=== PATIENT | male | born 1935 | race Caucasian/White ===

== ENCOUNTER 2016-11-16 09:59 | Emergency (ER) | payer MEDICARE, BC ==
[~2016-11-16] VITALS: Ht 182.9 cm; Wt 95.0 kg
[~2016-11-16 09:59] MED LIST: AMIO200T PO; APIX5TAB PO; COMMODE 3-IN-11 MIS; DIGO0.127 PO; FAMO20TA2 NG; FURO1TAB60 PO; GETGO ROLLING W1 MI1; HOSP BED1; LORA-361 PO; TAMS5CAP PO; ULTR50TA5 PO; WHEEMIS3; ZOLO100T PO
[2016-11-16 10:02] VITALS: TEMP 98.5
[2016-11-16] MEDS ORDERED: SODIUM CHLOR 0.9% 1000 ML INJ 1,000 ML IV ONE (10:15)
[2016-11-16] MEDS ORDERED: SODIUM CHLORIDE 0.9% FLUSH 5 ML FLUSH IVF PRN (10:15)
[2016-11-16 10:25] VITALS: BP 147/83; PULSE 90; RESP 18; O2SAT 94
--- NOTE | 2016-11-16 10:25 | PD ---
HPI Chief Complaint: Altered Mental Status Time Seen by Provider: 10:06 Travel History International Travel<30 days: No Contact w/Intl Traveler<30days: No Traveled to known affect area: No History of Present Illness HPI This patient is brought in by his . She says that he's been and had altered mental status for 2 days. He came home from rehabilitation 4 days ago. He received a prescription for tramadol is a new medication and she thinks that may be the cause but is not sure. He is on no other sedating her mind altering medication. He denies headache or head injury. No fevers. reports that he is had visual hallucinations. She wondered if he is going through narcotic withdrawal since he had received a lot of narcotics in his hospital stay. Symptoms severity is moderate. No alleviating factors. PFSH Past Medical History Hx Anticoagulant Therapy: Yes Blood Disorders: No Cancer: Yes (PAROTID) Cardiovascular Problems: Yes High Cholesterol: Yes Coronary Artery Disease: Yes Diabetes: Yes Patient Takes Glucophage: No Diminished Hearing: No Endocrine: No Gastrointestinal Disorders: Yes ( CROHNS DISEASE) GERD: Yes Glaucoma: No Genitourinary: No Hepatitis: No Hiatal Hernia: No Hypertension: Yes Immune Disorder: No Implanted Vascular Access Dvce: No Kidney Stones: Yes Medical other: No Musculoskeletal: No Neurologic: No Psychiatric: No Reproductive: No Respiratory: Yes Migraines: Yes Radiation Therapy: Yes (LAST IN 12/2009) Sleep Apnea: Yes (CPAP) Thyroid Disease: No Tetanus Vaccination: Unknown Past Surgical History Abdominal Surgery: Yes (BILATERAL INGUINAL HERNIA REPAIR) Cardiac Surgery: Yes (RIGHT CEA 2009) Ear Surgery: No Endocrine Surgery: No Eye Surgery: Yes (CATARACT TO LEFT EYE ) Genitourinary Surgery: No Gynecologic Surgery: No Neurologic Surgery: No Oral Surgery: Yes (NASAL SX) Pacemaker: No Thoracic Surgery: No Other Surgery: Yes (LAPAROSCOPIC APPENDECTOMY,PAROTID SURGURY) Social History Alcohol Use: Yes (DAILY 1-2 DRINKS) Tobacco Use: No Substance Use: No Allergies-Medications (Allergen,Severity, Reaction): Coded Allergies: Aspirin (Verified Allergy, Unknown, ABD CRAMPS, 11/16/16) Reported Meds & Prescriptions Reported Meds & Active Scripts Active Ultram (Tramadol HCl) 50 Mg Tab 50 Mg PO Q4H PRN Claritin (Loratadine) 10 Mg Tab 10 Mg PO DAILY Eliquis (Apixaban) 5 Mg Tab 5 Mg PO BID Digox (Digoxin) 0.125 Mg Tab 0.125 Mg PO DAILY Lasix (Furosemide) 40 Mg Tab 40 Mg PO DAILY Famotidine 20 Mg Tab 20 Mg NG DAILY Amiodarone (Amiodarone HCl) 200 Mg Tab 200 Mg PO Q12HR Flomax (Tamsulosin HCl) 0.4 Mg Cap 0.4 Mg PO DAILY Zoloft (Sertraline HCl) 100 Mg Tab 100 Mg PO DAILY Hospital Bed - Electric 1 Ea Ea 1 Ea .ROUTE DIRECTED Commode 3-in-1 (Device) 1 Mis Mis 1 Ea .ROUTE DIRECTED Walker Rolling/GetGo (Device) 1 Mis Mis 1 Ea .ROUTE DIRECTED Wheelchair (Device) 1 Mis Mis 1 Ea .ROUTE DIRECTED Review of Systems General / Constitutional: No: Fever Eyes: No: Visual changes HENT: No: Headaches Cardiovascular: No: Chest Pain or Discomfort Respiratory: No: Shortness of Breath Gastrointestinal: No: Abdominal Pain Genitourinary: No: Dysuria Musculoskeletal: Positive: Weakness, No: Pain Skin: No Rash Neurologic: Positive: Weakness, Change in Mentation Psychiatric: No: Depression Endocrine: No: Polydipsia Hematologic/Lymphatic: No: Easy Bruising Physical Exam Narrative GENERAL: Well-nourished, well-developed patient in no apparent distress. SKIN: Warm and dry. HEAD: Atraumatic. Normocephalic. EYES: Pupils equal and round. No scleral icterus. No injection or drainage. ENT: No nasal bleeding or discharge. Mucous membranes pink and dry. NECK: Trachea midline. No JVD. No meningeal signs CARDIOVASCULAR: Regular rate and rhythm. No murmur appreciated. RESPIRATORY: No accessory muscle use. Clear to auscultation. Breath sounds equal bilaterally. GASTROINTESTINAL: Abdomen soft, non-tender, nondistended. Hepatic and splenic margins not palpable. MUSCULOSKELETAL: No obvious deformities. No clubbing. No cyanosis. No edema. NEUROLOGICAL: Awake and alert. No obvious cranial nerve deficits. Motor grossly within normal limits. Normal speech. PSYCHIATRIC: Appropriate mood and affect; insight and judgment seems normal. Data Data Last Documented VS Vital Signs Date Time Temp Pulse Resp B/P Pulse Ox O2 Delivery O2 Flow Rate FiO2 11/16/16 10:46 74 18 155/64 94 Nasal Cannula 3 11/16/16 10:02 98.5 Orders Electrocardiogram (11/16/16 ) Basic Metabolic Panel (Bmp) (11/16/16 10:15) Complete Blood Count With Diff (11/16/16 10:15) Urinalysis - C+S If Indicated (11/16/16 10:15) Ct Brain W/O Iv Contrast(Rout) (11/16/16 10:15) Ecg Monitoring (11/16/16 10:15) Iv Access Insert/Monitor (11/16/16 10:15) Cath For Specimen (11/16/16 10:15) Oximetry (11/16/16 10:15) Sodium Chloride 0.9% Flush (Ns Flush) (11/16/16 10:15) Sodium Chlor 0.9% 1000 Ml Inj (Ns 1000 M (11/16/16 10:15) Digoxin (11/16/16 10:15) Urine Culture (11/16/16 10:25) Labs Laboratory Tests Test 11/16/16 10:25 White Blood Count 9.0 TH/MM3 Red Blood Count 3.87 MIL/MM3 Hemoglobin 10.7 GM/DL Hematocrit 32.7 % Mean Corpuscular Volume 84.6 FL Mean Corpuscular Hemoglobin 27.7 PG Mean Corpuscular Hemoglobin 32.8 % Concent Red Cell Distribution Width 13.9 % Platelet Count 232 TH/MM3 Mean Platelet Volume 7.8 FL Neutrophils (%) (Auto) 74.8 % Lymphocytes (%) (Auto) 11.4 % Monocytes (%) (Auto) 12.8 % Eosinophils (%) (Auto) 0.7 % Basophils (%) (Auto) 0.3 % Neutrophils # (Auto) 6.7 TH/MM3 Lymphocytes # (Auto) 1.0 TH/MM3 Monocytes # (Auto) 1.2 TH/MM3 Eosinophils # (Auto) 0.1 TH/MM3 Basophils # (Auto) 0.0 TH/MM3 CBC Comment DIFF FINAL Differential Comment Urine Color YELLOW Urine Turbidity CLEAR Urine pH 5.5 Urine Specific Adrian 1.009 Urine Protein NEG mg/dL Urine Glucose (UA) NEG mg/dL Urine Ketones NEG mg/dL Urine Occult Blood NEG Urine Nitrite NEG Urine Bilirubin NEG Urine Urobilinogen LESS THAN 2.0 MG/DL Urine Leukocyte Esterase TRACE Urine WBC 2 /hpf Urine Squamous Epithelial <1 /hpf Cells Urine Bacteria RARE /hpf Urine Hyaline Casts 3 /lpf Urine Mucus FEW /lpf Microscopic Urinalysis Comment CATH-CULTURE IND Sodium Level 136 MEQ/L Potassium Level 3.3 MEQ/L Chloride Level 94 MEQ/L Carbon Dioxide Level 32.8 MEQ/L Anion Gap 9 MEQ/L Blood Urea Nitrogen 14 MG/DL Creatinine 0.88 MG/DL Estimat Glomerular Filtration 83 ML/MIN Rate Random Glucose 90 MG/DL Calcium Level 8.5 MG/DL Digoxin Level 1.4 NG/ML [facility] Medical Decision Making Medical Screen Exam Complete: Yes Emergency Medical Condition: Yes Medical Record Reviewed: Yes Differential Diagnosis Dehydration, electrolyte abnormality, withdrawal of narcotic, intracranial lesion Narrative Course I have reviewed the patient's electronic medical record. Reviewed his discharge summary from the hospital a few days ago IV placed CBC is normal Metabolic profile is normal Digoxin level is normal Urinalysis is clean Brain CT shows nothing acute. 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 No obvious suggestion of significant withdrawal on exam at this point. If he does have a some degree of narcotic withdrawal I expect it to gradually resolve over time. On recheck he is alert and oriented and doing well. I don't feel this rises to a level of hospitalization and who is a nurse and patient agree They have follow-up with Dr. Bowman in 3 days They will hold the tramadol Diagnosis Primary Impression: Acute encephalopathy Additional Impression: Medication side effect Qualified Code: T88.7XXA - Medication side effect, initial encounter Additional Instructions: Hold tramadol The patient was advised to follow up with their physician and return if they worsen. Med/Other Pt SpecificInfo: Other Disposition: 01 DISCHARGE HOME Condition: Stable Yury De La Cruz MD Nov 16, 2016 10:25
[2016-11-16 10:42] LABS: AUTOMATED NEUTROPHIL # 6.7 TH/MM3 (1.8-7.7); BASOPHIL % 0.3 % (0.0-2.0); EOSINOPHIL # 0.1 TH/MM3 (0-0.4); EOSINOPHIL % 0.7 % (0.0-4.0); HEMATOCRIT 32.7 % (39.0-51.0); HEMO FLAGS DIFF FINAL; LYMPH % 11.4 % (9.0-44.0); MEAN CELL VOLUME 84.6 FL (80.0-100.0); MEAN CORPUSCULAR HEMOGLOBIN 27.7 PG (27.0-34.0); MEAN CORPUSCULAR HGB CONC 32.8 % (32.0-36.0); MONO % 12.8 % (0.0-8.0); NEUT % 74.8 % (16.0-70.0); PLATELET COUNT 232 TH/MM3 (150-450); RED BLOOD COUNT 3.87 MIL/MM3 (4.50-5.90); RED CELL DISTRIBUTION WIDTH 13.9 % (11.6-17.2)
[2016-11-16 10:44] VITALS: O2SAT 94
[2016-11-16 10:44] LABS: BACTERIA, URINE RARE /hpf; BLOOD, URINE NEG (NEG); COMMENT (UR) CATH-CULTURE IND; CULTURE IF INDICATED CATH CULTURE IND; GLUCOSE,URINE NEG (NEG); HYALINE CAST, URINE 3 /lpf (RARE); KETONE, URINE NEG (NEG); MUCUS URINE FEW /lpf (OCC); NITRITE,URINE NEG (NEG); PH, URINE 5.5 (5.0-8.5); SQUAMOUS EPITHELIAL CELL URINE <1 /hpf (0-5); URINE COLOR YELLOW (YELLW/STRAW)
[2016-11-16 10:46] VITALS: BP 155/64; PULSE 74; RESP 18; O2SAT 94
--- NOTE | 2016-11-16 10:46 | RADRPT ---
EXAM DATE/TIME: 11/16/2016 10:30 [place] COMPARISON: No previous studies available for comparison. INDICATIONS : Altered mental status. RADIATION DOSE: 69.16 CTDIvol (mGy) MEDICAL HISTORY : Cardiovascular disease. Hypertension. Diabetes mellitus type 2.Parotid cancer. SURGICAL HISTORY : None. ENCOUNTER: Initial ACUITY: 1 day PAIN SCALE: 3/10 LOCATION: cranial TECHNIQUE: Multiple contiguous axial images were obtained of the head. Using automated exposure control and adj ustment of the mA and/or kV according to patient size, radiation dose was kept as low as reasonably a chievable to obtain optimal diagnostic quality images. FINDINGS: CEREBRUM: There is diffuse atrophic change. 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 No acute s troke or hemorrhage identified The ventricles are normal for age. No evidence of midline shift, mass lesion, hemorrhage or acute infarction. No extra-axial fluid collections are seen. POSTERIOR FOSSA: The cerebellum and brainstem are intact. The 4th ventricle is midline. The cerebellopontine angle i s unremarkable. EXTRACRANIAL: The visualized portion of the orbits is intact. SKULL: The calvaria is intact. No evidence of skull fracture. 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 No evidence of acute hemorrhage, edema, mass or m ass effect.. Андрей Bautista MD on November 16, 2016 at 10:43 Board Certified Radiologist. This report was verified electronically.
[2016-11-16 10:55] LABS: BICARBONATE 32.8 MEQ/L (21.0-32.0); POTASSIUM 3.3 MEQ/L (3.5-5.1)
[2016-11-16 11:10] LABS: DIGOXIN 1.4 NG/ML (0.8-2.0)
[2016-11-16 12:06] VITALS: BP 148/63
--- NOTE | 2016-11-17 19:45 | EKG ---
Date Performed: 11/16/2016 Time Performed: 10:13:42 PTAGE: 81 years EKG: ATRIAL FLUTTER/TACHYCARDIA MODERATE INTRAVENTRICULAR CONDUCTION DELAY NONSPECIFIC ST & T-WA VE ABNORMALITY ABNORMAL RHYTHM ECG PREVIOUS TRACING : 10/10/2016 13.34 DOCTOR: Tay Paez Interpretating Date/Time 11/17/2016 19:39:00
[2016-12-31] MEDS ORDERED: SENN1TAB PO (10:29)
[2016-12-31] MEDS ORDERED: APIX5TAB PO (10:29)
[2016-12-31] MEDS ORDERED: POTA10TA2 PO (11:00)
[2016-12-31] MEDS ORDERED: ULTR50TA5 PO (11:00)
[2016-12-31] MEDS ORDERED: FURO1TAB60 PO (11:00)
[2016-12-31] MEDS ORDERED: VANC125C3 PO (11:00)
[2016-12-31] MEDS ORDERED: TRAZ50TA12 PO (11:00)
[2016-12-31] MEDS ORDERED: LACT PO (11:00)
[2016-12-31] MEDS ORDERED: FAMO20TA2 NG (11:00)
[2016-12-31] MEDS ORDERED: TAMS5CAP PO (11:00)
[2016-12-31] MEDS ORDERED: AMIO200T PO (11:00)
[2016-12-31] MEDS ORDERED: ZOLO100T PO (11:00)
[2016-12-31] MEDS ORDERED: METO25TA3 PO (11:00)
[2016-12-31] MEDS ORDERED: VITA100T2 PO (11:00)
[2016-12-31] MEDS ORDERED: LORA-361 PO (11:00)
[2016-12-31] MEDS ORDERED: NYST15T TOPICAL (12:08)
== END 2016-11-16 12:50 | disposition home or self-care (01) ==
LOC: NEPC 09:59
DX: G93.40 Encephalopathy, unspecified (principal); T88.7XXA Unspecified adverse effect of drug or medicament, initial encounter; E78.00 Pure hypercholesterolemia, unspecified; I25.10 Atherosclerotic heart disease of native coronary artery without angina pectoris; E11.9 Type 2 diabetes mellitus without complications; I10 Essential (primary) hypertension; G47.30 Sleep apnea, unspecified; K21.9 Gastro-esophageal reflux disease without esophagitis; K50.90 Crohn's disease, unspecified, without complications; R00.0 Tachycardia, unspecified; I48.92 Unspecified atrial flutter; Z79.01 Long term (current) use of anticoagulants
CPT/HCPCS: 70450; 80048; 80162; 81001; 85025; 87086; 93005; 96360; 99285; J7030

== ENCOUNTER 2016-11-30 12:51 | Inpatient (IN) | payer MEDICARE, BC ==
[~2016-11-30] VITALS: Ht 182.9 cm; Wt 90.0 kg
[2016-11-30 12:55] VITALS: BP 186/84; PULSE 90; RESP 18; TEMP 97.4; O2SAT 88
--- NOTE | 2016-11-30 13:49 | PD ---
HPI Chief Complaint: Abdominal Pain Time Seen by Provider: 13:04 Travel History International Travel<30 days: No Contact w/Intl Traveler<30days: No Traveled to known affect area: No History of Present Illness HPI This patient complains of epigastric pain. He's had chronic epigastric pain every day for a month but the pain is Significantly worse in the last 2-3 days.. His brought him in here because she mistakenly thought that he was complaining about chest pain. He confirms that the pain is in his upper abdomen like it is always been. He has not had any chest symptoms today. No fever. No diarrhea. He vomited multiple times today. Severity is moderate to severe. No alleviating factors. PFSH Past Medical History Hx Anticoagulant Therapy: Yes Blood Disorders: No Cancer: Yes (PAROTID) Cardiovascular Problems: Yes High Cholesterol: Yes Coronary Artery Disease: Yes Diabetes: Yes Patient Takes Glucophage: Yes Diminished Hearing: No Endocrine: No Gastrointestinal Disorders: Yes ( CROHNS DISEASE) GERD: Yes Glaucoma: No Genitourinary: No Hepatitis: No Hiatal Hernia: No Hypertension: Yes Immune Disorder: No Implanted Vascular Access Dvce: No Kidney Stones: Yes Musculoskeletal: No Neurologic: No Psychiatric: No Reproductive: No Respiratory: Yes Migraines: Yes Radiation Therapy: Yes (LAST IN 12/2009) Sleep Apnea: Yes (CPAP) Thyroid Disease: No Tetanus Vaccination: < 5 Years Past Surgical History Abdominal Surgery: Yes (BILATERAL INGUINAL HERNIA REPAIR) Cardiac Surgery: Yes (RIGHT CEA 2009) Ear Surgery: No Endocrine Surgery: No Eye Surgery: Yes (CATARACT TO LEFT EYE ) Genitourinary Surgery: No Gynecologic Surgery: No Neurologic Surgery: No Oral Surgery: Yes (NASAL SX) Pacemaker: No Thoracic Surgery: No Other Surgery: Yes (LAPAROSCOPIC APPENDECTOMY,PAROTID SURGURY) Social History Alcohol Use: Yes (DAILY 1-2 DRINKS) Tobacco Use: No Substance Use: No Allergies-Medications (Allergen,Severity, Reaction): Coded Allergies: Aspirin (Verified Allergy, Unknown, ABD CRAMPS, 11/30/16) Reported Meds & Prescriptions Reported Meds & Active Scripts Active Ultram (Tramadol HCl) 50 Mg Tab 50 Mg PO Q4H PRN Claritin (Loratadine) 10 Mg Tab 10 Mg PO DAILY Eliquis (Apixaban) 5 Mg Tab 5 Mg PO BID Digox (Digoxin) 0.125 Mg Tab 0.125 Mg PO DAILY Lasix (Furosemide) 40 Mg Tab 40 Mg PO DAILY Famotidine 20 Mg Tab 20 Mg NG DAILY Amiodarone (Amiodarone HCl) 200 Mg Tab 200 Mg PO Q12HR Flomax (Tamsulosin HCl) 0.4 Mg Cap 0.4 Mg PO DAILY Zoloft (Sertraline HCl) 100 Mg Tab 100 Mg PO DAILY Hospital Bed - Electric 1 Ea Ea 1 Ea .ROUTE DIRECTED Commode 3-in-1 (Device) 1 Mis Mis 1 Ea .ROUTE DIRECTED Walker Rolling/GetGo (Device) 1 Mis Mis 1 Ea .ROUTE DIRECTED Wheelchair (Device) 1 Mis Mis 1 Ea .ROUTE DIRECTED Review of Systems General / Constitutional: No: Fever Eyes: No: Visual changes HENT: No: Headaches Cardiovascular: No: Chest Pain or Discomfort Respiratory: No: Shortness of Breath Gastrointestinal: Positive: Nausea, Vomiting, Abdominal Pain Genitourinary: No: Dysuria Musculoskeletal: No: Pain Skin: No Rash Neurologic: No: Weakness Psychiatric: No: Depression Endocrine: No: Polydipsia Hematologic/Lymphatic: No: Easy Bruising Physical Exam Narrative GENERAL: Well-nourished, well-developed patient in no apparent distress. SKIN: Warm and dry. HEAD: Atraumatic. Normocephalic. EYES: Pupils equal and round. No scleral icterus. No injection or drainage. ENT: No nasal bleeding or discharge. Mucous membranes pink and moist. NECK: Trachea midline. No JVD. CARDIOVASCULAR: Regular rate and rhythm. No murmur appreciated. RESPIRATORY: No accessory muscle use. Clear to auscultation. Breath sounds equal bilaterally. GASTROINTESTINAL: Abdomen soft, has some epigastric tenderness without rebound or guarding, nondistended. Hepatic and splenic margins not palpable. MUSCULOSKELETAL: No obvious deformities. No clubbing. No cyanosis. No edema. NEUROLOGICAL: Awake and alert. No obvious cranial nerve deficits. Motor grossly within normal limits. Normal speech. PSYCHIATRIC: Appropriate mood and affect; insight and judgment normal. Data Data Last Documented VS Vital Signs Date Time Temp Pulse Resp B/P Pulse Ox O2 Delivery O2 Flow Rate FiO2 11/30/16 13:01 11/30/16 12:55 97.4 90 18 88 Room Air Orders Electrocardiogram (11/30/16 ) Iv Access Insert/Monitor (11/30/16 13:32) Complete Blood Count With Diff (11/30/16 13:32) Comprehensive Metabolic Panel (11/30/16 13:32) Lipase (11/30/16 13:32) Ondansetron Inj (Zofran Inj) (11/30/16 14:30) Morphine Inj (Morphine Inj) (11/30/16 14:30) Sodium Chlor 0.9% 1000 Ml Inj (Ns 1000 M (11/30/16 14:30) Hydromorphone Pf Inj (Dilaudid Pf Inj) (11/30/16 15:45) Admit Order (Ed Use Only) (11/30/16 15:38) Labs Laboratory Tests Test 11/30/16 13:45 White Blood Count 12.9 TH/MM3 Red Blood Count 4.51 MIL/MM3 Hemoglobin 12.4 GM/DL Hematocrit 37.9 % Mean Corpuscular Volume 84.1 FL Mean Corpuscular Hemoglobin 27.5 PG Mean Corpuscular Hemoglobin 32.6 % Concent Red Cell Distribution Width 14.9 % Platelet Count 357 TH/MM3 Mean Platelet Volume 7.9 FL Neutrophils (%) (Auto) 78.1 % Lymphocytes (%) (Auto) 15.0 % Monocytes (%) (Auto) 5.7 % Eosinophils (%) (Auto) 0.6 % Basophils (%) (Auto) 0.6 % Neutrophils # (Auto) 10.1 TH/MM3 Lymphocytes # (Auto) 1.9 TH/MM3 Monocytes # (Auto) 0.7 TH/MM3 Eosinophils # (Auto) 0.1 TH/MM3 Basophils # (Auto) 0.1 TH/MM3 CBC Comment DIFF FINAL Differential Comment Sodium Level 139 MEQ/L Potassium Level 4.0 MEQ/L Chloride Level 100 MEQ/L Carbon Dioxide Level 34.0 MEQ/L Anion Gap 5 MEQ/L Blood Urea Nitrogen 12 MG/DL Creatinine 1.23 MG/DL Estimat Glomerular Filtration 56 ML/MIN Rate Random Glucose 147 MG/DL Calcium Level 8.8 MG/DL Total Bilirubin 0.4 MG/DL Aspartate Amino Transf 35 U/L (AST/SGOT) Alanine Aminotransferase 59 U/L (ALT/SGPT) Alkaline Phosphatase 139 U/L Total Protein 7.0 GM/DL Albumin 3.0 GM/DL Lipase 3381 U/L [facility] Medical Decision Making Medical Screen Exam Complete: Yes Emergency Medical Condition: Yes Medical Record Reviewed: Yes Differential Diagnosis Chronic pancreatitis, pseudocyst, gastritis Narrative Course I have reviewed the patient's electronic medical record. I saw him 10 days ago for his concern about a medication side effect. IV placed CBC shows minimal leukocytosis of 12.8 Metabolic profile is normal LFTs are normal Lipase Is elevated at 3300 This patient has known gallstone pancreatitis but could not get a cholecystectomy according to Gen. surgery until cardiac clearance was obtained. He did have a recent non-STEMI. He is scheduled this week for outpatient cardiac testing but the patient is having worse pain and vomiting and he is old and frail and not doing well at home. I gave him Zofran and morphine and IV fluid and he is still in pain and throwing up. He will require admission for his acute pancreatitis. At least 2 control symptoms. I reviewed with Dr. Lay who will admit Diagnosis Primary Impression: Acute pancreatitis Qualified Code: K85.10 - Acute biliary pancreatitis without infection or necrosis Admitting Information Admitting Physician Requests: Admit Yury De La Cruz MD Nov 30, 2016 13:49
[2016-11-30 14:00] LABS: AUTOMATED NEUTROPHIL # 10.1 TH/MM3 (1.8-7.7); BASOPHIL # 0.1 TH/MM3 (0-0.2); BASOPHIL % 0.6 % (0.0-2.0); EOSINOPHIL # 0.1 TH/MM3 (0-0.4); EOSINOPHIL % 0.6 % (0.0-4.0); HEMATOCRIT 37.9 % (39.0-51.0); HEMO FLAGS DIFF FINAL; LYMPHOCYTE # 1.9 TH/MM3 (1.0-4.8); MEAN CELL VOLUME 84.1 FL (80.0-100.0); MEAN CORPUSCULAR HEMOGLOBIN 27.5 PG (27.0-34.0); MEAN CORPUSCULAR HGB CONC 32.6 % (32.0-36.0); MONO % 5.7 % (0.0-8.0); NEUT % 78.1 % (16.0-70.0); PLATELET COUNT 357 TH/MM3 (150-450); RED BLOOD COUNT 4.51 MIL/MM3 (4.50-5.90); RED CELL DISTRIBUTION WIDTH 14.9 % (11.6-17.2); WHITE BLOOD COUNT 12.9 TH/MM3 (4.0-11.0)
[2016-11-30 14:15] LABS: ANION GAP 5 MEQ/L (5-15)
[2016-11-30 14:18] LABS: ALKALINE PHOSPHATASE 139 U/L (45-117); ALT (GPT) 59 U/L (12-78); AST (GOT) 35 U/L (15-37); BLOOD UREA NITROGEN 12 MG/DL (7-18); CHLORIDE 100 MEQ/L (98-107); GLOMERULAR FILTRATION RATE 56 ML/MIN (>89); SODIUM (NA) 139 MEQ/L (136-145); TOTAL BILIRUBIN ADULT 0.4 MG/DL (0.2-1.0)
[2016-11-30] MEDS ORDERED: SODIUM CHLOR 0.9% 1000 ML INJ 1,000 ML IV ONE (14:30)
[2016-11-30] MEDS ORDERED: MORPHINE SULFATE 4 MG/ML INJ IV PUSH ONE (14:30)
[2016-11-30] MEDS ORDERED: ONDANSETRON HCL 4 MG/2 ML VIAL IV ONE (14:30)
[2016-11-30] MEDS ORDERED: HYDROmorphone HCL PF 1 MG/ML VIAL IVS ONE (15:45)
[2016-11-30] MEDS ORDERED: ONDANSETRON HCL 4 MG/2 ML VIAL IVP PRN (16:00)
[2016-11-30] MEDS ORDERED: PROCHLORPERAZINE 25 MG SUPP PR PRN (16:00)
[2016-11-30] MEDS ORDERED: NALOXONE HCL 0.4 MG/ML AMP IV PRN (16:00)
[2016-11-30] MEDS ORDERED: SODIUM CHLORIDE 0.9% FLUSH 5 ML FLUSH FLUSH PRN (16:00)
--- NOTE | 2016-11-30 16:34 | HHI.HP ---
HPI Service [facility] Primary Care Physician Agus Bowman DO Admission Diagnosis pancreatitis Diagnoses: Chief Complaint: abdominal pain, N/V (Nida Lopez) Travel History International Travel<30 Days: No Contact w/Intl Traveler <30 Da: No Traveled to Known Affected Are: No (Nida Lopez) History of Present Illness Pt is an 81-year-old male, with past medical history significant for hypertension, coronary artery disease, dyslipidemia and previous right carotid stenosis with carotid endarterectomy, prior ETOH and tobacco abuse, and obesity. Pt. had a recent prolonged hospitalization and subsequent rehab at [facility] after he was admitted on 10/09/2016 with acute pancreatitis secondary to gallstones. Patient developed respiratory distress requiring intubation and mechanical ventilation. He also went into new onset A. fib that require amiodarone drip and cardioversion. During this prior hospitalization, he was evaluated by Dr. Umanzor and informed pt that due to the gallstones, he would eventually need cholecystectomy in th future. He was instructed to follow up as outpatient after he underwent rehabilitation and had improved. Pt was finally extubated and recovered. He was eventually discharged to [facility] with postpyloric feedings and was eventually advanced to a regular diet. Patient was discharged from [facility] on 11/13/2016. According to the he had been doing fairly well, he had been weak but had been ambulating with a walker. This morning, patient woke up with recurrent epigastric pain similar to previous presentation with pancreatitis. He had associated nausea and vomiting 3, with yellow colored emesis. No fever, no chills. 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 According to , patient had not followed up with Dr. Umanzor, they were waiting to see Dr. De La Rosa who had previously evaluated the pt. for a left axillary lymph node biopsy that he was due to have before he became critically ill in October. She is requesting that surgery consultation be called to Dr. De La Rosa. endorses that patient is currently undergoing cardiac workup with Dr. Aceves. He was supposed to have a carotid ultrasound and was due to have a stress test next week. He is on amiodarone as well as Eliquis. Because of his complicated medical history and new cardiac problems, Dr. Aceves was evaluating him before he made any appointments to see general surgery. Patient denies any chest pain, no shortness of breath, no palpitations. His amiodarone was recently decreased to 200 mg by mouth daily. In the emergency room, patient was evaluated and was noted with elevated lipase of 3381. He had mild leukocytosis. Sats on room air were 88%, patient is on oxygen at 2 L at home. No imaging studies have been completed. He was given IV fluids, IV narcotics and antiemetics. At this time, he indicates his pain is well-controlled. Patient is admitted for further evaluation and treatment. (Nida Lopez) Review of Systems Constitutional: COMPLAINS OF: Fatigue Gastrointestinal: COMPLAINS OF: Abdominal pain, Nausea, Vomiting Other right preauricular mass, firm, per , appears slightly larger. (Nida Lopez) Past Family Social History Past Medical History Left eye cataract Obesity Migraine Coronary disease Right carotid stenosis Hyperlipidemia Hypertension Sleep apnea Crohn's disease Bilateral inguinal hernias Reflux disease Kidney stones Enlarged prostate Current Tobacco use Parotid cancer, he sees oncologist Pulmonary nodule for which she sees Lymphadenopathy including hilar and right groin, etiology unclear Past Surgical History Nasal surgery Right carotid endarterectomy Bilateral inguinal hernia repair Appendectomy Right Parotid surgery Reported Medications Reported Meds & Active Scripts Active Ultram (Tramadol HCl) 50 Mg Tab 50 Mg PO Q4H PRN Claritin (Loratadine) 10 Mg Tab 10 Mg PO DAILY Eliquis (Apixaban) 5 Mg Tab 5 Mg PO BID Digox (Digoxin) 0.125 Mg Tab 0.125 Mg PO DAILY Lasix (Furosemide) 40 Mg Tab 40 Mg PO DAILY Famotidine 20 Mg Tab 20 Mg NG DAILY Amiodarone (Amiodarone HCl) 200 Mg Tab 200 Mg PO Q12HR Flomax (Tamsulosin HCl) 0.4 Mg Cap 0.4 Mg PO DAILY Zoloft (Sertraline HCl) 100 Mg Tab 100 Mg PO DAILY Hospital Bed - Electric 1 Ea Ea 1 Ea .ROUTE DIRECTED Commode 3-in-1 (Device) 1 Mis Mis 1 Ea .ROUTE DIRECTED Walker Rolling/GetGo (Device) 1 Mis Mis 1 Ea .ROUTE DIRECTED Wheelchair (Device) 1 Mis Mis 1 Ea .ROUTE DIRECTED (Gross,Nida G. [employer] OFFICER) Allergies: Coded Allergies: Aspirin (Verified Allergy, Unknown, ABD CRAMPS, 11/30/16) Active Ordered Medications Inpatient Medications Amiodarone HCl (Cordarone) 200 mg DAILY PO ; Start 12/01/16 at 09:00 Apixaban (Eliquis) 5 mg BID PO ; Start 11/30/16 at 21:00 Digoxin (Lanoxin) 0.125 mg DAILY PO ; Start 12/01/16 at 09:00 Famotidine (Pepcid) 20 mg DAILY NG ; Start 12/01/16 at 09:00 Furosemide (Lasix) 40 mg DAILY PO ; Start 12/01/16 at 09:00 Hydromorphone HCl 0.5 mg 0.5 mg ONCE ONCE IVS Last administered on 11/30/16 15:56; Start 11/30/16 at 15:45; Stop 11/30/16 at 15:46; Status DC IV Flush (NS Flush) 2 ml BID FLUSH ; Start 11/30/16 at 21:00 Lactated Ringer's (Lr 1000 ml Inj) 1,000 ml @ 70 mls/hr [id number] IV ; Start at 16:00 Loratadine (Claritin) 10 mg DAILY PO ; Start 12/01/16 at 09:00 Morphine Sulfate 4 mg 4 mg ONCE ONCE IV PUSH Last administered on 11/30/16 14 :58; Start 11/30/16 at 14:30; Stop 11/30/16 at 14:31; Status DC Naloxone HCl (Narcan Inj) 0.4 mg UNSCH PRN IV SEE LABEL COMMENTS; Start at 16:00 Ondansetron HCl (Zofran Inj) 4 mg Q6H PRN IVP NAUSEA OR VOMITING; Start at 16:00 Prochlorperazine (Compazine Supp) 25 mg Q12H PRN DC NAUSEA OR VOMITING; Start 11/30/16 at 16:00 Sertraline HCl (Zoloft) 100 mg DAILY PO ; Start 12/01/16 at 09:00 Sodium Chloride (NS 1000 ml Inj) 1,000 ml @ 2,000 mls/hr Q30M ONCE IV Last administered on 11/30/16 14:59; Start 11/30/16 at 14:30; Stop 11/30/16 at 14:59 ; Status DC Tamsulosin HCl (Flomax) 0.4 mg DAILY PO ; Start 12/01/16 at 09:00 Tramadol HCl (Ultram) 50 mg Q4H PRN PO Pain 7-10; Start 11/30/16 at 16:00 Family History Reviewed, non contributory. Son has hepatitis Social History Patient lives at home with , uses a walker. Used to smoke and drink heavily , quit in October 2016. (Nida Lopez) Physical Exam Vital Signs Vital Signs Date Time Temp Pulse Resp B/P Pulse Ox O2 Delivery O2 Flow Rate FiO2 11/30/16 13:01 11/30/16 12:55 97.4 90 18 186/84 88 Room Air Physical Exam GENERAL: This is a well-nourished, well-developed patient, in no apparent distress. SKIN: No rashes, ecchymoses or lesions. Cool and dry. HEAD: Atraumatic. Normocephalic. No temporal or scalp tenderness. EYES: Pupils equal round and reactive. Extraocular motions intact. No scleral icterus. No injection or drainage. ENT: Nose without bleeding, purulent drainage or septal hematoma. Throat without erythema, tonsillar hypertrophy or exudate. Uvula midline. Airway patent. Oral mucosa dry. Right preauricular area is noted with firm, nodule, non tender. NECK: Trachea midline. No JVD or lymphadenopathy. Supple, nontender, no meningeal signs. CARDIOVASCULAR: Regular rate and rhythm without murmurs, gallops, or rubs. RESPIRATORY: Diminished at bases. GASTROINTESTINAL: Abdomen soft, tender to right upper and epigastric area, nondistended. No hepato-splenomegaly, or palpable masses. No guarding. MUSCULOSKELETAL: Extremities without clubbing, cyanosis, trace pedal edema. Pedal pulses 1+. No joint tenderness, effusion, or edema noted. No calf tenderness. Negative Homans sign bilaterally. NEUROLOGICAL: Awake, oriented x 3. No focal deficits. A little sleepy, but wakes up, conversant. Laboratory Laboratory Tests Test 11/30/16 13:45 White Blood Count 12.9 Red Blood Count 4.51 Hemoglobin 12.4 Hematocrit 37.9 Mean Corpuscular Volume 84.1 Mean Corpuscular Hemoglobin 27.5 Mean Corpuscular Hemoglobin 32.6 Concent Red Cell Distribution Width 14.9 Platelet Count 357 Mean Platelet Volume 7.9 Neutrophils (%) (Auto) 78.1 Lymphocytes (%) (Auto) 15.0 Monocytes (%) (Auto) 5.7 Eosinophils (%) (Auto) 0.6 Basophils (%) (Auto) 0.6 Neutrophils # (Auto) 10.1 Lymphocytes # (Auto) 1.9 Monocytes # (Auto) 0.7 Eosinophils # (Auto) 0.1 Basophils # (Auto) 0.1 CBC Comment DIFF FINAL Differential Comment Sodium Level 139 Potassium Level 4.0 Chloride Level 100 Carbon Dioxide Level 34.0 Anion Gap 5 Blood Urea Nitrogen 12 Creatinine 1.23 Estimat Glomerular Filtration 56 Rate Random Glucose 147 Calcium Level 8.8 Total Bilirubin 0.4 Aspartate Amino Transf 35 (AST/SGOT) Alanine Aminotransferase 59 (ALT/SGPT) Alkaline Phosphatase 139 Total Protein 7.0 Albumin 3.0 Lipase 3381 (Nida Lopez) Result Diagram: 11/30/16 1345 11/30/16 1345 Assessment and Plan Problem List: (1) Pancreatitis (2) Abdominal pain (3) Vomiting (4) Atrial fibrillation (5) GERD (gastroesophageal reflux disease) (6) Hypertension (7) Gall stone (8) Hx of malignant neoplasm of parotid gland Plan: has a firm mass, to preauricular area (9) Sleep apnea Assessment and Plan Admit to Dr. Lay 81-year-old male with history of gallstone pancreatitis, presented to emergency room with right upper quadrant and epigastric pain associated with nausea and vomiting. Lipase 3381. Patient admitted with recurrent pancreatitis, likely secondary to gallstone. -Continue with IV fluids CT of the abdomen and pelvis Gen. surgery for evaluation, patient's is requesting Dr. De La Rosa. Patient was to follow up as outpatient for cholecystectomy after last admission -Continue with IV narcotics as needed -Continue with antiemetics as needed -Okay for clear liquid diet -Repeat lipase in the morning Hx atrial fibrillation, currently sinus rhythm Continue with amiodarone Continuous cardiac telemetry -Continue with Eliquis Hypoxia, on oxygen at home. Possibly underlying COPD. Continue with oxygen at 2 L to keep sats greater than 92 Incentive spirometer as needed GERD Continue with Pepcid HTN, stable -continue with home medications History of right parotid cancer, has a firm mass to preauricular area that appears to have increased in size -Monitor for now May need consultation with oncology, patient follows up with Dr. Badillo. Sleep apnea Continue CPAP from home Home medications reviewed, initiated as indicated Continue with Eliquis for DVT prophylaxis Continue with Pepcid for GI prophylaxis We will obtain cardiology consultation with Dr. Aceves in the event patient requires any surgery Plan of care has been discussed with the patient and his , attending, RN. Further management of the patient be dependent on the hospital course Patient requires inpatient admission for anticipated stay greater than 2 days for recurrent pancreatitis, leukocytosis. Due to patient's advanced age and comorbidities, patient is at risk for sepsis, septic shock, possibly . Patient requires admission for IV fluids, IV narcotics, evaluation by general surgery for possible cholecystectomy. Anticipated discharge back to home with home health care versus rehabilitation facility when stable This patient was seen by myself and Dr. Lay, this H&P is written on his behalf (Nida Lopez) Assessment and Plan seen, examined by myself, Dr Lay, today Discussed with patient and his acute pancreatitis admit for pain control consult surgery and cardiology possibly also GI Discussed with mid level provider The exam, history, and the medical decision-making described in the above note were completed with the assistance of the mid-level provider. I reviewed the findings presented. I attest that I had a [id number] encounter with the patient on the same day, and personally performed and documented my assessment and findings in the medical record. (Melo Lay MD) Physician Certification 2 Midnight Certification Type: Admission for Inpatient Services Order for Inpatient Services The services are ordered in accordance with Medicare regulations or non- Medicare payer requirements, as applicable. In the case of services not specified as inpatient-only, they are appropriately provided as inpatient services in accordance with the 2-midnight benchmark. Estimated LOS (days): 2 2 days is the estimated time the patient will need to remain in the hospital, assuming treatment plan goals are met and no additional complications. 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
[2016-11-30] MEDS ORDERED: IOHEXOL 350 MG/ML 10 ML VIAL (for RAD DIAG) IV ONE (17:40)
--- NOTE | 2016-11-30 17:59 | EKG ---
Date Performed: 11/30/2016 Time Performed: 13:02:54 PTAGE: 81 years EKG: ATRIAL FIBRILLATION NONSPECIFIC INTRAVENTRICULAR CONDUCTION DELAY ST/T-WAVE ABNORMALITY, CO NSIDER INFERIOR AND LATERAL ISCHEMIA ABNORMAL ECG PREVIOUS TRACING : 11/16/2016 10.13 No significant change from previous tracing noted. DOCTOR: Jorge Tiwari Interpretating Date/Time 11/30/2016 17:57:43
--- NOTE | 2016-11-30 18:01 | RADRPT ---
EXAM DATE/TIME: 11/30/2016 17:37 [facility] COMPARISON: No previous studies available for comparison. INDICATIONS : Upper abdominal pain; possible pancreatitis. IV CONTRAST: 96 cc Omnipaque 350 (iohexol) IV ORAL CONTRAST: No oral contrast ingested. RADIATION DOSE: 12.86 CTDIvol (mGy) MEDICAL HISTORY : Cardiovascular disease. Hypertension. Diabetes mellitus type 2.Parotid cancer, enlarged prostate SURGICAL HISTORY : None. ENCOUNTER: Initial ACUITY: 1 day PAIN SCALE: 7/10 LOCATION: abdomen TECHNIQUE: Volumetric scanning of the abdomen and pelvis was performed. Using automated exposure control and ad justment of the mA and/or kV according to patient size, radiation dose was kept as low as reasonably achievable to obtain optimal diagnostic quality images. FINDINGS: There is an abnormal appearance to the pancreas with diffuse enlargement and induration of the fat ab out the head and body. There are no calcifications with in the pancreas. Mild amount of free fluid is seen about the liver. No tracking of fluid in either paracolic gutter no free fluid in the pelvis . The liver has a homogeneous pattern of enhancement and no focal lesions seen. No calcified gallstone s. The spleen and adrenal glands are unremarkable. There is cyst in the midpole the left kidney pos teriorly measuring 1 cm. There is a calcification in the lower pole collecting system on the left si de and adjacent thinning of the cortex of the right lower pole suggesting chronic pyelonephritis. No evidence of hydronephrosis. The calcified stone measures 8 mm. Prominent wall calcification in the abdominal aorta with AP dimension of the abdomen or measuring 2.7 cm. There are patchy areas of partially consolidative infiltrate in both lower lobes. No significant ple ural effusion on each side. No dilated loops of small or large bowel. There are diffuse diverticula seen throughout the transver se, left, and sigmoid colon without radiographic evidence of diverticulitis. CONCLUSION: 1. Diffusely enlarged pancreas with induration of the soft tissues surrounding the head and body and multiple small hypodense areas suggesting possible pseudocyst formation. There is also tracking of f luid in Morison's pouch and along the lateral aspect of the liver. The findings are characteristic o f acute pancreatitis. 2. Diffuse diverticulosis throughout the colon with out radiographic evidence of diverticulitis. 3. Bilateral lower lung partially consolidative infiltrates. 1. Delgado Licona MD on November 30, 2016 at 17:54 Board Certified Radiologist. This report was verified electronically.
[2016-11-30] MEDS: LACTATED RINGER'S 1000 ML INJ 1,000 ML IV SCH ×2 (18:02→21:16)
[2016-11-30] MEDS ORDERED: RESP: ALBUTEROL 2.5 MG/IPRATROPIUM 0.5 MG NEB (PRN) NEB (18:15)
[2016-11-30 19:40] VITALS: BP 165/79; PULSE 86; RESP 18; TEMP 96.7; O2SAT 95
[2016-11-30] MEDS: APIXABAN 5 MG TABLET PO SCH (21:00)
[2016-11-30] MEDS ORDERED: AMIODARONE 200 MG TAB PO SCH (21:00)
[2016-11-30 21:12] VITALS: PULSE 76; O2SAT 95
[2016-11-30] MEDS: traMADol HCL 50 MG TAB PO PRN (21:15)
[2016-11-30] MEDS: SODIUM CHLORIDE 0.9% FLUSH 5 ML FLUSH FLUSH SCH (21:16)
[2016-11-30 23:20] VITALS: PULSE 132
[2016-11-30] MEDS ORDERED: AMIODARONE 200 MG TAB PO ONE (23:45)
[2016-12-01] VITALS (9 sets, daily range): BP systolic 110–150; BP diastolic 52–74; PULSE 58–104; RESP 16–18; TEMP 96–97.8; O2SAT 92–96
[2016-12-01] MEDS: HYDROmorphone HCL PF 1 MG/ML VIAL IV PRN ×4 (00:07→18:26)
[2016-12-01 04:37] LABS: AUTOMATED NEUTROPHIL # 10.5 TH/MM3 (1.8-7.7); BASOPHIL # 0.1 TH/MM3 (0-0.2); BASOPHIL % 0.4 % (0.0-2.0); EOSINOPHIL % 0.2 % (0.0-4.0); HEMATOCRIT 36.1 % (39.0-51.0); HEMO FLAGS DIFF FINAL; LYMPH % 11.3 % (9.0-44.0); LYMPHOCYTE # 1.5 TH/MM3 (1.0-4.8); MEAN CORPUSCULAR HEMOGLOBIN 27.4 PG (27.0-34.0); MEAN CORPUSCULAR HGB CONC 32.2 % (32.0-36.0); MONO % 7.3 % (0.0-8.0); NEUT % 80.8 % (16.0-70.0); PLATELET COUNT 322 TH/MM3 (150-450); RED BLOOD COUNT 4.24 MIL/MM3 (4.50-5.90); RED CELL DISTRIBUTION WIDTH 14.6 % (11.6-17.2)
[2016-12-01 05:03] LABS: ALT (GPT) 48 U/L (12-78); ANION GAP 5 MEQ/L (5-15); BICARBONATE 33.7 MEQ/L (21.0-32.0); BLOOD UREA NITROGEN 13 MG/DL (7-18); CHLORIDE 102 MEQ/L (98-107); POTASSIUM 4.3 MEQ/L (3.5-5.1); SODIUM (NA) 141 MEQ/L (136-145)
[2016-12-01 05:36] LABS: ALKALINE PHOSPHATASE 114 U/L (45-117); AST (GOT) 28 U/L (15-37); INDIRECT BILIRUBIN 0.4 MG/DL (0.0-0.8); TOTAL BILIRUBIN ADULT 0.6 MG/DL (0.2-1.0)
--- NOTE | 2016-12-01 08:26 | EKG ---
Date Performed: 12/01/2016 Time Performed: 07:14:36 PTAGE: 81 years EKG: ATRIAL FIBRILLATION NONSPECIFIC INTRAVENTRICULAR CONDUCTION DELAY NONSPECIFIC ST & T-WAVE A BNORMALITY ABNORMAL RHYTHM ECG PREVIOUS TRACING : 11/30/2016 13.02 No significant change from previous tracing noted. DOCTOR: Jorge Tiwari Interpretating Date/Time 12/01/2016 08:25:26
[2016-12-01] MEDS: SODIUM CHLORIDE 0.9% FLUSH 5 ML FLUSH FLUSH SCH ×2 (09:56→21:03)
[2016-12-01] MEDS: FAMOTIDINE 20 MG TAB NG SCH (09:57)
[2016-12-01] MEDS: TAMSULOSIN HCL 0.4 MG CAP PO SCH (09:57)
[2016-12-01] MEDS: FUROSEMIDE 40 MG TAB PO SCH (09:57)
[2016-12-01] MEDS: AMIODARONE 200 MG TAB PO SCH (09:57)
[2016-12-01] MEDS: LORATADINE 10 MG TAB PO SCH (09:57)
[2016-12-01] MEDS: SERTRALINE HCL 100 MG TAB PO SCH (09:57)
[2016-12-01] MEDS: APIXABAN 5 MG TABLET PO SCH ×2 (09:57→21:02)
[2016-12-01] MEDS: DIGOXIN 0.125 MG TAB PO SCH (09:59)
--- NOTE | 2016-12-01 14:46 | MB ---
cc: HANH CH M.D. DATE OF CONSULTATION: 12/01/2016 REASON FOR CONSULTATION Evaluation of pre-op clearance for cholecystectomy. HISTORY OF PRESENT ILLNESS Dusty Smith is an 81-year-old man previously known to me. He has known coronary artery disease and a total occlusion of his right coronary artery on a cath from 1996. He continued to smoke after that. He has carotid disease and is status post right carotid endarterectomy in April 2010. He has hypertension, oxygen-dependent COPD and atrial fibrillation for which he is on anticoagulation with Eliquis and on rate control with metoprolol and amiodarone. The patient recently had acute pancreatitis. This was quite severe and he had complications coming from it. Durin that hospital stay he had a peak troponin of 0.29. He was scheduled to have a nuclear stress test and echo in my office for the purpose of pre-op clearance. This was scheduled I believe for tomorrow, but in the interim he was hospitalized with recurrent severe pancreatitis. He has been having severe abdominal pain for 2-3 days, but does not have any typical anginal-type pain. He is sedentary, quite deconditioned. He is on continuous oxygen for his COPD and really cannot elicit any anginal-type symptoms. MEDICATIONS 1. Amiodarone 200 mg, which I lowered to once a day. 2. Digoxin 0.125 mg daily. 3. Eliquis. 4. He was on metoprolol 50 b.i.d. He has not been getting that here and I just ordered 25 b.i.d. to be resumed. PAST MEDICAL HISTORY His past medical history is extensive and includes: 1. Obesity. 2. Migraines. 3. Sleep apnea. 4. Crohn's disease. 5. Reflux disease. 6. Kidney stones. 7. Longstanding tobacco use with COPD. 8. Lymphadenopathy. 9. In addition to the cardiac diagnosis mentioned in the history of present illness. PAST SURGICAL HISTORY 1. Nasal surgery. 2. Right carotid endarterectomy. 3. Bilateral inguinal hernia repair. 4. Appendectomy. 5. Right parotid surgery. REVIEW OF SYSTEMS Otherwise noncontributory. PHYSICAL EXAMINATION GENERAL: A well-developed, well-nourished white male, does not appear to be any acute distress. VITAL SIGNS: He was initially hypertensive when he came in. His last recorded blood pressure is 148/63 with pulse of 92. HEENT: Exam is unremarkable. NECK: Soft bilateral bruits. CARDIAC: S1, S2, irregular rate and rhythm, 1-2/6 systolic ejection murmur. ABDOMEN: Soft. Positive bowel sounds, but is somewhat distended. I did not do deep palpation on his abdomen knowing his diagnosis. EXTREMITIES: Good perfusion. EKG His EKG shows atrial fibrillation/flutter with controlled ventricular rate, diffuse ST changes. Laboratory His laboratories are charted. Lipase started out at 3381, repeat was 2014. Creatinine is 1.06. Hematocrit 35.3 with a normal white count. Digoxin level is 1.4 which is not toxic. IMPRESSION 1. Recurrent acute pancreatitis. 2. Longstanding vascular disease. RECOMMENDATIONS If he needs to undergo surgery urgently then I will go ahead and clear him and let him be operated on. He does have significant vascular disease so surgical risk is going to be elevated. He is not showing signs of acute coronary syndrome, however. If it can be done more electively will proceed with getting his nuclear stress test completed. He has already had part one of the stress test last week. Timing of surgery is unclear at this point to me from him having acute pancreatitis. Will await to see what the plans are for the rest of the team. Further therapy to be determined. MD NORM Sandoval/BT /10:41 AM /2:28 PM
[2016-12-01] MEDS: METOPROLOL TARTRATE 25 MG TAB PO SCH ×2 (15:00→21:00)
[2016-12-01] MEDS: LACTATED RINGER'S 1000 ML INJ 1,000 ML IV SCH (20:36)
[2016-12-02] VITALS (7 sets, daily range): BP systolic 127–168; BP diastolic 51–67; PULSE 59–89; RESP 17–20; TEMP 97–100.1; O2SAT 92–95
[2016-12-02] MEDS: FUROSEMIDE 40 MG TAB PO SCH (09:55)
[2016-12-02] MEDS: SERTRALINE HCL 100 MG TAB PO SCH (09:56)
[2016-12-02] MEDS: LORATADINE 10 MG TAB PO SCH (09:56)
[2016-12-02] MEDS: FAMOTIDINE 20 MG TAB NG SCH (09:56)
[2016-12-02] MEDS: SODIUM CHLORIDE 0.9% FLUSH 5 ML FLUSH FLUSH SCH ×2 (09:56→21:00)
[2016-12-02] MEDS: TAMSULOSIN HCL 0.4 MG CAP PO SCH (09:56)
[2016-12-02] MEDS: APIXABAN 5 MG TABLET PO SCH ×2 (09:56→21:06)
[2016-12-02] MEDS: METOPROLOL TARTRATE 25 MG TAB PO SCH ×2 (09:56→21:00)
[2016-12-02] MEDS: AMIODARONE 200 MG TAB PO SCH (09:56)
[2016-12-02] MEDS: DIGOXIN 0.125 MG TAB PO SCH (09:56)
[2016-12-02] MEDS: LACTATED RINGER'S 1000 ML INJ 1,000 ML IV SCH (09:57)
[2016-12-02] MEDS: traMADol HCL 50 MG TAB PO PRN ×2 (13:58→21:06)
--- NOTE | 2016-12-02 16:32 | HHI.PR ---
Subjective Interval History Alert, oriented 2, denies complaints at rest, mildly confused Review of Systems Constitutional Constitutional Remarks General weakness, unable to walk, very forgetful, eating without problems, no pain at rest, 10 systems reviewed otherwise negative Vitals/Results Intake & Output 12/01/16 12/01/16 12/02/16 15:00 23:00 07:00 Intake Total 240 ml 240 ml Output Total 200 ml Balance 240 ml 40 ml Intake Oral 240 ml 240 ml Output Urine Total 200 ml # Voids 2 1 # Bowel Movements 0 0 Vital Signs Vital Signs Date Time Temp Pulse Resp B/P Pulse Ox O2 Delivery O2 Flow Rate FiO2 12/02/16 11:30 98.4 63 20 135/51 92 12/02/16 08:30 92 Nasal Cannula 2.00 12/02/16 08:00 100.1 89 20 168/58 92 12/02/16 04:00 97.0 59 17 140/58 94 12/02/16 00:00 98.0 84 18 156/67 93 12/01/16 20:55 Nasal Cannula 12/01/16 20:00 97.5 58 16 123/52 93 12/01/16 19:10 96 Nasal Cannula 2.00 12/01/16 18:00 89 CBC/BMP: 12/01/16 0354 12/01/16 0354 Physical Exam General General Appearance: Comfortable, Obese Eyes Eye Exam: Pupils Reactive Ears & Nose Ears & Nose Exam: Nasal Mucosa [place] Throat Throat Exam: Oral Mucosa [place] & Moist Neck Neck Exam: Trachea Midline Pulmonary Resp Exam: Breath Sounds Equal, Diminished Breath Sounds Cardiology CV Exam: Normal Sinus Rhythm, Irregular, Murmur Gastrointestinal/Abdomen GI Exam: Soft GI Remarks Mildly tender right upper quadrant on deep palpation Musculoskeletal MS Exam: Normal Tone Integumentary Skin Exam: Warm, Dry Extremeties Extremities Exam: Trace Edema Neurologic Neuro Exam: Alert, Awake Psychiatric Psych Exam: Appropriate Responses Assessment/Plan Assessment/Plan Assessment Acute pancreatitis Gallstone Atrial fibrillation Coronary disease Obstructive sleep apnea Reflux disease Obesity Cognitive impairment Deconditioning Right parotid cancer Management Pain control Cardiology following Gen. surgery following Discussed with Dr. Aceves Discussed with Dr. Rj Santamaria medically No cardiac intervention planned However he needs some form of surgery for his gallbladder C Pap at night Discussed with patient Discussed with nurse Melo Lay MD Dec 02, 2016 16:28
--- NOTE | 2016-12-02 18:21 | PD.CARD.PN ---
Subjective Subjective Remarks No angina. No dyspnea Objective Medications Current Medications Medications (Trade) Dose Ordered Sig/Rajwinder Route Start Time Stop Time Status Last Admin (Lr 1000 ml Inj) 1,000 ml @ 70 mls/hr [id number] IV 11/30/16 16:00 11/30/16 21:16 (NS Flush) 2 ml UNSCH PRN FLUSH 11/30/16 16:00 (NS Flush) 2 ml BID FLUSH 11/30/16 21:00 12/02/16 09:56 (Zofran Inj) 4 mg Q6H PRN IVP 11/30/16 16:00 (Compazine Supp) 25 mg Q12H PRN OR 11/30/16 16:00 (Narcan Inj) 0.4 mg UNSCH PRN IV 11/30/16 16:00 (Eliquis) 5 mg BID PO 11/30/16 21:00 12/02/16 09:56 (Lanoxin) 0.125 mg DAILY PO 12/01/16 09:00 12/02/16 09:56 (Pepcid) 20 mg DAILY NG 12/01/16 09:00 12/02/16 09:56 (Lasix) 40 mg DAILY PO 12/01/16 09:00 12/02/16 09:55 (Claritin) 10 mg DAILY PO 12/01/16 09:00 12/02/16 09:56 (Zoloft) 100 mg DAILY PO 12/01/16 09:00 12/02/16 09:56 (Flomax) 0.4 mg DAILY PO 12/01/16 09:00 12/02/16 09:56 (Cordarone) 200 mg DAILY PO 12/01/16 09:00 12/02/16 09:56 (Lopressor) 25 mg Q12HR PO 12/01/16 10:45 12/02/16 09:56 (Dilaudid Pf Inj) 0.1 mg Q3H PRN IV 12/02/16 17:45 (Dilaudid Pf Inj) 0.25 mg Q3H PRN IV 12/02/16 17:45 (Ultram) 25 mg Q4H PRN PO 12/02/16 20:00 Vital Signs / I&O Vital Signs Date Time Temp Pulse Resp B/P Pulse Ox O2 Delivery O2 Flow Rate FiO2 12/02/16 16:42 98.0 59 20 142/59 95 12/02/16 11:30 98.4 63 20 135/51 92 12/02/16 08:30 92 Nasal Cannula 2.00 12/02/16 08:00 100.1 89 20 168/58 92 12/02/16 04:00 97.0 59 17 140/58 94 12/02/16 00:00 98.0 84 18 156/67 93 12/01/16 20:55 Nasal Cannula 12/01/16 20:00 97.5 58 16 123/52 93 12/01/16 19:10 96 Nasal Cannula 2.00 I/O 12/01/16 12/01/16 12/01/16 12/02/16 12/02/16 12/02/16 07:00 15:00 23:00 07:00 15:00 23:00 Intake Total 680 ml 240 ml 240 ml 480 ml Output Total 200 ml 200 ml Balance 480 ml 240 ml 40 ml 480 ml Intake Oral 240 ml 240 ml 240 ml 480 ml IV Total 440 ml Output Urine Total 200 ml 200 ml # Voids 2 1 2 # Bowel Movements 0 0 0 0 Physical Exam Alert Tele afib with controlled rate Chest Clear CV S1S2 irr irr, no S# Ext no edema Assessment and Plan Problem List: (1) Atrial fibrillation Assessment and Plan: rate well controlled (2) CAD (coronary artery disease) Assessment and Plan: No angina. Slight troponin rise during October admit. No signs of ACS (3) RCA occlusion Assessment and Plan: known fron from heart cath years ago. LV function preserved by echo (4) Pre-op evaluation Assessment and Plan: I deally would like to do stress test, possible cath, possible revasc. He was rehospitalized before stress woodrow completed. Since RCA is known to be occluded, stress likely will be + in the inferior wall which won' t add much information. He clinically has stable CAD. We know his LV function is preserved. He is on a stable beta macie. I recommend proceeding with cholecystectomy. Surgical risk is obviously elevated but it is not prohibitive and I am clearing him. Continue beta macie perioperativle. Stop Eliquis at least 48 hours prior to surgery, Assessment and Plan I will be out of town until Thursday. Nd partners are readily available for any CV questions or problems/ please call [facility] if help needed. Thank you. Problem Qualifiers (1) Atrial fibrillation: Qualified Code: I48.0 - Paroxysmal atrial fibrillation Jefferson Aceves MD Dec 02, 2016 18:21
--- NOTE | 2016-12-02 23:29 | HHI.PR ---
Subjective Subjective Notes Less confused today; at bedside. Objective Vitals/I&O Vital Signs Date Time Temp Pulse Resp B/P Pulse Ox O2 Delivery O2 Flow Rate FiO2 12/02/16 19:00 97.4 60 18 127/52 94 12/02/16 08:30 Nasal Cannula 2.00 Lungs: Clear Abdomen: Non-distended, Other (Epigastric tenderness, slightly less than yesterday.) Extremities: No edema A/P Assessment and Plan Gallstone pancreatitis, severe but stable and improving. Plan: Continue supportive care; Ok to proceed with cardiac risk assessment; Will tentatively plan on lap cholecystectomy and RIGHT axillary lymph node biopsy during this hospitalization if he improves significantly. Discussed with Dr. Lay. Hernan De La Rosa MD Dec 02, 2016 23:29
--- NOTE | 2016-12-02 23:55 | MB ---
cc: DAE SOLANO MD DATE OF CONSULTATION: 12/01/2016 REASON FOR CONSULTATION: HISTORY OF PRESENT ILLNESS The patient is an 81-[facility]-old [facility] and [facility]illary aden[facility] who was to undergo biopsy for this but developed pancreatitis in October. The patient was seen by Dr. Umanzor and went into new onset A-fib requiring amiodarone drip. He was eventually extubated, recovered and discharged to [facility]. He had been doing fairly well but was weak. He had epigastric pain on 11/30/2016, and was associated with nausea and vomiting. The patient was admitted to the hospital. He was undergoing cardiac workup with Dr. Aceves and was to have carotid ultrasound and a stress test. The patient was on amiodarone as well as Eliquis. The patient was on oxygen at two liters at home. REVIEW OF SYSTEMS: Significant for fatigue, abdominal pain, and lymphadenopathy. PAST MEDICAL HISTORY: 1. Left eye cataract. 2. Obesity. 3. Coronary artery disease. 4. Right carotid stenosis. 5. Hyperlipidemia. 6. Hypertension. 7. Sleep apnea. 8. Reflux disease. 9. BPH. 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 11. Pulmonary nodule in the past, for which he has seen Dr. Abad. PAST SURGICAL HISTORY: 1. Right carotid endarterectomy 2. Bilateral inguinal hernia repair. 3. Appendectomy. 4. Right parotid surgery. MEDICATIONS ON ADMISSION: 1. Ultram 50 milligrams p.o. q4 hours. 2. Loratadine 10 milligrams p.o. q day. 3. Eliquis 5 milligrams b.i.d. 4. Digoxin 0.125 milligrams q day. 5. Lasix 40 milligrams q day. 6. Famotidine 20 milligrams q day. 7. Amiodarone 200 milligrams q12 hours. 8. Flomax 0.4 milligrams q day. 9. Zoloft 100 milligrams q day. ALLERGIES: ASPIRIN. CAUSES ABDOMINAL CRAMPS. PHYSICAL EXAMINATION: The patient is a male who is confused. He had received a very small dose of Dilaudid four hours prior to my examination. VITAL SIGNS: Blood pressure 123/52, pulse 58, respiratory rate 16, temperature 97.5, 93% saturation on two liters nasal cannula. The patient is not oriented to place or time. Sclera anicteric. Pupils reactive. NECK: Supple. CHEST: Clear to auscultation. CARDIAC: Regular rate and rhythm. ABDOMEN: Soft with epigastric tenderness to palpation with guarding. There are no hernias noted. Lower abdomen is nontender. Pulses are present. EXTREMITIES: The patient is able to move all four extremities to command. LABORATORY VALUES: Demonstrate WBC 13.0, hemoglobin is 11.6, BUN and creatinine are 13 and 1.06. Potassium is 4.3. Lipase is 2015; it was 3,381 on 11/30/2016. IMAGING STUDIES: Report of the abdomen and pelvis demonstrates a diffusely enlarged pancreas with induration of the soft tissue surrounding the head and body, and multiple small hypodense areas suggesting some small pseudocysts. There is diffuse diverticulosis without evidence of diverticulitis as well. ASSESSMENT: Pancreatitis, recurrent, likely secondary to gallstones. PLAN: Supportive care. We will evaluate and depending upon cardiology preference, would perform surgery during this hospitalization if the patient is deemed stable. I would favor cholecystectomy and simultaneous right axillary lymph node biopsy. I have discussed this with the patient and his , who is agreeable. MD FRANK Garcias/CHAIM /11:17 PM /11:42 PM
[2016-12-03] VITALS (8 sets, daily range): BP systolic 106–161; BP diastolic 52–67; PULSE 58–96; RESP 16–19; TEMP 96.6–97.7; O2SAT 93–100
[2016-12-03] MEDS: LACTATED RINGER'S 1000 ML INJ 1,000 ML IV SCH (01:12)
[2016-12-03 07:36] LABS: AUTOMATED NEUTROPHIL # 8.7 TH/MM3 (1.8-7.7); BASOPHIL % 0.4 % (0.0-2.0); EOSINOPHIL # 0.1 TH/MM3 (0-0.4); EOSINOPHIL % 0.6 % (0.0-4.0); HEMATOCRIT 33.3 % (39.0-51.0); HEMO FLAGS DIFF FINAL; LYMPH % 16.8 % (9.0-44.0); MEAN CELL VOLUME 84.4 FL (80.0-100.0); MEAN CORPUSCULAR HEMOGLOBIN 27.4 PG (27.0-34.0); MEAN CORPUSCULAR HGB CONC 32.5 % (32.0-36.0); MONO % 8.6 % (0.0-8.0); NEUT % 73.6 % (16.0-70.0); PLATELET COUNT 291 TH/MM3 (150-450); RED BLOOD COUNT 3.94 MIL/MM3 (4.50-5.90); RED CELL DISTRIBUTION WIDTH 15.1 % (11.6-17.2); WHITE BLOOD COUNT 11.8 TH/MM3 (4.0-11.0)
[2016-12-03 07:54] LABS: BICARBONATE 35.7 MEQ/L (21.0-32.0); POTASSIUM 4.1 MEQ/L (3.5-5.1)
[2016-12-03 07:57] LABS: INDIRECT BILIRUBIN 0.5 MG/DL (0.0-0.8); TOTAL BILIRUBIN ADULT 0.9 MG/DL (0.2-1.0)
[2016-12-03] MEDS: FUROSEMIDE 40 MG TAB PO SCH (10:15)
[2016-12-03] MEDS: APIXABAN 5 MG TABLET PO SCH ×2 (10:15→22:45)
[2016-12-03] MEDS: AMIODARONE 200 MG TAB PO SCH (10:15)
[2016-12-03] MEDS: SERTRALINE HCL 100 MG TAB PO SCH (10:15)
[2016-12-03] MEDS: METOPROLOL TARTRATE 25 MG TAB PO SCH ×2 (10:15→22:45)
[2016-12-03] MEDS: LORATADINE 10 MG TAB PO SCH (10:15)
[2016-12-03] MEDS: FAMOTIDINE 20 MG TAB NG SCH (10:15)
[2016-12-03] MEDS: TAMSULOSIN HCL 0.4 MG CAP PO SCH (10:15)
[2016-12-03] MEDS: SODIUM CHLORIDE 0.9% FLUSH 5 ML FLUSH FLUSH SCH ×2 (10:16→21:00)
[2016-12-03] MEDS: traMADol HCL 50 MG TAB PO PRN ×2 (12:06→19:55)
--- NOTE | 2016-12-03 17:06 | HHI.PR ---
Subjective Interval History Awake, verbal, mildly confused, denies any pain Review of Systems Constitutional Constitutional Remarks General weakness, unable to walk, very forgetful, eating without problems, no pain at rest, 10 systems reviewed otherwise negative Vitals/Results Intake & Output 12/02/16 12/02/16 12/03/16 15:00 23:00 07:00 Intake Total 480 ml 1067 ml 480 ml Output Total 200 ml 275 ml Balance 480 ml 867 ml 205 ml Intake Oral 480 ml 480 ml 480 ml IV Total 587 ml Output Urine Total 200 ml 275 ml # Voids 2 # Bowel Movements 0 0 0 Vital Signs Vital Signs Date Time Temp Pulse Resp B/P Pulse Ox O2 Delivery O2 Flow Rate FiO2 12/03/16 11:57 96.6 96 18 127/65 98 12/03/16 11:24 94 Nasal Cannula 2.00 12/03/16 08:00 97.7 60 18 158/67 94 12/03/16 04:00 97.5 58 16 106/62 100 12/03/16 00:12 97.4 62 19 147/52 96 12/02/16 20:55 Nasal Cannula 12/02/16 19:00 97.4 60 18 127/52 94 CBC/BMP: 12/03/16 0642 12/03/16 0642 Lab Results Laboratory Tests Test 12/03/16 06:42 White Blood Count 11.8 TH/MM3 Red Blood Count 3.94 MIL/MM3 Hemoglobin 10.8 GM/DL Hematocrit 33.3 % Mean Corpuscular Volume 84.4 FL Mean Corpuscular Hemoglobin 27.4 PG Mean Corpuscular Hemoglobin 32.5 % Concent Red Cell Distribution Width 15.1 % Platelet Count 291 TH/MM3 Mean Platelet Volume 7.8 FL Neutrophils (%) (Auto) 73.6 % Lymphocytes (%) (Auto) 16.8 % Monocytes (%) (Auto) 8.6 % Eosinophils (%) (Auto) 0.6 % Basophils (%) (Auto) 0.4 % Neutrophils # (Auto) 8.7 TH/MM3 Lymphocytes # (Auto) 2.0 TH/MM3 Monocytes # (Auto) 1.0 TH/MM3 Eosinophils # (Auto) 0.1 TH/MM3 Basophils # (Auto) 0.0 TH/MM3 CBC Comment DIFF FINAL Differential Comment Sodium Level 138 MEQ/L Potassium Level 4.1 MEQ/L Chloride Level 98 MEQ/L Carbon Dioxide Level 35.7 MEQ/L Anion Gap 4 MEQ/L Blood Urea Nitrogen 17 MG/DL Creatinine 1.03 MG/DL Estimat Glomerular Filtration 69 ML/MIN Rate Random Glucose 90 MG/DL Calcium Level 8.5 MG/DL Total Bilirubin 0.9 MG/DL Direct Bilirubin 0.4 MG/DL Indirect Bilirubin 0.5 MG/DL Aspartate Amino Transf 16 U/L (AST/SGOT) Alanine Aminotransferase 32 U/L (ALT/SGPT) Alkaline Phosphatase 103 U/L Total Protein 6.1 GM/DL Albumin 2.4 GM/DL Lipase 636 U/L Physical Exam General General Appearance: Comfortable, Obese Eyes Eye Exam: Pupils Reactive Ears & Nose Ears & Nose Exam: Nasal Mucosa [place] Throat Throat Exam: Oral Mucosa [place] & Moist Neck Neck Exam: Trachea Midline Pulmonary Resp Exam: Breath Sounds Equal, Diminished Breath Sounds Cardiology CV Exam: Normal Sinus Rhythm, Irregular, Murmur Gastrointestinal/Abdomen GI Exam: Soft GI Remarks Mildly tender right upper quadrant on deep palpation Musculoskeletal MS Exam: Normal Tone Integumentary Skin Exam: Warm, Dry Extremeties Extremities Exam: Trace Edema Neurologic Neuro Exam: Alert, Awake Psychiatric Psych Exam: Appropriate Responses Assessment/Plan Assessment/Plan Assessment Acute pancreatitis Gallstone Atrial fibrillation Coronary disease Obstructive sleep apnea Reflux disease Obesity Cognitive impairment Deconditioning Right parotid cancer Management Pain control Cardiology following Gen. surgery following Discussed with Dr. Aceves and Dr. De La Rosa yesterday Stabilize medically No cardiac intervention planned However he needs some form of surgery for his gallbladder C Pap at night Discussed with patient Discussed with nurse Melo Lay MD Dec 03, 2016 17:06
[2016-12-03] MEDS ORDERED: MINERAL OIL ENEMA 118 ML BTL RECTAL PRN (17:45)
[2016-12-03] MEDS ORDERED: BISACODYL 10 MG SUPP RECTAL ONE (17:45)
[2016-12-03] MEDS: DOCUSATE SODIUM 100 MG CAP PO SCH (18:30)
--- NOTE | 2016-12-03 20:09 | HHI.PR ---
Subjective Subjective Notes Slightly confused again tonight. Pain meds less today. Objective Vitals/I&O Vital Signs Date Time Temp Pulse Resp B/P Pulse Ox O2 Delivery O2 Flow Rate FiO2 12/03/16 17:55 97 Nasal Cannula 2.00 12/03/16 16:00 97.6 60 18 130/59 Labs Laboratory Tests Test 12/03/16 06:42 White Blood Count 11.8 Red Blood Count 3.94 Hemoglobin 10.8 Hematocrit 33.3 Mean Corpuscular Volume 84.4 Mean Corpuscular Hemoglobin 27.4 Mean Corpuscular Hemoglobin 32.5 Concent Red Cell Distribution Width 15.1 Platelet Count 291 Mean Platelet Volume 7.8 Neutrophils (%) (Auto) 73.6 Lymphocytes (%) (Auto) 16.8 Monocytes (%) (Auto) 8.6 Eosinophils (%) (Auto) 0.6 Basophils (%) (Auto) 0.4 Neutrophils # (Auto) 8.7 Lymphocytes # (Auto) 2.0 Monocytes # (Auto) 1.0 Eosinophils # (Auto) 0.1 Basophils # (Auto) 0.0 CBC Comment DIFF FINAL Differential Comment Sodium Level 138 Potassium Level 4.1 Chloride Level 98 Carbon Dioxide Level 35.7 Anion Gap 4 Blood Urea Nitrogen 17 Creatinine 1.03 Estimat Glomerular Filtration 69 Rate Random Glucose 90 Calcium Level 8.5 Total Bilirubin 0.9 Direct Bilirubin 0.4 Indirect Bilirubin 0.5 Aspartate Amino Transf 16 (AST/SGOT) Alanine Aminotransferase 32 (ALT/SGPT) Alkaline Phosphatase 103 Total Protein 6.1 Albumin 2.4 Lipase 636 Lungs: Clear Abdomen: Other (Tender in epigastrium still) A/P Assessment and Plan Gallstone pancreatitis, severe but stable and improving. Lipase continues to decrease. Plan: Continue supportive care; Ok to proceed with cardiac risk assessment; Will tentatively plan on lap cholecystectomy and RIGHT axillary lymph node biopsy during this hospitalization if he improves significantly. Will be difficult surgery (not straightforward) due to multiple medical problems. Hernan De La Rosa MD Dec 03, 2016 20:09
[2016-12-03] MEDS: HYDROmorphone HCL PF 1 MG/ML VIAL IV PRN (22:45)
[2016-12-03] MEDS: PSYLLIUM FIBER SF/GF 6 GM POWD PKT PO SCH (22:45)
[2016-12-04] VITALS (11 sets, daily range): BP systolic 116–159; BP diastolic 56–76; PULSE 58–98; RESP 16–26; TEMP 96.8–98; O2SAT 92–98
--- NOTE | 2016-12-04 02:21 | RADRPT ---
EXAM DATE/TIME: 12/04/2016 01:40 [place] COMPARISON: CT BRAIN W/O CONTRAST, November 16, 2016, 10:30. INDICATIONS : Trauma. Fall with confusion. RADIATION DOSE: 46.44 CTDIvol (mGy) MEDICAL HISTORY : Cardiovascular disease. Hypertension. Diabetes mellitus type 2.Prostate cancer SURGICAL HISTORY : None. ENCOUNTER: Initial ACUITY: 1 day PAIN SCALE: 0/10 LOCATION: cranial TECHNIQUE: Multiple contiguous axial images were obtained of the head. Using automated exposure control and adj ustment of the mA and/or kV according to patient size, radiation dose was kept as low as reasonably a chievable to obtain optimal diagnostic quality images. FINDINGS: CEREBRUM: Prominent ventricles again noted. There is atrophy and an old lacunar infarct of the left basal gangl ia again seen. No intracranial hemorrhage/hematoma. No mass, mass effect or midline shift. No evidenc e of an acute ischemic event. POSTERIOR FOSSA: The cerebellum and brainstem are intact. The 4th ventricle is midline. The cerebellopontine angle i s unremarkable. EXTRACRANIAL: The visualized portion of the orbits is intact. SKULL: The calvaria is intact. No evidence of skull fracture. CONCLUSION: No bleed or other acute intracranial abnormality. 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 No change. Sriram Bowen MD on December 04, 2016 at 2:17 Board Certified Radiologist. This report was verified electronically.
[2016-12-04] MEDS: DIGOXIN 0.125 MG TAB PO SCH (09:00)
[2016-12-04] MEDS: SERTRALINE HCL 100 MG TAB PO SCH (09:37)
[2016-12-04] MEDS: PSYLLIUM FIBER SF/GF 6 GM POWD PKT PO SCH (09:37)
[2016-12-04] MEDS: DOCUSATE SODIUM 100 MG CAP PO SCH ×3 (09:37→17:35)
[2016-12-04] MEDS: LORATADINE 10 MG TAB PO SCH (09:37)
[2016-12-04] MEDS: AMIODARONE 200 MG TAB PO SCH (09:37)
[2016-12-04] MEDS: TAMSULOSIN HCL 0.4 MG CAP PO SCH (09:37)
[2016-12-04] MEDS: FUROSEMIDE 40 MG TAB PO SCH (09:37)
[2016-12-04] MEDS: FAMOTIDINE 20 MG TAB NG SCH (09:37)
[2016-12-04] MEDS: METOPROLOL TARTRATE 25 MG TAB PO SCH ×2 (09:37→20:20)
[2016-12-04] MEDS: APIXABAN 5 MG TABLET PO SCH (09:37)
[2016-12-04] MEDS: SODIUM CHLORIDE 0.9% FLUSH 5 ML FLUSH FLUSH SCH ×2 (09:38→20:21)
[2016-12-04] MEDS: LACTATED RINGER'S 1000 ML INJ 1,000 ML IV SCH (09:38)
--- NOTE | 2016-12-04 12:31 | HHI.PR ---
Subjective Subjective Remarks awake, oriented x 2 disoriented at times no fever abd. pain improved tolerating clear liquid well, no N/V at bsd, understands risk of surgery, agreeable to proceed if necessary Review of Systems Constitutional Constitutional Remarks 12 point ROS difficult complete Vitals/Results Intake & Output 12/03/16 12/03/16 12/04/16 15:00 23:00 07:00 Intake Total 960 ml 240 ml 240 ml Output Total 400 ml Balance 560 ml 240 ml 240 ml Intake Oral 960 ml 240 ml 240 ml Output Urine Total 400 ml # Voids 1 2 # Bowel Movements 0 0 1 Vital Signs Vital Signs Date Time Temp Pulse Resp B/P Pulse Ox O2 Delivery O2 Flow Rate FiO2 12/04/16 10:55 98.0 94 16 129/76 94 12/04/16 08:38 93 Nasal Cannula 2.00 12/04/16 07:05 Nasal Cannula 2.00 12/04/16 06:55 97.2 77 18 135/62 93 12/04/16 06:49 71 12/04/16 02:55 97.2 78 18 126/58 95 12/04/16 00:55 96.8 98 24 116/56 92 12/03/16 22:30 Nasal Cannula 2.00 12/03/16 19:35 97.1 60 18 161/58 93 12/03/16 17:55 97 Nasal Cannula 2.00 12/03/16 16:00 97.6 60 18 130/59 97 CBC/BMP: 12/03/16 0642 12/03/16 0642 Physical Exam General General Appearance: Well Developed, Comfortable, Anxious, Obese Eyes Eye Exam: Pupils Equal, Pupils Reactive Ears & Nose Ears & Nose Exam: Nasal Mucosa [place] Throat Throat Exam: Oral Mucosa [place] & Moist Neck Neck Exam: Trachea Midline Pulmonary Resp Exam: Breath Sounds Equal, Diminished Breath Sounds Cardiology CV Exam: Normal Sinus Rhythm, Irregular, Murmur Gastrointestinal/Abdomen GI Exam: Soft, Bowel Sounds Present, Non-Distended GI Remarks mildly tender RUQ Musculoskeletal MS Exam: Normal Tone Integumentary Skin Exam: Warm, Dry Extremeties Extremities Exam: Pedal Pulses Palpable, Trace Edema Neurologic Neuro Exam: Alert, Awake, Speech Clear, Moving All Extremities, No Focal Deficits Psychiatric Psych Exam: Appropriate Responses VTE Prophylaxis VTE Prophylaxis Device: SCDs VTE Remarks Eliquis Assessment/Plan Problem List: (1) Abdominal pain (2) Acute pancreatitis (3) Atrial fibrillation (4) GERD (gastroesophageal reflux disease) (5) Sleep apnea (6) Gall stone (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 Lipase 3381. Patient admitted with recurrent pancreatitis, likely secondary to gallstone. -on clear liquid CT of the abdomen and pelvis noted with recurrent pancreatitis Appreciate surgical input, for poss. ranjith and LN bx this week -Continue with IV narcotics as needed -Continue with antiemetics as needed -Lipase trending down Hx atrial fibrillation, currently sinus rhythm Continue with amiodarone Continuous cardiac telemetry -On Eliquis Hx CAD, had been undergoing work up with Dr. Aceves -appreciate cardiology input-pt. was in process to have STT and poss. LHC before hospitalization. Known RCA occlusion, stress likely will be + inf. wall. LV function is preserved. He is on beta macie. Recommends to proceed with cholecystectomy. Surgical risk is obviously elevated but it is not prohibitive and he is clearing him. Continue beta macie perioperative. Stop Eliquis at least 48 hours prior to surgery, Hypoxia, on oxygen at home. Possibly underlying COPD. 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 Badillo. Sleep apnea Continue CPAP from home Right Carotid occlusion-known hx -continue with present home meds Confused, poss. delirium, fell last night -CT head done no acute findings -cont. to monitor -will check ammonia, UA/CS -frequent orientation Continue with Eliquis for DVT prophylaxis Continue with Pepcid for GI prophylaxis Bowel regimen pt. very deconditioned, need OOB and use IS PT eval and tx will stop Eliquis in case surgery is planned. Labs in am D/W RN D/W Dr. Lay D/W pt and This patient was seen by myself and Dr. Lay, this note is written on his behalf Problem Qualifiers (1) Abdominal pain: Qualified Code: R10.13 - Epigastric pain (2) Acute pancreatitis: Qualified Code: K85.10 - Acute biliary pancreatitis without infection or necrosis (3) Atrial fibrillation: Qualified Code: I48.0 - Paroxysmal atrial fibrillation (4) GERD (gastroesophageal reflux disease): Qualified Code: K21.9 - Gastroesophageal reflux disease, esophagitis presence not specified (5) Sleep apnea: Qualified Code: G47.30 - Sleep apnea, unspecified type (6) Gall stone: (7) CAD (coronary artery disease): Qualified Code: I25.10 - Coronary artery disease involving [place] cross coronary artery of [place] cross heart without angina pectoris (8) Vomiting: Qualified Code: R11.2 - Non-intractable vomiting with nausea, unspecified vomiting type Nida Lopez Dec 04, 2016 12:31
--- NOTE | 2016-12-04 23:30 | HHI.PR ---
Subjective Subjective Notes Still slightly confused. at bedside. Objective Vitals/I&O Vital Signs Date Time Temp Pulse Resp B/P Pulse Ox O2 Delivery O2 Flow Rate FiO2 12/04/16 22:10 98 HOME CPAP 2.00 12/04/16 19:25 97.6 60 17 136/56 Labs Laboratory Tests Test 12/04/16 17:04 Ammonia 17 Lungs: Clear Abdomen: Non-distended, Other (minimally tender in the epigastrium) A/P Assessment and Plan Gallstone pancreatitis, severe but stable and improving. Plan: Continue supportive care; Ok to proceed with cardiac risk assessment; Will tentatively plan on lap cholecystectomy and RIGHT axillary lymph node biopsy during this hospitalization if he improves significantly. Will be difficult surgery (not straightforward) due to multiple medical problems. Discussed with ; will likely consider surgery next week. Hernan De La Rosa MD Dec 04, 2016 23:30
[2016-12-05] VITALS (8 sets, daily range): BP systolic 100–159; BP diastolic 41–80; PULSE 54–82; RESP 16–30; TEMP 96.7–98; O2SAT 93–96
[2016-12-05] MEDS ORDERED: LORazepam 2 MG/ML VIAL IVP ONE (00:30)
[2016-12-05 01:02] LABS: BLOOD, URINE NEG (NEG); GLUCOSE,URINE NEG (NEG); KETONE, URINE NEG (NEG); NITRITE,URINE NEG (NEG); URINE COLOR YELLOW (YELLW/STRAW)
[2016-12-05 01:11] LABS: COMMENT (UR) CULT NOT INDICATED; CULTURE IF INDICATED CULT NOT INDICATED
[2016-12-05] MEDS: traMADol HCL 50 MG TAB PO PRN (01:53)
[2016-12-05 06:35] LABS: BICARBONATE 31.6 MEQ/L (21.0-32.0)
[2016-12-05 06:40] LABS: POTASSIUM 3.9 MEQ/L (3.5-5.1)
[2016-12-05 07:50] LABS: HEMATOCRIT 34.4 % (39.0-51.0); MEAN CELL VOLUME 86.1 FL (80.0-100.0); MEAN CORPUSCULAR HEMOGLOBIN 28.5 PG (27.0-34.0); MEAN CORPUSCULAR HGB CONC 33.1 % (32.0-36.0); PLATELET COUNT 229 TH/MM3 (150-450); RED BLOOD COUNT 3.99 MIL/MM3 (4.50-5.90); RED CELL DISTRIBUTION WIDTH 15.3 % (11.6-17.2); REVIEW FLAG FINAL; WHITE BLOOD COUNT 8.5 TH/MM3 (4.0-11.0)
[2016-12-05] MEDS: SODIUM CHLORIDE 0.9% FLUSH 5 ML FLUSH FLUSH SCH ×2 (09:00→20:40)
[2016-12-05] MEDS: APIXABAN 5 MG TABLET PO SCH ×2 (09:00→20:40)
[2016-12-05] MEDS: DOCUSATE SODIUM 100 MG CAP PO SCH ×3 (10:40→17:26)
[2016-12-05] MEDS: FAMOTIDINE 20 MG TAB NG SCH (10:40)
[2016-12-05] MEDS: METOPROLOL TARTRATE 25 MG TAB PO SCH ×2 (10:40→20:40)
[2016-12-05] MEDS: TAMSULOSIN HCL 0.4 MG CAP PO SCH (10:41)
[2016-12-05] MEDS: AMIODARONE 200 MG TAB PO SCH (10:41)
[2016-12-05] MEDS: PSYLLIUM FIBER SF/GF 6 GM POWD PKT PO SCH (10:41)
[2016-12-05] MEDS: LORATADINE 10 MG TAB PO SCH (10:41)
[2016-12-05] MEDS: FUROSEMIDE 40 MG TAB PO SCH (10:41)
[2016-12-05] MEDS: SERTRALINE HCL 100 MG TAB PO SCH (10:41)
--- NOTE | 2016-12-05 13:32 | HHI.PR ---
Subjective Subjective Remarks disoriented fell last night, no injuries now closer to nurse's station awake, oriented to self, not sure where he is. Easily reoriented no abd pain tolerating full liquid well no n/v no fever no cp no sob at bsd Review of Systems Constitutional Constitutional Remarks 12 point ROS difficult complete Vitals/Results Intake & Output 12/04/16 12/04/16 12/05/16 15:00 23:00 07:00 Intake Total 660 ml 240 ml Balance 660 ml 240 ml Intake Oral 660 ml 240 ml # Voids 5 2 # Bowel Movements 0 Vital Signs Vital Signs Date Time Temp Pulse Resp B/P Pulse Ox O2 Delivery O2 Flow Rate FiO2 12/05/16 08:30 96 Nasal Cannula 2.00 12/05/16 08:00 98.0 59 18 116/58 93 12/05/16 08:00 59 12/05/16 04:00 67 30 154/67 96 12/05/16 01:00 60 30 140/80 95 12/05/16 00:55 98.0 54 20 135/54 94 12/05/16 00:00 58 26 159/70 93 12/04/16 22:55 58 26 159/70 93 12/04/16 22:10 98 HOME CPAP 2.00 12/04/16 19:25 97.6 60 17 136/56 95 12/04/16 16:55 97.8 59 18 118/59 97 CBC/BMP: 12/05/16 0508 12/05/16 0508 Lab Results Laboratory Tests Test 12/04/16 12/05/16 12/05/16 17:04 00:30 05:08 Ammonia 17 MCMOL/L Urine Color YELLOW Urine Turbidity CLEAR Urine pH 7.0 Urine Specific [place] 1.004 Urine Protein NEG mg/dL Urine Glucose (UA) NEG mg/dL Urine Ketones NEG mg/dL Urine Occult Blood NEG Urine Nitrite NEG Urine Bilirubin NEG Urine Urobilinogen 2.0 MG/DL Urine Leukocyte Esterase NEG Urine RBC LESS THAN 1 /hpf Urine WBC 1 /hpf Microscopic Urinalysis Comment CULT NOT INDICATED White Blood Count 8.5 TH/MM3 Red Blood Count 3.99 MIL/MM3 Hemoglobin 11.4 GM/DL Hematocrit 34.4 % Mean Corpuscular Volume 86.1 FL Mean Corpuscular Hemoglobin 28.5 PG Mean Corpuscular Hemoglobin 33.1 % Concent Red Cell Distribution Width 15.3 % Platelet Count 229 TH/MM3 Mean Platelet Volume 8.4 FL Sodium Level 137 MEQ/L Potassium Level 3.9 MEQ/L Chloride Level 99 MEQ/L Carbon Dioxide Level 31.6 MEQ/L Anion Gap 6 MEQ/L Blood Urea Nitrogen 16 MG/DL Creatinine 0.98 MG/DL Estimat Glomerular Filtration 73 ML/MIN Rate Random Glucose 76 MG/DL Calcium Level 8.6 MG/DL Lipase 845 U/L Physical Exam General General Appearance: Well Developed, Comfortable, Anxious, Obese Eyes Eye Exam: Pupils Equal, Pupils Reactive Ears & Nose Ears & Nose Exam: Nasal Mucosa [place] Throat Throat Exam: Oral Mucosa [place] & Moist Neck Neck Exam: Trachea Midline Pulmonary Resp Exam: Breath Sounds Equal, Diminished Breath Sounds Cardiology CV Exam: Normal Sinus Rhythm, Irregular, Murmur Gastrointestinal/Abdomen GI Exam: Soft, Bowel Sounds Present, Non-Distended GI Remarks mildly tender RUQ Musculoskeletal MS Exam: Normal Tone Integumentary Skin Exam: Warm, Dry Extremeties Extremities Exam: Pedal Pulses Palpable, Trace Edema Neurologic Neuro Exam: Alert, Awake, Speech Clear, Moving All Extremities, No Focal Deficits Psychiatric Psych Exam: Appropriate Responses VTE Prophylaxis VTE Prophylaxis Device: SCDs VTE Remarks Eliquis Assessment/Plan Problem List: (1) Abdominal pain (2) Acute pancreatitis (3) Atrial fibrillation (4) GERD (gastroesophageal reflux disease) (5) Sleep apnea (6) Gall stone (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 Lipase 3381. Patient admitted with recurrent pancreatitis, likely secondary to gallstone. -on clear liquid CT of the abdomen and pelvis noted with recurrent pancreatitis Appreciate surgical input, for poss. ranjith and LN bx sometime during this hospitalization -Continue with antiemetics as needed -Lipase trending down Hx atrial fibrillation, currently sinus rhythm Continue with amiodarone Continuous cardiac telemetry -On Eliquis Hx CAD, had been undergoing work up with Dr. Aceves -appreciate cardiology input-pt. was in process to have STT and poss. LHC before hospitalization. Known RCA occlusion, stress likely will be + inf. wall. LV function is preserved. He is on beta macie. Recommends to proceed with cholecystectomy. Surgical risk is obviously elevated but it is not prohibitive and he is clearing him. Continue beta macie perioperative. Stop Eliquis at least 48 hours prior to surgery, Hypoxia, on oxygen at home. Possibly underlying COPD. 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 Badillo. Sleep apnea Continue CPAP from home Right Carotid occlusion-known hx -continue with present home meds Confused, poss. delirium, falls, no injuries -CT head done no acute findings -cont. to monitor, close to nurse's stations -ammonia ok, UA/CS no infection -frequent orientation Continue with Eliquis for DVT prophylaxis Continue with Pepcid for GI prophylaxis Bowel regimen pt. very deconditioned, need OOB and use IS PT eval and tx -continue will find out when to stop Eliquis, needs at least 48 hours D/W Annie CALDERÓN , she will verify day of surgery with Dr. De La Rosa D/W RN D/W Dr. Lay D/W pt and This patient was seen by myself and Dr. Lay, this note is written on his behalf Problem Qualifiers (1) Abdominal pain: Qualified Code: R10.13 - Epigastric pain (2) Acute pancreatitis: Qualified Code: K85.10 - Acute biliary pancreatitis without infection or necrosis (3) Atrial fibrillation: Qualified Code: I48.0 - Paroxysmal atrial fibrillation (4) GERD (gastroesophageal reflux disease): Qualified Code: K21.9 - Gastroesophageal reflux disease, esophagitis presence not specified (5) Sleep apnea: Qualified Code: G47.30 - Sleep apnea, unspecified type (6) Gall stone: (7) CAD (coronary artery disease): Qualified Code: I25.10 - Coronary artery disease involving [place] coronary artery of [place] heart without angina pectoris (8) Vomiting: Qualified Code: R11.2 - Non-intractable vomiting with nausea, unspecified vomiting type Nida Lopez Dec 05, 2016 13:32
[2016-12-05] MEDS ORDERED: HALOPERIDOL LACTATE 5 MG/ML AMP IM ONE (17:00)
[2016-12-05] MEDS: traZODone HCL 50 MG TAB PO SCH (20:40)
--- NOTE | 2016-12-05 21:33 | HHI.PR ---
Subjective Subjective Notes Less confused, less painful. Objective Vitals/I&O Vital Signs Date Time Temp Pulse Resp B/P Pulse Ox O2 Delivery O2 Flow Rate FiO2 12/05/16 12:00 96.7 82 18 100/41 94 12/05/16 08:30 Nasal Cannula 2.00 Labs Laboratory Tests Test 12/05/16 12/05/16 00:30 05:08 Urine Color YELLOW Urine Turbidity CLEAR Urine pH 7.0 Urine Specific [place] 1.004 Urine Protein NEG Urine Glucose (UA) NEG Urine Ketones NEG Urine Occult Blood NEG Urine Nitrite NEG Urine Bilirubin NEG Urine Urobilinogen 2.0 Urine Leukocyte Esterase NEG Urine RBC LESS THAN 1 Urine WBC 1 Microscopic Urinalysis Comment CULT NOT INDICATED White Blood Count 8.5 Red Blood Count 3.99 Hemoglobin 11.4 Hematocrit 34.4 Mean Corpuscular Volume 86.1 Mean Corpuscular Hemoglobin 28.5 Mean Corpuscular Hemoglobin 33.1 Concent Red Cell Distribution Width 15.3 Platelet Count 229 Mean Platelet Volume 8.4 Sodium Level 137 Potassium Level 3.9 Chloride Level 99 Carbon Dioxide Level 31.6 Anion Gap 6 Blood Urea Nitrogen 16 Creatinine 0.98 Estimat Glomerular Filtration 73 Rate Random Glucose 76 Calcium Level 8.6 Lipase 845 Lungs: Clear Abdomen: Non-distended, Other (Mildly tender) A/P Assessment and Plan Gallstone pancreatitis, severe but stable and improving. Lipase down to 845 Plan: Continue supportive care; Ok to proceed with cardiac risk assessment; Will tentatively plan on lap cholecystectomy and RIGHT axillary lymph node biopsy during this hospitalization if he improves significantly. Will be difficult surgery (not straightforward) due to multiple medical problems. Discussed with ; will likely consider surgery next week. Consider repeat CT scan with oral contrast only next week (Thursday). Hernan De La Rosa MD Dec 05, 2016 21:33
[2016-12-06] VITALS (7 sets, daily range): BP systolic 106–142; BP diastolic 47–64; PULSE 59–80; RESP 16–18; TEMP 96.5–98.2; O2SAT 93–97
[2016-12-06] MEDS: LACTATED RINGER'S 1000 ML INJ 1,000 ML IV SCH (01:24)
[2016-12-06] MEDS: SODIUM CHLORIDE 0.9% FLUSH 5 ML FLUSH FLUSH SCH ×2 (10:01→20:17)
[2016-12-06] MEDS: LORATADINE 10 MG TAB PO SCH (10:01)
[2016-12-06] MEDS: DIGOXIN 0.125 MG TAB PO SCH (10:01)
[2016-12-06] MEDS: METOPROLOL TARTRATE 25 MG TAB PO SCH ×2 (10:01→20:17)
[2016-12-06] MEDS: SERTRALINE HCL 100 MG TAB PO SCH (10:01)
[2016-12-06] MEDS: TAMSULOSIN HCL 0.4 MG CAP PO SCH (10:02)
[2016-12-06] MEDS: FUROSEMIDE 40 MG TAB PO SCH (10:02)
[2016-12-06] MEDS: DOCUSATE SODIUM 100 MG CAP PO SCH ×3 (10:03→17:17)
[2016-12-06] MEDS: FAMOTIDINE 20 MG TAB NG SCH (10:03)
[2016-12-06] MEDS: PSYLLIUM FIBER SF/GF 6 GM POWD PKT PO SCH (10:03)
[2016-12-06] MEDS: APIXABAN 5 MG TABLET PO SCH ×2 (10:03→20:17)
[2016-12-06] MEDS: AMIODARONE 200 MG TAB PO SCH (10:03)
--- NOTE | 2016-12-06 14:55 | HHI.PR ---
Subjective Subjective Remarks Drowsy response to loud verbal stimuli, fell last night, no injuries, now closer to nurse's station no abd pain, no facial grimace tolerating full liquid well states no n/v no fever in 4 days no cp no sob at bsd Review of Systems Constitutional Constitutional: Fatigue, Weakness Constitutional Remarks 10 point ROS attempted but limited exam due to patient's drowsiness. and answered most of the questions and was able to get patient to arouse. states patient has getting his days and nights mixed up. Positives still with weakness and fatigue. Other systems unremarkable Neurologic Neurologic Remarks Hard of hearing Psychiatric Psychiatric: Sleep Problems Psychiatric Remarks Awake at night, sleeping during the day Vitals/Results Intake & Output 12/05/16 12/05/16 12/06/16 15:00 23:00 07:00 Intake Total 480 ml 720 ml 480 ml Output Total 300 ml 300 ml Balance 480 ml 420 ml 180 ml Intake Oral 480 ml 720 ml 480 ml Output Urine Total 300 ml 300 ml # Voids 2 1 1 # Bowel Movements 1 Vital Signs Vital Signs Date Time Temp Pulse Resp B/P Pulse Ox O2 Delivery O2 Flow Rate FiO2 12/06/16 08:00 Nasal Cannula 2.00 12/06/16 08:00 97.0 80 18 122/63 94 12/06/16 04:20 97.7 64 16 136/57 94 12/06/16 00:05 98.2 59 16 115/51 97 12/05/16 20:00 97.9 66 16 147/73 93 CBC/BMP: 12/05/16 0508 12/05/16 0508 Imaging Remarks Last Impressions Head CT 12/04/16 0000 Signed Impressions: Service Date/Time: December 01:40 - CONCLUSION: No bleed or other acute intracranial abnormality. 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 No change. Sriram Bowen MD Abdomen/Pelvis CT 11/30/16 0000 Signed Impressions: Service Date/Time: Wednesday, November 30, 2016 17:37 - CONCLUSION: 1. Diffusely enlarged pancreas with induration of the soft tissues surrounding the head and body and multiple small hypodense areas suggesting possible pseudocyst formation. There is also tracking of fluid in Morison's pouch and along the lateral aspect of the liver. The findings are characteristic of acute pancreatitis. 2. Diffuse diverticulosis throughout the colon with out radiographic evidence of diverticulitis. 3. Bilateral lower lung partially consolidative infiltrates. 1. Delgado Licona MD Current Medications Active Medications Haloperidol Lactate (Haldol Inj) 1 mg NOW ONCE IM Last administered on 17:26; Admin Dose 1 MG; Start 12/05/16 at 17:00; Stop 12/05/16 at 17:01; Status DC Haloperidol Lactate (Haldol Inj) 1 mg Q6H PRN IM; Start 12/05/16 at 17:15 Trazodone HCl (Desyrel) 50 mg HS PO Last administered on 12/05/16 20:40; Admin Dose 50 MG; Start 12/05/16 at 21:00 Physical Exam General General Appearance: Well Developed, Comfortable, Anxious, Sleeping, Obese Eyes Eye Exam: Pupils Equal, Pupils Reactive Ears & Nose Ears & Nose Exam: Nasal Mucosa [place] Throat Throat Exam: Oral Mucosa [place] & Moist Neck Neck Exam: Trachea Midline Pulmonary Resp Exam: Breath Sounds Equal, Diminished Breath Sounds Resp Remarks Low volumes while sleeping but no distress Cardiology CV Exam: Normal Sinus Rhythm, Irregular, Murmur Gastrointestinal/Abdomen GI Exam: Soft, Bowel Sounds Present, Non-Distended Musculoskeletal MS Exam: Normal Tone Integumentary Skin Exam: Warm, Dry Extremeties Extremities Exam: Pedal Pulses Palpable, Trace Edema Neurologic Neuro Exam: Alert, Awake, Speech Clear, Moving All Extremities, No Focal Deficits Neuro Remarks Drowsy but arouses to loud verbal stimuli. 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 surgery following, plan is to do laparoscopic cholecystectomy sometime next week and biopsy lymph node right axillary region. This was discussed in full with patient's . She is willing for patient to have the surgery if at all possible. Stabilize medically No cardiac intervention planned Discussed with the need to wake him during the daytime, so he may sleep better at night. Patient received when necessary Haldol last night C Pap at night, Discussed with Discussed with nurse Discussed Condition with: Spouse Problem Qualifiers (1) Abdominal pain: Qualified Code: R10.13 - Epigastric pain (2) Acute pancreatitis: Qualified Code: K85.10 - Acute biliary pancreatitis without infection or necrosis (3) Atrial fibrillation: Qualified Code: I48.0 - Paroxysmal atrial fibrillation (4) GERD (gastroesophageal reflux disease): Qualified Code: K21.9 - Gastroesophageal reflux disease, esophagitis presence not specified (5) Sleep apnea: Qualified Code: G47.30 - Sleep apnea, unspecified type (6) Gall stone: (7) CAD (coronary artery disease): Qualified Code: I25.10 - Coronary artery disease involving [place] coronary artery of [place] heart without angina pectoris (8) Vomiting: Qualified Code: R11.2 - Non-intractable vomiting with nausea, unspecified vomiting type Migdalia Wiggins Dec 06, 2016 14:55
[2016-12-06] MEDS: traZODone HCL 50 MG TAB PO SCH (20:17)
[2016-12-07] VITALS (7 sets, daily range): BP systolic 98–158; BP diastolic 52–65; PULSE 58–77; RESP 16–20; TEMP 97.1–98.9; O2SAT 94–100
[2016-12-07] MEDS: LACTATED RINGER'S 1000 ML INJ 1,000 ML IV SCH ×2 (01:20→17:14)
[2016-12-07 08:04] LABS: HEMATOCRIT 34.6 % (39.0-51.0); MEAN CELL VOLUME 84.6 FL (80.0-100.0); MEAN CORPUSCULAR HEMOGLOBIN 27.4 PG (27.0-34.0); MEAN CORPUSCULAR HGB CONC 32.4 % (32.0-36.0); PLATELET COUNT 288 TH/MM3 (150-450); RED BLOOD COUNT 4.09 MIL/MM3 (4.50-5.90); REVIEW FLAG FINAL; WHITE BLOOD COUNT 7.7 TH/MM3 (4.0-11.0)
[2016-12-07 08:29] LABS: BICARBONATE 35.4 MEQ/L (21.0-32.0); MAGNESIUM 2.4 MG/DL (1.5-2.5)
[2016-12-07] MEDS: AMIODARONE 200 MG TAB PO SCH (09:55)
[2016-12-07] MEDS: APIXABAN 5 MG TABLET PO SCH (09:55)
[2016-12-07] MEDS: TAMSULOSIN HCL 0.4 MG CAP PO SCH (09:55)
[2016-12-07] MEDS: DOCUSATE SODIUM 100 MG CAP PO SCH ×3 (09:55→17:14)
[2016-12-07] MEDS: FAMOTIDINE 20 MG TAB NG SCH (09:55)
[2016-12-07] MEDS: LORATADINE 10 MG TAB PO SCH (09:55)
[2016-12-07] MEDS: SODIUM CHLORIDE 0.9% FLUSH 5 ML FLUSH FLUSH SCH ×2 (09:55→20:30)
[2016-12-07] MEDS: SERTRALINE HCL 100 MG TAB PO SCH (09:55)
[2016-12-07] MEDS: PSYLLIUM FIBER SF/GF 6 GM POWD PKT PO SCH (09:55)
[2016-12-07] MEDS: FUROSEMIDE 40 MG TAB PO SCH (09:55)
[2016-12-07] MEDS: METOPROLOL TARTRATE 25 MG TAB PO SCH ×2 (09:58→20:30)
[2016-12-07] MEDS ORDERED: LORATADINE 10 MG TAB PO PRN (12:30)
[2016-12-07] MEDS ORDERED: PILL SPLITTER OTHER PRN (13:00)
--- NOTE | 2016-12-07 16:09 | HHI.PR ---
Subjective Subjective Remarks Up out of bed Febrile Alert no cp no sob at bsd Review of Systems Constitutional Constitutional: Fatigue, Weakness Constitutional Remarks 10 point ROS done. Positives still with weakness and fatigue, more alert today. Other systems unremarkable Neurologic Neurologic Remarks Hard of hearing Psychiatric Psychiatric: Sleep Problems Psychiatric Remarks More alert today Vitals/Results Intake & Output 12/06/16 12/06/16 12/07/16 15:00 23:00 07:00 Intake Total 480 ml 480 ml 480 ml Output Total 500 ml 250 ml 350 ml Balance -20 ml 230 ml 130 ml Intake Oral 480 ml 480 ml 480 ml Output Urine Total 500 ml 250 ml 350 ml # Voids 1 1 # Bowel Movements 0 Vital Signs Vital Signs Date Time Temp Pulse Resp B/P Pulse Ox O2 Delivery O2 Flow Rate FiO2 12/07/16 12:00 96 Nasal Cannula 2.00 12/07/16 12:00 98.8 76 16 98/60 94 12/07/16 08:00 97.1 77 16 107/55 96 12/07/16 07:15 Nasal Cannula 2.00 12/07/16 04:15 98.6 60 20 158/61 100 12/07/16 00:00 98.9 58 16 138/52 95 12/06/16 20:42 Nasal Cannula 2.00 12/06/16 20:21 Nasal Cannula 2.00 12/06/16 20:10 97.5 61 16 142/64 97 12/06/16 17:19 75 CBC/BMP: 12/07/16 0724 12/07/16 0724 Lab Results Laboratory Tests Test 12/07/16 07:24 White Blood Count 7.7 TH/MM3 Red Blood Count 4.09 MIL/MM3 Hemoglobin 11.2 GM/DL Hematocrit 34.6 % Mean Corpuscular Volume 84.6 FL Mean Corpuscular Hemoglobin 27.4 PG Mean Corpuscular Hemoglobin 32.4 % Concent Red Cell Distribution Width 15.0 % Platelet Count 288 TH/MM3 Mean Platelet Volume 7.7 FL Sodium Level 143 MEQ/L Potassium Level 4.0 MEQ/L Chloride Level 102 MEQ/L Carbon Dioxide Level 35.4 MEQ/L Anion Gap 6 MEQ/L Blood Urea Nitrogen 14 MG/DL Creatinine 0.97 MG/DL Estimat Glomerular Filtration 74 ML/MIN Rate Random Glucose 102 MG/DL Calcium Level 8.5 MG/DL Magnesium Level 2.4 MG/DL Current Medications Active Medications Loratadine (Claritin) 10 mg DAILY PRN PO; Start 12/07/16 at 12:30 Miscellaneous (Pill Splitter) 1 ea UNSCH PRN OTHER; Start 12/07/16 at 13:00 Sertraline HCl (Zoloft) 100 mg HS PO; Start 12/08/16 at 21:00 Tramadol HCl (Ultram) 12.5 mg Q4H PRN PO; Start 12/07/16 at 16:00 Trazodone HCl (Desyrel) 25 mg HS PO; Start 12/07/16 at 21:00 Physical Exam General General Appearance: Well Developed, Comfortable, Anxious, Sleeping, Obese Eyes Eye Exam: Pupils Equal, Pupils Reactive Ears & Nose Ears & Nose Exam: Nasal Mucosa [place] Throat Throat Exam: Oral Mucosa [place] & Moist Neck Neck Exam: Trachea Midline Pulmonary Resp Exam: Breath Sounds Equal, Diminished Breath Sounds Resp Remarks Low volumes while sleeping but no distress Cardiology CV Exam: Normal Sinus Rhythm, Irregular, Murmur CV Remarks Systolic murmur grade 3/6, LSB, a fib/flutter, HR 64 Gastrointestinal/Abdomen GI Exam: Soft, Bowel Sounds Present, Non-Distended Musculoskeletal MS Exam: Normal Tone Integumentary Skin Exam: Warm, Dry Extremeties Extremities Exam: No Edema, Pedal Pulses Palpable, Trace Edema Neurologic Neuro Exam: Alert, Awake, Speech Clear, Moving All Extremities, No Focal Deficits Neuro Remarks Drowsy but arouses to loud verbal stimuli. 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 surgery following, plan is to do laparoscopic cholecystectomy sometime next week and biopsy lymph node right axillary region. This was discussed in full with patient's . She is willing for patient to have the surgery if at all possible. Stabilize medically No cardiac intervention planned Patient slept better last night, awake and alert today C Pap at night, Discussed with Discussed with nurse Monitor labs appetite improved Problem Qualifiers (1) Abdominal pain: Qualified Code: R10.13 - Epigastric pain (2) Acute pancreatitis: Qualified Code: K85.10 - Acute biliary pancreatitis without infection or necrosis (3) Atrial fibrillation: Qualified Code: I48.0 - Paroxysmal atrial fibrillation (4) GERD (gastroesophageal reflux disease): Qualified Code: K21.9 - Gastroesophageal reflux disease, esophagitis presence not specified (5) Sleep apnea: Qualified Code: G47.30 - Sleep apnea, unspecified type (6) Gall stone: (7) CAD (coronary artery disease): Qualified Code: I25.10 - Coronary artery disease involving [place] coronary artery of [place] heart without angina pectoris (8) Vomiting: Qualified Code: R11.2 - Non-intractable vomiting with nausea, unspecified vomiting type Migdalia Wiggins Dec 07, 2016 16:09
[2016-12-07] MEDS: traZODone HCL 50 MG TAB PO SCH (20:29)
[2016-12-07] MEDS: traMADol HCL 50 MG TAB PO PRN (23:03)
[2016-12-08] VITALS (11 sets, daily range): BP systolic 96–184; BP diastolic 43–69; PULSE 58–93; RESP 17–20; TEMP 96.8–98.1; O2SAT 93–99
[2016-12-08] MEDS: DIGOXIN 0.125 MG TAB PO SCH (10:14)
[2016-12-08] MEDS: TAMSULOSIN HCL 0.4 MG CAP PO SCH (10:14)
[2016-12-08] MEDS: PSYLLIUM FIBER SF/GF 6 GM POWD PKT PO SCH (10:14)
[2016-12-08] MEDS: FAMOTIDINE 20 MG TAB NG SCH (10:15)
[2016-12-08] MEDS: FUROSEMIDE 40 MG TAB PO SCH (10:15)
[2016-12-08] MEDS: DOCUSATE SODIUM 100 MG CAP PO SCH ×2 (10:15→16:59)
[2016-12-08] MEDS: METOPROLOL TARTRATE 25 MG TAB PO SCH ×2 (10:15→20:58)
[2016-12-08] MEDS: AMIODARONE 200 MG TAB PO SCH (10:15)
[2016-12-08] MEDS: SODIUM CHLORIDE 0.9% FLUSH 5 ML FLUSH FLUSH SCH ×2 (10:19→20:57)
[2016-12-08] MEDS: LACTATED RINGER'S 1000 ML INJ 1,000 ML IV SCH (10:21)
--- NOTE | 2016-12-08 12:27 | HHI.PR ---
Subjective Subjective Remarks more alert and oriented felt slightly dizzy after getting up from bed and walking to bathroom fell however he was being walked at aide and was eased down to floor abrasion to left FA and right flank no head injuries no cp no sob ambulated in hallway earlier, did okay eating well didn't sleep well no fever no abd. pain at bsd Review of Systems Constitutional Constitutional: Fatigue, Weakness Constitutional Remarks 12 point ROS completed, unreliable Psychiatric Psychiatric: Sleep Problems Vitals/Results Intake & Output 12/07/16 12/07/16 12/08/16 15:00 23:00 07:00 Intake Total 480 ml 712 ml 240 ml Balance 480 ml 712 ml 240 ml Intake Oral 480 ml 480 ml 240 ml IV Total 232 ml # Voids 3 2 1 # Bowel Movements 0 0 0 Vital Signs Vital Signs Date Time Temp Pulse Resp B/P Pulse Ox O2 Delivery O2 Flow Rate FiO2 12/08/16 11:50 97.2 62 18 121/58 94 12/08/16 10:50 97.6 63 18 107/43 94 12/08/16 09:50 97.0 93 18 96/55 95 12/08/16 08:00 95 Nasal Cannula 2.00 12/08/16 08:00 98.1 59 19 142/58 95 12/08/16 04:57 96.8 58 18 107/69 97 12/08/16 00:50 97.5 89 18 113/52 95 12/07/16 21:35 Nasal Cannula 2.00 12/07/16 20:50 98.6 71 17 128/61 96 12/07/16 20:30 Nasal Cannula 2.00 12/07/16 20:25 98.2 60 16 121/65 96 12/07/16 18:12 60 CBC/BMP: 12/07/16 0724 12/07/16 0724 Physical Exam General General Appearance: Well Developed, No Acute Distress, Comfortable, Obese Eyes Eye Exam: Pupils Equal, Pupils Reactive Ears & Nose Ears & Nose Exam: Nasal Mucosa [place] Throat Throat Exam: Oral Mucosa [place] & Moist Neck Neck Exam: Trachea Midline Pulmonary Resp Exam: Breath Sounds Equal, Diminished Breath Sounds Cardiology CV Exam: Normal Sinus Rhythm, Irregular, Murmur Gastrointestinal/Abdomen GI Exam: Soft, Bowel Sounds Present, Non-Distended Musculoskeletal MS Exam: Normal Tone Integumentary Skin Exam: Warm, Dry Extremeties Extremities Exam: No Edema, Pedal Pulses Palpable, Trace Edema Neurologic Neuro Exam: Alert, Awake, Speech Clear, Moving All Extremities, No Focal Deficits Psychiatric Psych Exam: Appropriate Responses VTE Prophylaxis VTE Prophylaxis Device: SCDs VTE Prophylaxis Meds: Heparin Assessment/Plan Problem List: (1) Abdominal pain (2) Acute pancreatitis (3) Atrial fibrillation (4) GERD (gastroesophageal reflux disease) (5) Sleep apnea (6) Gall stone (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 Lipase 3381. Patient admitted with recurrent pancreatitis, likely secondary to gallstone.C T of the abdomen and pelvis noted with recurrent pancreatitis -continue regular diet, tolerating well Appreciate surgical input, for poss. ranjith and LN bx sometime this week, poss. thursday -Continue with antiemetics as needed -Repeat CT abd. today per surgery request Hx atrial fibrillation, currently sinus rhythm Continue with amiodarone Continuous cardiac telemetry -Eliquis on hold now Hx CAD, had been undergoing work up with Dr. Aceves -appreciate cardiology input-pt. was in process to have STT and poss. LHC before hospitalization. Known RCA occlusion, stress likely will be + inf. wall. LV function is preserved. He is on beta macie. Recommends to proceed with cholecystectomy. Surgical risk is obviously elevated but it is not prohibitive and he is clearing him. Continue beta macie perioperative. Stop Eliquis at least 48 hours prior to surgery -Eliquis stopped last night 12/07 -will do Heparin 5000 units SQ for DVT prophylaxis Hypoxia, on oxygen at home. Possibly underlying COPD. Continue with oxygen at 2 L to keep sats greater than 92 Incentive spirometer as needed -CPAP at night GERD Continue with Pepcid HTN, stable. Review of BP noted low 100, 90s. 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 Can F/U as OP Sleep apnea Continue CPAP from home Right Carotid occlusion-known hx -continue with present home meds Confused, poss. delirium, falls, no injuries. -CT head done no acute findings -cont. to monitor, close to nurse's stations -ammonia ok, UA/CS no infection -frequent orientation, bed alarm, assist OOB Heparin for DVT prophylaxis Continue with Pepcid for GI prophylaxis OOB with assist IS PT Labs in am D/W RN D/W Dr. Mena D/W pt and This patient was seen by myself and Dr. Mena, this note is written on his behalf Problem Qualifiers (1) Abdominal pain: Qualified Code: R10.13 - Epigastric pain (2) Acute pancreatitis: Qualified Code: K85.10 - Acute biliary pancreatitis without infection or necrosis (3) Atrial fibrillation: Qualified Code: I48.0 - Paroxysmal atrial fibrillation (4) GERD (gastroesophageal reflux disease): Qualified Code: K21.9 - Gastroesophageal reflux disease, esophagitis presence not specified (5) Sleep apnea: Qualified Code: G47.30 - Sleep apnea, unspecified type (6) Gall stone: (7) CAD (coronary artery disease): Qualified Code: I25.10 - Coronary artery disease involving [place] coronary artery of [place] heart without angina pectoris (8) Vomiting: Qualified Code: R11.2 - Non-intractable vomiting with nausea, unspecified vomiting type Nida Lopez Dec 08, 2016 12:27
[2016-12-08] MEDS ORDERED: DIATRIZOATE MEGLUM/DIATRIZOATE SOD 9 ML CUP PO ONE (13:00)
[2016-12-08] MEDS: SERTRALINE HCL 100 MG TAB PO SCH (20:57)
[2016-12-08] MEDS: traZODone HCL 50 MG TAB PO SCH (20:57)
[2016-12-08] MEDS: HEPARIN SODIUM - SQ 10,000 UNITS/ML VIAL SQ SCH (20:58)
--- NOTE | 2016-12-08 21:37 | HHI.PR ---
Subjective Subjective Notes Events noted Eliquis on hold. Will recheck CT in AM; if stable, will proceed with lap ranjith and Right axillary lymph node biopsy on Thursday Objective Vitals/I&O Vital Signs Date Time Temp Pulse Resp B/P Pulse Ox O2 Delivery O2 Flow Rate FiO2 12/08/16 19:40 Nasal Cannula 2.00 12/08/16 15:50 98.0 62 18 130/61 96 Lungs: Clear Abdomen: Non-distended A/P Assessment and Plan Gallstone pancreatitis, severe but stable and improving. Plan: Continue supportive care Will tentatively plan on lap cholecystectomy and RIGHT axillary lymph node biopsy Thursday Will be difficult surgery (not straightforward) due to multiple medical problems. repeat CT scan with oral contrast only Thursday. Hernan De La Rosa MD Dec 08, 2016 21:36
--- NOTE | 2016-12-08 22:34 | RADRPT ---
EXAM DATE/TIME: 12/08/2016 18:52 [facility] COMPARISON: CT ABDOMEN & PELVIS W CONTRAST, November 30, 2016, 17:37. INDICATIONS : Abdomen pain. ORAL CONTRAST: Prescribed oral contrast ingested. RADIATION DOSE: 10.86 CTDIvol (mGy) MEDICAL HISTORY : Carcinoma, not otherwise specified. Cardiovascular disease Hypertension. SURGICAL HISTORY : Inguinal hernia repair. ENCOUNTER: Subsequent ACUITY: 1 day PAIN SCALE: 5/10 LOCATION: Bilateral abdomen. TECHNIQUE: Volumetric scanning of the abdomen and pelvis was performed. Using automated exposure control and ad justment of the mA and/or kV according to patient size, radiation dose was kept as low as reasonably achievable to obtain optimal diagnostic quality images. FINDINGS: Comparison is November 30. Previous basilar airspace disease has improved. There is some mild fibrotic change at the lung bases. The pancreas remains enlarged with peripancreatic fat stranding characteristic of acute pancreatitis. The pancreatic head is enlarged but otherwise difficult to evaluate without contrast. Liver, spleen, adrenals demonstrate no acute findings. Non obstructing calcifications present in the kidneys. There is gallbladder sludge present. Colonic diverticulosis, especially sigmoid without diverticulitis. CONCLUSION: 1. Enlargement of the pancreas, especially the pancreatic head most characteristic of pancreatitis. P robable small pseudocysts anterior and inferior to the pancreas unchanged from November 30. 2. Improvement of basilar air space disease in the lungs. No significant free fluid. No free air. 3. Severe colonic diverticulosis. Wilbur Medley MD on December 08, 2016 at 22:26 Board Certified Radiologist. This report was verified electronically.
[2016-12-08] MEDS: HALOPERIDOL LACTATE 5 MG/ML AMP IM PRN (23:31)
[2016-12-09] VITALS (9 sets, daily range): BP systolic 98–144; BP diastolic 47–77; PULSE 60–81; RESP 14–20; TEMP 97–98.7; O2SAT 91–97
[2016-12-09 05:09] LABS: HEMATOCRIT 35.7 % (39.0-51.0); MEAN CELL VOLUME 83.7 FL (80.0-100.0); MEAN CORPUSCULAR HEMOGLOBIN 27.4 PG (27.0-34.0); MEAN CORPUSCULAR HGB CONC 32.8 % (32.0-36.0); PLATELET COUNT 251 TH/MM3 (150-450); RED BLOOD COUNT 4.27 MIL/MM3 (4.50-5.90); RED CELL DISTRIBUTION WIDTH 15.1 % (11.6-17.2); REVIEW FLAG FINAL
[2016-12-09 05:47] LABS: POTASSIUM 4.1 MEQ/L (3.5-5.1)
[2016-12-09] MEDS: FAMOTIDINE 20 MG TAB PO SCH (10:28)
[2016-12-09] MEDS: DOCUSATE SODIUM 100 MG CAP PO SCH ×3 (10:28→18:00)
[2016-12-09] MEDS: TAMSULOSIN HCL 0.4 MG CAP PO SCH (10:28)
[2016-12-09] MEDS: HEPARIN SODIUM - SQ 10,000 UNITS/ML VIAL SQ SCH (10:29)
[2016-12-09] MEDS: METOPROLOL TARTRATE 25 MG TAB PO SCH ×2 (10:29→23:14)
[2016-12-09] MEDS: AMIODARONE 200 MG TAB PO SCH (10:29)
[2016-12-09] MEDS: SODIUM CHLORIDE 0.9% FLUSH 5 ML FLUSH FLUSH SCH ×2 (10:32→23:10)
[2016-12-09] MEDS: PSYLLIUM FIBER SF/GF 6 GM POWD PKT PO SCH (10:33)
--- NOTE | 2016-12-09 11:15 | HHI.PR ---
Subjective Interval History Patient is feeling better No pain Tolerating by mouth liquids Review of system for 10 point system otherwise unremarkable Review of Systems Constitutional Constitutional: Fatigue, Weakness Psychiatric Psychiatric: Sleep Problems Vitals/Results Intake & Output 12/08/16 12/08/16 12/09/16 15:00 23:00 07:00 Intake Total 840 ml 240 ml Output Total 850 ml Balance -10 ml 240 ml Intake Oral 840 ml 240 ml Output Urine Total 850 ml # Voids 2 1 # Bowel Movements 2 0 Vital Signs Vital Signs Date Time Temp Pulse Resp B/P Pulse Ox O2 Delivery O2 Flow Rate FiO2 12/09/16 08:00 97.7 60 18 130/76 96 12/09/16 03:50 97.8 81 20 144/77 96 12/08/16 23:50 97.5 62 20 184/58 99 12/08/16 22:32 96 Nasal Cannula 2.00 12/08/16 19:50 97.4 84 17 146/65 93 12/08/16 19:40 Nasal Cannula 2.00 12/08/16 15:50 98.0 62 18 130/61 96 12/08/16 11:50 97.2 62 18 121/58 94 CBC/BMP: 12/09/16 0427 12/09/16 0427 Lab Results Laboratory Tests Test 12/09/16 04:27 White Blood Count 8.0 TH/MM3 Red Blood Count 4.27 MIL/MM3 Hemoglobin 11.7 GM/DL Hematocrit 35.7 % Mean Corpuscular Volume 83.7 FL Mean Corpuscular Hemoglobin 27.4 PG Mean Corpuscular Hemoglobin 32.8 % Concent Red Cell Distribution Width 15.1 % Platelet Count 251 TH/MM3 Mean Platelet Volume 8.0 FL Sodium Level 141 MEQ/L Potassium Level 4.1 MEQ/L Chloride Level 103 MEQ/L Carbon Dioxide Level 32.0 MEQ/L Anion Gap 6 MEQ/L Blood Urea Nitrogen 11 MG/DL Creatinine 0.93 MG/DL Estimat Glomerular Filtration 78 ML/MIN Rate Random Glucose 92 MG/DL Calcium Level 8.6 MG/DL Physical Exam General General Appearance: Well Developed, No Acute Distress, Comfortable, Obese Eyes Eye Exam: Pupils Equal, Pupils Reactive Ears & Nose Ears & Nose Exam: Nasal Mucosa [place] Throat Throat Exam: Oral Mucosa [place] & Moist Neck Neck Exam: Trachea Midline Pulmonary Resp Exam: Breath Sounds Equal, Diminished Breath Sounds Cardiology CV Exam: Normal Sinus Rhythm, Irregular, Murmur Gastrointestinal/Abdomen GI Exam: Soft, Bowel Sounds Present, Non-Distended Musculoskeletal MS Exam: Normal Tone Integumentary Skin Exam: Warm, Dry Extremeties Extremities Exam: No Edema, Pedal Pulses Palpable, Trace Edema Neurologic Neuro Exam: Alert, Awake, Speech Clear, Moving All Extremities, No Focal Deficits Psychiatric Psych Exam: Appropriate Responses VTE Prophylaxis VTE Prophylaxis Device: SCDs VTE Prophylaxis Meds: Heparin Assessment/Plan Problem List: (1) Abdominal pain (2) Acute pancreatitis (3) Atrial fibrillation (4) GERD (gastroesophageal reflux disease) (5) Sleep apnea (6) Gall stone (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 Lipase 3381. Patient admitted with recurrent pancreatitis, likely secondary to gallstone.C T of the abdomen and pelvis noted with recurrent pancreatitis -continue diet, tolerating well Appreciate surgical input, for poss. ranjith and LN bx sometime this week, poss. thursday -Continue with antiemetics as needed -Repeat CT abd. report reviewed Hx atrial fibrillation, controlled rate Continue with amiodarone Continuous cardiac telemetry -Eliquis on hold now Hx CAD, had been undergoing work up with Dr. Aceves -appreciate cardiology input-pt. was in process to have STT and poss. LHC before hospitalization. Known RCA occlusion, stress likely will be + inf. wall. LV function is preserved. He is on beta macie. Recommends to proceed with cholecystectomy. Surgical risk is obviously elevated but it is not prohibitive and he is clearing him. Continue beta macie perioperative. Stop Eliquis at least 48 hours prior to surgery -Eliquis stopped last night 2/ -will do Heparin 5000 units SQ for DVT prophylaxis Hypoxia, on oxygen at home. Possibly underlying COPD. Continue with oxygen at 2 L to keep sats greater than 92 Incentive spirometer as needed -CPAP at night GERD Continue with Pepcid HTN, stable. Review of BP noted low 100, 90s. 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 Can F/U as OP Sleep apnea Continue CPAP from home Right Carotid occlusion-known hx -continue with present home meds Confused, poss. delirium, falls, no injuries. Better -CT head done no acute findings -cont. to monitor, close to nurse's stations -ammonia ok, UA/CS no infection -frequent orientation, bed alarm, assist OOB Heparin for DVT prophylaxis Continue with Pepcid for GI prophylaxis OOB with assist IS PT Labs in am D/W RN D/W pt and Problem Qualifiers (1) Abdominal pain: Qualified Code: R10.13 - Epigastric pain (2) Acute pancreatitis: Qualified Code: K85.10 - Acute biliary pancreatitis without infection or necrosis (3) Atrial fibrillation: Qualified Code: I48.0 - Paroxysmal atrial fibrillation (4) GERD (gastroesophageal reflux disease): Qualified Code: K21.9 - Gastroesophageal reflux disease, esophagitis presence not specified (5) Sleep apnea: Qualified Code: G47.30 - Sleep apnea, unspecified type (6) Gall stone: (7) CAD (coronary artery disease): Qualified Code: I25.10 - Coronary artery disease involving [place] coronary artery of [place] heart without angina pectoris (8) Vomiting: Qualified Code: R11.2 - Non-intractable vomiting with nausea, unspecified vomiting type Rene Mena MD Dec 09, 2016 11:15
--- NOTE | 2016-12-09 11:45 | HHI.PR ---
Subjective Subjective Notes Feels better; tolerating full liquids well Not confused today, but does not know what day it is. at bedside. Objective Vitals/I&O Vital Signs Date Time Temp Pulse Resp B/P Pulse Ox O2 Delivery O2 Flow Rate FiO2 12/09/16 07:50 97.7 60 18 130/76 96 12/08/16 22:32 Nasal Cannula 2.00 Labs Laboratory Tests Test 12/09/16 04:27 White Blood Count 8.0 Red Blood Count 4.27 Hemoglobin 11.7 Hematocrit 35.7 Mean Corpuscular Volume 83.7 Mean Corpuscular Hemoglobin 27.4 Mean Corpuscular Hemoglobin 32.8 Concent Red Cell Distribution Width 15.1 Platelet Count 251 Mean Platelet Volume 8.0 Sodium Level 141 Potassium Level 4.1 Chloride Level 103 Carbon Dioxide Level 32.0 Anion Gap 6 Blood Urea Nitrogen 11 Creatinine 0.93 Estimat Glomerular Filtration 78 Rate Random Glucose 92 Calcium Level 8.6 Lungs: Clear Abdomen: Non-distended, Non-tender Extremities: No edema A/P Assessment and Plan Gallstone pancreatitis, stable and improving. Repeat CT abdomen is stable Plan: Continue supportive care Will tentatively plan on lap cholecystectomy and RIGHT axillary lymph node biopsy Thursday Will be difficult surgery (not straightforward) due to multiple medical problems. Discussed with patient and today Hernan De La Rosa MD Dec 09, 2016 11:45
[2016-12-09] MEDS ORDERED: INSULIN HUMAN REGULAR 1,000 UNITS/10 ML VIAL SQ PRN (22:30)
[2016-12-09] MEDS ORDERED: SODIUM CHLORID 0.9% 500 ML IV SCH (22:30)
[2016-12-09] MEDS: LACTATED RINGER'S 1000 ML IV SCH (22:30)
[2016-12-09] MEDS: SERTRALINE HCL 100 MG TAB PO SCH (23:11)
[2016-12-09] MEDS: LORazepam 0.5 MG TAB PO PRN (23:11)
[2016-12-09] MEDS: traZODone HCL 50 MG TAB PO SCH (23:11)
[2016-12-10 04:40] VITALS: BP 126/61; PULSE 75; RESP 18; TEMP 97.9; O2SAT 93
[2016-12-10 08:20] VITALS: BP 155/78; PULSE 66; RESP 18; TEMP 97.4; O2SAT 95
[2016-12-10 08:30] LABS: HEMATOCRIT 34.1 % (39.0-51.0); MEAN CELL VOLUME 83.6 FL (80.0-100.0); MEAN CORPUSCULAR HEMOGLOBIN 27.8 PG (27.0-34.0); MEAN CORPUSCULAR HGB CONC 33.2 % (32.0-36.0); PLATELET COUNT 245 TH/MM3 (150-450); RED BLOOD COUNT 4.08 MIL/MM3 (4.50-5.90); RED CELL DISTRIBUTION WIDTH 15.2 % (11.6-17.2); REVIEW FLAG FINAL; WHITE BLOOD COUNT 6.9 TH/MM3 (4.0-11.0)
[2016-12-10 08:39] LABS: POTASSIUM 3.7 MEQ/L (3.5-5.1)
[2016-12-10] MEDS: DOCUSATE SODIUM 100 MG CAP PO SCH ×3 (09:00→18:00)
[2016-12-10] MEDS: AMIODARONE 200 MG TAB PO SCH ×2 (09:00→20:50)
[2016-12-10] MEDS: TAMSULOSIN HCL 0.4 MG CAP PO SCH ×2 (09:00→20:50)
[2016-12-10] MEDS: FAMOTIDINE 20 MG TAB PO SCH (09:00)
[2016-12-10] MEDS: PSYLLIUM FIBER SF/GF 6 GM POWD PKT PO SCH (09:00)
[2016-12-10] MEDS: DIGOXIN 0.125 MG TAB PO SCH (09:00)
[2016-12-10] MEDS: SODIUM CHLORIDE 0.9% FLUSH 5 ML FLUSH FLUSH SCH ×2 (09:00→21:00)
[2016-12-10 10:30] VITALS: PULSE 66
[2016-12-10] MEDS ORDERED: PHENYLEPH/NS 1000 MCG/10 ML SYR IV ONE (10:51)
[2016-12-10] MEDS ORDERED: PROPOFOL 200 MG/20 ML AMP IV ONE (10:51)
[2016-12-10] MEDS ORDERED: ePHEDrine/NS 25 MG/5 ML SYR IV ONE (10:51)
[2016-12-10] MEDS ORDERED: ONDANSETRON HCL 4 MG/2 ML VIAL IV PUSH ONE (10:51)
[2016-12-10] MEDS ORDERED: NEOSTIGMINE 3 MG/3 ML SYR IV ONE (10:51)
[2016-12-10] MEDS ORDERED: LACTATED RINGER'S 1000 ML INJ 2,000 ML IV ONE (10:51)
[2016-12-10] MEDS ORDERED: SODIUM CHLORID 0.9% 500 ML INJ 500 ML IV ONE (10:51)
[2016-12-10] MEDS ORDERED: SODIUM CHLOR 0.9% 250 ML INJ 250 ML IV ONE (10:51)
[2016-12-10] MEDS: METOPROLOL TARTRATE 25 MG TAB PO SCH ×2 (12:22→20:49)
[2016-12-10] MEDS ORDERED: BUPIVACAINE/EPINEPHRINE 0.25% PF 30 ML VIAL ONE (12:24)
[2016-12-10] MEDS ORDERED: ceFAZolin INJ 1,000 MG VIAL IV ONE (13:59)
[2016-12-10] MEDS ORDERED: IOHEXOL 300 MG/ML 50 ML BTL (for RAD DIAG) OTHER ONE (15:02)
--- NOTE | 2016-12-10 16:31 | HHI.PR ---
cc: Hernan De La Rosa MD Immediate Post Op Note Procedure Date: Dec 10, 2016 Pre Op Diagnosis: 1. Gallstone Pancreatitis 2. Lymphadenopathy right axilla Post Op Diagnosis: Same Surgeon: Hernan De La Rosa Tile Shader(s): MIGUELINA Jasmine Procedure: 1. Laparoscopic cholecystectomy with intraoperative cholangiogram with intraoperative use of fluoroscopy 2. Right axillary lymph node biopsy Findings: Severe, acute cholecystitis Lymphadenopathy suspicious for lymphoma Complications: None Specimen(s) removed: Gallbladder and stones Right axillary lymph node Estimated blood loss: 100 ml Anesthesia: General Drains: None IVF (2500 ml) Patient to: PACU Patient Condition: Fair Date/Time of Procedure: SEE SURGICAL CARE RECORD Hernan De La Rosa MD Dec 10, 2016 16:31
[2016-12-10] MEDS ORDERED: fentaNYL CITRATE 250 MCG/5 ML AMP ONE (16:40)
--- NOTE | 2016-12-10 16:48 | RADRPT ---
EXAM DATE/TIME: 12/10/2016 15:14 [facility] COMPARISON: CT ABDOMEN & PELVIS W/O CONTRAST, December 08, 2016, 18:52. INDICATIONS : Pancreatitis/Cholecystitis. FLUORO TIME: 1.1 minutes IMAGE COUNT: 5 MEDICAL HISTORY : Hypertension. Pancreatitis. Coronary artery disease. Crohn's. SURGICAL HISTORY : Appendectomy. Bilateral inguinal hernia repair. ENCOUNTER: Subsequent ACUITY: 1 week PAIN SCORE: Non-responsive. LOCATION: Abdomen. PROCEDURE: CHOLANGIOGRAM, OPERATIVE 1. Intraoperative cholangiogram. The patient has pancreatitis. There is mild edema in the head of the pancreas. There is a very tiny defect seen in the superior margin of the very distal common duct that does perez ge position. It is probably a small air bubble. There is very minimal retrograde filling into the pancreatic duct on the last run. CONCLUSION: 1. Probably tiny bubble distal common duct. 2. Findings were discussed with Dr. De La Rosa on today's date. Sherif Sewell MD FACR on December 10, 2016 at 15:34 Board Certified Radiologist. This report was verified electronically.
[2016-12-10] MEDS ORDERED: LABETALOL HCL 100 MG/20 ML VIAL ONE (17:00)
[2016-12-10] MEDS ORDERED: *RESP: ALBUTEROL 2.5 MG/3 ML NEB (PRN) PERIprocedural Use ONLY NEB ONE (17:03)
[2016-12-10] MEDS ORDERED: DO NOT ADM ANY ANTICOAGULANT DRUGS XX PRN (17:15)
[2016-12-10] MEDS ORDERED: ENALAPRILAT 1.25 MG/ML VIAL ONE (17:22)
[2016-12-10] MEDS ORDERED: *morphine SULFATE 8 MG/ML PERIprocedure ONLY ONE (19:41)
[2016-12-10] MEDS: SERTRALINE HCL 100 MG TAB PO SCH (20:49)
[2016-12-10] MEDS: traZODone HCL 50 MG TAB PO SCH (20:49)
[2016-12-10] MEDS: HYDROmorphone HCL PF 1 MG/ML VIAL IV PRN (22:21)
[2016-12-10] MEDS: LACTATED RINGER'S 1000 ML IV SCH (22:30)
[2016-12-10] MEDS ORDERED: SODIUM CHLOR 0.9% 1000 ML INJ 1,000 ML IV ONE (23:45)
[2016-12-11] VITALS (8 sets, daily range): BP systolic 114–150; BP diastolic 55–72; PULSE 56–76; RESP 15–19; TEMP 97.8–98.4; O2SAT 92–98
[2016-12-11] MEDS ORDERED: SODIUM CHLOR 0.9% 1000 ML INJ 1,000 ML IV ONE (03:00)
[2016-12-11 04:48] LABS: BASOPHIL # 0.1 TH/MM3 (0-0.2); BASOPHIL % 0.6 % (0.0-2.0); HEMATOCRIT 32.6 % (39.0-51.0); HEMO FLAGS DIFF FINAL; LYMPH % 13.6 % (9.0-44.0); LYMPHOCYTE # 1.3 TH/MM3 (1.0-4.8); MEAN CELL VOLUME 84.4 FL (80.0-100.0); MEAN CORPUSCULAR HEMOGLOBIN 26.9 PG (27.0-34.0); MEAN CORPUSCULAR HGB CONC 31.8 % (32.0-36.0); MONO % 10.2 % (0.0-8.0); NEUT % 75.6 % (16.0-70.0); PLATELET COUNT 253 TH/MM3 (150-450); RED BLOOD COUNT 3.86 MIL/MM3 (4.50-5.90); RED CELL DISTRIBUTION WIDTH 15.5 % (11.6-17.2); WHITE BLOOD COUNT 9.3 TH/MM3 (4.0-11.0)
[2016-12-11 05:11] LABS: BICARBONATE 29.2 MEQ/L (21.0-32.0); POTASSIUM 4.7 MEQ/L (3.5-5.1)
[2016-12-11] MEDS: HYDROmorphone HCL PF 1 MG/ML VIAL IV PRN ×3 (05:38→10:46)
[2016-12-11] MEDS: FAMOTIDINE 20 MG TAB PO SCH (08:00)
[2016-12-11] MEDS: DOCUSATE SODIUM 100 MG CAP PO SCH ×3 (08:00→18:31)
[2016-12-11] MEDS: PSYLLIUM FIBER SF/GF 6 GM POWD PKT PO SCH (08:00)
[2016-12-11] MEDS: METOPROLOL TARTRATE 25 MG TAB PO SCH ×2 (08:00→21:19)
[2016-12-11] MEDS: SODIUM CHLORIDE 0.9% FLUSH 5 ML FLUSH FLUSH SCH ×2 (08:04→21:19)
[2016-12-11] MEDS: LACTATED RINGER'S 1000 ML IV SCH (09:38)
--- NOTE | 2016-12-11 12:05 | MP ---
cc: DAE SOLANO M.D., MAZHAR MD DATE OF SURGERY 12/10/2016 PROCEDURE 1. Laparoscopic cholecystectomy with intraoperative cholangiogram with intraoperative use of fluoroscopy. 2. Right axillary lymph node biopsy. PREOPERATIVE DIAGNOSES 1. Gallstone pancreatitis with severe pancreatitis. 2. Persistent lymphadenopathy in groin, axilla and retroperitoneal region including mediastinum. POSTOPERATIVE DIAGNOSES 1. Gallstone pancreatitis with severe pancreatitis. 2. Persistent lymphadenopathy in groin, axilla and retroperitoneal region including mediastinum. ANESTHESIA General endotracheal. SURGEON MD Rj ESTIMATED BLOOD LOSS 100 mL. FLUIDS 2500 mL crystalloid. COMPLICATIONS None. DRAINS None. SPECIMEN 1. Gallbladder and stones. 2. Right axillary lymph node to pathology. PROCEDURE IN DETAIL The patient was taken to the operating room and placed on the operating table in the supine position. After an adequate level of general endotracheal anesthesia was begun. An arterial line was placed and the abdomen prepped and draped in the usual fashion. Time-out was taken confirming the correct patient, site and procedures to be performed. Incision was made in the umbilicus after injecting with local anesthetic and dissection carried down to the peritoneum. The peritoneal cavity was entered uneventfully and was directly visualized. A 12-mm balloon trocar was then inserted and the balloon inflated. The abdomen was insufflated. The patient was placed in reverse Trendelenburg position. Three 5-mm trocars were then placed with the first to the right of the falciform ligament and second and third in the right subcostal region. All entered the abdominal cavity under direct vision uneventfully. The gallbladder was actually quite inflamed and dissection was carried out at the base of the gallbladder and a dome-down approach was then utilized. There was adherent material to the duodenum and care was taken extreme care was taken to pulled inflammatory peel off towards the duodenum and not devitalize any segment of the intestine. When this was completed, the cystic artery was identified, doubly clipped proximally, singly clipped on the gallbladder side and divided. Careful further dissection revealed a very dilated cystic duct and after gallstones were milked back and taken out with a stones scoop, it was felt that the patient would benefit from cholangiogram as his lipase increased once again. As the gallbladder was dissected off of the liver bed and then from the surrounding structures, it was entered at two points and the remaining bile aspirated after initially having the gallbladder aspirated. The gallbladder was amputated and passed off the table. The remaining very large cystic duct was utilized to obtain a cholangiogram. An Little cholangiocatheter was brought in through a separate stab incision and secured with an Endoloop. Cholangiogram was obtained and multiple runs were taken. Contrast flowed easily into the duodenum. The intrapancreatic part of the bile duct was seen to be slightly narrowed. What appeared to be an air bubble in the distal common duct was noted and this was gravity dependent in one location. Given these findings, the cholangiocatheter was removed and a second PDS Endoloop was cinched down to secure the bile duct. All irrigation was aspirated from the abdominal cavity. Three grams of Claribel powder was placed into the liver bed and the area of dissection. There was no bleeding noted whatsoever from the liver bed or the area of dissection. At this point insufflation was discontinued and the upper abdominal trocars removed under direct vision. No bleeding was noted from the trocar sites after removal. The laparoscope and umbilical port were then removed. The fascia was closed in the umbilicus with 0 Vicryl suture in both a simple interrupted and [id number] fashion. The remaining local anesthetic was injected in each of the port sites. The skin was closed at each of the port sites with 4-0 Vicryl in an interrupted buried fashion. All port sites were dressed with Steri-Strips including the cholangiocatheter site. At this point the right axilla was shaved, prepped and draped after removing the drapes for the gallbladder. The skin and subcutaneous tissue was infiltrated with local anesthetic and an incision made in the right axilla. Dissection was carried down to a palpable node which was felt preoperatively. Care was taken to perform minimal dissection except near the node. Electrocautery was used where needed. Two points were clamped and ligated, one of which was a small vein and the second which appeared to be apparent lymphatics. Both were ligated with Vicryl suture. When this had been completed, absolute hemostasis was achieved in the axilla with electrocautery. With hemostasis assured, the wound was closed with 3-0 Vicryl suture in an interrupted buried fashion followed by closure of the skin with 5-0 PDS in a running subcuticular fashion. The wound was dressed with Steri-Strips and the patient then extubated and taken back to the recovery room in stable condition. Sponge and needle counts were reported be correct. The patient tolerated the procedure well. MD FRANK Garcias/SSB /4:38 PM /11:45 AM
[2016-12-11] MEDS: FUROSEMIDE 40 MG TAB PO SCH (12:26)
--- NOTE | 2016-12-11 14:13 | HHI.PR ---
Subjective Subjective Remarks Up out of bed X 1 hr Febrile Alert no cp no sob at bsd (Migdalia Wiggins) Review of Systems Constitutional Constitutional: Fatigue, Weakness Constitutional Remarks 10 point ROS done. Positives still with weakness and fatigue, more alert today with verbal stimuli. burke in Post Op day 1 Other systems unremarkable (Migdalia Wiggins) GI/Abdomen GI/Abdominal Exam: Abdominal Pain GI/Abdomen Remarks KIRAN lay ranjith. active BS (Migdalia Wiggins) Genitourinary Remarks turk (Migdalia Wiggins) Musculoskeletal MS: Weakness, Discomfort/Pain (abd.) (Migdalia Wiggins) Neurologic Neurologic Remarks Hard of hearing (Migdalia Wiggins) Psychiatric Psychiatric: Normal Mood, Sleep Problems Psychiatric Remarks alert today (Migdalia Wiggins) Vitals/Results Intake & Output 12/10/16 12/10/16 12/11/16 15:00 23:00 07:00 Intake Total 4171 ml 3053 ml Output Total 447 ml 225 ml Balance 3724 ml 2828 ml Intake Oral 440 ml 240 ml IV Total 1231 ml 2813 ml Other 2500 ml Output Urine Total 347 ml 225 ml Estimated Blood Loss 100 ml # Bowel Movements 0 Vital Signs Vital Signs Date Time Temp Pulse Resp B/P Pulse Ox O2 Delivery O2 Flow Rate FiO2 12/11/16 12:00 97.9 58 16 114/55 93 12/11/16 08:00 98.0 69 17 126/60 95 12/11/16 07:00 96 Nasal Cannula 3.00 12/11/16 06:08 15 12/11/16 04:00 98.4 57 15 125/72 98 12/11/16 00:00 98.1 56 15 150/68 94 Arterial Line 12/11/16 00:00 95 Nasal Cannula 3.00 12/10/16 23:00 63 12 146/73 97 Nasal Cannula 3 12/10/16 22:05 86 12 119/60 99 Nasal Cannula 3 12/10/16 21:15 98.5 84 16 129/66 97 Nasal Cannula 3 12/10/16 21:00 86 16 150/74 99 Nasal Cannula 2.5 12/10/16 20:30 88 16 188/82 97 Nasal Cannula 3 12/10/16 19:15 87 16 168/73 94 Nasal Cannula 3 12/10/16 18:45 88 16 163/73 95 Nasal Cannula 3 12/10/16 18:15 75 14 159/58 94 Nasal Cannula 4 12/10/16 18:00 72 14 168/70 94 Nasal Cannula 4 12/10/16 17:45 69 15 166/72 98 Simple Mask 6 174/57 12/10/16 17:30 67 15 185/79 98 Simple Mask 6 180/79 12/10/16 17:16 68 15 96 Simple Mask 6 12/10/16 17:15 64 15 164/74 89 Simple Mask 6 181/77 12/10/16 17:00 82 14 182/86 91 Nasal Cannula 4 199/66 12/10/16 16:45 81 14 155/79 91 Nasal Cannula 4 178/62 12/10/16 16:33 97.3 66 13 181/74 94 Nasal Cannula 4 197/96 12/10/16 14:44 Nasal Cannula 2.00 (Migdalia Wiggins) CBC/BMP: 12/11/16 0335 12/11/16 0335 Lab Results Laboratory Tests Test 12/10/16 12/11/16 23:30 03:35 Nasal Screen MRSA (PCR) NEGATIVE White Blood Count 9.3 TH/MM3 Red Blood Count 3.86 MIL/MM3 Hemoglobin 10.4 GM/DL Hematocrit 32.6 % Mean Corpuscular Volume 84.4 FL Mean Corpuscular Hemoglobin 26.9 PG Mean Corpuscular Hemoglobin 31.8 % Concent Red Cell Distribution Width 15.5 % Platelet Count 253 TH/MM3 Mean Platelet Volume 8.2 FL Neutrophils (%) (Auto) 75.6 % Lymphocytes (%) (Auto) 13.6 % Monocytes (%) (Auto) 10.2 % Eosinophils (%) (Auto) 0.0 % Basophils (%) (Auto) 0.6 % Neutrophils # (Auto) 7.0 TH/MM3 Lymphocytes # (Auto) 1.3 TH/MM3 Monocytes # (Auto) 0.9 TH/MM3 Eosinophils # (Auto) 0.0 TH/MM3 Basophils # (Auto) 0.1 TH/MM3 CBC Comment DIFF FINAL Differential Comment Sodium Level 142 MEQ/L Potassium Level 4.7 MEQ/L Chloride Level 106 MEQ/L Carbon Dioxide Level 29.2 MEQ/L Anion Gap 7 MEQ/L Blood Urea Nitrogen 15 MG/DL Creatinine 1.04 MG/DL Estimat Glomerular Filtration 69 ML/MIN Rate Random Glucose 120 MG/DL Calcium Level 7.9 MG/DL Current Medications Active Medications Albuterol Sulfate (*ALBUTEROL NEB PERIprocedure ONLY) 2.5 mg STK-MED ONCE NEB Last administered on 12/10/16 17:04; Admin Dose 2.5 MG; Start 12/10/16 at 17:03; Stop 12/10/16 at 17:04; Status DC Enalaprilat (Vasotec Inj) 1.25 mg STK-MED ONCE .ROUTE Last administered on 17:23; Admin Dose 1.25 MG; Start 12/10/16 at 17:22; Stop 12/10/16 at 17:23; Status DC Fentanyl Citrate (fentaNYL INJ) 250 mcg STK-MED ONCE .ROUTE; Start 12/10/16 at 16 :40; Stop 12/10/16 at 16:41; Status DC Furosemide (Lasix) 40 mg DAILY PO Last administered on 12/11/16 12:26; Admin Dose 40 MG; Start 12/11/16 at 12:30 Iohexol (Omnipaque 300 Inj) 50 ml STK-MED ONCE OTHER Last administered on 15:02; Admin Dose 30 ML; Start 12/10/16 at 15:02; Stop 12/10/16 at 15:04; Status DC Labetalol HCl (Trandate Inj) 100 mg STK-MED ONCE .ROUTE Last administered on 12/10 17:01; Admin Dose 5 MG; Start 12/10/16 at 17:00; Stop 12/10/16 at 17:01; Status DC Miscellaneous Information ALL NURSING DEPARTME... UNSCH PRN XX; Start 12/10/16 at 17:15; Stop 12/11/16 at 17:14 Morphine Sulfate 8 mg 8 mg STK-MED ONCE .ROUTE Last administered on 12/10/16 19: 42; Admin Dose 5 MG; Start 12/10/16 at 19:41; Stop 12/10/16 at 19:42; Status DC Sodium Chloride 1,000 ml @ 500 mls/hr Q2H ONCE IV; Start 12/10/16 at 23:45; Stop 12/11/16 at 01:44; Status DC Sodium Chloride (NS 1000 ml Inj) 1,000 ml @ 999 mls/hr Q1H1M ONCE IV Last administered on 12/11/16t 04:16; Admin Dose 999 MLS/HR; Start 12/11/16 at 03:00; Stop 12/11/16 at 04:00; Status DC (Migdalia Wiggins [employer]) Physical Exam General General Appearance: Well Developed, No Acute Distress, Comfortable, Obese ( Migdalia Wiggins. [employer]) Eyes Eye Exam: Pupils Equal, Pupils Reactive (Migdalia Wiggins. [employer]) Ears & Nose Ears & Nose Exam: Nasal Mucosa [place] (Migdalia Wiggins. [employer]) Throat Throat Exam: Oral Mucosa [place] & Moist (Migdalia Wiggins [employer]) Neck Neck Exam: Trachea Midline (Migdalia Wiggins [employer]) Pulmonary Resp Exam: Breath Sounds Equal, Diminished Breath Sounds, Poor Inspiratory Effort Resp Remarks Low volumes while sleeping but no distress (Migdalia Wiggins. [employer]) Cardiology CV Exam: Normal Sinus Rhythm, Irregular, Murmur CV Remarks Systolic murmur grade 3/6, LSB, a fib/flutter, HR 64 (Migdalia Wiggins. [employer]) Gastrointestinal/Abdomen GI Exam: Soft, Bowel Sounds Present, Non-Distended GI Remarks positive bowel sounds, (Migdalia Wiggins [employer]) Genitourinary Remarks turk (Migdalia Wiggins [employer]) Musculoskeletal MS Exam: Normal Tone (Migdalia Wiggins. [employer]) Integumentary Skin Exam: Warm, Dry (Migdalia Wiggins. [employer]) Extremeties Extremities Exam: No Edema, Pedal Pulses Palpable, Trace Edema (Migdalia Wiggins M. [employer]ER) Neurologic Neuro Exam: Awake, Speech Clear, Moving All Extremities, No Focal Deficits Neuro Remarks Answers simple questions with yes or no (Migdalia Wiggins. [employer]) Psychiatric Psych Exam: Appropriate Responses (Migdalia WigginsP) VTE Prophylaxis VTE Prophylaxis Device: SCDs VTE Prophylaxis Meds: Heparin ([place],Migdalia M. 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 ranjith, 2-8 -continue diet, tolerating well Appreciate surgical input, -Continue with antiemetics as needed IV hydration Encourage PO fluid Hx atrial fibrillation, controlled rate Continue with amiodarone Continuous cardiac telemetry -Eliquis on hold now Hx CAD, had been undergoing work up with Dr. Aceves -appreciate cardiology input-pt. was in process to have STT and poss. LHC before hospitalization. Known RCA occlusion, stress likely will be + inf. wall. LV function is preserved. He is on beta macie -Eliquis stopped last night 2/5 Hypoxia, on oxygen at home. Possibly underlying COPD. Continue with oxygen at 4L to keep sats greater than 92 Incentive spirometer as needed encouraged Cpap prn GERD Continue with Pepcid HTN, stable. Review of BP noted low 100, 90s. 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 Can F/U as OP Sleep apnea Continue CPAP from home if needed. Right Carotid occlusion-known hx -continue with present home meds Hold eliquis for now OOB with assist IS PT Labs in am Patient is hemodynamically stable and can transfer out to surgical/medical . D/W RN D/W pt and D/W Dr. Mena (Migdalia Wiggins) Assessment/Plan Patient seen and examined in detail as above with at bedside Labs reviewed Medications reviewed Notes reviewed Appreciate surgical help Discussed with RN Discussed with P[employer]IE [employer]ER about plan of care Patient is stable enough to transfer to floor (Rene Mena MD) Problem Qualifiers (1) Abdominal pain: Qualified Code: R10.13 - Epigastric pain (2) Acute pancreatitis: Qualified Code: K85.10 - Acute biliary pancreatitis without infection or necrosis (3) Atrial fibrillation: Qualified Code: I48.0 - Paroxysmal atrial fibrillation (4) GERD (gastroesophageal reflux disease): Qualified Code: K21.9 - Gastroesophageal reflux disease, esophagitis presence not specified (5) Sleep apnea: Qualified Code: G47.30 - Sleep apnea, unspecified type (6) Gall stone: (7) CAD (coronary artery disease): Qualified Code: I25.10 - Coronary artery disease involving [place] coronary artery of [place] heart without angina pectoris (8) Vomiting: Qualified Code: R11.2 - Non-intractable vomiting with nausea, unspecified vomiting type Migdalia Wiggins Dec 11, 2016 14:12 Rene Mena MD Dec 11, 2016 15:36
--- NOTE | 2016-12-11 17:29 | HHI.PR ---
Subjective Subjective Notes DAILY PROGRESS NOTE FOR SURGICAL ATTENDING, DR. WILBUR LEO Patient seen for Dr. De La Rosa Patient tolerating diet Upper and chair earlier today Medical team transfer to floor awaiting bed restarted Jennifer Objective Vitals/I&O Vital Signs Date Time Temp Pulse Resp B/P Pulse Ox O2 Delivery O2 Flow Rate FiO2 12/11/16 16:00 97.8 72 19 131/60 92 12/11/16 07:00 Nasal Cannula 3.00 12/09/16 09:00 21 Labs Laboratory Tests Test 12/10/16 12/11/16 23:30 03:35 Nasal Screen MRSA (PCR) NEGATIVE White Blood Count 9.3 Red Blood Count 3.86 Hemoglobin 10.4 Hematocrit 32.6 Mean Corpuscular Volume 84.4 Mean Corpuscular Hemoglobin 26.9 Mean Corpuscular Hemoglobin 31.8 Concent Red Cell Distribution Width 15.5 Platelet Count 253 Mean Platelet Volume 8.2 Neutrophils (%) (Auto) 75.6 Lymphocytes (%) (Auto) 13.6 Monocytes (%) (Auto) 10.2 Eosinophils (%) (Auto) 0.0 Basophils (%) (Auto) 0.6 Neutrophils # (Auto) 7.0 Lymphocytes # (Auto) 1.3 Monocytes # (Auto) 0.9 Eosinophils # (Auto) 0.0 Basophils # (Auto) 0.1 CBC Comment DIFF FINAL Differential Comment Sodium Level 142 Potassium Level 4.7 Chloride Level 106 Carbon Dioxide Level 29.2 Anion Gap 7 Blood Urea Nitrogen 15 Creatinine 1.04 Estimat Glomerular Filtration 69 Rate Random Glucose 120 Calcium Level 7.9 Radiology Last Impressions Cholangiogram 12/10/16 0000 Signed Impressions: Service Date/Time: Saturday, December 10, 2016 15:14 - CONCLUSION: 1. Probably tiny bubble distal common duct. 2. Findings were discussed with Dr. De La Rosa on today's date. Sherif Sewell MD FACR Abdomen/Pelvis CT 12/08/16 0000 Signed Impressions: Service Date/Time: Thursday, December 08, 2016 18:52 - CONCLUSION: 1. Enlargement of the pancreas, especially the pancreatic head most characteristic of pancreatitis. Probable small pseudocysts anterior and inferior to the pancreas unchanged from November 30. 2. Improvement of basilar air space disease in the lungs. No significant free fluid. No free air. 3. Severe colonic diverticulosis. Wilbur Medley MD Head CT 12/04/16 0000 Signed Impressions: Service Date/Time: December 01:40 - CONCLUSION: No bleed or other acute intracranial abnormality. 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 No change. Sriram Bowen MD Abdomen: Non-distended, Post-op tenderness, BS normal A/P Problem List: (1) Status post laparoscopic cholecystectomy (2) Pancreatitis (3) GERD (gastroesophageal reflux disease) (4) Gall stone Assessment and Plan DAILY PROGRESS NOTE FOR SURGICAL ATTENDING, DR. WILBUR LEO Patient seen for Dr. De La Rosa 81-year-old gentleman with gallstone pancreatitis with pancreatic phlegmon underwent laparoscopic cholecystectomy appears to be doing fairly well as some low urinary output treated with bolus and restarting his Lasix He is already tolerating a regular diet Medical team planning transfer to floor Anticipate discharge home in the next day or 2 Problem Qualifiers (1) Pancreatitis: Qualified Code: K86.1 - Chronic biliary pancreatitis (2) GERD (gastroesophageal reflux disease): Qualified Code: K21.9 - Gastroesophageal reflux disease, esophagitis presence not specified (3) Gall stone: Wilbur Leo MD Dec 11, 2016 17:29
[2016-12-11] MEDS: traZODone HCL 50 MG TAB PO SCH (21:19)
[2016-12-11] MEDS: LORazepam 0.5 MG TAB PO PRN (21:19)
[2016-12-11] MEDS: SERTRALINE HCL 100 MG TAB PO SCH (21:19)
[2016-12-12] VITALS (8 sets, daily range): BP systolic 114–170; BP diastolic 54–72; PULSE 65–81; RESP 14–30; TEMP 98.2–99; O2SAT 92–100
[2016-12-12 00:18] LABS: BICARBONATE 31.6 MEQ/L (21.0-32.0)
[2016-12-12] MEDS: LACTATED RINGER'S 1000 ML IV SCH ×2 (00:43→13:26)
[2016-12-12] MEDS ORDERED: METOPROLOL TARTRATE 25 MG TAB PO ONE (01:00)
[2016-12-12] MEDS: HALOPERIDOL LACTATE 5 MG/ML AMP IM PRN (01:05)
[2016-12-12] MEDS ORDERED: METOPROLOL TARTRATE 5 MG/5 ML VIAL ONE (01:37)
[2016-12-12] MEDS ORDERED: METOPROLOL TARTRATE 5 MG/5 ML VIAL IV PUSH ONE (02:15)
[2016-12-12] MEDS ORDERED: AMIODARONE HCL 150 MG/3 ML VIAL ONE (02:45)
[2016-12-12 03:18] LABS: HEMATOCRIT 34.2 % (39.0-51.0); MEAN CELL VOLUME 83.9 FL (80.0-100.0); MEAN CORPUSCULAR HEMOGLOBIN 27.7 PG (27.0-34.0); PLATELET COUNT 269 TH/MM3 (150-450); RED BLOOD COUNT 4.08 MIL/MM3 (4.50-5.90); RED CELL DISTRIBUTION WIDTH 15.7 % (11.6-17.2); REVIEW FLAG FINAL
[2016-12-12 03:26] LABS: APTT (PATIENT) 33.8 SEC (24.3-30.1); INTERNATIONAL NORMALIZED RATIO 1.6 RATIO; PROTHROMBIN TIME - PATIENT 17.5 SEC (9.8-11.6)
--- NOTE | 2016-12-12 03:27 | PD.CARD.PN ---
Subjective Subjective Remarks Called for the patient being in sustained Vtach, given Lopressor but back in Vtach, hemodynamically stable Came to see the patient, telemetry reviewed... appears to have episodes of sustained Vtach, also has episodes of Afib with RVR that leads to a bundle branch block pattern Has mild pain in the umbilical area, no chest pain, no shortness of breath Given 1mg Haloperidol before the episodes started Objective Medications Current Medications Medications (Trade) Dose Ordered Sig/Rajwinder Route Start Time Stop Time Status Last Admin (NS Flush) 2 ml UNSCH PRN FLUSH 11/30/16 16:00 (NS Flush) 2 ml BID FLUSH 11/30/16 21:00 12/11/16 21:19 (Zofran Inj) 4 mg Q6H PRN IVP 11/30/16 16:00 (Compazine Supp) 25 mg Q12H PRN ND 11/30/16 16:00 (Narcan Inj) 0.4 mg UNSCH PRN IV 11/30/16 16:00 (Flomax) 0.4 mg DAILY PO 12/01/16 09:00 12/10/16 20:50 (Cordarone) 200 mg DAILY PO 12/01/16 09:00 Hold 12/10/16 20:50 (Lopressor) 25 mg Q12HR PO 12/01/16 10:45 12/11/16 21:19 (Dilaudid Pf Inj) 0.1 mg Q3H PRN IV 12/02/16 17:45 12/03/16 22:45 (Dilaudid Pf Inj) 0.25 mg Q3H PRN IV 12/02/16 17:45 12/11/16 10:46 (Colace) 100 mg TID PO 12/03/16 18:00 12/11/16 18:31 (Metamucil Smooth Texture Sf/ Gf Pkt) 1 pkt DAILY PO 12/03/16 18:00 12/11/16 08:00 (Fleet Mineral Oil Enema) 59 ml DAILY PRN RECTAL 12/03/16 17:45 (Haldol Inj) 1 mg Q6H PRN IM 12/05/16 17:15 12/12/16 01:05 (Claritin) 10 mg DAILY PRN PO 12/07/16 12:30 (Zoloft) 100 mg HS PO 12/08/16 21:00 2/9/17 21:19 (Ultram) 12.5 mg Q4H PRN PO 12/07/16 16:00 12/07/16 23:03 (Desyrel) 25 mg HS PO 12/07/16 21:00 12/11/16 21:19 (Pill Splitter) 1 ea UNSCH PRN OTHER 12/07/16 13:00 (Pepcid) 20 mg DAILY PO 12/09/16 09:00 12/11/16 08:00 Lorazepam 0.5 mg 0.5 mg HS PRN PO 12/08/16 16:45 12/11/16 21:19 (Lr 1000 ml Inj) 1,000 ml @ 75 mls/hr [id number] IV 12/09/16 22:30 12/12/16 00:43 Furosemide 40 mg 40 mg DAILY PO 12/11/16 12:30 12/11/16 12:26 Amiodarone HCl 450 mg/Dextrose 250 ml @ 0 mls/hr CONTINUOUS IV 12/12/16 03:30 Dexmedetomidine HCl 50 ml @ 0 mls/hr TITRATE IV 12/12/16 03:30 Amiodarone HCl 150 mg/Dextrose 100 ml @ 600 mls/hr NOW ONCE IV 12/12/16 03:30 12/12/16 03:39 Magnesium Sulfate 2 gm/Sodium Chloride 104 ml @ 52 mls/hr ONCE ONCE IV 12/12/16 03:30 12/12/16 05:29 (KCl 20 Meq Premix Inj) 100 ml @ 50 mls/hr ONCE ONCE IV 12/12/16 03:30 12/12/16 05:29 Vital Signs / I&O Vital Signs Date Time Temp Pulse Resp B/P Pulse Ox O2 Delivery O2 Flow Rate FiO2 12/11/16 20:00 98.2 76 18 142/66 92 12/11/16 19:46 93 Nasal Cannula 3.00 12/11/16 19:00 92 Nasal Cannula 4.00 12/11/16 16:00 97.8 72 19 131/60 92 12/11/16 12:00 97.9 58 16 114/55 93 12/11/16 08:00 98.0 69 17 126/60 95 12/11/16 07:00 96 Nasal Cannula 3.00 2/9/17 06:08 15 12/11/16 04:00 98.4 57 15 125/72 98 I/O 12/11/16 12/11/16 12/11/16 12/12/16 12/12/16 12/12/16 07:00 15:00 23:00 07:00 15:00 23:00 Intake Total 3053 ml 1112 ml 821 ml Output Total 225 ml 80 ml 425 ml Balance 2828 ml 1032 ml 396 ml Intake Oral 240 ml 600 ml 240 ml IV Total 2813 ml 512 ml 581 ml Output Urine Total 225 ml 80 ml 425 ml # Bowel Movements 0 0 0 Physical Exam GENERAL: NAD SKIN: Warm and dry. HEAD: Atraumatic. Normocephalic. EYES: Pupils equal and round. No scleral icterus. No injection or drainage. ENT: No nasal bleeding or discharge. Mucous membranes pink and moist. NECK: Trachea midline. No JVD. CARDIOVASCULAR: Irregularly irregular RESPIRATORY: No accessory muscle use. Clear to auscultation. Breath sounds equal bilaterally. GASTROINTESTINAL: Abdomen soft, incisions clean/dry/intact MUSCULOSKELETAL: Extremities without clubbing, cyanosis, or edema. No obvious deformities. NEUROLOGICAL: Awake and alert. No obvious cranial nerve deficits. Motor grossly within normal limits. Five out of 5 muscle strength in the arms and legs. Normal speech. PSYCHIATRIC: Appropriate mood and affect; insight and judgment normal. Laboratory Laboratory Tests Test 12/11/16 12/11/16 12/12/16 03:35 23:45 03:08 White Blood Count 9.3 TH/MM3 9.0 TH/MM3 Red Blood Count 3.86 MIL/MM3 4.08 MIL/MM3 Hemoglobin 10.4 GM/DL 11.3 GM/DL Hematocrit 32.6 % 34.2 % Mean Corpuscular Volume 84.4 FL 83.9 FL Mean Corpuscular Hemoglobin 26.9 PG 27.7 PG Mean Corpuscular Hemoglobin 31.8 % 33.0 % Concent Red Cell Distribution Width 15.5 % 15.7 % Platelet Count 253 TH/MM3 269 TH/MM3 Mean Platelet Volume 8.2 FL 8.1 FL Neutrophils (%) (Auto) 75.6 % Lymphocytes (%) (Auto) 13.6 % Monocytes (%) (Auto) 10.2 % Eosinophils (%) (Auto) 0.0 % Basophils (%) (Auto) 0.6 % Neutrophils # (Auto) 7.0 TH/MM3 Lymphocytes # (Auto) 1.3 TH/MM3 Monocytes # (Auto) 0.9 TH/MM3 Eosinophils # (Auto) 0.0 TH/MM3 Basophils # (Auto) 0.1 TH/MM3 CBC Comment DIFF FINAL Differential Comment Sodium Level 142 MEQ/L 139 MEQ/L Potassium Level 4.7 MEQ/L 4.0 MEQ/L Chloride Level 106 MEQ/L 100 MEQ/L Carbon Dioxide Level 29.2 MEQ/L 31.6 MEQ/L Anion Gap 7 MEQ/L 7 MEQ/L Blood Urea Nitrogen 15 MG/DL 16 MG/DL Creatinine 1.04 MG/DL 1.11 MG/DL Estimat Glomerular Filtration 69 ML/MIN 64 ML/MIN Rate Random Glucose 120 MG/DL 107 MG/DL Calcium Level 7.9 MG/DL 7.9 MG/DL Magnesium Level 2.0 MG/DL Assessment and Plan Problem List: (1) Atrial fibrillation (2) CAD (coronary artery disease) (3) RCA occlusion (4) Pre-op evaluation (5) Status post laparoscopic cholecystectomy (6) Ventricular tachycardia Assessment and Plan 1) Episodes of sustained VT after receiving Haloperidol, QTc not prolonged but would avoid 2) Given Amiodarone 150mg which has decreased the episodes, will start Amiodarone drip 3) EKG done when out of VT is Afib, possible LVH with secondary changes, no significant change from Dec 01, 2016 4) Currently hemodynamically stable, no chest pain, will attempt to decrease ectopy/VT with Amiodarone drip 5) Will discuss with Dr. Aceves for further evaluation Problem Qualifiers (1) Atrial fibrillation: Qualified Code: I48.0 - Paroxysmal atrial fibrillation (2) CAD (coronary artery disease): Qualified Code: I25.10 - Coronary artery disease involving [place] coronary artery of [place] heart without angina pectoris Ian Alicea DO Dec 12, 2016 03:27
[2016-12-12] MEDS ORDERED: MAGNESIUM SULFATE 2 GM/NS 100 ML IV ONE ×2 (03:30)
[2016-12-12] MEDS ORDERED: DEXMEDETOMIDINE INJ 50 ML IV SCH (03:30)
[2016-12-12] MEDS ORDERED: POTASSIUM CHLOR 20 MEQ PREMIX 100 ML IV ONE (03:30)
[2016-12-12] MEDS ORDERED: AMIODARONE 150 MG/D5W 97 ML BOLUS 10 MINUTES IV ONE ×2 (03:30)
--- NOTE | 2016-12-12 03:35 | PD.CONS ---
[facility] Service Critical Care Medicine Consult Requested By Dr. Alicea Reason for Consult T Primary Care Physician Agus Bowman DO History of Present Illness 81-year-old male, date of admission 12/02/2016. Date of consultation . Significant past medical history for known left eye cataract, migraine headache, morbid obesity, coronary artery disease, carotid artery disease, with right carotid antrectomy, obstructive sleep apnea on CPAP, Crohn' s disease, gastroscopic disease, prostate cancer and pulmonary nodules with prior ETOH and tobacco abuse Pt. had a recent prolonged hospitalization in late 2015 with readmission in October 2016 with acute pancreatitis secondary to gallstones. Patient developed respiratory distress requiring intubation and mechanical ventilation. He also went into new onset A. fib that require amiodarone drip and cardioversion. During this prior hospitalization, he was evaluated by Dr. Umanzor and informed pt that due to the gallstones, he would eventually need cholecystectomy in th future. He was instructed to follow up as outpatient after he underwent rehabilitation and had improved. Patient was discharged from [facility] on 11/13/2016. According to , patient had not followed up with Dr. Umanzor, they were waiting to see Dr. De La Rosa who had previously evaluated the pt. for a left axillary lymph node biopsy that he was due to have before he became critically ill in October.. Prior to admission woke up with abdominal pain he was noted to have gallstone pancreatitis. Redness/sedation by cardiology/Dr. Aceves Patient denies any chest pain, no shortness of breath, no palpitations. His amiodarone was recently decreased to 200 mg by mouth daily. Today, patient had a laparoscopic cholecystectomy with IOC secondary to gallstone pancreatitis. Also right axillary lymph node biopsy. +2500 cc crystalloid. EBL 100 cc. Overnight, patient had several episodes of of white complex. Tachycardia patient did receive 1 g Haldol for agitation. Cardiology was consulted. Received 150 mg amiodarone bolus 1, 2 g magnesium and 20 mEq KCl. Currently remains hemodynamically stable. Review of Systems ROS Limitations: Clinical Condition, Altered Mental Status Constitutional: COMPLAINS OF: Fatigue, Fever, Weight gain, DENIES: Weight loss Endocrine: DENIES: Polydipsia, Polyuria Eyes: DENIES: Blurred vision Ears, nose, mouth, throat: DENIES: Tinnitus Respiratory: COMPLAINS OF: Apneas, Shortness of breath, DENIES: Wheezing Cardiovascular: DENIES: Chest pain Gastrointestinal: COMPLAINS OF: Abdominal pain, DENIES: Nausea, Vomiting Genitourinary: DENIES: Urgency, Hematuria Musculoskeletal: DENIES: Joint pain Integumentary: DENIES: Abnormal pigmentation Hematologic/lymphatic: DENIES: Bruising Neurologic: DENIES: Abnormal gait Psychiatric: COMPLAINS OF: Confusion Past Family Social History Allergies: Coded Allergies: Aspirin (Verified Allergy, Unknown, ABD CRAMPS, 11/30/16) Past Medical History Past Medical History Left eye cataract Obesity Migraine Coronary disease Right carotid stenosis Hyperlipidemia Hypertension Sleep apnea Crohn's disease Bilateral inguinal hernias Reflux disease Kidney stones Enlarged prostate Current Tobacco use Parotid cancer, he sees oncologist Pulmonary nodule for which she sees Lymphadenopathy including hilar and right groin, etiology unclear Past Surgical History Past Surgical History Nasal surgery Right carotid endarterectomy Bilateral inguinal hernia repair Appendectomy Right Parotid surgery Laparoscopic cholecystectomy with IOC Right axillary lymph node biopsy Reported Medications Amiodarone HCl (Cordarone) 200 mg DAILY PO ; Start 12/01/16 at 09:00 Apixaban (Eliquis) 5 mg BID PO ; Start 11/30/16 at 21:00 Digoxin (Lanoxin) 0.125 mg DAILY PO ; Start 12/01/16 at 09:00 Famotidine (Pepcid) 20 mg DAILY NG ; Start 12/01/16 at 09:00 Furosemide (Lasix) 40 mg DAILY PO ; Start 12/01/16 at 09:00 Hydromorphone HCl 0.5 mg 0.5 mg ONCE ONCE IVS Last administered on 11/30/16 15:56; Start 11/30/16 at 15:45; Stop 11/30/16 at 15:46; Status DC IV Flush (NS Flush) 2 ml BID FLUSH ; Start 11/30/16 at 21:00 Lactated Ringer's (Lr 1000 ml Inj) 1,000 ml @ 70 mls/hr [id number] IV ; Start at 16:00 Loratadine (Claritin) 10 mg DAILY PO ; Start 12/01/16 at 09:00 Morphine Sulfate 4 mg 4 mg ONCE ONCE IV PUSH Last administered on 11/30/16 14 :58; Start 11/30/16 at 14:30; Stop 11/30/16 at 14:31; Status DC Naloxone HCl (Narcan Inj) 0.4 mg UNSCH PRN IV SEE LABEL COMMENTS; Start at 16:00 Ondansetron HCl (Zofran Inj) 4 mg Q6H PRN IVP NAUSEA OR VOMITING; Start at 16:00 Prochlorperazine (Compazine Supp) 25 mg Q12H PRN ND NAUSEA OR VOMITING; Start 11/30/16 at 16:00 Sertraline HCl (Zoloft) 100 mg DAILY PO ; Start 12/01/16 at 09:00 Sodium Chloride (NS 1000 ml Inj) 1,000 ml @ 2,000 mls/hr Q30M ONCE IV Last administered on 11/30/16t 14:59; Start 11/30/16 at 14:30; Stop 11/30/16 at 14:59 ; Status DC Tamsulosin HCl (Flomax) 0.4 mg DAILY PO ; Start 12/01/16 at 09:00 Tramadol HCl (Ultram) 50 mg Q4H PRN PO Pain 7-10; Start 11/30/16 at 16:00 Active Ordered Medications Reviewed in EMR Family History Son with hepatitis Social History Patient lives at home with , uses a walker. Used to smoke and drink heavily , quit in October 2016. Physical Exam Vital Signs Vital Signs Date Time Temp Pulse Resp B/P Pulse Ox O2 Delivery O2 Flow Rate FiO2 12/11/16 20:00 98.2 76 18 142/66 92 12/11/16 19:46 93 Nasal Cannula 3.00 12/11/16 19:00 92 Nasal Cannula 4.00 12/11/16 16:00 97.8 72 19 131/60 92 12/11/16 12:00 97.9 58 16 114/55 93 12/11/16 08:00 98.0 69 17 126/60 95 12/11/16 07:00 96 Nasal Cannula 3.00 12/11/16 06:08 15 12/11/16 04:00 98.4 57 15 125/72 98 Physical Exam GENERAL: 81-year-old male, critically ill currently resting in bed SKIN: Warm and dry. No rash HEAD: Atraumatic. Normocephalic. EYES: Pupils equal and round about 3 mm bilaterally and reactive. No scleral icterus. No injection or drainage. ENT: No nasal bleeding or discharge. Mucous membranes pink and moist. NECK: Trachea midline. No JVD. CARDIOVASCULAR: IRR. S1, S2 no S4. RESPIRATORY: Diminished essentially. Clear to auscultation. Breath sounds equal bilaterally. GASTROINTESTINAL: Abdomen slightly distended. Steri-Strips over umbilicus, right upper quadrant 4. Hypoactive bowel sounds. Tender to palpation. Voluntary guarding. No rigidity. MUSCULOSKELETAL: Extremities trace lower extremity nonpitting edema. No obvious deformities. NEUROLOGICAL: Awake and alert. No obvious cranial nerve deficits. Motor grossly within normal limits. Five out of 5 muscle strength in the arms and legs. Normal speech. PSYCHIATRIC: Confused Laboratory Laboratory Tests Test 12/11/16 12/11/16 12/12/16 03:35 23:45 03:08 White Blood Count 9.3 9.0 Red Blood Count 3.86 4.08 Hemoglobin 10.4 11.3 Hematocrit 32.6 34.2 Mean Corpuscular Volume 84.4 83.9 Mean Corpuscular Hemoglobin 26.9 27.7 Mean Corpuscular Hemoglobin 31.8 33.0 Concent Red Cell Distribution Width 15.5 15.7 Platelet Count 253 269 Mean Platelet Volume 8.2 8.1 Neutrophils (%) (Auto) 75.6 Lymphocytes (%) (Auto) 13.6 Monocytes (%) (Auto) 10.2 Eosinophils (%) (Auto) 0.0 Basophils (%) (Auto) 0.6 Neutrophils # (Auto) 7.0 Lymphocytes # (Auto) 1.3 Monocytes # (Auto) 0.9 Eosinophils # (Auto) 0.0 Basophils # (Auto) 0.1 CBC Comment DIFF FINAL Differential Comment Sodium Level 142 139 Potassium Level 4.7 4.0 Chloride Level 106 100 Carbon Dioxide Level 29.2 31.6 Anion Gap 7 7 Blood Urea Nitrogen 15 16 Creatinine 1.04 1.11 Estimat Glomerular Filtration 69 64 Rate Random Glucose 120 107 Calcium Level 7.9 7.9 Magnesium Level 2.0 Prothrombin Time 17.5 Prothromb Time International 1.6 Ratio Activated Partial 33.8 Thromboplast Time Result Diagram: 12/12/16 0308 12/11/16 2345 Imaging Last Impressions Cholangiogram 12/10/16 0000 Signed Impressions: Service Date/Time: Saturday, December 10, 2016 15:14 - CONCLUSION: 1. Probably tiny bubble distal common duct. 2. Findings were discussed with Dr. De La Rosa on today's date. Sherif Sewell MD FACR Abdomen/Pelvis CT 12/08/16 0000 Signed Impressions: Service Date/Time: Thursday, December 08, 2016 18:52 - CONCLUSION: 1. Enlargement of the pancreas, especially the pancreatic head most characteristic of pancreatitis. Probable small pseudocysts anterior and inferior to the pancreas unchanged from November 30. 2. Improvement of basilar air space disease in the lungs. No significant free fluid. No free air. 3. Severe colonic diverticulosis. Wilbur Medley MD Head CT 12/04/16 0000 Signed Impressions: Service Date/Time: December 01:40 - CONCLUSION: No bleed or other acute intracranial abnormality. 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 No change. Sriram Bowen MD Assessment and Plan Assessment and Plan Neuro/Psych: Delirium History of migraine headache Left eye cataract Currently on Dilaudid for pain management. Utilize Precedex for sedation if indicated. Haldol discontinued secondary to current dysrhythmias If delirium continues check CT head CV: V. tach/wide complex tachycardia Currently in atrial fibrillation Coronary artery disease Dyslipidemia Hypertension History of right carotid endarterectomy Telemetry revealed episodes of WBCs C/V. tach sustained. Currently in atrial fibrillation. EKG reveals rate around 80. Possible LVH/left bundle. Received 2 g mag sulfate and 20 mg KCl 1 now. Currently on digoxin 0.125 mg every other day. Level currently is 0.5. Loaded with 0.25 mill grams IV 1 now. \Also on Lopressor 25 mg by mouth twice a day. An amiodarone 200 mg by mouth daily Lasix 40 mg by mouth daily ordered Currently on amiodarone drip after bolus per protocol At home on metoprolol 50 mg twice a day. See above dose changed On fenofibrate 160 mg daily for dyslipidemia is been held Cardiology/Dr. Alicea following. Initiate lidocaine drip if V. tach resumes Resp: Acute respiratory insufficiency Obstructive sleep apnea History of tobaccoism Nasal cannula to maintain saturations greater than equal to 90% Incentive spirometry while awake Tobacco cessation encouraged GI: Postop day 1 laparoscopic cholecystectomy with IOC secondary to gallstone pancreatitis Crohn's disease Gastroesophageal reflux disease Advance diet per surgery. Currently, liquids Pepcid for GI prophylaxis Colace for bowel regimen Previously on Asacol 400 mg twice a day : BPH Rodríguez for accurate I's and O's in a critically ill patient Currently on Flomax 0.4 mg by mouth daily Endo: Sliding-scale insulin if indicated to maintain euglycemia. Check TSH in light of dysrhythmia. 0.8 Renal: History of nephrolithiasis Currently on LR at 75 cc an hour. Accurate I's and O's. Monitor urine output Heme: History of parotid cancer - Deveras Pulmonary nodule - D'Combs Normocytic anemia Significant hilar inguinal lymphadenopathy/status post right axillary lymph node biopsy day #1 Hypercoagulable state CBC within normal limits. INR elevated 1.6. PTT 33. ID: Monitor for infection MSK: Morbid obesity Weight loss will be encouraged FEN: Replace electrolytes as clinically indicated Received 2 g mag sulfate 20 mEq KCl. Recheck BMP, magnesium at noon. Access - Utilize peripheral IV. Central line if indicated Prophylaxis - GI -Pepcid - DVT - SCDs/pharmacological prophylaxis when okay with surgery Critical Care: The total critical care time was 55 minutes. Time to perform other separately billable procedures was not included in the critical care time. Discuss with Dr. Alicea/cardiology. Code Status Full code Discussed Condition With Dr. Alicea/cardiology. Patient. Care plan discussed and all questions answered. Payam South MD Dec 12, 2016 03:35 Payam South MD Dec 12, 2016 03:35
[2016-12-12 03:50] LABS: INDIRECT BILIRUBIN 0.4 MG/DL (0.0-0.8); TOTAL BILIRUBIN ADULT 0.7 MG/DL (0.2-1.0)
[2016-12-12] MEDS ORDERED: SODIUM CHLOR 0.9% 1000 ML INJ 1,000 ML IV ONE (05:00)
[2016-12-12] MEDS ORDERED: ALBUMIN HUMAN 25% 25 GM/100 ML BAGP IV ONE (05:00)
[2016-12-12] MEDS ORDERED: DIGOXIN 0.5 MG/2 ML VIAL IV PUSH ONE (05:00)
[2016-12-12] MEDS: AMIODARONE INJ 450 MG in DEXTROSE 5% IN WATE(EXCEL) INJ 241 ML IV SCH ×4 (06:23→13:29)
[2016-12-12 07:40] LABS: BICARBONATE 30.3 MEQ/L (21.0-32.0); MAGNESIUM 2.5 MG/DL (1.5-2.5); POTASSIUM 4.4 MEQ/L (3.5-5.1)
[2016-12-12] MEDS ORDERED: ICU - SODIUM PHOSPHATE 30 MMOL/NS 250 ML IV PRN ×2 (07:45)
[2016-12-12] MEDS ORDERED: ICU - MAGNESIUM OXIDE 400 MG TAB PO PRN (07:45)
[2016-12-12] MEDS ORDERED: ICU - D/C ICU ELECTROLYTE ORDERS XX PRN (07:45)
[2016-12-12] MEDS ORDERED: ICU - MAGNESIUM SULFATE 4 GM/NS 100 ML IV PRN ×2 (07:45)
[2016-12-12] MEDS ORDERED: ICU - POTASSIUM CHLORIDE/AQUEOUS SOLN 40 MEQ/100 ML IVPB IV PRN (07:45)
[2016-12-12] MEDS ORDERED: ICU - MAGNESIUM SULFATE 2 GM/NS 100 ML IV PRN ×2 (07:45)
[2016-12-12] MEDS ORDERED: ICU - CALL ORDERING PHYSICIAN XX PRN (07:45)
[2016-12-12] MEDS ORDERED: ICU - POTASSIUM CHLORIDE 10% LIQUID 40 MEQ/30 ML CUP PO PRN (07:45)
[2016-12-12] MEDS ORDERED: ICU - POTASSIUM PHOSPHATE MONOBASIC 500 MG TAB PO/TUBE PRN (07:45)
[2016-12-12] MEDS ORDERED: ICU - POTASSIUM CHLORIDE/AQUEOUS SOLN 20 MEQ/100 ML IVPB IV PRN (07:45)
[2016-12-12] MEDS ORDERED: ICU - POTASSIUM PHOSPHATE 30 MMOL/NS 250 ML IV PRN ×2 (07:45)
[2016-12-12] MEDS: DOCUSATE SODIUM 100 MG CAP PO SCH ×3 (08:44→16:53)
[2016-12-12] MEDS: FAMOTIDINE 20 MG TAB PO SCH (08:44)
[2016-12-12] MEDS: FUROSEMIDE 40 MG TAB PO SCH (08:44)
[2016-12-12] MEDS: METOPROLOL TARTRATE 25 MG TAB PO SCH ×3 (08:45→21:35)
[2016-12-12] MEDS: TAMSULOSIN HCL 0.4 MG CAP PO SCH (08:45)
[2016-12-12] MEDS: PSYLLIUM FIBER SF/GF 6 GM POWD PKT PO SCH (08:45)
[2016-12-12] MEDS: DIGOXIN 0.125 MG TAB PO SCH ×2 (08:45→09:00)
[2016-12-12] MEDS: SODIUM CHLORIDE 0.9% FLUSH 5 ML FLUSH FLUSH SCH ×2 (08:47→21:37)
--- NOTE | 2016-12-12 09:17 | PD.CARD.PN ---
Subjective Subjective Remarks No chest pain or dyspnea Objective Medications Current Medications Medications (Trade) Dose Ordered Sig/Rajwinder Route Start Time Stop Time Status Last Admin (NS Flush) 2 ml UNSCH PRN FLUSH 11/30/16 16:00 (NS Flush) 2 ml BID FLUSH 11/30/16 21:00 12/12/16 08:47 (Zofran Inj) 4 mg Q6H PRN IVP 11/30/16 16:00 (Compazine Supp) 25 mg Q12H PRN MD 11/30/16 16:00 (Narcan Inj) 0.4 mg UNSCH PRN IV 11/30/16 16:00 (Flomax) 0.4 mg DAILY PO 12/01/16 09:00 12/12/16 08:45 (Cordarone) 200 mg DAILY PO 12/01/16 09:00 Hold 12/10/16 20:50 (Lopressor) 25 mg Q12HR PO 12/01/16 10:45 12/12/16 08:45 (Dilaudid Pf Inj) 0.1 mg Q3H PRN IV 12/02/16 17:45 12/03/16 22:45 (Dilaudid Pf Inj) 0.25 mg Q3H PRN IV 12/02/16 17:45 12/11/16 10:46 (Colace) 100 mg TID PO 12/03/16 18:00 12/12/16 08:44 (Metamucil Smooth Texture Sf/ Gf Pkt) 1 pkt DAILY PO 12/03/16 18:00 12/12/16 08:45 (Fleet Mineral Oil Enema) 59 ml DAILY PRN RECTAL 12/03/16 17:45 (Claritin) 10 mg DAILY PRN PO 12/07/16 12:30 (Zoloft) 100 mg HS PO 12/08/16 21:00 Hold 12/11/16 21:19 (Ultram) 12.5 mg Q4H PRN PO 12/07/16 16:00 12/07/16 23:03 (Desyrel) 25 mg HS PO 12/07/16 21:00 12/11/16 21:19 (Pill Splitter) 1 ea UNSCH PRN OTHER 12/07/16 13:00 (Pepcid) 20 mg DAILY PO 12/09/16 09:00 12/12/16 08:44 Lorazepam 0.5 mg 0.5 mg HS PRN PO 12/08/16 16:45 12/11/16 21:19 (Lr 1000 ml Inj) 1,000 ml @ 75 mls/hr [id number] IV 12/09/16 22:30 12/12/16 00:43 Furosemide 40 mg 40 mg DAILY PO 12/11/16 12:30 12/12/16 08:44 Amiodarone HCl 450 mg/Dextrose 250 ml @ 0 mls/hr CONTINUOUS IV 12/12/16 03:30 12/12/16 06:23 (Precedex Inj) 50 ml @ 0 mls/hr TITRATE IV 12/12/16 03:30 12/12/16 04:08 Miscellaneous Information D/C ICU ELECTROLYTE ORDERS... UNSCH PRN XX 12/12/16 07:45 Miscellaneous Information ICU - CALL ORDERING PHYSIC... UNSCH PRN XX 12/12/16 07:45 (KCl 40 Meq Premix Inj) 100 ml @ 25 mls/hr UNSCH PRN IV 12/12/16 07:45 Potassium Chloride 40 meq 40 meq UNSCH PRN PO 12/12/16 07:45 Potassium Chloride 100 ml @ 50 mls/hr UNSCH PRN IV 12/12/16 07:45 Magnesium Sulfate 4 gm/Sodium Chloride 108 ml @ 54 mls/hr UNSCH PRN IV 12/12/16 07:45 (Magnesium Sulfate Inj/NS Inj) 104 ml @ 52 mls/hr UNSCH PRN IV 12/12/16 07:45 Magnesium Oxide 800 mg 800 mg UNSCH PRN PO 12/12/16 07:45 (Sodium Phosphate Inj/NS 250 ml Inj) 260 ml @ 43.333 mls/ hr UNSCH PRN IV 12/12/16 07:45 Potassium Phosphate 2000 mg 2,000 mg UNSCH PRN PO/TUBE 12/12/16 07:45 (Potassium Phosphate Inj/NS 250 ml Inj) 260 ml @ 43.333 mls/ hr UNSCH PRN IV 12/12/16 07:45 Vital Signs / I&O Vital Signs Date Time Temp Pulse Resp B/P Pulse Ox O2 Delivery O2 Flow Rate FiO2 12/12/16 07:00 96 Bi-Pap 12/12/16 04:00 98.4 80 24 114/57 93 12/12/16 00:00 99.0 78 18 170/72 97 12/11/16 20:00 98.2 76 18 142/66 92 12/11/16 19:46 93 Nasal Cannula 3.00 12/11/16 19:00 92 Nasal Cannula 4.00 12/11/16 16:00 97.8 72 19 131/60 92 12/11/16 12:00 97.9 58 16 114/55 93 I/O 12/11/16 12/11/16 12/11/16 12/12/16 12/12/16 12/12/16 07:00 15:00 23:00 07:00 15:00 23:00 Intake Total 3053 ml 1112 ml 821 ml 1131 ml Output Total 225 ml 80 ml 425 ml 700 ml Balance 2828 ml 1032 ml 396 ml 431 ml Intake Oral 240 ml 600 ml 240 ml 240 ml IV Total 2813 ml 512 ml 581 ml 891 ml Output Urine Total 225 ml 80 ml 425 ml 700 ml # Bowel Movements 0 0 0 0 Physical Exam Alert Tele afib with controlled rate Chest Clear CV S1S2 irr irr, no S3 Ext no edema Tele prior WCT suggestive of VTach. On IV amio at present Laboratory Laboratory Tests Test 12/11/16 12/12/16 12/12/16 23:45 03:08 06:36 Sodium Level 139 MEQ/L 140 MEQ/L Potassium Level 4.0 MEQ/L 4.4 MEQ/L Chloride Level 100 MEQ/L 102 MEQ/L Carbon Dioxide Level 31.6 MEQ/L 30.3 MEQ/L Anion Gap 7 MEQ/L 8 MEQ/L Blood Urea Nitrogen 16 MG/DL 15 MG/DL Creatinine 1.11 MG/DL 1.05 MG/DL Estimat Glomerular Filtration 64 ML/MIN 68 ML/MIN Rate Random Glucose 107 MG/DL 105 MG/DL Calcium Level 7.9 MG/DL 7.9 MG/DL Magnesium Level 2.0 MG/DL 2.5 MG/DL White Blood Count 9.0 TH/MM3 Red Blood Count 4.08 MIL/MM3 Hemoglobin 11.3 GM/DL Hematocrit 34.2 % Mean Corpuscular Volume 83.9 FL Mean Corpuscular Hemoglobin 27.7 PG Mean Corpuscular Hemoglobin 33.0 % Concent Red Cell Distribution Width 15.7 % Platelet Count 269 TH/MM3 Mean Platelet Volume 8.1 FL Prothrombin Time 17.5 SEC Prothromb Time International 1.6 RATIO Ratio Activated Partial 33.8 SEC Thromboplast Time Phosphorus Level 2.9 MG/DL Total Bilirubin 0.7 MG/DL Direct Bilirubin 0.3 MG/DL Indirect Bilirubin 0.4 MG/DL Aspartate Amino Transf 39 U/L (AST/SGOT) Alanine Aminotransferase 51 U/L (ALT/SGPT) Alkaline Phosphatase 94 U/L Total Creatine Kinase 58 U/L 47 U/L Troponin I 0.02 NG/ML 0.03 NG/ML Total Protein 5.9 GM/DL Albumin 2.4 GM/DL Thyroid Stimulating Hormone 0.828 uIU/ML 3rd Gen Digoxin Level 0.5 NG/ML Assessment and Plan Problem List: (1) Atrial fibrillation (2) CAD (coronary artery disease) (3) RCA occlusion (4) Pre-op evaluation (5) Status post laparoscopic cholecystectomy (6) Ventricular tachycardia Assessment and Plan: Cont. IV amio. Plan cardiac cath 7:30 Thursday AM. Assessment and Plan I will be out of town until Thursday. [facility] are readily available for any CV questions or problems/ please call [facility] if help needed. Thank you. Problem Qualifiers (1) Atrial fibrillation: Qualified Code: I48.0 - Paroxysmal atrial fibrillation (2) CAD (coronary artery disease): Qualified Code: I25.10 - Coronary artery disease involving [place] coronary artery of [place] heart without angina pectoris Jefferson Aceves MD Dec 12, 2016 09:16
[2016-12-12] MEDS: HYDROmorphone HCL PF 1 MG/ML VIAL IV PRN ×2 (10:06→15:16)
--- NOTE | 2016-12-12 15:47 | HHI.PR ---
Subjective Subjective Remarks Resting in bed, No fever Alert no cp no sob at bsd (Migdalia Wiggins) Review of Systems Constitutional Constitutional: Fatigue, Weakness Constitutional Remarks 10 point ROS done. Positives still with weakness and fatigue, more alert today with verbal stimuli. turk in Mild constipation Other systems unremarkable (Migdalia Wiggins) GI/Abdomen GI/Abdominal Exam: Constipation, Abdominal Pain GI/Abdomen Remarks taut, SP ranjith. active BS (Migdalia Wiggins) Genitourinary Remarks turk, yellow clear (Migdalia Wiggins) Musculoskeletal MS: Weakness, Discomfort/Pain (abd.) (Migdalia Wiggins) Neurologic Neurologic Remarks Hard of hearing (Migdalai Wiggins) Psychiatric Psychiatric: Normal Mood, Sleep Problems Psychiatric Remarks alert today (Migdalia Wiggins) Vitals/Results Intake & Output 12/11/16 12/11/16 12/12/16 15:00 23:00 07:00 Intake Total 1112 ml 821 ml 1131 ml Output Total 80 ml 425 ml 700 ml Balance 1032 ml 396 ml 431 ml Intake Oral 600 ml 240 ml 240 ml IV Total 512 ml 581 ml 891 ml Output Urine Total 80 ml 425 ml 700 ml # Bowel Movements 0 0 0 Vital Signs Vital Signs Date Time Temp Pulse Resp B/P Pulse Ox O2 Delivery O2 Flow Rate FiO2 12/12/16 12:00 98.5 70 30 114/54 92 12/12/16 09:32 100 Nasal Cannula 4.00 12/12/16 08:00 99.0 78 26 135/63 98 12/12/16 07:00 96 Bi-Pap 12/12/16 04:00 98.4 80 24 114/57 93 12/12/16 00:00 99.0 78 18 170/72 97 12/11/16 20:00 98.2 76 18 142/66 92 12/11/16 19:46 93 Nasal Cannula 3.00 12/11/16 19:00 92 Nasal Cannula 4.00 12/11/16 16:00 97.8 72 19 131/60 92 (Migdalia Wiggins) CBC/BMP: 12/12/16 0308 12/12/16 0636 Lab Results Laboratory Tests Test 12/11/16 12/12/16 12/12/16 23:45 03:08 06:36 Sodium Level 139 MEQ/L 140 MEQ/L Potassium Level 4.0 MEQ/L 4.4 MEQ/L Chloride Level 100 MEQ/L 102 MEQ/L Carbon Dioxide Level 31.6 MEQ/L 30.3 MEQ/L Anion Gap 7 MEQ/L 8 MEQ/L Blood Urea Nitrogen 16 MG/DL 15 MG/DL Creatinine 1.11 MG/DL 1.05 MG/DL Estimat Glomerular Filtration 64 ML/MIN 68 ML/MIN Rate Random Glucose 107 MG/DL 105 MG/DL Calcium Level 7.9 MG/DL 7.9 MG/DL Magnesium Level 2.0 MG/DL 2.5 MG/DL White Blood Count 9.0 TH/MM3 Red Blood Count 4.08 MIL/MM3 Hemoglobin 11.3 GM/DL Hematocrit 34.2 % Mean Corpuscular Volume 83.9 FL Mean Corpuscular Hemoglobin 27.7 PG Mean Corpuscular Hemoglobin 33.0 % Concent Red Cell Distribution Width 15.7 % Platelet Count 269 TH/MM3 Mean Platelet Volume 8.1 FL Prothrombin Time 17.5 SEC Prothromb Time International 1.6 RATIO Ratio Activated Partial 33.8 SEC Thromboplast Time Phosphorus Level 2.9 MG/DL Total Bilirubin 0.7 MG/DL Direct Bilirubin 0.3 MG/DL Indirect Bilirubin 0.4 MG/DL Aspartate Amino Transf 39 U/L (AST/SGOT) Alanine Aminotransferase 51 U/L (ALT/SGPT) Alkaline Phosphatase 94 U/L Total Creatine Kinase 58 U/L 47 U/L Troponin I 0.02 NG/ML 0.03 NG/ML Total Protein 5.9 GM/DL Albumin 2.4 GM/DL Thyroid Stimulating Hormone 0.828 uIU/ML 3rd Gen Digoxin Level 0.5 NG/ML Imaging Remarks Last Impressions Cholangiogram 12/10/16 0000 Signed Impressions: Service Date/Time: Saturday, December 10, 2016 15:14 - CONCLUSION: 1. Probably tiny bubble distal common duct. 2. Findings were discussed with Dr. De La Rosa on today's date. Sherif Sewell MD FACR Abdomen/Pelvis CT 12/08/16 0000 Signed Impressions: Service Date/Time: Thursday, December 08, 2016 18:52 - CONCLUSION: 1. Enlargement of the pancreas, especially the pancreatic head most characteristic of pancreatitis. Probable small pseudocysts anterior and inferior to the pancreas unchanged from November 30. 2. Improvement of basilar air space disease in the lungs. No significant free fluid. No free air. 3. Severe colonic diverticulosis. Wilbur Medley MD Head CT 12/04/16 0000 Signed Impressions: Service Date/Time: December 01:40 - CONCLUSION: No bleed or other acute intracranial abnormality. 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 No change. Sriram Bowen MD Current Medications Active Medications Albumin Human 50 gm 50 gm ONCE ONCE IV Last administered on 12/12/16 05:22; Admin Dose 50 GM; Start 12/12/16 at 05:00; Stop 12/12/16 at 05:01; Status DC Amiodarone HCl 150 mg 150 mg STK-MED ONCE .ROUTE Last administered on 12/12/16 02:46; Admin Dose 150 MG; Start 12/12/16 at 02:45; Stop 12/12/16 at 02:57; Status DC Amiodarone HCl 150 mg/Dextrose 100 ml @ 600 mls/hr NOW ONCE IV; Start at 03:30; Stop 12/12/16 at 03:39; Status DC Amiodarone HCl 450 mg/Dextrose 250 ml @ 0 mls/hr CONTINUOUS IV Last administered on 12/12/16 13:29; Admin Dose 0 MLS/HR; Start 12/12/16 at 03:30 Dexmedetomidine HCl 50 ml @ 0 mls/hr TITRATE IV Last administered on 12/12/16 04:08; Admin Dose 0 MLS/HR; Start 12/12/16 at 03:30 Digoxin (Lanoxin Inj) 0.25 mg ONCE ONCE IV PUSH Last administered on 12/12/16 06:38; Admin Dose 0.25 MG; Start 12/12/16 at 05:00; Stop 12/12/16 at 05:01; Status DC Magnesium Oxide 800 mg 800 mg UNSCH PRN PO; Start 12/12/16 at 07:45 Magnesium Sulfate 2 gm/Sodium Chloride 104 ml @ 52 mls/hr ONCE ONCE IV Last administered on 2/10/17at 04:07; Admin Dose 52 MLS/HR; Start 12/12/16 at 03:30; Stop 12/12/16 at 05:29; Status DC Magnesium Sulfate 4 gm/Sodium Chloride 108 ml @ 54 mls/hr UNSCH PRN IV; Start 12/12/16 at 07:45 Magnesium Sulfate/ Sodium Chloride (Magnesium Sulfate Inj/NS Inj) 104 ml @ 52 mls/hr UNSCH PRN IV; Start 12/12/16 at 07:45 Metoprolol Tartrate (Lopressor Inj) 2.5 mg NOW ONCE IV PUSH Last administered on 12/12/16 01:38; Admin Dose 2.5 MG; Start 12/12/16 at 02:15; Stop 12/12/16 at 02:16; Status DC Metoprolol Tartrate (Lopressor Inj) 5 mg STK-MED ONCE .ROUTE; Start 12/12/16 at 01:37; Stop 12/12/16 at 01:38; Status DC Metoprolol Tartrate (Lopressor) 25 mg NOW ONCE PO Last administered on 01:05; Admin Dose 25 MG; Start 12/12/16 at 01:00; Stop 12/12/16 at 01:01; Status DC Miscellaneous Information D/C ICU ELECTROLYTE ORDERS... UNSCH PRN XX; Start 08/18 at 07:45 Miscellaneous Information ICU - CALL ORDERING PHYSIC... UNSCH PRN XX; Start 08/18 at 07:45 Potassium Chloride 40 meq 40 meq UNSCH PRN PO; Start 12/12/16 at 07:45 Potassium Phosphate 2000 mg 2,000 mg UNSCH PRN PO/TUBE; Start 12/12/16 at 07:45 Potassium Phosphate/Sodium Chloride (Potassium Phosphate Inj/NS 250 ml Inj) 260 ml @ 43.333 mls/ hr UNSCH PRN IV; Start 12/12/16 at 07:45 Potassium Chloride 100 ml @ 50 mls/hr UNSCH PRN IV; Start 12/12/16 at 07:45 Potassium Chloride (KCl 20 Meq Premix Inj) 100 ml @ 50 mls/hr ONCE ONCE IV Last administered on 12/12/16 04:06; Admin Dose 50 MLS/HR; Start 12/12/16 at 03 :30; Stop 12/12/16 at 05:29; Status DC Potassium Chloride (KCl 40 Meq Premix Inj) 100 ml @ 25 mls/hr UNSCH PRN IV; Start 12/12/16 at 07:45 Sodium Chloride (NS 1000 ml Inj) 1,000 ml @ 999 mls/hr BOLUS ONCE IV Last administered on 12/12/16t 05:22; Admin Dose 999 MLS/HR; Start 12/12/16 at 05:00 ; Stop 12/12/16 at 06:00; Status DC Sodium Phosphate/ Sodium Chloride (Sodium Phosphate Inj/NS 250 ml Inj) 260 ml @ 43.333 mls/ hr UNSCH PRN IV; Start 12/12/16 at 07:45 (Migdalia Wiggins) Physical Exam General General Appearance: Well Developed, No Acute Distress, Comfortable, Obese ( Migdalia WigginsP) Eyes Eye Exam: Pupils Equal, Pupils Reactive (Migdalia WigginsP) Ears & Nose Ears & Nose Exam: Nasal Mucosa Opdyke (Migdalia WigginsP) Throat Throat Exam: Oral Mucosa Opdyke & Moist (Migdalia WigginsP) Neck Neck Exam: Trachea Midline (Migdalia WigginsP) Pulmonary Resp Exam: Breath Sounds Equal, Diminished Breath Sounds, Poor Inspiratory Effort Resp Remarks Low volumes while sleeping but no distress (Migdalia WigginsP) Cardiology CV Exam: Normal Sinus Rhythm, Irregular, Murmur CV Remarks Systolic murmur grade 3/6, LSB, a fib/flutter, HR 64, V. tach last night Amiodarone drip (Migdalia WigginsP) Gastrointestinal/Abdomen GI Exam: Soft, Bowel Sounds Present, Non-Distended GI Remarks positive bowel sounds, (Migdalia WigginsP) Genitourinary Exam: Clear Urine Remarks turk (Migdalia WigginsP) Musculoskeletal MS Exam: Joints Intact, Normal Tone (Migdalia WigginsP) Integumentary Skin Exam: Warm, Dry (Migdalia WigginsP) Extremeties Extremities Exam: Pedal Pulses Palpable, Trace Edema (Migdalia WigginsP) Neurologic Neuro Exam: Alert, Awake, Speech Clear, Moving All Extremities, No Focal Deficits Neuro Remarks Answers simple questions with yes or no (Migdalia Wiggins) Psychiatric Psych Exam: Appropriate Responses (Migdalia Wiggins) VTE Prophylaxis VTE Prophylaxis Device: SCDs VTE Prophylaxis Meds: Heparin (Migdalia Wiggins) Assessment/Plan Problem List: (1) Abdominal pain (2) Acute pancreatitis (3) Atrial fibrillation (4) GERD (gastroesophageal reflux disease) (5) Sleep apnea (6) Gall stone (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 ranjith, 2-8 -continue diet, tolerating well Appreciate surgical input, -Continue with antiemetics as needed IV hydration Encourage PO fluid Dulcolax Suppository ordered for constipation if needed Hx atrial fibrillation, controlled rate Continue with amiodarone Continuous cardiac telemetry -Eliqusimran on hold now Hx CAD, had been undergoing work up with Dr. Aceves Had run of V. tach last night/ now on amiodarone drip Tentative heart catheterization scheduled for Thursday. Hypoxia, on oxygen at home. Possibly underlying COPD. Continue with oxygen at 4L to keep sats greater than 92 Incentive spirometer as needed encouraged Cpap prn, stable HTN, stable. back on Lasix (Migdalia Wiggins) Assessment/Plan Pt seen and examined above note reviewed face to face time spent with pt labs reviewed meds reviewed notes [facility] (Rene Mena MD) Problem Qualifiers (1) Abdominal pain: Qualified Code: R10.13 - Epigastric pain (2) Acute pancreatitis: Qualified Code: K85.10 - Acute biliary pancreatitis without infection or necrosis (3) Atrial fibrillation: Qualified Code: I48.0 - Paroxysmal atrial fibrillation (4) GERD (gastroesophageal reflux disease): Qualified Code: K21.9 - Gastroesophageal reflux disease, esophagitis presence not specified (5) Sleep apnea: Qualified Code: G47.30 - Sleep apnea, unspecified type (6) Gall stone: (7) CAD (coronary artery disease): Qualified Code: I25.10 - Coronary artery disease involving [place] coronary artery of [place] heart without angina pectoris (8) Vomiting: Qualified Code: R11.2 - Non-intractable vomiting with nausea, unspecified vomiting type Migdalia Wiggins Dec 12, 2016 15:47 Rene Mena MD Dec 12, 2016 19:11
[2016-12-12] MEDS ORDERED: BISACODYL 10 MG SUPP RECTAL ONE (16:00)
--- NOTE | 2016-12-12 16:51 | HHI.PR ---
Subjective Subjective Notes DAILY PROGRESS NOTE FOR SURGICAL ATTENDING, DR. MILO LEO Had some V. tach last night Objective Vitals/I&O Vital Signs Date Time Temp Pulse Resp B/P Pulse Ox O2 Delivery O2 Flow Rate FiO2 12/12/16 16:30 98.2 70 24 136/60 93 12/12/16 09:32 Nasal Cannula 4.00 12/09/16 09:00 21 Labs Laboratory Tests Test 12/11/16 12/12/16 12/12/16 23:45 03:08 06:36 Sodium Level 139 140 Potassium Level 4.0 4.4 Chloride Level 100 102 Carbon Dioxide Level 31.6 30.3 Anion Gap 7 8 Blood Urea Nitrogen 16 15 Creatinine 1.11 1.05 Estimat Glomerular Filtration 64 68 Rate Random Glucose 107 105 Calcium Level 7.9 7.9 Magnesium Level 2.0 2.5 White Blood Count 9.0 Red Blood Count 4.08 Hemoglobin 11.3 Hematocrit 34.2 Mean Corpuscular Volume 83.9 Mean Corpuscular Hemoglobin 27.7 Mean Corpuscular Hemoglobin 33.0 Concent Red Cell Distribution Width 15.7 Platelet Count 269 Mean Platelet Volume 8.1 Prothrombin Time 17.5 Prothromb Time International 1.6 Ratio Activated Partial 33.8 Thromboplast Time Phosphorus Level 2.9 Total Bilirubin 0.7 Direct Bilirubin 0.3 Indirect Bilirubin 0.4 Aspartate Amino Transf 39 (AST/SGOT) Alanine Aminotransferase 51 (ALT/SGPT) Alkaline Phosphatase 94 Total Creatine Kinase 58 47 Troponin I 0.02 0.03 Total Protein 5.9 Albumin 2.4 Thyroid Stimulating Hormone 0.828 3rd Gen Digoxin Level 0.5 Radiology Last Impressions Cholangiogram 12/10/16 Signed Impressions: Service Date/Time: Saturday, December 10, 2016 15:14 - CONCLUSION: 1. Probably tiny bubble distal common duct. 2. Findings were discussed with Dr. De La Rosa on today's date. Sherif Sewell MD FACR Abdomen/Pelvis CT 12/08/16 0000 Signed Impressions: Service Date/Time: Thursday, December 08, 2016 18:52 - CONCLUSION: 1. Enlargement of the pancreas, especially the pancreatic head most characteristic of pancreatitis. Probable small pseudocysts anterior and inferior to the pancreas unchanged from November 30. 2. Improvement of basilar air space disease in the lungs. No significant free fluid. No free air. 3. Severe colonic diverticulosis. Milo Medley MD Head CT 12/04/16 0000 Signed Impressions: Service Date/Time: December 01:40 - CONCLUSION: No bleed or other acute intracranial abnormality. 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 No change. Sriram Bowen MD Abdomen: Post-op tenderness (postoperative ports sites healing well minimal abdominal discomfort) A/P Problem List: (1) Status post laparoscopic cholecystectomy (2) Pancreatitis (3) GERD (gastroesophageal reflux disease) (4) Gall stone (5) Ventricular tachycardia (paroxysmal) (6) Ventricular tachycardia (7) Acute pancreatitis Assessment and Plan DAILY PROGRESS NOTE FOR SURGICAL ATTENDING, DR. MILO LEO Patient seen for Dr. De La Rosa 81-year-old gentleman with gallstone pancreatitis with pancreatic phlegmon underwent laparoscopic cholecystectomy appears to be doing fairly well as some low urinary output treated with bolus and restarting his Lasix He is already tolerating a regular diet Had an episode of V. tach Medical team planning transfer to floor Anticipate discharge home in the next day or 3 Spoke with [facility] diet Problem Qualifiers (1) Pancreatitis: Qualified Code: K86.1 - Chronic biliary pancreatitis (2) GERD (gastroesophageal reflux disease): Qualified Code: K21.9 - Gastroesophageal reflux disease, esophagitis presence not specified (3) Gall stone: (4) Acute pancreatitis: Qualified Code: K85.10 - Acute biliary pancreatitis without infection or necrosis Milo Leo MD Dec 12, 2016 16:51
--- NOTE | 2016-12-12 20:06 | EKG ---
Date Performed: 12/12/2016 Time Performed: 01:55:44 PTAGE: 81 years EKG: Atrial fibrillation. Possible left ventricular hypertrophy Inferior/lateral ST-T changes ar e probably due to ventricular Hypertrophy. When compared to previous tracing, no significant change. Abnormal ECG PREVIOUS TRACING : 12/01/2016 07.14.36 DOCTOR: George Connor Interpretating Date/Time 12/12/2016 20:04:37
--- NOTE | 2016-12-12 20:21 | EKG ---
Date Performed: 12/12/2016 Time Performed: 02:26:28 PTAGE: 81 years EKG: Tracing is technically poor with leads V5 and V6 not interpretable Underlying rhythm appear s to be atrial fibrillation however there is A somewhat faster rhythm with a left bundle branch block pattern Right bundle branch block pattern. This may be ventricular in origin or a rate related left bundle Branch block pattern. Overall rate is somewhat faster around 90 [address] 100. Inferior/lateral ST-T changes may be due to myocardial ischemia Clinical correlation is recommended. Abnormal ECG PREVIOUS TRACING : 12/12/2016.55.44 DOCTOR: George Connor Interpretating Date/Time 12/12/2016 20:19:51
[2016-12-12] MEDS ORDERED: APIXABAN 5 MG TABLET PO SCH (21:00)
[2016-12-12] MEDS: traZODone HCL 50 MG TAB PO SCH (21:36)
[2016-12-13] VITALS: BP 147/96; PULSE 56; RESP 16; TEMP 98.9; O2SAT 95
[2016-12-13] MEDS: LACTATED RINGER'S 1000 ML IV SCH (02:54)
[2016-12-13 04:00] VITALS: BP 136/72; PULSE 58; RESP 16; TEMP 98.6; O2SAT 95
[2016-12-13] MEDS: AMIODARONE INJ 450 MG in DEXTROSE 5% IN WATE(EXCEL) INJ 241 ML IV SCH ×2 (05:14)
[2016-12-13 08:00] VITALS: BP 158/73; PULSE 66; RESP 18; TEMP 98.9; O2SAT 96
[2016-12-13 08:01] LABS: AUTOMATED NEUTROPHIL # 6.1 TH/MM3 (1.8-7.7); BASOPHIL % 0.5 % (0.0-2.0); EOSINOPHIL # 0.1 TH/MM3 (0-0.4); EOSINOPHIL % 1.2 % (0.0-4.0); HEMATOCRIT 30.3 % (39.0-51.0); HEMO FLAGS DIFF FINAL; LYMPHOCYTE # 1.4 TH/MM3 (1.0-4.8); MEAN CELL VOLUME 83.3 FL (80.0-100.0); MEAN CORPUSCULAR HEMOGLOBIN 27.7 PG (27.0-34.0); MEAN CORPUSCULAR HGB CONC 33.2 % (32.0-36.0); MONO % 11.3 % (0.0-8.0); PLATELET COUNT 203 TH/MM3 (150-450); RED BLOOD COUNT 3.63 MIL/MM3 (4.50-5.90); RED CELL DISTRIBUTION WIDTH 15.9 % (11.6-17.2); WHITE BLOOD COUNT 8.6 TH/MM3 (4.0-11.0)
[2016-12-13 08:30] LABS: ALKALINE PHOSPHATASE 88 U/L (45-117); ALT (GPT) 36 U/L (12-78); ANION GAP 6 MEQ/L (5-15); AST (GOT) 21 U/L (15-37); BICARBONATE 32.1 MEQ/L (21.0-32.0); BLOOD UREA NITROGEN 12 MG/DL (7-18); CHLORIDE 103 MEQ/L (98-107); DIGOXIN 0.9 NG/ML (0.8-2.0); GLOMERULAR FILTRATION RATE 83 ML/MIN (>89); MAGNESIUM 2.3 MG/DL (1.5-2.5); POTASSIUM 3.6 MEQ/L (3.5-5.1); SODIUM (NA) 141 MEQ/L (136-145); TOTAL BILIRUBIN ADULT 0.8 MG/DL (0.2-1.0)
[2016-12-13 08:38] LABS: CREATINE KINASE 28 U/L (39-308)
[2016-12-13] MEDS: FUROSEMIDE 40 MG TAB PO SCH (08:46)
[2016-12-13] MEDS: TAMSULOSIN HCL 0.4 MG CAP PO SCH (08:46)
[2016-12-13] MEDS: METOPROLOL TARTRATE 25 MG TAB PO SCH ×2 (08:46→20:06)
[2016-12-13] MEDS: FAMOTIDINE 20 MG TAB PO SCH (08:46)
[2016-12-13] MEDS: DOCUSATE SODIUM 100 MG CAP PO SCH ×3 (08:48→18:08)
[2016-12-13] MEDS: PSYLLIUM FIBER SF/GF 6 GM POWD PKT PO SCH (08:48)
--- NOTE | 2016-12-13 08:52 | HHI.PR ---
Subjective Subjective Notes pain ok tolerating PO Objective Vitals/I&O Vital Signs Date Time Temp Pulse Resp B/P Pulse Ox O2 Delivery O2 Flow Rate FiO2 12/13/16 08:00 98.9 66 18 158/73 96 12/12/16 20:15 Nasal Cannula 4.00 12/09/16 09:00 21 Labs Laboratory Tests Test 12/13/16 07:26 White Blood Count 8.6 Red Blood Count 3.63 Hemoglobin 10.1 Hematocrit 30.3 Mean Corpuscular Volume 83.3 Mean Corpuscular Hemoglobin 27.7 Mean Corpuscular Hemoglobin 33.2 Concent Red Cell Distribution Width 15.9 Platelet Count 203 Mean Platelet Volume 8.2 Neutrophils (%) (Auto) 71.0 Lymphocytes (%) (Auto) 16.0 Monocytes (%) (Auto) 11.3 Eosinophils (%) (Auto) 1.2 Basophils (%) (Auto) 0.5 Neutrophils # (Auto) 6.1 Lymphocytes # (Auto) 1.4 Monocytes # (Auto) 1.0 Eosinophils # (Auto) 0.1 Basophils # (Auto) 0.0 CBC Comment DIFF FINAL Differential Comment Sodium Level 141 Potassium Level 3.6 Chloride Level 103 Carbon Dioxide Level 32.1 Anion Gap 6 Blood Urea Nitrogen 12 Creatinine 0.88 Estimat Glomerular Filtration 83 Rate Random Glucose 86 Lactic Acid Level 0.9 Calcium Level 8.0 Phosphorus Level 2.4 Magnesium Level 2.3 Total Bilirubin 0.8 Aspartate Amino Transf 21 (AST/SGOT) Alanine Aminotransferase 36 (ALT/SGPT) Alkaline Phosphatase 88 Total Creatine Kinase 28 Troponin I 0.04 Total Protein 5.6 Albumin 2.5 Digoxin Level 0.9 Radiology Last Impressions Cholangiogram 12/10/16 0000 Signed Impressions: Service Date/Time: Saturday, December 10, 2016 15:14 - CONCLUSION: 1. Probably tiny bubble distal common duct. 2. Findings were discussed with Dr. De La Rosa on today's date. Sherif Sewell MD FACR Abdomen/Pelvis CT 12/08/16 0000 Signed Impressions: Service Date/Time: Thursday, December 08, 2016 18:52 - CONCLUSION: 1. Enlargement of the pancreas, especially the pancreatic head most characteristic of pancreatitis. Probable small pseudocysts anterior and inferior to the pancreas unchanged from November 30. 2. Improvement of basilar air space disease in the lungs. No significant free fluid. No free air. 3. Severe colonic diverticulosis. Wilbur Medley MD Head CT 12/04/16 0000 Signed Impressions: Service Date/Time: December 01:40 - CONCLUSION: No bleed or other acute intracranial abnormality. 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 No change. Sriram Bowen MD Abdomen: Non-distended, Post-op tenderness A/P Problem List: (1) Status post laparoscopic cholecystectomy (2) Pancreatitis (3) GERD (gastroesophageal reflux disease) (4) Gall stone (5) Ventricular tachycardia (paroxysmal) (6) Ventricular tachycardia (7) Acute pancreatitis Assessment and Plan 81yo male s/p lap ranjith, stable tolerating diet ok to DC when stable from medical standpoint Problem Qualifiers (1) Pancreatitis: Qualified Code: K86.1 - Chronic biliary pancreatitis (2) GERD (gastroesophageal reflux disease): Qualified Code: K21.9 - Gastroesophageal reflux disease, esophagitis presence not specified (3) Gall stone: (4) Acute pancreatitis: Qualified Code: K85.10 - Acute biliary pancreatitis without infection or necrosis Kyle Santiago MD Dec 13, 2016 08:52
--- NOTE | 2016-12-13 11:22 | HHI.PR ---
Subjective Subjective Remarks Noted coughing, congested, nonproductive Denies any chest pain No shortness of breath Feels tired today Appetite poor Minimal abdominal discomfort No nausea, no vomiting No bowel movement yet No chest pain No shortness of breath Telemetry reviewed, no VT noted, a couple of episodes of tachycardia at bedside Review of Systems Constitutional Constitutional: Fatigue, Weakness Constitutional Remarks 12 point ROS completed, unreliable GI/Abdomen GI/Abdominal Exam: Constipation, Abdominal Pain Musculoskeletal MS: Weakness, Discomfort/Pain (abd.) Psychiatric Psychiatric: Normal Mood, Sleep Problems Vitals/Results Intake & Output 12/12/16 12/12/16 12/13/16 15:00 23:00 07:00 Intake Total 1171 ml 1016 ml 816 ml Output Total 450 ml 400 ml 600 ml Balance 721 ml 616 ml 216 ml Intake Oral 350 ml 280 ml 80 ml IV Total 821 ml 736 ml 736 ml Output Urine Total 450 ml 400 ml 600 ml # Bowel Movements 0 Vital Signs Vital Signs Date Time Temp Pulse Resp B/P Pulse Ox O2 Delivery O2 Flow Rate FiO2 12/13/16 08:00 98.9 66 18 158/73 96 12/13/16 04:00 98.6 58 16 136/72 95 12/13/16 00:00 98.9 56 16 147/96 95 12/12/16 21:07 98.6 65 14 139/61 95 12/12/16 20:15 Nasal Cannula 4.00 12/12/16 20:04 81 12/12/16 16:30 98.2 70 24 136/60 93 12/12/16 14:00 Nasal Cannula 4.00 12/12/16 12:00 98.5 70 30 114/54 92 CBC/BMP: 12/13/16 0726 12/13/16 0726 Lab Results Laboratory Tests Test 12/13/16 07:26 White Blood Count 8.6 TH/MM3 Red Blood Count 3.63 MIL/MM3 Hemoglobin 10.1 GM/DL Hematocrit 30.3 % Mean Corpuscular Volume 83.3 FL Mean Corpuscular Hemoglobin 27.7 PG Mean Corpuscular Hemoglobin 33.2 % Concent Red Cell Distribution Width 15.9 % Platelet Count 203 TH/MM3 Mean Platelet Volume 8.2 FL Neutrophils (%) (Auto) 71.0 % Lymphocytes (%) (Auto) 16.0 % Monocytes (%) (Auto) 11.3 % Eosinophils (%) (Auto) 1.2 % Basophils (%) (Auto) 0.5 % Neutrophils # (Auto) 6.1 TH/MM3 Lymphocytes # (Auto) 1.4 TH/MM3 Monocytes # (Auto) 1.0 TH/MM3 Eosinophils # (Auto) 0.1 TH/MM3 Basophils # (Auto) 0.0 TH/MM3 CBC Comment DIFF FINAL Differential Comment Sodium Level 141 MEQ/L Potassium Level 3.6 MEQ/L Chloride Level 103 MEQ/L Carbon Dioxide Level 32.1 MEQ/L Anion Gap 6 MEQ/L Blood Urea Nitrogen 12 MG/DL Creatinine 0.88 MG/DL Estimat Glomerular Filtration 83 ML/MIN Rate Random Glucose 86 MG/DL Lactic Acid Level 0.9 mmol/L Calcium Level 8.0 MG/DL Phosphorus Level 2.4 MG/DL Magnesium Level 2.3 MG/DL Total Bilirubin 0.8 MG/DL Aspartate Amino Transf 21 U/L (AST/SGOT) Alanine Aminotransferase 36 U/L (ALT/SGPT) Alkaline Phosphatase 88 U/L Total Creatine Kinase 28 U/L Troponin I 0.04 NG/ML Total Protein 5.6 GM/DL Albumin 2.5 GM/DL Digoxin Level 0.9 NG/ML Physical Exam General General Appearance: Well Developed, No Acute Distress, Comfortable, Obese Eyes Eye Exam: Pupils Equal, Pupils Reactive Ears & Nose Ears & Nose Exam: Nasal Mucosa [place] Throat Throat Exam: Oral Mucosa [place] & Moist Neck Neck Exam: Trachea Midline Pulmonary Resp Exam: Breath Sounds Equal, Crackles, Rhonchi, Diminished Breath Sounds Cardiology CV Exam: Normal Sinus Rhythm, Irregular, Murmur Gastrointestinal/Abdomen GI Exam: Soft, Bowel Sounds Present, Non-Distended Genitourinary Exam: Clear Urine Remarks [place]k Musculoskeletal MS Exam: Joints Intact, Normal Tone Integumentary Skin Exam: Warm, Dry Extremeties Extremities Exam: Pedal Pulses Palpable, Trace Edema Neurologic Neuro Exam: Alert, Awake, Speech Clear, Moving All Extremities, Business Intelligence Manager Equal, No Focal Deficits Psychiatric Psych Exam: Appropriate Responses VTE Prophylaxis VTE Prophylaxis Device: SCDs VTE Prophylaxis Meds: Heparin Assessment/Plan Problem List: (1) Abdominal pain (2) Acute pancreatitis (3) Atrial fibrillation (4) GERD (gastroesophageal reflux disease) (5) Sleep apnea (6) Gall stone (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 Lipase 3381. Patient admitted with recurrent pancreatitis, likely secondary to gallstone.C T of the abdomen and pelvis noted with recurrent pancreatitis -S/P lap ranjith and LN bx 12/10 -post op care -clear for discharge from surgical standpoint -enc. PO intake -Bowel regimen Hx atrial fibrillation, currently sinus rhythm Had episodes of NSVT, was in ICU -Continue Amiodarone dripp -Continuous cardiac telemetry -Restart Heparin SQ for now. Hx CAD, had been undergoing work up with Dr. Aceves -had NSVT -for cardiac cath on Thursday -Hold night time dose of Heparin subq on Thursday -continue Amiodarone gtt -Continue BB Hypoxia, on oxygen at home. Possibly underlying COPD. 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 Can F/U as OP Sleep apnea Continue CPAP from home Right Carotid occlusion-known hx -continue with present home meds Resume Heparin for DVT prophylaxis Hold Eliquis for now since pt. having cardiac cath OOB with PT Continue with Pepcid for GI prophylaxis IS Condition guarded D/W RN D/W Dr. Mena D/W pt and This patient was seen by myself and Dr. Mena, this note is written on his behalf Problem Qualifiers (1) Abdominal pain: Qualified Code: R10.13 - Epigastric pain (2) Acute pancreatitis: Qualified Code: K85.10 - Acute biliary pancreatitis without infection or necrosis (3) Atrial fibrillation: Qualified Code: I48.0 - Paroxysmal atrial fibrillation (4) GERD (gastroesophageal reflux disease): Qualified Code: K21.9 - Gastroesophageal reflux disease, esophagitis presence not specified (5) Sleep apnea: Qualified Code: G47.30 - Sleep apnea, unspecified type (6) Gall stone: (7) CAD (coronary artery disease): Qualified Code: I25.10 - Coronary artery disease involving [place] coronary artery of [place] heart without angina pectoris (8) Vomiting: Qualified Code: R11.2 - Non-intractable vomiting with nausea, unspecified vomiting type Nida Lopez Dec 13, 2016 11:22
--- NOTE | 2016-12-13 11:35 | RADRPT ---
EXAM DATE/TIME: 12/13/2016 11:25 [place] COMPARISON: No previous studies available for comparison. INDICATIONS : Cough and congestion. MEDICAL HISTORY : None. SURGICAL HISTORY : None. ENCOUNTER: Initial ACUITY: 1 day PAIN SCORE: 0/10 LOCATION: chest FINDINGS: A single view of the chest demonstrates a patchy densities right lower lobe. Heart normal in size. O sseous structures are intact. CONCLUSION: Patchy infiltrates right lower lobe. Recommend treatment and followup to resolution. Yvon Almodovar MD on December 13, 2016 at 11:33 Board Certified Radiologist. This report was verified electronically.
[2016-12-13 12:00] VITALS: BP 156/68; PULSE 57; RESP 18; TEMP 98.6; O2SAT 94
--- NOTE | 2016-12-13 14:17 | PD.CARD.PN ---
Subjective Subjective Remarks Pt feels well, no cp, afib on tele. Objective Medications Administered Medications Medications (Trade) Dose Ordered Sig/Rajwinder Route PRN Reason Start Time Stop Time Status Last Admin Dose Admin IV Flush (NS Flush) 2 ml BID FLUSH 11/30/16 21:00 12/12/16 21:37 Tamsulosin HCl (Flomax) 0.4 mg DAILY PO 12/01/16 09:00 12/13/16 08:46 Amiodarone HCl (Cordarone) 200 mg DAILY PO 12/01/16 09:00 Hold 12/10/16 20:50 Metoprolol Tartrate (Lopressor) 25 mg Q12HR PO 12/01/16 10:45 12/13/16 08:46 Hydromorphone HCl (Dilaudid Pf Inj) 0.1 mg Q3H PRN IV pain 1-3 12/02/16 17:45 12/03/16 22:45 Hydromorphone HCl (Dilaudid Pf Inj) 0.25 mg Q3H PRN IV PAIN 4-10 12/02/16 17:45 12/12/16 15:16 Docusate Sodium (Colace) 100 mg TID PO 12/03/16 18:00 12/13/16 12:55 Psyllium Hydrophilic Mucilloid (Metamucil Smooth Texture Sf/ Gf Pkt) 1 pkt DAILY PO 12/03/16 18:00 12/13/16 08:48 Sertraline HCl (Zoloft) 100 mg HS PO 12/08/16 21:00 Hold 12/11/16 21:19 Tramadol HCl (Ultram) 12.5 mg Q4H PRN PO breakthrough Pain 12/07/16 16:00 12/07/16 23:03 Trazodone HCl (Desyrel) 25 mg HS PO 12/07/16 21:00 12/12/16 21:36 Famotidine (Pepcid) 20 mg DAILY PO 12/09/16 09:00 12/13/16 08:46 Lorazepam (Ativan) 0.5 mg HS PRN PO insomnia 12/08/16 16:45 12/11/16 21:19 Furosemide 40 mg 40 mg DAILY PO 12/11/16 12:30 12/13/16 08:46 Amiodarone HCl 450 mg/Dextrose 250 ml @ 0 mls/hr CONTINUOUS IV 12/12/16 03:30 12/13/16 05:14 Dexmedetomidine HCl (Precedex Inj) 50 ml @ 0 mls/hr TITRATE IV 12/12/16 03:30 12/12/16 04:08 Vital Signs / I&O Vital Signs Date Time Temp Pulse Resp B/P Pulse Ox O2 Delivery O2 Flow Rate FiO2 12/13/16 12:00 98.6 57 18 156/68 94 12/13/16 08:00 98.9 66 18 158/73 96 12/13/16 04:00 98.6 58 16 136/72 95 12/13/16 00:00 98.9 56 16 147/96 95 12/12/16 21:07 98.6 65 14 139/61 95 12/12/16 20:15 Nasal Cannula 4.00 12/12/16 20:04 81 12/12/16 16:30 98.2 70 24 136/60 93 I/O 12/12/16 12/12/16 12/12/16 12/13/16 12/13/16 12/13/16 07:00 15:00 23:00 07:00 15:00 23:00 Intake Total 1131 ml 1171 ml 1016 ml 816 ml Output Total 700 ml 450 ml 400 ml 600 ml Balance 431 ml 721 ml 616 ml 216 ml Intake Oral 240 ml 350 ml 280 ml 80 ml IV Total 891 ml 821 ml 736 ml 736 ml Output Urine Total 700 ml 450 ml 400 ml 600 ml # Bowel Movements 0 0 Physical Exam GENERAL: This is a well-nourished, well-developed patient, in no apparent distress. CARDIOVASCULAR: Regular rate and irregular rhythm without murmurs, gallops, or rubs. RESPIRATORY: Clear to auscultation. Breath sounds equal bilaterally. No wheezes , rales, or rhonchi. GASTROINTESTINAL: Abdomen soft, non-tender, nondistended. Normal, active bowel sounds MUSCULOSKELETAL: Extremities without clubbing, cyanosis, or edema. NEURO: Alert & Oriented x4 to person, place, time, situation. Moves all ext x4 Laboratory Laboratory Tests Test 12/13/16 07:26 White Blood Count 8.6 TH/MM3 Red Blood Count 3.63 MIL/MM3 Hemoglobin 10.1 GM/DL Hematocrit 30.3 % Mean Corpuscular Volume 83.3 FL Mean Corpuscular Hemoglobin 27.7 PG Mean Corpuscular Hemoglobin 33.2 % Concent Red Cell Distribution Width 15.9 % Platelet Count 203 TH/MM3 Mean Platelet Volume 8.2 FL Neutrophils (%) (Auto) 71.0 % Lymphocytes (%) (Auto) 16.0 % Monocytes (%) (Auto) 11.3 % Eosinophils (%) (Auto) 1.2 % Basophils (%) (Auto) 0.5 % Neutrophils # (Auto) 6.1 TH/MM3 Lymphocytes # (Auto) 1.4 TH/MM3 Monocytes # (Auto) 1.0 TH/MM3 Eosinophils # (Auto) 0.1 TH/MM3 Basophils # (Auto) 0.0 TH/MM3 CBC Comment DIFF FINAL Differential Comment Sodium Level 141 MEQ/L Potassium Level 3.6 MEQ/L Chloride Level 103 MEQ/L Carbon Dioxide Level 32.1 MEQ/L Anion Gap 6 MEQ/L Blood Urea Nitrogen 12 MG/DL Creatinine 0.88 MG/DL Estimat Glomerular Filtration 83 ML/MIN Rate Random Glucose 86 MG/DL Lactic Acid Level 0.9 mmol/L Calcium Level 8.0 MG/DL Phosphorus Level 2.4 MG/DL Magnesium Level 2.3 MG/DL Total Bilirubin 0.8 MG/DL Aspartate Amino Transf 21 U/L (AST/SGOT) Alanine Aminotransferase 36 U/L (ALT/SGPT) Alkaline Phosphatase 88 U/L Total Creatine Kinase 28 U/L Troponin I 0.04 NG/ML Total Protein 5.6 GM/DL Albumin 2.5 GM/DL Digoxin Level 0.9 NG/ML Imaging Last Impressions Chest X-Ray 12/13/16 0000 Signed Impressions: Service Date/Time: Tuesday, December 13, 2016 11:25 - CONCLUSION: Patchy infiltrates right lower lobe. Recommend treatment and followup to resolution. Yvon Almodovar MD Cholangiogram 12/10/16 0000 Signed Impressions: Service Date/Time: Saturday, December 10, 2016 15:14 - CONCLUSION: 1. Probably tiny bubble distal common duct. 2. Findings were discussed with Dr. De La Rosa on today's date. Sherif Sewell MD FACR Abdomen/Pelvis CT 12/08/16 0000 Signed Impressions: Service Date/Time: Thursday, December 08, 2016 18:52 - CONCLUSION: 1. Enlargement of the pancreas, especially the pancreatic head most characteristic of pancreatitis. Probable small pseudocysts anterior and inferior to the pancreas unchanged from November 30. 2. Improvement of basilar air space disease in the lungs. No significant free fluid. No free air. 3. Severe colonic diverticulosis. Wilbur Medley MD Head CT 12/04/16 0000 Signed Impressions: Service Date/Time: December 01:40 - CONCLUSION: No bleed or other acute intracranial abnormality. 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 No change. Sriram Bowen MD Assessment and Plan Problem List: (1) Atrial fibrillation Assessment and Plan: rate controlled, eliquis being held in anticipation of cardiac cath thursday (or potentially more urgently if hemodynamically unstable VT occurs.) (2) CAD (coronary artery disease) (3) RCA occlusion (4) Pre-op evaluation (5) Status post laparoscopic cholecystectomy (6) Ventricular tachycardia Assessment and Plan: Cont. IV amio. Plan cardiac cath 7:30 Thursday AM. Problem Qualifiers (1) Atrial fibrillation: Qualified Code: I48.0 - Paroxysmal atrial fibrillation (2) CAD (coronary artery disease): Qualified Code: I25.10 - Coronary artery disease involving [place] coronary artery of [place] heart without angina pectoris Fred Gibbons MD Dec 13, 2016 14:17
[2016-12-13 16:00] VITALS: BP 143/68; PULSE 58; RESP 17; TEMP 98.8; O2SAT 96
[2016-12-13] MEDS: LEVOFLOXACIN 500 MG PREMIX INJ 100 ML IV SCH (16:35)
[2016-12-13] MEDS: HYDROmorphone HCL PF 1 MG/ML VIAL IV PRN (16:35)
[2016-12-13] MEDS: traMADol HCL 50 MG TAB PO PRN (18:09)
[2016-12-13 20:00] VITALS: BP 158/70; PULSE 75; RESP 22; TEMP 97.8; O2SAT 95
[2016-12-13] MEDS: SODIUM CHLORIDE 0.9% FLUSH 5 ML FLUSH FLUSH SCH ×2 (20:06→20:07)
[2016-12-13] MEDS: HEPARIN SODIUM - SQ 10,000 UNITS/ML VIAL SQ SCH (20:06)
[2016-12-13] MEDS: traZODone HCL 50 MG TAB PO SCH (20:07)
[2016-12-14] VITALS (9 sets, daily range): BP systolic 125–163; BP diastolic 61–77; PULSE 73–98; RESP 16–20; TEMP 97.7–98.7; O2SAT 93–96
[2016-12-14] MEDS: FUROSEMIDE 40 MG TAB PO SCH (08:24)
[2016-12-14] MEDS: DOCUSATE SODIUM 100 MG CAP PO SCH ×3 (08:24→17:59)
[2016-12-14] MEDS: TAMSULOSIN HCL 0.4 MG CAP PO SCH (08:24)
[2016-12-14] MEDS: FAMOTIDINE 20 MG TAB PO SCH (08:24)
[2016-12-14] MEDS: METOPROLOL TARTRATE 25 MG TAB PO SCH ×2 (08:24→21:20)
[2016-12-14] MEDS: SODIUM CHLORIDE 0.9% FLUSH 5 ML FLUSH FLUSH SCH ×2 (08:25→21:21)
[2016-12-14] MEDS: PSYLLIUM FIBER SF/GF 6 GM POWD PKT PO SCH (08:25)
[2016-12-14] MEDS: HEPARIN SODIUM - SQ 10,000 UNITS/ML VIAL SQ SCH ×2 (08:25→21:20)
--- NOTE | 2016-12-14 09:30 | HHI.PR ---
Subjective Subjective Remarks disoriented not sure what time is it doesn't want to eat, states he already ate. Manjit is sitting in front of him, untouched has coughing, some wheezing no fever minimal abd. pain no cp no sob Telemetry reviewed, no VT noted, occ. tachycardia on Amiodarone drip no family at bsd Review of Systems Constitutional Constitutional: Fatigue, Weakness Constitutional Remarks 12 point ROS completed, unreliable GI/Abdomen GI/Abdominal Exam: Constipation, Abdominal Pain Musculoskeletal MS: Weakness, Discomfort/Pain (abd.) Psychiatric Psychiatric: Normal Mood, Sleep Problems Vitals/Results Intake & Output 12/13/16 12/13/16 12/14/16 15:00 23:00 07:00 Intake Total 1320 ml 456 ml Output Total 1400 ml 400 ml 550 ml Balance -80 ml -400 ml -94 ml Intake Oral 1320 ml IV Total 456 ml Output Urine Total 1400 ml 400 ml 550 ml # Bowel Movements 0 Vital Signs Vital Signs Date Time Temp Pulse Resp B/P Pulse Ox O2 Delivery O2 Flow Rate FiO2 12/14/16 08:00 98.0 77 17 136/61 94 12/14/16 04:00 98.7 98 20 159/77 94 12/14/16 00:00 75 20 158/68 95 12/13/16 20:00 Nasal Cannula 3.00 12/13/16 20:00 97.8 75 22 158/70 95 12/13/16 18:00 18 12/13/16 16:47 Nasal Cannula 4.00 12/13/16 16:00 98.8 58 17 143/68 96 12/13/16 12:00 98.6 57 18 156/68 94 CBC/BMP: 12/13/16 0726 12/13/16 0726 Physical Exam General General Appearance: Well Developed, No Acute Distress, Comfortable, Anxious, Obese Eyes Eye Exam: Pupils Equal, Pupils Reactive Ears & Nose Ears & Nose Exam: Nasal Mucosa [place] Throat Throat Exam: Oral Mucosa [place] & Moist Neck Neck Exam: Trachea Midline Pulmonary Resp Exam: Breath Sounds Equal, Crackles, Diminished Breath Sounds Resp Remarks exp, wheeze Cardiology CV Exam: Normal Sinus Rhythm, Irregular, Murmur Gastrointestinal/Abdomen GI Exam: Soft, Bowel Sounds Present, Non-Distended Genitourinary Exam: Clear Urine Remarks [place] Musculoskeletal MS Exam: Joints Intact, Normal Tone Integumentary Skin Exam: Warm, Dry Extremeties Extremities Exam: Pedal Pulses Palpable, Trace Edema Neurologic Neuro Exam: Alert, Awake, Speech Clear, Moving All Extremities, Smelting Engineer Equal, No Focal Deficits Psychiatric Psych Exam: Appropriate Responses VTE Prophylaxis VTE Prophylaxis Device: SCDs VTE Prophylaxis Meds: Heparin Assessment/Plan Problem List: (1) Abdominal pain (2) Acute pancreatitis (3) Atrial fibrillation (4) GERD (gastroesophageal reflux disease) (5) Sleep apnea (6) Gall stone (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 Lipase 3381. Patient admitted with recurrent pancreatitis, likely secondary to gallstone.C T of the abdomen and pelvis noted with recurrent pancreatitis -S/P lap ranjith and LN bx 12/10 -post op care -clear for discharge from surgical standpoint -enc. PO intake -Bowel regimen Hx atrial fibrillation, currently sinus rhythm Had episodes of NSVT, was in ICU -Continue Amiodarone yuridia -Continuous cardiac telemetry -Heparin SQ for now Hx CAD, had been undergoing work up with Dr. 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 Can F/U as OP Sleep apnea Continue CPAP from home Right Carotid occlusion-known hx -continue with present home meds Confused, likely delirium -avoid narcotics, DC IV dilaudid, continue Tramadol -reorient frequently Heparin for DVT prophylaxis Hold Eliquis for now since pt. having cardiac cath OOB with PT Continue with Pepcid for GI prophylaxis IS Condition guarded Labs in am D/W RN D/W Dr. Mena D/W pt This patient was seen by myself and Dr. Mena, this note is written on his behalf Problem Qualifiers (1) Abdominal pain: Qualified Code: R10.13 - Epigastric pain (2) Acute pancreatitis: Qualified Code: K85.10 - Acute biliary pancreatitis without infection or necrosis (3) Atrial fibrillation: Qualified Code: I48.0 - Paroxysmal atrial fibrillation (4) GERD (gastroesophageal reflux disease): Qualified Code: K21.9 - Gastroesophageal reflux disease, esophagitis presence not specified (5) Sleep apnea: Qualified Code: G47.30 - Sleep apnea, unspecified type (6) Gall stone: (7) CAD (coronary artery disease): Qualified Code: I25.10 - Coronary artery disease involving [place] coronary artery of [place] heart without angina pectoris (8) Vomiting: Qualified Code: R11.2 - Non-intractable vomiting with nausea, unspecified vomiting type Nida Lopez Dec 14, 2016 09:30
--- NOTE | 2016-12-14 10:48 | PD.CARD.PN ---
Subjective Subjective Remarks No complaints, no further vt Objective Medications Administered Medications Medications (Trade) Dose Ordered Sig/Rajwinder Route PRN Reason Start Time Stop Time Status Last Admin Dose Admin IV Flush (NS Flush) 2 ml BID FLUSH 11/30/16 21:00 12/14/16 08:25 Tamsulosin HCl (Flomax) 0.4 mg DAILY PO 12/01/16 09:00 12/14/16 08:24 Amiodarone HCl (Cordarone) 200 mg DAILY PO 12/01/16 09:00 Hold 12/10/16 20:50 Metoprolol Tartrate (Lopressor) 25 mg Q12HR PO 12/01/16 10:45 12/14/16 08:24 Hydromorphone HCl (Dilaudid Pf Inj) 0.1 mg Q3H PRN IV pain 1-3 12/02/16 17:45 12/13/16 16:35 Hydromorphone HCl (Dilaudid Pf Inj) 0.25 mg Q3H PRN IV PAIN 4-10 12/02/16 17:45 12/12/16 15:16 Docusate Sodium (Colace) 100 mg TID PO 12/03/16 18:00 12/14/16 08:24 Psyllium Hydrophilic Mucilloid (Metamucil Smooth Texture Sf/ Gf Pkt) 1 pkt DAILY PO 12/03/16 18:00 12/14/16 08:25 Sertraline HCl (Zoloft) 100 mg HS PO 12/08/16 21:00 Hold 12/11/16 21:19 Tramadol HCl (Ultram) 12.5 mg Q4H PRN PO breakthrough Pain 12/07/16 16:00 12/13/16 18:09 Trazodone HCl (Desyrel) 25 mg HS PO 12/07/16 21:00 12/13/16 20:07 Famotidine (Pepcid) 20 mg DAILY PO 12/09/16 09:00 12/14/16 08:24 Lorazepam (Ativan) 0.5 mg HS PRN PO insomnia 12/08/16 16:45 12/11/16 21:19 Furosemide 40 mg 40 mg DAILY PO 12/11/16 12:30 12/14/16 08:24 Amiodarone HCl/ Dextrose (Cordarone Inj/ D5W ([place]) Inj) 250 ml @ 0 mls/hr CONTINUOUS IV 12/12/16 03:30 12/13/16 05:14 Heparin Sodium (Porcine) 5000 units 5,000 units Q12HR SQ 12/13/16 21:00 12/14/16 21:00 12/14/16 08:25 Levofloxacin/ Dextrose (Levaquin 500 Mg Premix Inj) 100 ml @ 100 mls/hr Q24H IV 12/13/16 15:00 12/13/16 16:35 Vital Signs / I&O Vital Signs Date Time Temp Pulse Resp B/P Pulse Ox O2 Delivery O2 Flow Rate FiO2 12/14/16 08:15 Nasal Cannula 3.00 12/14/16 08:00 98.0 77 17 136/61 94 12/14/16 04:00 98.7 98 20 159/77 94 12/14/16 00:00 75 20 158/68 95 12/13/16 20:00 Nasal Cannula 3.00 12/13/16 20:00 97.8 75 22 158/70 95 12/13/16 18:00 18 12/13/16 16:47 Nasal Cannula 4.00 12/13/16 16:00 98.8 58 17 143/68 96 12/13/16 12:00 98.6 57 18 156/68 94 I/O 12/13/16 12/13/16 12/13/16 12/14/16 12/14/16 12/14/16 07:00 15:00 23:00 07:00 15:00 23:00 Intake Total 816 ml 1320 ml 456 ml Output Total 600 ml 1400 ml 400 ml 550 ml Balance 216 ml -80 ml -400 ml -94 ml Intake Oral 80 ml 1320 ml IV Total 736 ml 456 ml Output Urine Total 600 ml 1400 ml 400 ml 550 ml # Bowel Movements 0 Physical Exam GENERAL: This is a well-nourished, well-developed patient, in no apparent distress. CARDIOVASCULAR: Regular rate and irregular rhythm without murmurs, gallops, or rubs. RESPIRATORY: Clear to auscultation. Breath sounds equal bilaterally. No wheezes , rales, or rhonchi. GASTROINTESTINAL: Abdomen soft, non-tender, nondistended. Normal, active bowel sounds MUSCULOSKELETAL: Extremities without clubbing, cyanosis, or edema. NEURO: Alert & Oriented x4 to person, place, time, situation. Moves all ext x4 Imaging Last Impressions Chest X-Ray 12/13/16 0000 Signed Impressions: Service Date/Time: Tuesday, December 13, 2016 11:25 - CONCLUSION: Patchy infiltrates right lower lobe. Recommend treatment and followup to resolution. Yvon Almodovar MD Cholangiogram 12/10/16 0000 Signed Impressions: Service Date/Time: Saturday, December 10, 2016 15:14 - CONCLUSION: 1. Probably tiny bubble distal common duct. 2. Findings were discussed with Dr. De La Rosa on today's date. Sherif Sewell MD FACR Abdomen/Pelvis CT 12/08/16 0000 Signed Impressions: Service Date/Time: Thursday, December 08, 2016 18:52 - CONCLUSION: 1. Enlargement of the pancreas, especially the pancreatic head most characteristic of pancreatitis. Probable small pseudocysts anterior and inferior to the pancreas unchanged from November 30. 2. Improvement of basilar air space disease in the lungs. No significant free fluid. No free air. 3. Severe colonic diverticulosis. Wilbur Medley MD Head CT 12/04/16 0000 Signed Impressions: Service Date/Time: December 01:40 - CONCLUSION: No bleed or other acute intracranial abnormality. 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 No change. Sriram Bowen MD Assessment and Plan Problem List: (1) Atrial fibrillation Assessment and Plan: rate controlled, eliquis being held in anticipation of cardiac cath thursday (or potentially more urgently if hemodynamically unstable VT occurs.) (2) CAD (coronary artery disease) (3) RCA occlusion (4) Pre-op evaluation (5) Status post laparoscopic cholecystectomy (6) Ventricular tachycardia Assessment and Plan: Cont. IV amio. Plan cardiac cath 7:30 Thursday AM. Assessment and Plan Dr. Aceves to resume care in the AM. Problem Qualifiers (1) Atrial fibrillation: Qualified Code: I48.0 - Paroxysmal atrial fibrillation (2) CAD (coronary artery disease): Qualified Code: I25.10 - Coronary artery disease involving [place] coronary artery of [place] heart without angina pectoris Fred Gibbons MD Dec 14, 2016 10:48
[2016-12-14] MEDS: traMADol HCL 50 MG TAB PO PRN (10:55)
[2016-12-14] MEDS: CEFEPIME INJ 1,000 MG in SODIUM CHLORIDE 0.9% INJ 100 ML IV SCH ×2 (10:55→21:20)
[2016-12-14] MEDS: AMIODARONE INJ 450 MG in DEXTROSE 5% IN WATE(EXCEL) INJ 241 ML IV SCH ×2 (15:18)
[2016-12-14] MEDS: LEVOFLOXACIN 500 MG PREMIX INJ 100 ML IV SCH (15:18)
[2016-12-14] MEDS: RESP: ALBUTEROL 2.5 MG/IPRATROPIUM 0.5 MG NEB (SCH) NEB ×2 (15:42→19:38)
[2016-12-14] MEDS: traZODone HCL 50 MG TAB PO SCH (21:20)
[2016-12-14] MEDS: LORazepam 0.5 MG TAB PO PRN (23:42)
[2016-12-14] MEDS ORDERED: DIAZEPAM 5 MG TAB PO SCH (23:45)
[2016-12-14] MEDS ORDERED: diphenhydrAMINE HCL 25 MG CAP PO SCH (23:45)
[2016-12-15] VITALS (7 sets, daily range): BP systolic 125–167; BP diastolic 67–81; PULSE 75–108; RESP 15–20; TEMP 97.2–98.1; O2SAT 92–98
[2016-12-15] MEDS: SODIUM CHLOR 0.9% 1000 ML INJ 1,000 ML IV SCH ×2 (05:19→23:47)
[2016-12-15] MEDS ORDERED: HEPARIN-NS/PF INJ 500 ML ONE (07:21)
[2016-12-15 07:24] LABS: AUTOMATED NEUTROPHIL # 7.6 TH/MM3 (1.8-7.7); BASOPHIL % 0.5 % (0.0-2.0); EOSINOPHIL # 0.1 TH/MM3 (0-0.4); HEMATOCRIT 30.9 % (39.0-51.0); HEMO FLAGS DIFF FINAL; LYMPH % 12.1 % (9.0-44.0); LYMPHOCYTE # 1.2 TH/MM3 (1.0-4.8); MEAN CELL VOLUME 82.6 FL (80.0-100.0); MEAN CORPUSCULAR HEMOGLOBIN 26.8 PG (27.0-34.0); MEAN CORPUSCULAR HGB CONC 32.5 % (32.0-36.0); MONO % 9.9 % (0.0-8.0); NEUT % 76.5 % (16.0-70.0); PLATELET COUNT 262 TH/MM3 (150-450); RED BLOOD COUNT 3.74 MIL/MM3 (4.50-5.90); RED CELL DISTRIBUTION WIDTH 15.6 % (11.6-17.2); WHITE BLOOD COUNT 9.9 TH/MM3 (4.0-11.0)
[2016-12-15 07:43] LABS: BICARBONATE 32.3 MEQ/L (21.0-32.0); POTASSIUM 3.3 MEQ/L (3.5-5.1)
[2016-12-15] MEDS ORDERED: MIDAZOLAM HCL 2 MG/2 ML VIAL ONE (07:47)
[2016-12-15] MEDS: RESP: ALBUTEROL 2.5 MG/IPRATROPIUM 0.5 MG NEB (SCH) NEB ×4 (08:00→20:23)
[2016-12-15] MEDS ORDERED: SODIUM CHLOR 0.9% 1000 ML INJ 1,000 ML IV SCH (08:23)
[2016-12-15] MEDS ORDERED: MISC INFORMATION XX ONE (08:30)
[2016-12-15] MEDS ORDERED: SODIUM CHLORIDE 0.9% FLUSH 5 ML FLUSH IVF PRN (08:30)
[2016-12-15] MEDS ORDERED: IODIXANOL 320 MG/ML 100 ML VIAL (for Cath Lab) OTHER ONE (08:30)
[2016-12-15] MEDS ORDERED: ONDANSETRON HCL 4 MG/2 ML VIAL IV PRN (08:30)
[2016-12-15] MEDS ORDERED: BACITRACIN OINT 0.9 GM PKT TOP ONE (09:00)
[2016-12-15] MEDS ORDERED: SODIUM CHLORIDE 0.9% FLUSH 5 ML FLUSH IVF SCH (09:00)
[2016-12-15] MEDS: PSYLLIUM FIBER SF/GF 6 GM POWD PKT PO SCH (09:00)
[2016-12-15] MEDS: DOCUSATE SODIUM 100 MG CAP PO SCH ×3 (09:00→17:35)
--- NOTE | 2016-12-15 09:14 | MA ---
cc: HANH CH M.D. DATE: 12/15/2016 PROCEDURE PERFORMED 1. Left heart catheterization. 2. Left ventriculography. 3. Coronary angiography. BRIEF HISTORY Dusty Smith is an 81-year-old man who had slow VT last week. He has had no evidence for infarction. He has a known totally occluded right coronary artery. He has just had a cholecystectomy following pancreatitis. DESCRIPTION OF PROCEDURE The patient was brought to the cardiac clinical lab specialist in a fasting state. The right groin was prepped and draped in sterile fashion. Using 1% lidocaine for local anesthesia a 6.5 [place] sheath was inserted in the right femoral artery. Left ventricular pressure was then recorded using an angled pigtail catheter followed by left ventriculography and then a pullback. Exchange wire technique was used. Left coronary angiography was completed using a left 4.5 Mahad. Right coronary angiography was completed using a 3-D RC catheter. At the end of the procedure the sheath is being pulled manually. There were no complications. FINDINGS HEMODYNAMICS Left ventricular pressure is 142/11 with an end-diastolic pressure of 16. Aortic pressure is 136/54 with a mean of 86. There is no gradient during pullback from the left ventricle to the aorta. LEFT VENTRICULOGRAPHY Left ventriculography shows mild posterobasal hypokinesis. Estimated ejection fraction is normal at 55%. CORONARY ANGIOGRAPHY The left main coronary artery appears normal. It trifurcates into the LAD and circumflex vessel and a ramus intermediate branch. The left anterior descending artery has a 50% eccentric proximal stenosis, really only well-appreciated in the ARYAN cranial views. There is moderate distal LAD irregularity. The ramus intermediate branch has about 60% smooth diffuse proximal narrowing. The circumflex artery demonstrates diffuse disease. The vessel in the AV groove shows diffuse 50-60% lesions. The first obtuse marginal branch has irregularities. The second obtuse marginal branch appears satisfactory. There is a very small posterolateral and distal circumflex vessel after a long diffusely diseased segment of the distal circumflex vessel that is at least 50% diseased. The right coronary artery is totally occluded proximally with prominent [id number] collaterals. CONCLUSIONS 1. Slightly elevated left ventricular end-diastolic pressure. 2. Overall preserved left ventricular function with a prior inferior infarct. 3. Diffuse three-vessel disease, although none of the disease in the left coronary artery appears to be critical. RECOMMENDATIONS Medical management of the CAD. Will get an opinion from Dr. Álvarez regarding management of his ventricular tachycardia. MD NORM Sandoval/BLANE /8:21 AM /8:59 AM
--- NOTE | 2016-12-15 10:35 | HHI.PR ---
Subjective Subjective Remarks disoriented not sure what time is it doesn't want to eat, states he already ate. Manjit is sitting in front of him, untouched has coughing, some wheezing no fever minimal abd. pain no cp no sob Telemetry reviewed, no VT noted, occ. tachycardia on Amiodarone drip no family at bsd Review of Systems Constitutional Constitutional: Fatigue, Weakness Constitutional Remarks 12 point ROS completed, unreliable GI/Abdomen GI/Abdominal Exam: Constipation, Abdominal Pain Musculoskeletal MS: Weakness, Discomfort/Pain (abd.) Psychiatric Psychiatric: Normal Mood, Sleep Problems Vitals/Results Intake & Output 12/14/16 12/14/16 12/15/16 15:00 23:00 07:00 Intake Total 233 ml 1292 ml 192 ml Output Total 3000 ml 700 ml Balance 233 ml -1708 ml -508 ml Intake Oral 1150 ml 0 ml IV Total 233 ml 192 ml Packed Cells 142 ml Output Urine Total 3000 ml 700 ml # Bowel Movements 0 0 Vital Signs Vital Signs Date Time Temp Pulse Resp B/P Pulse Ox O2 Delivery O2 Flow Rate FiO2 12/15/16 08:53 95 2.00 12/15/16 04:20 98.1 80 18 125/68 95 12/15/16 00:30 97.9 75 20 126/67 93 12/14/16 21:25 Nasal Cannula 3.00 12/14/16 21:00 98.0 89 17 125/69 93 12/14/16 20:10 73 12/14/16 19:39 95 Nasal Cannula 3.00 12/14/16 16:00 98.1 87 19 163/77 96 12/14/16 12:29 93 Nasal Cannula 3.00 12/14/16 12:00 97.7 74 16 149/68 94 CBC/BMP: 12/15/16 0622 12/15/16 0622 Lab Results Laboratory Tests Test 12/15/16 06:22 White Blood Count 9.9 TH/MM3 Red Blood Count 3.74 MIL/MM3 Hemoglobin 10.0 GM/DL Hematocrit 30.9 % Mean Corpuscular Volume 82.6 FL Mean Corpuscular Hemoglobin 26.8 PG Mean Corpuscular Hemoglobin 32.5 % Concent Red Cell Distribution Width 15.6 % Platelet Count 262 TH/MM3 Mean Platelet Volume 8.1 FL Neutrophils (%) (Auto) 76.5 % Lymphocytes (%) (Auto) 12.1 % Monocytes (%) (Auto) 9.9 % Eosinophils (%) (Auto) 1.0 % Basophils (%) (Auto) 0.5 % Neutrophils # (Auto) 7.6 TH/MM3 Lymphocytes # (Auto) 1.2 TH/MM3 Monocytes # (Auto) 1.0 TH/MM3 Eosinophils # (Auto) 0.1 TH/MM3 Basophils # (Auto) 0.0 TH/MM3 CBC Comment DIFF FINAL Differential Comment Sodium Level 139 MEQ/L Potassium Level 3.3 MEQ/L Chloride Level 100 MEQ/L Carbon Dioxide Level 32.3 MEQ/L Anion Gap 7 MEQ/L Blood Urea Nitrogen 11 MG/DL Creatinine 0.77 MG/DL Estimat Glomerular Filtration 97 ML/MIN Rate Random Glucose 94 MG/DL Calcium Level 8.3 MG/DL Physical Exam General General Appearance: Well Developed, No Acute Distress, Comfortable, Anxious, Obese Eyes Eye Exam: Pupils Equal, Pupils Reactive Ears & Nose Ears & Nose Exam: Nasal Mucosa [place] Throat Throat Exam: Oral Mucosa [place] & Moist Neck Neck Exam: Trachea Midline Pulmonary Resp Exam: Breath Sounds Equal, Crackles, Diminished Breath Sounds Resp Remarks exp, wheeze Cardiology CV Exam: Normal Sinus Rhythm, Irregular, Murmur Gastrointestinal/Abdomen GI Exam: Soft, Bowel Sounds Present, Non-Distended Genitourinary Exam: Clear Urine Remarks [place] Musculoskeletal MS Exam: Joints Intact, Normal Tone Integumentary Skin Exam: Warm, Dry Extremeties Extremities Exam: Pedal Pulses Palpable, Trace Edema Neurologic Neuro Exam: Alert, Awake, Speech Clear, Moving All Extremities, Hand Paint Mixer Equal, No Focal Deficits Psychiatric Psych Exam: Appropriate Responses VTE Prophylaxis VTE Prophylaxis Device: SCDs VTE Prophylaxis Meds: Heparin Assessment/Plan Problem List: (1) Abdominal pain (2) Acute pancreatitis (3) Atrial fibrillation (4) GERD (gastroesophageal reflux disease) (5) Sleep apnea (6) Gall stone (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 Lipase 3381. Patient admitted with recurrent pancreatitis, likely secondary to gallstone.C T of the abdomen and pelvis noted with recurrent pancreatitis -S/P lap ranjith and LN bx 12/10 -post op care -clear for discharge from surgical standpoint -enc. PO intake -Bowel regimen Hx atrial fibrillation, currently sinus rhythm Had episodes of NSVT, was in ICU -Continue Amiodarone yuridia -Continuous cardiac telemetry -Heparin SQ for now Hx CAD, had been undergoing work up with Dr. 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 Can F/U as OP Sleep apnea Continue CPAP from home Right Carotid occlusion-known hx -continue with present home meds Confused, likely delirium -avoid narcotics, DC IV dilaudid, continue Tramadol -reorient frequently Heparin for DVT prophylaxis Hold Eliquis for now since pt. having cardiac cath OOB with PT Continue with Pepcid for GI prophylaxis IS Condition guarded Labs in am D/W RN D/W Dr. Mena D/W pt This patient was seen by myself and Dr. Mena, this note is written on his behalf Problem Qualifiers (1) Abdominal pain: Qualified Code: R10.13 - Epigastric pain (2) Acute pancreatitis: Qualified Code: K85.10 - Acute biliary pancreatitis without infection or necrosis (3) Atrial fibrillation: Qualified Code: I48.0 - Paroxysmal atrial fibrillation (4) GERD (gastroesophageal reflux disease): Qualified Code: K21.9 - Gastroesophageal reflux disease, esophagitis presence not specified (5) Sleep apnea: Qualified Code: G47.30 - Sleep apnea, unspecified type (6) Gall stone: (7) CAD (coronary artery disease): Qualified Code: I25.10 - Coronary artery disease involving [place] coronary artery of [place] heart without angina pectoris (8) Vomiting: Qualified Code: R11.2 - Non-intractable vomiting with nausea, unspecified vomiting type Gross,Nida G. DRUM ATTENDANT Dec 15, 2016 10:35
--- NOTE | 2016-12-15 10:35 | HHI.FF ---
Face to Face Verification Diagnosis: (1) Ventricular tachycardia (2) Acute pancreatitis (3) Status post laparoscopic cholecystectomy Physical Therapy Order: Evaluate and Treat Home Health Nursing Order: Medical education Signs/symptoms of disease process Oxygen administration education Nursing assessment with vital signs Home Health Aide Order: To Assist In: Bathing and personal care Cloth Finishing Range Back Tender Order: To Evaluate: Support services I have seen patient Dusty Smith on 12/15/16. My clinical findings support the need for the requested home health care services because: Deconditioned w/ increased weakness Limited ability to care for self Need for psychosocial assistance I certify that my clinical findings support that this patient is homebound because: Post-op weakness Impaired cognitive ability/safety Hx COPD- exertion dyspnea/weakness Need for psychosocial assistance Nida Lopez Dec 15, 2016 10:35
[2016-12-15] MEDS: AMIODARONE 200 MG TAB PO SCH ×2 (10:36→20:57)
[2016-12-15] MEDS: TAMSULOSIN HCL 0.4 MG CAP PO SCH (10:36)
[2016-12-15] MEDS: FAMOTIDINE 20 MG TAB PO SCH (10:36)
[2016-12-15] MEDS: FUROSEMIDE 40 MG TAB PO SCH (10:37)
[2016-12-15] MEDS: METOPROLOL TARTRATE 25 MG TAB PO SCH ×2 (10:37→20:57)
[2016-12-15] MEDS: CEFEPIME INJ 1,000 MG in SODIUM CHLORIDE 0.9% INJ 100 ML IV SCH ×2 (10:41→20:57)
[2016-12-15] MEDS: SODIUM CHLORIDE 0.9% FLUSH 5 ML FLUSH FLUSH SCH ×2 (10:51→20:57)
[2016-12-15] MEDS ORDERED: POTASSIUM CL 40 MEQ/30 ML LIQ UDC PO ONE (11:00)
[2016-12-15] MEDS ORDERED: LACTULOSE SYRUP 20 GM/30 ML CUP PO PRN (11:00)
--- NOTE | 2016-12-15 11:01 | HHI.PR ---
Subjective Subjective Remarks just back from cardiac cath better today, not confused, oriented x 2-3 no cp no sob some cough and wheezing no fever appetite fair no N/V at bsd pt. wants to go home with C, prefers rehab Review of Systems Constitutional Constitutional: Fatigue, Weakness Constitutional Remarks 12 point ROS completed, unreliable GI/Abdomen GI/Abdominal Exam: Constipation, Abdominal Pain Musculoskeletal MS: Weakness, Discomfort/Pain (abd.) Psychiatric Psychiatric: Normal Mood, Sleep Problems Vitals/Results Intake & Output 12/14/16 12/14/16 12/15/16 15:00 23:00 07:00 Intake Total 233 ml 1292 ml 192 ml Output Total 3000 ml 700 ml Balance 233 ml -1708 ml -508 ml Intake Oral 1150 ml 0 ml IV Total 233 ml 192 ml Packed Cells 142 ml Output Urine Total 3000 ml 700 ml # Bowel Movements 0 0 Vital Signs Vital Signs Date Time Temp Pulse Resp B/P Pulse Ox O2 Delivery O2 Flow Rate FiO2 12/15/16 08:53 95 2.00 12/15/16 04:20 98.1 80 18 125/68 95 12/15/16 00:30 97.9 75 20 126/67 93 12/14/16 21:25 Nasal Cannula 3.00 12/14/16 21:00 98.0 89 17 125/69 93 12/14/16 20:10 73 12/14/16 19:39 95 Nasal Cannula 3.00 12/14/16 16:00 98.1 87 19 163/77 96 12/14/16 12:29 93 Nasal Cannula 3.00 12/14/16 12:00 97.7 74 16 149/68 94 CBC/BMP: 12/15/16 0622 12/15/16 0622 Lab Results Laboratory Tests Test 12/15/16 06:22 White Blood Count 9.9 TH/MM3 Red Blood Count 3.74 MIL/MM3 Hemoglobin 10.0 GM/DL Hematocrit 30.9 % Mean Corpuscular Volume 82.6 FL Mean Corpuscular Hemoglobin 26.8 PG Mean Corpuscular Hemoglobin 32.5 % Concent Red Cell Distribution Width 15.6 % Platelet Count 262 TH/MM3 Mean Platelet Volume 8.1 FL Neutrophils (%) (Auto) 76.5 % Lymphocytes (%) (Auto) 12.1 % Monocytes (%) (Auto) 9.9 % Eosinophils (%) (Auto) 1.0 % Basophils (%) (Auto) 0.5 % Neutrophils # (Auto) 7.6 TH/MM3 Lymphocytes # (Auto) 1.2 TH/MM3 Monocytes # (Auto) 1.0 TH/MM3 Eosinophils # (Auto) 0.1 TH/MM3 Basophils # (Auto) 0.0 TH/MM3 CBC Comment DIFF FINAL Differential Comment Sodium Level 139 MEQ/L Potassium Level 3.3 MEQ/L Chloride Level 100 MEQ/L Carbon Dioxide Level 32.3 MEQ/L Anion Gap 7 MEQ/L Blood Urea Nitrogen 11 MG/DL Creatinine 0.77 MG/DL Estimat Glomerular Filtration 97 ML/MIN Rate Random Glucose 94 MG/DL Calcium Level 8.3 MG/DL Physical Exam General General Appearance: Well Developed, No Acute Distress, Comfortable, Obese Eyes Eye Exam: Pupils Equal, Pupils Reactive Ears & Nose Ears & Nose Exam: Nasal Mucosa [place] Throat Throat Exam: Oral Mucosa [place] & Moist Neck Neck Exam: Trachea Midline Pulmonary Resp Exam: Breath Sounds Equal, Diminished Breath Sounds Resp Remarks exp, wheeze Cardiology CV Exam: Normal Sinus Rhythm, Irregular, Murmur Gastrointestinal/Abdomen GI Exam: Soft, Bowel Sounds Present, Non-Distended Musculoskeletal MS Exam: Joints Intact, Normal Tone Integumentary Skin Exam: Warm, Dry Extremeties Extremities Exam: Pedal Pulses Palpable, Trace Edema Neurologic Neuro Exam: Alert, Awake, Speech Clear, Moving All Extremities, Switch Operator Equal, No Focal Deficits Psychiatric Psych Exam: Appropriate Responses VTE Prophylaxis VTE Prophylaxis Device: SCDs Assessment/Plan Problem List: (1) Abdominal pain (2) Acute pancreatitis (3) Atrial fibrillation (4) GERD (gastroesophageal reflux disease) (5) Sleep apnea (6) Gall stone (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 Lipase 3381. Patient admitted with recurrent pancreatitis, likely secondary to gallstone.C T of the abdomen and pelvis noted with recurrent pancreatitis -S/P lap ranjith and LN bx /8 -post op care -clear for discharge from surgical standpoint -enc. PO intake -Bowel regimen Hx atrial fibrillation, currently sinus rhythm Had episodes of NSVT, was in ICU -ON Amiodarone PO -Continuous cardiac telemetry -Heparin SQ for now Hx CAD, had been undergoing work up with Dr. Aceves -had NSVT -continue Amiodarone and BB -S/P cardiac cath 12/15, diffuse 3 vessel disease, medical management. Recommends consult with Dr. Álvarez for NSVT. -will keep on Heparin in the event Dr. Álvarez needs to do any further interventions PNA, RLL, COPD, hypoxia Continue with oxygen at 2 L to keep sats greater than 92 Incentive spirometer as needed -CPAP at night -CXR reviewed 12/12-RLL PNA, continue Levaquin and Cefepime 1 gm IV q 12 -scheduled duonebs -Add Prednisone 20 mg PO daily x 3 days GERD Continue with Pepcid HTN -continue home meds History of right parotid cancer, has a firm mass to preauricular area that appears to have increased in size -Monitor for now -Stable for now. Can F/U as OP Sleep apnea Continue CPAP from home Right Carotid occlusion-known hx -continue with present home meds Confused, likely delirium-improved -avoid narcotics, DCd IV dilaudid, continue Tramadol -reorient frequently -better today Heparin for DVT prophylaxis OOB with PT Continue with Pepcid for GI prophylaxis IS Replace K CM for DC planning, HHC vs SNF vs CIR Hopefully dc 1-2 days D/W RN D/W Dr. Mena D/W pt This patient was seen by myself and Dr. Mena, this note is written on his behalf Problem Qualifiers (1) Abdominal pain: Qualified Code: R10.13 - Epigastric pain (2) Acute pancreatitis: Qualified Code: K85.10 - Acute biliary pancreatitis without infection or necrosis (3) Atrial fibrillation: Qualified Code: I48.0 - Paroxysmal atrial fibrillation (4) GERD (gastroesophageal reflux disease): Qualified Code: K21.9 - Gastroesophageal reflux disease, esophagitis presence not specified (5) Sleep apnea: Qualified Code: G47.30 - Sleep apnea, unspecified type (6) Gall stone: (7) CAD (coronary artery disease): Qualified Code: I25.10 - Coronary artery disease involving [place] coronary artery of [place] heart without angina pectoris (8) Vomiting: Qualified Code: R11.2 - Non-intractable vomiting with nausea, unspecified vomiting type Nida Lopez Dec 15, 2016 11:01
[2016-12-15] MEDS: predniSONE 10 MG TAB PO SCH (11:23)
[2016-12-15] MEDS: HYDROmorphone HCL PF 1 MG/ML VIAL IV PRN (13:18)
[2016-12-15] MEDS: LEVOFLOXACIN 500 MG PREMIX INJ 100 ML IV SCH (14:01)
[2016-12-15] MEDS: traMADol HCL 50 MG TAB PO PRN (15:36)
[2016-12-15] MEDS: traZODone HCL 50 MG TAB PO SCH (20:57)
[2016-12-15] MEDS: LORazepam 0.5 MG TAB PO PRN (21:27)
[2016-12-16] VITALS (10 sets, daily range): BP systolic 129–191; BP diastolic 60–80; PULSE 83–110; RESP 18–22; TEMP 97–99; O2SAT 91–95
[2016-12-16] MEDS: METOPROLOL TARTRATE 25 MG TAB PO SCH ×4 (08:44→23:10)
[2016-12-16] MEDS: predniSONE 10 MG TAB PO SCH (08:44)
[2016-12-16] MEDS: SODIUM CHLORIDE 0.9% FLUSH 5 ML FLUSH FLUSH SCH ×2 (08:45→21:00)
[2016-12-16] MEDS: TAMSULOSIN HCL 0.4 MG CAP PO SCH (08:45)
[2016-12-16] MEDS: DOCUSATE SODIUM 100 MG CAP PO SCH ×3 (08:45→18:00)
[2016-12-16] MEDS: FUROSEMIDE 40 MG TAB PO SCH (08:45)
[2016-12-16] MEDS: AMIODARONE 200 MG TAB PO SCH (08:45)
[2016-12-16] MEDS: FAMOTIDINE 20 MG TAB PO SCH (08:45)
[2016-12-16] MEDS: PSYLLIUM FIBER SF/GF 6 GM POWD PKT PO SCH (08:45)
[2016-12-16] MEDS: RESP: ALBUTEROL 2.5 MG/IPRATROPIUM 0.5 MG NEB (SCH) NEB ×4 (09:22→21:00)
[2016-12-16] MEDS: CEFEPIME INJ 1,000 MG in SODIUM CHLORIDE 0.9% INJ 100 ML IV SCH ×2 (10:59→23:03)
[2016-12-16] MEDS: traMADol HCL 50 MG TAB PO PRN ×2 (10:59→18:36)
--- NOTE | 2016-12-16 12:04 | HHI.PR ---
Subjective Interval History better today, not confused, oriented x 3 no cp no sob some cough and wheezing no fever appetite fair no N/V at bsd pt. wants to go home with HHC, prefers rehab Review of Systems 12 point ROS completed, unreliable Review of Systems Constitutional Constitutional: Fatigue, Weakness GI/Abdomen GI/Abdominal Exam: Constipation, Abdominal Pain Musculoskeletal MS: Weakness, Discomfort/Pain (abd.) Psychiatric Psychiatric: Normal Mood, Sleep Problems Vitals/Results Intake & Output 12/15/16 12/15/16 12/16/16 15:00 23:00 07:00 Intake Total 800 ml Output Total 750 ml Balance 50 ml Intake Oral 800 ml Output Urine Total 750 ml # Voids 3 # Bowel Movements 3 0 Vital Signs Vital Signs Date Time Temp Pulse Resp B/P Pulse Ox O2 Delivery O2 Flow Rate FiO2 12/16/16 09:23 93 Nasal Cannula 3.00 12/16/16 08:00 98.1 94 18 191/80 91 12/16/16 04:00 97.0 88 18 154/67 95 12/16/16 02:11 97.3 94 18 129/79 93 12/15/16 21:39 97.2 108 18 161/76 92 12/15/16 20:25 93 Nasal Cannula 3.50 12/15/16 20:10 Nasal Cannula 2.00 12/15/16 16:00 97.2 94 20 141/81 98 12/15/16 13:14 95 Nasal Cannula 3.00 CBC/BMP: 12/15/16 0622 12/15/16 0622 Physical Exam General General Appearance: Well Developed, No Acute Distress, Comfortable, Obese Eyes Eye Exam: Pupils Equal, Pupils Reactive Ears & Nose Ears & Nose Exam: Nasal Mucosa [place] Throat Throat Exam: Oral Mucosa [place] & Moist Neck Neck Exam: Trachea Midline Pulmonary Resp Exam: Breath Sounds Equal, Diminished Breath Sounds Resp Remarks Diminished breath sounds basally Cardiology CV Exam: Normal Sinus Rhythm, Irregular, Murmur Gastrointestinal/Abdomen GI Exam: Soft, Bowel Sounds Present, Non-Distended Musculoskeletal MS Exam: Joints Intact, Normal Tone Integumentary Skin Exam: Warm, Dry Extremeties Extremities Exam: Pedal Pulses Palpable, Trace Edema Neurologic Neuro Exam: Alert, Awake, Speech Clear, Moving All Extremities, Media Relations Associate Equal, No Focal Deficits Psychiatric Psych Exam: Appropriate Responses VTE Prophylaxis VTE Prophylaxis Device: SCDs Assessment/Plan Problem List: (1) Abdominal pain (2) Acute pancreatitis (3) Atrial fibrillation (4) GERD (gastroesophageal reflux disease) (5) Sleep apnea (6) Gall stone (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 Lipase 3381. Patient admitted with recurrent pancreatitis, likely secondary to gallstone.C T of the abdomen and pelvis noted with recurrent pancreatitis -S/P lap ranjith and LN bx 12/10 -post op care -clear for discharge from surgical standpoint -enc. PO intake -Bowel regimen Hx atrial fibrillation, currently sinus rhythm Had episodes of NSVT, was in ICU -ON Amiodarone PO -Continuous cardiac telemetry -Heparin SQ for now Hx CAD, had been undergoing work up with Dr. Aceves -had NSVT -continue Amiodarone and BB -S/P cardiac cath 12/15, diffuse 3 vessel disease, medical management. Recommends consult with Dr. Álvarez for NSVT.awaiting dr Chavez input -will keep on Heparin in the event Dr. Álvarez needs to do any further interventions PNA, RLL, COPD, hypoxia Continue with oxygen at 2 L to keep sats greater than 92 Incentive spirometer as needed -CPAP at night -CXR reviewed 12/12-RLL PNA, continue Levaquin and Cefepime 1 gm IV q 12 -scheduled duonebs -Add Prednisone 20 mg PO daily x 3 days GERD Continue with Pepcid HTN -continue home meds History of right parotid cancer, has a firm mass to preauricular area that appears to have increased in size -Monitor for now -Stable for now. Can F/U as OP Sleep apnea Continue CPAP from home Right Carotid occlusion-known hx -continue with present home meds Confused, likely delirium-improved -avoid narcotics, DCd IV dilaudid, continue Tramadol -reorient frequently -better today Heparin for DVT prophylaxis OOB with PT Continue with Pepcid for GI prophylaxis IS Replace K CM for DC planning, HHC vs SNF vs CIR Hopefully dc 1-2 days D/W RN D/W pt adn Problem Qualifiers (1) Abdominal pain: Qualified Code: R10.13 - Epigastric pain (2) Acute pancreatitis: Qualified Code: K85.10 - Acute biliary pancreatitis without infection or necrosis (3) Atrial fibrillation: Qualified Code: I48.0 - Paroxysmal atrial fibrillation (4) GERD (gastroesophageal reflux disease): Qualified Code: K21.9 - Gastroesophageal reflux disease, esophagitis presence not specified (5) Sleep apnea: Qualified Code: G47.30 - Sleep apnea, unspecified type (6) Gall stone: (7) CAD (coronary artery disease): Qualified Code: I25.10 - Coronary artery disease involving [place] coronary artery of [place] heart without angina pectoris (8) Vomiting: Qualified Code: R11.2 - Non-intractable vomiting with nausea, unspecified vomiting type Rene Mena MD Dec 16, 2016 12:04
[2016-12-16] MEDS ORDERED: LORazepam 1 MG TAB PO PRN (13:00)
[2016-12-16] MEDS: LEVOFLOXACIN 500 MG PREMIX INJ 100 ML IV SCH (16:06)
--- NOTE | 2016-12-16 18:00 | MB ---
cc: ARISTEO MACK M.D. DATE OF CONSULTATION: 12/16/2016 REASON FOR CONSULTATION: Ventricular tachycardia. HISTORY OF PRESENT ILLNESS: Mr. Smith is an 81-year-old gentleman with history of coronary artery disease, previous heart catheterization by Dr. Aceves, total RCA occlusion. History of atrial fibrillation. The patient was admitted due to chest pain and wide complex tachyarrhythmia. Left heart catheterization indicated chronic occlusion of RCA. The patient was put on amiodarone. He has a history of pancreatitis and has been on and off in the hospital for the past [id number] months. I was consulted for evaluation and management. The chart was reviewed. The patient was evaluated. ALLERGIES: ASPIRIN. SOCIAL HISTORY: Negative for smoking and drinking. FAMILY HISTORY Noncontributory to his current medical condition. MEDICATIONS He is on amiodarone. Cefepime. Levaquin. Valium. Digoxin. Famitodine. Lasix. Dilaudid. Metoprolol. REVIEW OF SYSTEMS: He refers no chest pain, no chest discomfort, no palpitations, no fever. PHYSICAL EXAMINATION: Alert, fully oriented. VITAL SIGNS: Blood pressure 130/60, pulse 99, respiratory rate 18. LUNGS: Ventilated. CARDIOVASCULAR: S1-S2, irregular, no gallop. There is a discrete systolic ejection murmur. Abdomen: Soft. No mass. Obese. No bruit. Extremities: No edema. Electrocardiogram: atrial fibrillation, interventricular conduction delay diffuse ST changes. LABORATORY DATA Hemoglobin 10, white blood cell 9.9, potassium 3.3, creatinine 0.77, troponin 0.04. PT/INR 1.6. ASSESSMENT AND RECOMMENDATIONS Mr. Smith has a history of pancreatitis. He just spent two months in the hospital, goes home and comes back again in the past two weeks. He could not tolerate amiodarone. It may be worsening his history of pancreatitis. He has a normal ejection fraction, but he has wide complex tachyarrhythmia, ventricular tachycardia. Scar created by the permanent occlusion of the RCA can lead to arrhythmogenic foci. I discussed with him extensively about the possibility of electrophysiology study if necessary, the defibrillator implantation for secondary prevention. The risks, the nature and the benefit of the procedure are clearly stated to him and his . The risks include pneumothorax, cardiac perforation, stroke, need for open heart surgery and even . They understand and agree to proceed. At this point I am going to DC the amiodarone. I am going to increase the metoprolol. I will follow the gentleman during hospitalization. MD ELSA Menjivar/CHAIM /5:09 PM /5:46 PM
[2016-12-16] MEDS: SODIUM CHLOR 0.9% 1000 ML INJ 1,000 ML IV SCH (23:03)
[2016-12-16] MEDS: traZODone HCL 50 MG TAB PO SCH (23:03)
[2016-12-17 00:10] VITALS: BP 159/70; PULSE 94; RESP 20; TEMP 98.3; O2SAT 94
[2016-12-17 04:00] VITALS: BP 155/65; PULSE 84; RESP 16; TEMP 98.5; O2SAT 95
[2016-12-17 08:00] VITALS: BP 141/65; PULSE 85; RESP 20; TEMP 97.5; O2SAT 92; O2SAT 95
[2016-12-17 08:11] VITALS: O2SAT 93
[2016-12-17] MEDS: RESP: ALBUTEROL 2.5 MG/IPRATROPIUM 0.5 MG NEB (SCH) NEB ×2 (08:11→11:55)
[2016-12-17] MEDS: SODIUM CHLORIDE 0.9% FLUSH 5 ML FLUSH FLUSH SCH (09:00)
[2016-12-17] MEDS: FUROSEMIDE 40 MG TAB PO SCH (09:42)
[2016-12-17] MEDS: TAMSULOSIN HCL 0.4 MG CAP PO SCH (09:42)
[2016-12-17] MEDS: predniSONE 10 MG TAB PO SCH (09:42)
[2016-12-17] MEDS: CEFEPIME INJ 1,000 MG in SODIUM CHLORIDE 0.9% INJ 100 ML IV SCH (09:42)
[2016-12-17] MEDS: FAMOTIDINE 20 MG TAB PO SCH (09:42)
[2016-12-17] MEDS: PSYLLIUM FIBER SF/GF 6 GM POWD PKT PO SCH (09:43)
[2016-12-17] MEDS: DOCUSATE SODIUM 100 MG CAP PO SCH (09:43)
--- NOTE | 2016-12-17 11:34 | HHI.PR ---
Subjective Subjective Remarks Resting in bed, No fever Alert no cp no sob at bsd (Migdalia Wiggins) Review of Systems Constitutional Constitutional: Fatigue, Weakness Constitutional Remarks 10 point ROS done. Positives still with weakness and fatigue, more alert today with verbal stimuli. Other systems unremarkable (Migdalia Wiggins) GI/Abdomen GI/Abdominal Exam: Constipation, Abdominal Pain (generalized, improving) GI/Abdomen Remarks taut, SP ranjith. active BS (Migdalia Wiggins) Genitourinary Remarks turk, yellow clear (Migdalia Wiggins) Musculoskeletal MS: Weakness, Discomfort/Pain (abd.) (Migdalia Wiggins) Neurologic Neurologic Remarks Hard of hearing (Migdalia Wiggins) Psychiatric Psychiatric: Normal Mood, Sleep Problems Psychiatric Remarks alert today (Migdalia Wiggins) Vitals/Results Intake & Output 12/16/16 12/16/16 12/17/16 15:00 23:00 07:00 Intake Total 480 ml 700 ml Output Total 800 ml Balance -320 ml 700 ml Intake Oral 480 ml 500 ml IV Total 200 ml Output Urine Total 800 ml # Voids 7 3 1 # Bowel Movements 1 Vital Signs Vital Signs Date Time Temp Pulse Resp B/P Pulse Ox O2 Delivery O2 Flow Rate FiO2 12/17/16 08:11 93 Nasal Cannula 3.00 12/17/16 08:00 97.5 85 20 141/65 95 12/17/16 04:00 98.5 84 16 155/65 95 12/17/16 00:10 98.3 94 20 159/70 94 12/16/16 21:01 94 Nasal Cannula 3.00 12/16/16 20:30 Nasal Cannula 2.00 12/16/16 20:06 97.3 110 22 165/70 92 12/16/16 20:00 97 12/16/16 16:00 99.0 99 20 134/60 92 12/16/16 12:00 98.4 83 20 135/72 91 (Migdalia Wiggins) CBC/BMP: 12/15/16 0622 12/15/16 0622 Imaging Remarks Last Impressions Chest X-Ray 12/13/16 0000 Signed Impressions: Service Date/Time: Tuesday, December 13, 2016 11:25 - CONCLUSION: Patchy infiltrates right lower lobe. Recommend treatment and followup to resolution. Yvon Almodovar MD Cholangiogram 12/10/16 0000 Signed Impressions: Service Date/Time: Saturday, December 10, 2016 15:14 - CONCLUSION: 1. Probably tiny bubble distal common duct. 2. Findings were discussed with Dr. De La Rosa on today's date. Sherif Sewell MD FACR Abdomen/Pelvis CT 12/08/16 0000 Signed Impressions: Service Date/Time: Thursday, December 08, 2016 18:52 - CONCLUSION: 1. Enlargement of the pancreas, especially the pancreatic head most characteristic of pancreatitis. Probable small pseudocysts anterior and inferior to the pancreas unchanged from November 30. 2. Improvement of basilar air space disease in the lungs. No significant free fluid. No free air. 3. Severe colonic diverticulosis. Wilbur Medley MD Head CT 12/04/16 0000 Signed Impressions: Service Date/Time: December 01:40 - CONCLUSION: No bleed or other acute intracranial abnormality. 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 No change. Sriram Bowen MD Current Medications Active Medications Lorazepam (Ativan) 1 mg HS PRN PO Last administered on 12/16/16 23:02; Admin Dose 1 MG; Start 12/16/16 at 13:00 Metoprolol Tartrate (Lopressor) 25 mg Q6HR PO Last administered on 12/16/16 23: 10; Admin Dose 25 MG; Start 12/16/16 at 18:00 (Migdalia WigginsP) Physical Exam General General Appearance: Well Developed, No Acute Distress, Comfortable, Obese ( Migdalia Wiggins. [employer] OFFICE DEVELOPER) Eyes Eye Exam: Pupils Equal, Pupils Reactive (Migdalia Wiggins [employer] OFF[employer] DEVELOPER) Ears & Nose Ears & Nose Exam: Nasal Mucosa [place] (Migdalia Wiggins [employer] OFFICE DEVELOPER) Throat Throat Exam: Oral Mucosa [place] & Moist (Migdalia Wiggins [employer] OFFICE DEVELOPER) Neck Neck Exam: Trachea Midline (Migdalia Wiggins [employer] DEVELOPER) Pulmonary Resp Exam: Clear Bilaterally, Breath Sounds Equal, Diminished Breath Sounds Resp Remarks Low volumes while sleeping but no distress (Migdalia Wiggins. [employer] OFFICE DEVELOPER) Cardiology CV Exam: Normal Sinus Rhythm, Irregular, Murmur CV Remarks Systolic murmur grade 3/6, LSB, a fib/flutter, HR 64, V. tach last night Amiodarone drip (Migdalia Wiggins. [employer] OFFICE DEVELOPER) Gastrointestinal/Abdomen GI Exam: Soft, Bowel Sounds Present, Non-Distended GI Remarks positive bowel sounds, (Migdalia Wiggins. [employer]ICE DEVELOPER) Genitourinary Remarks voiding without difficulty, since turk removed. (Migdalia Wiggins. [employer] DEVELOPER) Musculoskeletal MS Exam: Joints Intact, Normal Tone (Migdalia Wiggins. [employer] DEVELOPER) Integumentary Skin Exam: Warm, Dry (Migdalia Wiggins. [employer] DEVELOPER) Extremeties Extremities Exam: Pedal Pulses Palpable, Trace Edema (Migdalia Wiggins M. [employer]ICE DEVELOPER) Neurologic Neuro Exam: Alert, Awake, Speech Clear, Moving All Extremities, Non Profit Job Titles Equal, No Focal Deficits Neuro Remarks Answers simple questions with yes or no (Migdalia Wiggins M. [employer]ICE DEVELOPER) Psychiatric Psych Exam: Appropriate Responses (Midgalia Wiggins M. [employer] DEVELOPER) VTE Prophylaxis VTE Prophylaxis Device: SCDs (Migdalia Wiggins M. 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 Lipase 3381. Patient admitted with recurrent pancreatitis, likely secondary to gallstone.C T of the abdomen and pelvis noted with recurrent pancreatitis -S/P lap ranjith and LN bx 12/10 -post op care -clear for discharge from surgical standpoint -enc. PO intake -Bowel regimen, stable Hx atrial fibrillation, currently sinus rhythm Had episodes of NSVT, was in ICU -ON Amiodarone PO -Continuous cardiac telemetry -Heparin SQ for now Hx CAD, had been undergoing work up with Dr. Aceves -continue Amiodarone and BB -S/P cardiac cath 12/15, diffuse 3 vessel disease, medical management. Recommends consult with Dr. Álvarez. patient refusing any further cardiology testing, Does not want pacemaker or AICD.Explained risks and benefits to having further testing which include pacemaker/AICD. Patient and discussed in length what could happen with rhythm in the future. patient and present in room and both agreed to not proceed with testing or pacemaker for now. Reported to Dr. Mena. 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 Can F/U as OP Sleep apnea Continue CPAP from home Right Carotid occlusion-known hx -continue with present home meds Heparin for DVT prophylaxis OOB with PT Continue with Pepcid for GI prophylaxis IS Replace K, BMP ordered today to check level. Patient refused lab test earlier but will allow this one test. CM for DC planning, HHC vs SNF vs CIR . Physical therapy to eval strength today , mobility give expert opinion on discharge planning. Spoke with vocational case manager, she has been accepted to [facility] short- term. Discussed again with patient and . Agreeable for short-term rehabilitation, with plan to be home soon D/W RN D/W pt adn (Migdalia Wiggins) Assessment/Plan Patient seen and examined as above Labs reviewed medications reviewed Discussed with patient and at bedside in detail. They don't want EP studies to be done. They understood the consequences of refusing EP study, which include but not limited to, arrhythmias and sudden cardiac arrest. This still don't want it. So plan to discharge them to rehabilitation as he is approved. (Rene Mena MD) Problem Qualifiers (1) Abdominal pain: Qualified Code: R10.13 - Epigastric pain (2) Acute pancreatitis: Qualified Code: K85.10 - Acute biliary pancreatitis without infection or necrosis (3) Atrial fibrillation: Qualified Code: I48.0 - Paroxysmal atrial fibrillation (4) GERD (gastroesophageal reflux disease): Qualified Code: K21.9 - Gastroesophageal reflux disease, esophagitis presence not specified (5) Sleep apnea: Qualified Code: G47.30 - Sleep apnea, unspecified type (6) Gall stone: (7) CAD (coronary artery disease): Qualified Code: I25.10 - Coronary artery disease involving lummi coronary artery of lummi heart without angina pectoris (8) Vomiting: Qualified Code: R11.2 - Non-intractable vomiting with nausea, unspecified vomiting type Migdalia Wiggins Dec 17, 2016 11:34 Rene Mena MD Dec 17, 2016 15:27
[2016-12-17] MEDS ORDERED: POTA10TA2 PO (11:55)
[2016-12-17 14:12] LABS: AUTOMATED NEUTROPHIL # 9.1 TH/MM3 (1.8-7.7); BASOPHIL % 0.3 % (0.0-2.0); EOSINOPHIL # 0.2 TH/MM3 (0-0.4); HEMATOCRIT 31.7 % (39.0-51.0); HEMO FLAGS DIFF FINAL; LYMPH % 6.5 % (9.0-44.0); LYMPHOCYTE # 0.7 TH/MM3 (1.0-4.8); MEAN CELL VOLUME 83.4 FL (80.0-100.0); MEAN CORPUSCULAR HEMOGLOBIN 26.6 PG (27.0-34.0); MEAN CORPUSCULAR HGB CONC 31.8 % (32.0-36.0); MONO % 6.6 % (0.0-8.0); NEUT % 84.6 % (16.0-70.0); PLATELET COUNT 268 TH/MM3 (150-450); RED CELL DISTRIBUTION WIDTH 15.9 % (11.6-17.2); WHITE BLOOD COUNT 10.8 TH/MM3 (4.0-11.0)
[2016-12-17 14:32] LABS: BICARBONATE 31.3 MEQ/L (21.0-32.0); POTASSIUM 3.3 MEQ/L (3.5-5.1)
--- NOTE | 2016-12-17 17:09 | HHI.DS ---
Discharge Summary Admission Date Nov 30, 2016 at 15:40 Discharge Date: Dec 17, 2016 Admitting Diagnosis pancreatitis (1) Pancreatitis Diagnosis: Principal (2) Abdominal pain Diagnosis: Principal (3) Vomiting Diagnosis: Secondary (4) Atrial fibrillation Diagnosis: Secondary (5) GERD (gastroesophageal reflux disease) Diagnosis: Secondary (6) Hypertension Diagnosis: Principal (7) Gall stone Diagnosis: Principal (8) Hx of malignant neoplasm of parotid gland Diagnosis: Secondary (9) Sleep apnea Diagnosis: Secondary Procedures lap. ranjith, heart cath. Brief History Pt was a 81-year-old male, with past medical history significant for hypertension, coronary artery disease, dyslipidemia and previous right carotid stenosis with carotid endarterectomy, prior ETOH and tobacco abuse, and obesity. Pt. had a recent prolonged hospitalization and subsequent rehab at [facility] after he was admitted on 10/09/2016 with acute pancreatitis secondary to gallstones. Patient developed respiratory distress requiring intubation and mechanical ventilation. He also went into new onset A. fib that require amiodarone drip and cardioversion. During this prior hospitalization, he was evaluated by Dr. Umanzor and informed pt that due to the gallstones, he would eventually need cholecystectomy in th future. He was instructed to follow up as outpatient after he underwent rehabilitation and had improved. Pt was finally extubated and recovered. He was eventually discharged to [facility] with postpyloric feedings and was eventually advanced to a regular diet. Patient was discharged from [facility] on 11/13/2016. According to the he had been doing fairly well, he had been weak but had been ambulating with a walker. The morning of admission, patient woke up with recurrent epigastric pain similar to previous presentation with pancreatitis. He had associated nausea and vomiting 3, with yellow colored emesis. No fever , no chills. Patient was not the best historian, who is a retired nurse was providing most of the details. According to , patient had not followed up with Dr. Umanzor, they were waiting to see Dr. De La Rosa who had previously evaluated the pt. for a left axillary lymph node biopsy that he was due to have before he became critically ill in October. She was requesting that surgery consultation be called to Dr. De La Rosa. endorses that patient is currently undergoing cardiac workup with Dr. Aceves. He was supposed to have a carotid ultrasound and was due to have a stress test next week. He was on amiodarone as well as Eliquis. Because of his complicated medical history and new cardiac problems, Dr. Aceves was evaluating him before he made any appointments to see general surgery. Patient denied any chest pain, no shortness of breath, no palpitations. His amiodarone was recently decreased to 200 mg by mouth daily. CBC/BMP: 12/17/16 1323 12/17/16 1323 Significant Findings Laboratory Tests Test 12/15/16 12/17/16 06:22 13:23 Red Blood Count 3.74 MIL/MM3 3.80 MIL/MM3 (4.50-5.90) (4.50-5.90) Hemoglobin 10.0 GM/DL 10.1 GM/DL (13.0-17.0) (13.0-17.0) Hematocrit 30.9 % 31.7 % (39.0-51.0) (39.0-51.0) Mean Corpuscular Hemoglobin 26.8 PG 26.6 PG (27.0-34.0) (27.0-34.0) Neutrophils (%) (Auto) 76.5 % 84.6 % (16.0-70.0) (16.0-70.0) Monocytes (%) (Auto) 9.9 % (0.0-8.0) Monocytes # (Auto) 1.0 TH/MM3 (0-0.9) Potassium Level 3.3 MEQ/L 3.3 MEQ/L (3.5-5.1) (3.5-5.1) Carbon Dioxide Level 32.3 MEQ/L (21.0-32.0) Calcium Level 8.3 MG/DL 8.4 MG/DL (8.5-10.1) (8.5-10.1) Mean Corpuscular Hemoglobin 31.8 % Concent (32.0-36.0) Lymphocytes (%) (Auto) 6.5 % (9.0-44.0) Neutrophils # (Auto) 9.1 TH/MM3 (1.8-7.7) Lymphocytes # (Auto) 0.7 TH/MM3 (1.0-4.8) Estimat Glomerular Filtration 84 ML/MIN (>89) Rate Random Glucose 155 MG/DL (74-106) Imaging Last Impressions Chest X-Ray 12/13/16 0000 Signed Impressions: Service Date/Time: Tuesday, December 13, 2016 11:25 - CONCLUSION: Patchy infiltrates right lower lobe. Recommend treatment and followup to resolution. Yvon Almodovar MD Cholangiogram 12/10/16 0000 Signed Impressions: Service Date/Time: Saturday, December 10, 2016 15:14 - CONCLUSION: 1. Probably tiny bubble distal common duct. 2. Findings were discussed with Dr. De La Rosa on today's date. Sherif Sewell MD FACR Abdomen/Pelvis CT 12/08/16 0000 Signed Impressions: Service Date/Time: Thursday, December 08, 2016 18:52 - CONCLUSION: 1. Enlargement of the pancreas, especially the pancreatic head most characteristic of pancreatitis. Probable small pseudocysts anterior and inferior to the pancreas unchanged from November 30. 2. Improvement of basilar air space disease in the lungs. No significant free fluid. No free air. 3. Severe colonic diverticulosis. Wiblur Medley MD Head CT 12/04/16 0000 Signed Impressions: Service Date/Time: December 01:40 - CONCLUSION: No bleed or other acute intracranial abnormality. 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 No change. Sriram Bowen MD PE at Discharge General Appearance: Well Developed, No Acute Distress, Comfortable, Obese Eye Exam: Pupils Equal, Pupils Reactive Ears & Nose Exam: Nasal Mucosa [place] Throat Exam: Oral Mucosa [place] & Moist Neck Exam: Trachea Midline Resp Exam: Clear Bilaterally, Breath Sounds Equal, Diminished Breath Sounds Resp Remarks Low volumes while sleeping but no distress CV Exam: Normal Sinus Rhythm, Irregular, Murmur CV Remarks Systolic murmur grade 3/6, LSB, a fib/flutter, HR 64, V. tach last night Amiodarone drip GI Exam: Soft, Bowel Sounds Present, Non-Distended GI Remarks positive bowel sounds, Remarks voiding without difficulty, since turk removed. MS Exam: Joints Intact, Normal Tone Skin Exam: Warm, Dry Extremities Exam: Pedal Pulses Palpable, Trace Edema Neuro Exam: Alert, Awake, Speech Clear, Moving All Extremities, Natural Resources Manager Equal, No Focal Deficits Neuro Remarks Answers simple questions with yes or no Psych Exam: Appropriate Responses VTE Prophylaxis Device: SCDs Hospital Course In the emergency room, patient was evaluated and was noted with elevated lipase of 3381. He had mild leukocytosis. Sats on room air were 88%, patient is on oxygen at 2 L at home. No imaging studies have been completed. He was given IV fluids, IV narcotics and antiemetics. At this time, he indicates his pain is well-controlled. Patient is admitted for further evaluation and treatment. 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 His initial diagnosis of pancreatitis required hydration , the labs , reticulocyte monitoring of his vital signs .Gen. surgery consult obtained. Patient was medically stabilized and had a lap ranjith and LN bx 12/10 -post op care, was performed. This included intake and output ,vital signs, medication management. -clear for discharge from surgical standpoint -enc. PO intake -Bowel regimen, stable During his hospital stay patient had Hx atrial fibrillation, currently sinus rhythm Had episodes of NSVT, and was in ICU, monitored for several days for his dysrhythmias -He was stabilized ON Amiodarone PO -Continuous cardiac telemetry was done throughout hospital stay DVT prophylaxis with-Heparin SQ for now Hx CAD, had been undergoing work up with Dr. Aceves -continue Amiodarone and BB. Once patient was stable he had a cardiac cath , diffuse 3 vessel disease, medical management. Recommends consult with Dr. Álvarez, associate team physician who was reviewing patient's rhythm disturbances. patient refusing any further cardiology testing, Does not want pacemaker or AICD.Explained risks and benefits to having further testing which include pacemaker/AICD. Patient and discussed in length what could happen with rhythm in the future. patient and present in room and both agreed to not proceed with testing or pacemaker for now. Reported to Dr. Mena. At this time Dr. Mena called Dr. Álvarez, to discuss patient preferences and plan of care. Any further testing was canceled. She was complicated with PNA, RLL, COPD, hypoxia Continue with oxygen at 2 L to keep sats greater than 92 Incentive spirometer was used as needed -CPAP at night, to improve patient pulmonary status -CXR reviewed 12/12-RLL PNA, continue Levaquin and Cefepime 1 gm IV q 12 -scheduled duonebs, which improved patient's respiratory status. 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 Can F/U as OP Sleep apnea Continue CPAP from home Right Carotid occlusion-known hx -continue with present home meds Heparin for DVT prophylaxis OOB with PT Continue with Pepcid for GI prophylaxis IS Replace K, several occasions related to patient's potassium level BMP ordered today to check level. Patient refused lab test earlier but will allow this one test day of discharge CM for DC planning, HHC vs SNF vs CIR . was hoping for patient to be able to go home Physical therapy did evaluation on patient, and to their medical practice administrator. Given patient's history she qualified to go to [facility]. Spoke with child support case officer, who discussed options with patient and . Agreeable for short-term rehabilitation, with plan to be home soon Pt Condition on Discharge: Stable Discharge Disposition: Rehab Inpatient Discharge Instructions DIET: Follow Instructions for: Heart Healthy Diet Activities you can perform: Weight Bearing as Dev Follow up Referrals: Appointment for Follow Up @ surgery PCP Follow-up New Medications: Potassium Chloride ER (Potassium Chloride ER) 10 Meq Tab 10 MEQ PO DAILY Electrolyte Replacement #30 Ref 0 TAB Continued Medications: Amiodarone (Amiodarone) 200 Mg Tab 200 MG PO Q12HR AFIB #60 Ref 1 TAB Apixaban (Eliquis) 5 Mg Tab 5 MG PO BID #60 Ref 1 TAB Digoxin (Digox) 0.125 Mg Tab 0.125 MG PO DAILY Regulate Heart Beat #30 Ref 1 TAB Famotidine (Famotidine) 20 Mg Tab 20 MG NG DAILY ULCER PREVENTION #30 Ref 1 TAB Furosemide (Lasix) 40 Mg Tab 40 MG PO DAILY FLUID OVERLOAD #30 Ref 1 TAB Loratadine (Claritin) 10 Mg Tab 10 MG PO DAILY #30 Ref 1 TAB Sertraline (Zoloft) 100 Mg Tab 100 MG PO DAILY #30 Ref 1 TAB Tamsulosin (Flomax) 0.4 Mg Cap 0.4 MG PO DAILY Manage Prostate Problems #30 Ref 1 CAP Tramadol (Ultram) 50 Mg Tab 50 MG PO Q4H PRN Pain 7-10 #40 TAB Migdalia Wiggins Dec 17, 2016 17:09
[2016-12-31] MEDS ORDERED: APIX5TAB PO (10:29)
[2016-12-31] MEDS ORDERED: SENN1TAB PO (10:29)
[2016-12-31] MEDS ORDERED: AMIO200T PO (11:00)
[2016-12-31] MEDS ORDERED: ZOLO100T PO (11:00)
[2016-12-31] MEDS ORDERED: TRAZ50TA12 PO (11:00)
[2016-12-31] MEDS ORDERED: FURO1TAB60 PO (11:00)
[2016-12-31] MEDS ORDERED: LACT PO (11:00)
[2016-12-31] MEDS ORDERED: TAMS5CAP PO (11:00)
[2016-12-31] MEDS ORDERED: ULTR50TA5 PO (11:00)
[2016-12-31] MEDS ORDERED: VITA100T2 PO (11:00)
[2016-12-31] MEDS ORDERED: LORA-361 PO (11:00)
[2016-12-31] MEDS ORDERED: FAMO20TA2 NG (11:00)
[2016-12-31] MEDS ORDERED: VANC125C3 PO (11:00)
[2016-12-31] MEDS ORDERED: METO25TA3 PO (11:00)
[2016-12-31] MEDS ORDERED: POTA10TA2 PO (11:00)
[2016-12-31] MEDS ORDERED: NYST15T TOPICAL (12:08)
== END 2016-12-17 14:08 | DRG 417 ==
LOC: NEPE 12:51 → NEDA 15:40 → N06A 18:24 → N03B 12-10 18:00 → N03A 12-10 23:16 → N04B 12-12 15:39
PROVIDERS: ADMIT Specialist; ATTEND Specialist
PROC: BF141ZZ Fluoroscopy of Gallbladder, Bile Ducts and Pancreatic Ducts using Low Osmolar Contrast (ICD-10-PCS; 2016-12-10)
PROC: 0FT44ZZ Resection of Gallbladder, Percutaneous Endoscopic Approach (ICD-10-PCS; principal; 2016-12-10 13:36)
PROC: 07B50ZX Excision of Right Axillary Lymphatic, Open Approach, Diagnostic (ICD-10-PCS; 2016-12-10 13:36)
PROC: 4A023N7 Measurement of Cardiac Sampling and Pressure, Left Heart, Percutaneous Approach (ICD-10-PCS; 2016-12-15)
PROC: B2111ZZ Fluoroscopy of Multiple Coronary Arteries using Low Osmolar Contrast (ICD-10-PCS; 2016-12-15)
PROC: B2151ZZ Fluoroscopy of Left Heart using Low Osmolar Contrast (ICD-10-PCS; 2016-12-15)
DX: K85.10 Biliary acute pancreatitis without necrosis or infection (principal); J18.9 Pneumonia, unspecified organism; I47.2 Ventricular tachycardia; J44.0 Chronic obstructive pulmonary disease with (acute) lower respiratory infection; C85.14 Unspecified B-cell lymphoma, lymph nodes of axilla and upper limb; K80.00 Calculus of gallbladder with acute cholecystitis without obstruction; K50.90 Crohn's disease, unspecified, without complications; I48.0 Paroxysmal atrial fibrillation; I25.82 Chronic total occlusion of coronary artery; Z99.81 Dependence on supplemental oxygen; I10 Essential (primary) hypertension; G47.33 Obstructive sleep apnea (adult) (pediatric); S50.811A Abrasion of right forearm, initial encounter; K21.9 Gastro-esophageal reflux disease without esophagitis; K80.20 Calculus of gallbladder without cholecystitis without obstruction; R09.02 Hypoxemia; I25.10 Atherosclerotic heart disease of native coronary artery without angina pectoris; S30.811A Abrasion of abdominal wall, initial encounter; I45.4 Nonspecific intraventricular block; E78.5 Hyperlipidemia, unspecified; N40.0 Benign prostatic hyperplasia without lower urinary tract symptoms; R91.1 Solitary pulmonary nodule; K21.0 Gastro-esophageal reflux disease with esophagitis; D64.9 Anemia, unspecified; C07 Malignant neoplasm of parotid gland; K59.00 Constipation, unspecified; H91.90 Unspecified hearing loss, unspecified ear; E66.01 Morbid (severe) obesity due to excess calories; W18.39XA Other fall on same level, initial encounter; Y92.230 Patient room in hospital as the place of occurrence of the external cause; Z68.26 Body mass index [BMI] 26.0-26.9, adult; Z79.01 Long term (current) use of anticoagulants; Z85.46 Personal history of malignant neoplasm of prostate; Z87.891 Personal history of nicotine dependence; Z88.6 Allergy status to analgesic agent
CPT/HCPCS: 70450; 71010; 74176; 74177; 74300; 76937; 80048; 80053; 80076; 80162; 81001; 82140; 82550; 83605; 83690; 83735; 84100; 84443; 84484; 85025; 85027; 85610; 85730; 87641; 88304; 88305; 88307; 88341; 88342; 93005; 93458; 94150; 94640; 94664; C1769; C1893; C9399; J0282; J0690; J0692; J1160; J1170; J1630; J1644; J1956; J2060; J2250; J2270; J2370; J2405; J2710; J3010; J3475; J3480; J7030; J7040; J7050; J7060; J7120; J7512; J7613; P9047; Q9963; Q9967

== ENCOUNTER 2017-03-20 17:22 | Emergency (ER) | payer MEDICARE, BC ==
[~2017-03-20] VITALS: Ht 182.9 cm; Wt 86.0 kg
[~2017-03-20 17:22] MED LIST changes: -DIGO0.127 PO; +LACT PO; +METO25TA3 PO; +NYST15T TOPICAL; +POTA10TA2 PO; +SENN1TAB PO; +TRAZ50TA12 PO; +VANC125C3 PO; +VITA100T2 PO
[2017-03-20 17:24] VITALS: BP 107/50; PULSE 60; RESP 14; TEMP 99.3; O2SAT 96
[2017-03-21] MEDS ORDERED: ASAC800T PO (12:50)
== END 2017-03-20 18:16 | disposition left against medical advice (07) ==
LOC: NED 17:22
DX: R53.1 Weakness (principal); Z53.21 Procedure and treatment not carried out due to patient leaving prior to being seen by health care provider
CPT/HCPCS: 99281

== ENCOUNTER 2017-03-21 12:25 | Inpatient (IN) | payer MEDICARE, BC ==
[~2017-03-21] VITALS: Ht 182.9 cm; Wt 90.0 kg
[2017-03-21 12:29] VITALS: BP 108/54; PULSE 64; RESP 20; TEMP 97.7; O2SAT 96
[2017-03-21] MEDS ORDERED: ASAC800T PO (12:50)
[2017-03-21] MEDS ORDERED: traMADol HCL 50 MG TAB PO ONE (13:00)
[2017-03-21] MEDS ORDERED: SODIUM CHLORIDE 0.9% FLUSH 10 ML FLUSH IV FLUSH PRN ×2 (13:00→15:30)
--- NOTE | 2017-03-21 13:00 | PD ---
HPI Chief Complaint: Back/ Neck Pain or Injury Time Seen by Provider: 12:46 Travel History International Travel<30 days: No Contact w/Intl Traveler<30days: No Traveled to known affect area: No History of Present Illness HPI 81-year-old male with history of hypertension, CAD, hyperlipidemia, malignant parotid neoplasm, here with for evaluation of lower back pain after a fall that occurred about 1 week ago. The patient reports that he felt dizzy at that time and slowly lowered himself to the ground, landing onto his buttocks. Since that time he has needed to walk with a walker, and complains of persistent lower back pain. He has also had intermittent episodes of dizziness and feeling unbalanced. He is unable to describe the pain. No change in urinary symptoms/habits. No paresthesias. No chest pain or dyspnea. No abdominal pain. PFSH Past Medical History Hx Anticoagulant Therapy: Yes (eloquis) Asthma: No Autoimmune Disease: No Blood Disorders: No Heart Rhythm Problems: Yes Cancer: Yes Cardiovascular Problems: Yes (htn ) High Cholesterol: No Chemotherapy: No Chest Pain: No Congestive Heart Failure: No COPD: No Cerebrovascular Accident: Yes (CVA) Coronary Artery Disease: Yes Diabetes: No Diminished Hearing: No Endocrine: No Gastrointestinal Disorders: Yes ( CROHNS DISEASE) GERD: Yes Glaucoma: No Genitourinary: Yes Hepatitis: No Hiatal Hernia: No Hypertension: Yes Immune Disorder: No Implanted Vascular Access Dvce: No Kidney Stones: No Musculoskeletal: No Neurologic: No Psychiatric: No Reproductive: No Respiratory: Yes Migraines: Yes Radiation Therapy: Yes Renal Failure: No Sickle Cell Disease: No Sleep Apnea: Yes (CPAP at night) Thyroid Disease: No Ulcer: No Past Surgical History Abdominal Surgery: Yes (right and left inguinal hernia) AICD: No Arteriovenous Shunt: No Cardiac Surgery: No Ear Surgery: No Endocrine Surgery: No Eye Surgery: Yes (Left cataract) Genitourinary Surgery: No Gynecologic Surgery: No Insulin Pump: No Joint Replacement: Yes Neurologic Surgery: No Oral Surgery: Yes (Parotid removal for adenocarcinoma) Pacemaker: No Thoracic Surgery: No Other Surgery: Yes (LAPAROSCOPIC APPENDECTOMY,PAROTID SURGURY) Social History Alcohol Use: No Tobacco Use: No Substance Use: No Allergies-Medications (Allergen,Severity, Reaction): Coded Allergies: Aspirin (Verified Allergy, Unknown, ABD CRAMPS, 03/21/17) Reported Meds & Prescriptions Reported Meds & Active Scripts Active Metoprolol Tartrate 25 Mg Tab 25 Mg PO Q12HR Trazodone (Trazodone HCl) 50 Mg Tab 25 Mg PO HS Potassium Chloride ER (Potassium Chloride) 10 Meq Tab 10 Meq PO DAILY Claritin (Loratadine) 10 Mg Tab 10 Mg PO DAILY Lasix (Furosemide) 40 Mg Tab 40 Mg PO DAILY Amiodarone (Amiodarone HCl) 200 Mg Tab 200 Mg PO Q12HR Flomax (Tamsulosin HCl) 0.4 Mg Cap 0.4 Mg PO DAILY Zoloft (Sertraline HCl) 100 Mg Tab 100 Mg PO DAILY Senna Plus 8.6-50 mg (Sennosides-Docusate Sodium) 1 Tab Tab 1 Tab PO BID Eliquis (Apixaban) 5 Mg Tab 5 Mg PO BID Reported Asacol HD (Mesalamine) 800 Mg Tab 800 Mg PO BID Swallow whole. Take on an empty stomach. Review of Systems Except as stated in HPI: all other systems reviewed are Neg Physical Exam Narrative GENERAL: Well-developed, well-nourished, comfortable, awake, alert, GCS 15, no acute distress. SKIN: Focused skin assessment warm/dry. No lacerations, abrasions, or ecchymosis. HEAD: Atraumatic. Normocephalic. EYES: Pupils equal and round. No scleral icterus. No injection or drainage. ENT: Mucous membranes pink and moist. NECK: Trachea midline. No JVD. CARDIOVASCULAR: Regular rate and rhythm. RESPIRATORY: No accessory muscle use. Clear to auscultation. Breath sounds equal bilaterally. GASTROINTESTINAL: Abdomen soft, non-tender, nondistended. MUSCULOSKELETAL: No obvious deformities. No clubbing. No cyanosis. No edema. There is midline/lower lumbar spine tenderness without step-off. The rest of the patient's spine is without step-off and without tenderness. Normal range of motion in all joints and extremities with normal muscle strength in all extremities. NEUROLOGICAL: Awake and alert. No obvious cranial nerve deficits. Motor grossly within normal limits. Normal speech. No saddle anesthesia. Great toe extension present bilaterally. Brisk patellar tendon reflexes bilaterally. PSYCHIATRIC: Appropriate mood and affect; insight and judgment normal. Data Data Last Documented VS Vital Signs Date Time Temp Pulse Resp B/P Pulse Ox O2 Delivery O2 Flow Rate FiO2 03/21/17 12:29 97.7 64 20 108/54 96 Room Air Orders Complete Blood Count With Diff (03/21/17 12:53) Comprehensive Metabolic Panel (03/21/17 12:53) Prothrombin Time / Inr (Pt) (03/21/17 12:53) Act Partial Throm Time (Ptt) (03/21/17 12:53) Iv Access Insert/Monitor (03/21/17 12:53) Ecg Monitoring (03/21/17 12:53) Oximetry (03/21/17 12:53) Sodium Chloride 0.9% Flush (Ns Flush) (03/21/17 13:00) Ct Brain W/O Iv Contrast(Rout) (03/21/17 ) Ct Lumb Spine W/O Contrast (03/21/17 ) Ct Pelvis W/O Iv Contrast (03/21/17 ) Tramadol (Ultram) (03/21/17 13:00) Urinalysis - C+S If Indicated (03/21/17 12:55) Acetamin-Hydrocod 325-5 Mg (Jber 5-325 (03/21/17 13:30) Type And Screen (03/21/17 13:53) Red Blood Cells (Rbc) (03/21/17 14:18) Blood Product Administration .UPON TRANSFUSION (03/21/17 14:18) Labs Laboratory Tests Test 03/21/17 03/21/17 13:10 14:10 White Blood Count 7.0 TH/MM3 Red Blood Count 2.34 MIL/MM3 Hemoglobin 6.7 GM/DL Hematocrit 20.3 % Mean Corpuscular Volume 86.4 FL Mean Corpuscular Hemoglobin 28.7 PG Mean Corpuscular Hemoglobin 33.3 % Concent Red Cell Distribution Width 20.0 % Platelet Count 232 TH/MM3 Mean Platelet Volume 8.3 FL Neutrophils (%) (Auto) 71.6 % Lymphocytes (%) (Auto) 19.8 % Monocytes (%) (Auto) 6.0 % Eosinophils (%) (Auto) 1.5 % Basophils (%) (Auto) 1.1 % Neutrophils # (Auto) 5.0 TH/MM3 Lymphocytes # (Auto) 1.4 TH/MM3 Monocytes # (Auto) 0.4 TH/MM3 Eosinophils # (Auto) 0.1 TH/MM3 Basophils # (Auto) 0.1 TH/MM3 CBC Comment DIFF FINAL Differential Comment Prothrombin Time 11.4 SEC Prothromb Time International 1.0 RATIO Ratio Activated Partial 27.5 SEC Thromboplast Time Sodium Level 142 MEQ/L Potassium Level 4.4 MEQ/L Chloride Level 106 MEQ/L Carbon Dioxide Level 29.1 MEQ/L Anion Gap 7 MEQ/L Blood Urea Nitrogen 23 MG/DL Creatinine 1.47 MG/DL Estimat Glomerular Filtration 46 ML/MIN Rate Random Glucose 111 MG/DL Calcium Level 8.2 MG/DL Total Bilirubin 0.3 MG/DL Aspartate Amino Transf 22 U/L (AST/SGOT) Alanine Aminotransferase 33 U/L (ALT/SGPT) Alkaline Phosphatase 65 U/L Total Protein 6.0 GM/DL Albumin 3.1 GM/DL Blood Type O POSITIVE Antibody Screen NEGATIVE Crossmatch Leukocyte-Reduced Red Blood Cells Blood Bank Comment MDM Medical Decision Making Medical Screen Exam Complete: Yes Emergency Medical Condition: Yes Differential Diagnosis Vertebral fracture, sacral fracture, pelvic fracture, contusion, metabolic abnormality, intracranial abnormality, anemia Narrative Course Initial vital signs show heart rate 64, blood pressure 108/54, pulse ox 96% on room air, oral temp of 97.7F. CBC is remarkable for hemoglobin of 10.7, hematocrit 20.3. This is remarkably lower than the patient's baseline hemoglobin of around 10. His stool is heme positive and black. He has been taking iron. CMP is remarkable for BUN 23, creatinine 1.47, GFR 46 which is slightly worse than the patient's baseline. Stool is heme positive and black. The patient and the patient's were made aware of anemia and heme positive stool, and the patient was consented for blood transfusion. He does report history of Crohn's disease. His supervisor electronics inspection is Dr. Nina. 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 Badillo. CT head: No significant interval change, chronic ischemic findings, no acute intracranial findings. CT lumbar spine: CONCLUSION: No evidence of fracture. Degenerative findings. Central canal diameter within normal limits. Possible inflammatory findings in the region of the pancreatic head are slightly visualized. 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 CT pelvis: CONCLUSION: 1. Age-indeterminate coccyx fracture. 2. Mild osteoarthritic findings in the right hip. The patient is were made aware of all findings. He will be admitted for further treatment and evaluation of symptomatic anemia with heme positive stool. 2U PRBCs given in the ED. Case discussed with [facility] hospitalist Dr. Mena who will admit the patient to his service. Diagnosis Primary Impression: Anemia Qualified Code: D64.9 - Anemia, unspecified type Additional Impression: Heme positive stool Admitting Information Admitting Physician Requests: Admit Alex Taylor MD March 21, 2017 13:00
[2017-03-21] MEDS ORDERED: ACETAMINOPHEN/HYDROcodone 325 MG/5 MG TAB PO ONE (13:30)
[2017-03-21 13:42] LABS: BASOPHIL # 0.1 TH/MM3 (0-0.2); BASOPHIL % 1.1 % (0.0-2.0); EOSINOPHIL # 0.1 TH/MM3 (0-0.4); EOSINOPHIL % 1.5 % (0.0-4.0); LYMPH % 19.8 % (9.0-44.0); LYMPHOCYTE # 1.4 TH/MM3 (1.0-4.8); MEAN CELL VOLUME 86.4 FL (80.0-100.0); MEAN CORPUSCULAR HEMOGLOBIN 28.7 PG (27.0-34.0); MEAN CORPUSCULAR HGB CONC 33.3 % (32.0-36.0); NEUT % 71.6 % (16.0-70.0); PLATELET COUNT 232 TH/MM3 (150-450); RED BLOOD COUNT 2.34 MIL/MM3 (4.50-5.90)
[2017-03-21 13:47] LABS: HEMO FLAGS DIFF FINAL
[2017-03-21 13:50] LABS: HEMATOCRIT 20.3 % (39.0-51.0)
[2017-03-21 13:53] LABS: APTT (PATIENT) 27.5 SEC (24.3-30.1); PROTHROMBIN TIME - PATIENT 11.4 SEC (9.8-11.6)
[2017-03-21 13:55] LABS: ALT (GPT) 33 U/L (12-78); ANION GAP 7 MEQ/L (5-15); AST (GOT) 22 U/L (15-37); BICARBONATE 29.1 MEQ/L (21.0-32.0); BLOOD UREA NITROGEN 23 MG/DL (7-18); CHLORIDE 106 MEQ/L (98-107); GLOMERULAR FILTRATION RATE 46 ML/MIN (>89); POTASSIUM 4.4 MEQ/L (3.5-5.1); SODIUM (NA) 142 MEQ/L (136-145)
[2017-03-21 13:57] LABS: ALKALINE PHOSPHATASE 65 U/L (45-117); TOTAL BILIRUBIN ADULT 0.3 MG/DL (0.2-1.0)
[2017-03-21 14:30] VITALS: BP 112/60; PULSE 68; RESP 16; TEMP 98.1; O2SAT 97
--- NOTE | 2017-03-21 14:49 | RADRPT ---
EXAM DATE/TIME: 03/21/2017 13:39 [facility] COMPARISON: CT BRAIN W/O CONTRAST, December 04, 2016, 1:40. INDICATIONS : Trauma; fall one week ago. RADIATION DOSE: 53.89 CTDIvol (mGy) MEDICAL HISTORY : Stroke. Hypertension. Cardiovascular disease SURGICAL HISTORY : None. ENCOUNTER: Initial ACUITY: 1 day PAIN SCALE: 2/10 LOCATION: cranial TECHNIQUE: Multiple contiguous axial images were obtained of the head. Using automated exposure control and adj ustment of the mA and/or kV according to patient size, radiation dose was kept as low as reasonably a chievable to obtain optimal diagnostic quality images. FINDINGS: CEREBRUM: Chronic prominence of the ventricles, sulci, and cisterns unchanged. Encephalomalacia left basal gang ava unchanged.. No evidence of midline shift, mass lesion, hemorrhage or acute infarction. No extra -axial fluid collections are seen. POSTERIOR FOSSA: The cerebellum and brainstem are intact. The 4th ventricle is midline. The cerebellopontine angle i s unremarkable. EXTRACRANIAL: Mild ethmoid sinus disease unchanged. SKULL: The calvaria is intact. No evidence of skull fracture. CONCLUSION: No significant interval change. Chronic ischemic findings. No acute intracranial findings. Kris Nevarez MD on March 21, 2017 at 14:45 Board Certified Radiologist. This report was verified electronically.
--- NOTE | 2017-03-21 14:52 | RADRPT ---
EXAM DATE/TIME: 03/21/2017 13:43 [facility] COMPARISON: No previous studies available for comparison. INDICATIONS : Trauma; fall one week ago. ORAL CONTRAST: No oral contrast ingested. RADIATION DOSE: 32.63 CTDIvol (mGy) MEDICAL HISTORY : Stroke. Cardiovascular disease Hypertension. SURGICAL HISTORY : Cholecystectomy. ENCOUNTER: Initial ACUITY: 1 day PAIN SCALE: 4/10 LOCATION: Bilateral pelvis TECHNIQUE: Volumetric scanning of the pelvis was performed. Using automated exposure control and adjustment of the mA and/or kV according to patient size, radiation dose was kept as low as reasonably achievable t o obtain optimal diagnostic quality images. FINDINGS: BOWEL/MESENTERY: Numerous colonic diverticula. No evidence of acute diverticulitis. No bowel dilatation. No free air o r free fluid. BLADDER: There is no wall thickening or mass. RETROPERITONEUM: There is no aneurysm or lymphadenopathy. REPRODUCTIVE: Within normal limits. INGUINAL: There is no lymphadenopathy or hernia. MUSCULOSKELETAL: There is deformity of the superior aspect of the coccyx indicating an age-indeterminate fracture. No other fracture identified. Cystic areas are seen within the sacral neural foramina expansion of the n eural foramina likely indicating perineural cysts. Small osteophytes of the right hip. No evidence of joint narrowing. CONCLUSION: 1. Age-indeterminate coccyx fracture. 2. Mild osteoarthritic findings in the right hip. Kris Nevarez MD on March 21, 2017 at 14:47 Board Certified Radiologist. This report was verified electronically.
--- NOTE | 2017-03-21 14:56 | RADRPT ---
EXAM DATE/TIME: 03/21/2017 13:49 [facility] COMPARISON: CT ABDOMEN & PELVIS W/O CONTRAST, December 08, 2016, 18:52. INDICATIONS : Trauma; fall one week ago. RADIATION DOSE: CTDIvol (mGy) MEDICAL HISTORY : Stroke. Cardiovascular disease SURGICAL HISTORY : Cholecystectomy. ENCOUNTER: Initial ACUITY: 1 day PAIN SCALE: 5/10 LOCATION: Bilateral lumbar. TECHNIQUE: Volumetric scanning of the lumbar spine was performed. Multiplanar reconstructions in the sagittal, coronal and oblique axial planes were performed. Using automated exposure control and adjustment of the mA and/or kV according to patient size, radiation dose was kept as low as reasonably achievable t o obtain optimal diagnostic quality images. FINDINGS: VERTEBRAE: Normal vertebral body height. ALIGNMENT: No evidence of subluxation. Possible inflammatory changes in the region of the pancreatic head. Diffuse aortic calcification. T12-L1: The thecal sac has a normal diameter. No evidence of disc bulge or protrusion. The neural foramina are patent bilaterally. L1-L2: The thecal sac has a normal diameter. No evidence of disc bulge or protrusion. The neural foramina are patent bilaterally. L2-L3: The thecal sac has a normal diameter. No evidence of disc bulge or protrusion. The neural foramina are patent bilaterally. L3-L4: Broad-based disc bulge. No evidence of focal disc protrusion. Central canal normal diameter. Neural f oraminal diameters within normal limits. L4-L5: Broad-based disc bulge. No evidence of focal disc protrusion. Central canal normal diameter. Neural f oraminal diameters within normal limits. L5-S1: Broad-based disc bulge. No evidence of focal disc protrusion. Central canal normal diameter. Neural f oraminal diameters within normal limits. CONCLUSION: No evidence of fracture. Degenerative findings. Central canal diameter within normal limits. Possible inflammatory findings in the region of the pancreatic head are slightly visualized. 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 Kris Nevarez MD on March 21, 2017 at 14:51 Board Certified Radiologist. This report was verified electronically.
[2017-03-21] MEDS ORDERED: ONDANSETRON HCL 4 MG/2 ML VIAL IVP PRN (15:30)
[2017-03-21] MEDS ORDERED: NALOXONE HCL 0.4 MG/ML AMP IV PRN (15:30)
--- NOTE | 2017-03-21 15:36 | HHI.HP ---
HPI Service [facility] Primary Care Physician Agus Bowman, DO Admission Diagnosis symptomatic anemia, heme-positive stool Diagnoses: Chief Complaint: recent fall, unsteady, dizzy Travel History International Travel<30 Days: No Contact w/Intl Traveler <30 Da: No Traveled to Known Affected Are: No History of Present Illness Pt is an 81-year-old male, with past medical history significant for hypertension, Crohn's disease, coronary artery disease, dyslipidemia and previous right carotid stenosis with carotid endarterectomy, prior ETOH and tobacco abuse, and obesity. Patient is known to the undersigned from frequent admissions to this facility. In October he had lengthy hospitalization after he developed acute pancreatitis went into respiratory failure and required intubation. He was readmitted November 30, 2016 with recurrent epigastric pain and CT findings of for acute pancreatitis. Patient underwent lap cholecystectomy. Post op he had complications and required transfer to ICU for nonsustained VT. He also underwent cardiac catheterization per Dr. Aceves on 12/15/2016 with findings of diffuse three-vessel disease treated medically. 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 He is currently following up with Dr. Badillo, he is being monitored and no treatment is indicated at this time. He was discharged from [facility] December 2016. Indicates he had been doing relatively well at home and gaining some strength. He has been getting home health care and physical therapy. Patient is not the best historian, his has just left. Indicates that approximately a week ago he had a fall. Denies any preceding symptoms, he lost his balance as he was trying to get back in his car using a walker. He presented to the emergency room today complaining of feeling more dizzy and weak and has now been using the walker more. He is complaining of lower back pain. He is spending more time sitting and has felt more unbalanced. He denies any chest pain, no shortness of breath. In the emergency room, patient was evaluated. Laboratory workup was completed, CBC remarkable for hemoglobin of 6.7, hematocrit of 20.3. Heme-positive stool. Patient is on Eliquis. BMP remarkable for creatinine 1.47. Patient indicates that his stools are usually black because he's on iron. Denies any blood in the stool. No hematemesis. Indicates that in the last 4 months he's lost approximately 20 pounds. Appetite is poor. Denies any heartburn, no epigastric discomfort. His nurses' association executive director is Dr. Nina. He's had previous EGD and colonoscopy. Has history of colon polyps and diverticulosis. Does not recall when the last time he saw gastroenterology. Pelvis CT was done showing age-indeterminate caustics fracture. Lumbar spine CT did not reveal any acute findings. CT of the head was negative. Last Impressions Pelvis CT 03/21/17 0000 Signed Impressions: Service Date/Time: Tuesday, March 21, 2017 13:43 - CONCLUSION: 1. Age-indeterminate coccyx fracture. 2. Mild osteoarthritic findings in the right hip. Kris Nevarez MD Lumbar Spine CT 03/21/17 0000 Signed Impressions: Service Date/Time: Tuesday, March 21, 2017 13:49 - CONCLUSION: No evidence of fracture. Degenerative findings. Central canal diameter within normal limits. Possible inflammatory findings in the region of the pancreatic head are slightly visualized. 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 Kris Nevarez MD Head CT 03/21/17 0000 Signed Impressions: Service Date/Time: Tuesday, March 21, 2017 13:39 - CONCLUSION: No significant interval change. Chronic ischemic findings. No acute intracranial findings. Kris Nevarez MD Blood transfusion has been ordered and is pending. Patient is notably pale, does not appear in any distress. Patient is admitted for further evaluation and treatment. Review of Systems ROS Limitations: Poor Historian Constitutional: COMPLAINS OF: Dizziness Other weakness, fell 1 week ago. Past Family Social History Past Medical History Crohn's disease Diverticulosis Left eye cataract Obesity Migraine Right carotid stenosis Hyperlipidemia Hypertension Sleep apnea Crohn's disease Bilateral inguinal hernias Reflux disease Kidney stones Enlarged prostate Current Tobacco use Parotid cancer, he sees oncologist Pulmonary nodule for which he sees Carotid disease CAD atrial fibrillation NSVT -was offered EP studies, poss. 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 Badillo. No treatment indicated, he is going to be monitored. 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 Past Surgical History Nasal surgery Right carotid endarterectomy Bilateral inguinal hernia repair Appendectomy Right Parotid surgery lap ranjith and LN bx 12/10 cardiac cath 12/15/16, 3 vessel CAD, treated medically Reported Medications Reported Meds & Active Scripts Active Metoprolol Tartrate 25 Mg Tab 25 Mg PO Q12HR Trazodone (Trazodone HCl) 50 Mg Tab 25 Mg PO HS Potassium Chloride ER (Potassium Chloride) 10 Meq Tab 10 Meq PO DAILY Claritin (Loratadine) 10 Mg Tab 10 Mg PO DAILY Lasix (Furosemide) 40 Mg Tab 40 Mg PO DAILY Amiodarone (Amiodarone HCl) 200 Mg Tab 200 Mg PO Q12HR Flomax (Tamsulosin HCl) 0.4 Mg Cap 0.4 Mg PO DAILY Zoloft (Sertraline HCl) 100 Mg Tab 100 Mg PO DAILY Senna Plus 8.6-50 mg (Sennosides-Docusate Sodium) 1 Tab Tab 1 Tab PO BID Eliquis (Apixaban) 5 Mg Tab 5 Mg PO BID Reported Asacol HD (Mesalamine) 800 Mg Tab 800 Mg PO BID Swallow whole. Take on an empty stomach. Allergies: Coded Allergies: Aspirin (Verified Allergy, Unknown, ABD CRAMPS, 03/21/17) Active Ordered Medications Inpatient Medications Acetaminophen (Tylenol) 650 mg Q4H PRN PO TEMP > 100.4; Start 03/21/17 at 15:30 Acetaminophen/ Hydrocodone Bitart ([place] 5-325 Mg) 1 tab ONCE ONCE PO Last administered on 03/21/17t 14:30; Start 03/21/17 at 13:30; Stop 03/21/17 at 13:31 ; Status DC Amiodarone HCl (Cordarone) 200 mg Q12HR PO ; Start 03/21/17 at 21:00; Status UNV Furosemide (Lasix) 40 mg DAILY PO ; Start 03/22/17 at 09:00; Status UNV Mesalamine (Asacol Hd Dr) 800 mg BID PO ; Start 03/21/17 at 21:00; Status UNV Metoprolol Tartrate (Lopressor) 25 mg Q12HR PO ; Start 03/21/17 at 21:00; Status UNV Naloxone HCl (Narcan Inj) 0.4 mg UNSCH PRN IV SEE LABEL COMMENTS; Start at 15:30 Ondansetron HCl (Zofran Inj) 4 mg Q6H PRN IVP NAUSEA OR VOMITING; Start 5/20/ 17 at 15:30 Potassium Chloride (KCl) 10 meq DAILY PO ; Start 03/22/17 at 09:00; Status UNV Sertraline HCl (Zoloft) 100 mg DAILY PO ; Start 03/22/17 at 09:00; Status UNV Sodium Chloride (NS Flush) 2 ml BID IV FLUSH ; Start 03/21/17 at 21:00 Tamsulosin HCl (Flomax) 0.4 mg DAILY PO ; Start 03/22/17 at 09:00; Status UNV Tramadol HCl (Ultram) 50 mg ONCE ONCE PO ; Start 03/21/17 at 13:00; Stop at 13:01; Status DC Trazodone HCl (Desyrel) 25 mg HS PO ; Start 03/21/17 at 21:00; Status UNV Family History Patient lives at home with , uses a walker. Used to smoke and drink heavily , quit in October 2016. Social History , lives with . Uses a walker for ambulation. Receive home health care and physical therapy. No tobacco abuse, no substance abuse, no alcohol use. Physical Exam Vital Signs Vital Signs Date Time Temp Pulse Resp B/P Pulse Ox O2 Delivery O2 Flow Rate FiO2 03/21/17 12:29 97.7 64 20 108/54 96 Room Air Physical Exam GENERAL: This is a well-nourished, well-developed patient, in no apparent distress. SKIN: Skin pale, cool and dry. HEAD: Atraumatic. Normocephalic. No temporal or scalp tenderness. EYES: Pupils equal round and reactive. Extraocular motions intact. No scleral icterus. No injection or drainage. ENT: Nose without bleeding, purulent drainage or septal hematoma. Throat without erythema, tonsillar hypertrophy or exudate. Uvula midline. Airway patent. NECK: Trachea midline. No JVD or lymphadenopathy. Supple, nontender, no meningeal signs. CARDIOVASCULAR: Regular rate and rhythm with murmur, 2/6 noted. Bilateral lower extremities without any clubbing, no cyanosis, no edema. Pedal pulses 2+ bilaterally RESPIRATORY: Clear to auscultation. Breath sounds equal bilaterally. No wheezes , rales, or rhonchi. GASTROINTESTINAL: Abdomen soft, non-tender, nondistended. No hepato-splenomegaly , or palpable masses. No guarding. MUSCULOSKELETAL: Extremities without clubbing, cyanosis, or edema. No joint tenderness, effusion, or edema noted. No calf tenderness. Negative Homans sign bilaterally. NEUROLOGICAL: Awake, alert oriented 3. Poor historian. No focal deficits. Laboratory Laboratory Tests Test 03/21/17 03/21/17 13:10 14:10 White Blood Count 7.0 Red Blood Count 2.34 Hemoglobin 6.7 Hematocrit 20.3 Mean Corpuscular Volume 86.4 Mean Corpuscular Hemoglobin 28.7 Mean Corpuscular Hemoglobin 33.3 Concent Red Cell Distribution Width 20.0 Platelet Count 232 Mean Platelet Volume 8.3 Neutrophils (%) (Auto) 71.6 Lymphocytes (%) (Auto) 19.8 Monocytes (%) (Auto) 6.0 Eosinophils (%) (Auto) 1.5 Basophils (%) (Auto) 1.1 Neutrophils # (Auto) 5.0 Lymphocytes # (Auto) 1.4 Monocytes # (Auto) 0.4 Eosinophils # (Auto) 0.1 Basophils # (Auto) 0.1 CBC Comment DIFF FINAL Differential Comment Prothrombin Time 11.4 Prothromb Time International 1.0 Ratio Activated Partial 27.5 Thromboplast Time Sodium Level 142 Potassium Level 4.4 Chloride Level 106 Carbon Dioxide Level 29.1 Anion Gap 7 Blood Urea Nitrogen 23 Creatinine 1.47 Estimat Glomerular Filtration 46 Rate Random Glucose 111 Calcium Level 8.2 Total Bilirubin 0.3 Aspartate Amino Transf 22 (AST/SGOT) Alanine Aminotransferase 33 (ALT/SGPT) Alkaline Phosphatase 65 Total Protein 6.0 Albumin 3.1 Blood Type O POSITIVE Antibody Screen NEGATIVE Crossmatch Leukocyte-Reduced Red Blood Cells Blood Bank Comment Result Diagram: 03/21/17 1310 03/21/17 1310 Imaging Last Impressions Pelvis CT 03/21/17 0000 Signed Impressions: Service Date/Time: Tuesday, March 21, 2017 13:43 - CONCLUSION: 1. Age-indeterminate coccyx fracture. 2. Mild osteoarthritic findings in the right hip. Kris Nevarez MD Lumbar Spine CT 03/21/17 0000 Signed Impressions: Service Date/Time: Tuesday, March 21, 2017 13:49 - CONCLUSION: No evidence of fracture. Degenerative findings. Central canal diameter within normal limits. Possible inflammatory findings in the region of the pancreatic head are slightly visualized. 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 Kris Nevarez MD Head CT 03/21/17 0000 Signed Impressions: Service Date/Time: Tuesday, March 21, 2017 13:39 - CONCLUSION: No significant interval change. Chronic ischemic findings. No acute intracranial findings. Kris Nevarez MD Assessment and Plan Problem List: (1) Dizziness (2) Anemia (3) Heme positive stool (4) Hx of fall (5) CAD (coronary artery disease) (6) Hypertension (7) GERD (gastroesophageal reflux disease) (8) Sleep apnea (9) hx NSVT (10) Hx of malignant neoplasm of parotid gland (11) follicular center lymphoma (12) Atrial fibrillation (13) Crohn disease Assessment and Plan Admit to Dr. Mena 81-year-old elderly female with multiple comorbidities and recent admissions for pancreatitis, sepsis, respiratory failure, recent lap cholecystectomy. Presented to the emergency room with complaint of dizziness feeling of imbalance. Had a fall approximately a week ago. Found anemic in the emergency room, hemoglobin 6.7, hematocrit 20.3. Heme-positive stools. Patient has past history of colon polyps and diverticulosis. Symptomatic anemia, heme-positive stools. Patient on Eliquis. Past history of diverticulosis, Crohn's disease. Endorses poor appetite and weight loss. -Consult gastroenterology for evaluation Clear liquid diet 2 units of packed cells have been ordered, we will follow up serial H&H's every 8 -Hold Eliquis Acute renal injury -Hydrate cautiously normal saline at 50 an hour -Repeat BMP in the morning History of falls, physical debility, patient with recent admissions has undergone rehabilitation Consult physical therapy for evaluation and treatment Full precautions We'll have nursing place bed alarm -Patient to be moved closer to nurses station. History of paroxysmal A. fib, currently sinus rhythm. History of nonsustained VT, has been evaluated by Dr. Álvarez and declined EP study. Coronary artery disease, recent cardiac catheter with diffuse three-vessel disease. -Continuous cardiac telemetry Continue amiodarone and Lopressor Recent diagnosis of follicular center lymphoma, stable, not on any treatment at this time. Currently been monitored by oncology. Parotid gland tumor -continue to monitor Home medications reviewed, initiated as indicated SCDs for DVT prophylaxis, avoid anticoagulation at this time due to symptomatic anemia and heme-positive stools Protonix for GI prophylaxis Plan of care has been discussed with the patient, attending and registered nurse. Further management of the patient will be dependent on the hospital course This patient was seen by myself and Dr. Mena, this H&P is written on his behalf Physician Certification 2 Midnight Certification Type: Admission for Inpatient Services Order for Inpatient Services The services are ordered in accordance with Medicare regulations or non- Medicare payer requirements, as applicable. In the case of services not specified as inpatient-only, they are appropriately provided as inpatient services in accordance with the 2-midnight benchmark. Estimated LOS (days): 2 2 days is the estimated time the patient will need to remain in the hospital, assuming treatment plan goals are met and no additional complications. Post-Hospital Plan: Not yet determined Problem Qualifiers (1) Anemia: Qualified Code: D64.9 - Anemia, unspecified type (2) CAD (coronary artery disease): Qualified Code: I25.10 - Coronary artery disease involving [place] coronary artery of [place] heart without angina pectoris (3) Hypertension: Qualified Code: I10 - Essential hypertension (4) GERD (gastroesophageal reflux disease): Qualified Code: K21.9 - Gastroesophageal reflux disease, esophagitis presence not specified (5) Sleep apnea: Qualified Code: G47.30 - Sleep apnea, unspecified type (6) Atrial fibrillation: Qualified Code: I48.0 - Paroxysmal atrial fibrillation (7) Crohn disease: Ndia Lopez March 21, 2017 15:36
[2017-03-21] MEDS ORDERED: PILL SPLITTER OTHER PRN (16:00)
[2017-03-21 16:30] VITALS: BP 118/58; PULSE 66; RESP 16; TEMP 96.5; O2SAT 94
[2017-03-21 16:52] LABS: BLOOD, URINE NEG (NEG); COMMENT (UR) CULT NOT INDICATED; CULTURE IF INDICATED CULT NOT INDICATED; GLUCOSE,URINE NEG (NEG); HYALINE CAST, URINE 3 /lpf (RARE); KETONE, URINE NEG (NEG); MUCUS URINE FEW /lpf (OCC); NITRITE,URINE NEG (NEG); URINE COLOR LIGHT-YELLOW (YELLW/STRAW)
[2017-03-21 18:08] VITALS: BP 108/53; PULSE 66; RESP 16; TEMP 98; O2SAT 94
[2017-03-21 18:25] VITALS: BP 112/56; PULSE 63; RESP 18; TEMP 97.9; O2SAT 96
[2017-03-21] MEDS: SODIUM CHLOR 0.9% 1000 ML INJ 1,000 ML IV SCH (18:25)
[2017-03-21 20:00] VITALS: BP 130/57; PULSE 59; PULSE 66; RESP 18; TEMP 97.2; O2SAT 96
[2017-03-21] MEDS: METOPROLOL TARTRATE 25 MG TAB PO SCH (21:00)
[2017-03-21] MEDS: AMIODARONE 200 MG TAB PO SCH (21:00)
[2017-03-21] MEDS: SODIUM CHLORIDE 0.9% FLUSH 10 ML FLUSH IV FLUSH SCH (21:27)
[2017-03-21] MEDS: MESALAMINE HD 800 MG DELAYED RELEASE TAB PO SCH (21:27)
[2017-03-21] MEDS: traZODone HCL 50 MG TAB PO SCH (21:28)
[2017-03-22] VITALS (8 sets, daily range): BP systolic 99–120; BP diastolic 50–58; PULSE 49–63; RESP 17–20; TEMP 96.5–98; O2SAT 92–97
[2017-03-22 04:10] LABS: AUTOMATED NEUTROPHIL # 5.7 TH/MM3 (1.8-7.7); BASOPHIL # 0.1 TH/MM3 (0-0.2); BASOPHIL % 0.7 % (0.0-2.0); EOSINOPHIL # 0.2 TH/MM3 (0-0.4); HEMATOCRIT 24.6 % (39.0-51.0); HEMO FLAGS DIFF FINAL; LYMPH % 21.8 % (9.0-44.0); LYMPHOCYTE # 1.8 TH/MM3 (1.0-4.8); MEAN CELL VOLUME 87.1 FL (80.0-100.0); MEAN CORPUSCULAR HEMOGLOBIN 29.4 PG (27.0-34.0); MEAN CORPUSCULAR HGB CONC 33.7 % (32.0-36.0); MONO % 7.3 % (0.0-8.0); NEUT % 68.2 % (16.0-70.0); PLATELET COUNT 214 TH/MM3 (150-450); RED BLOOD COUNT 2.82 MIL/MM3 (4.50-5.90); RED CELL DISTRIBUTION WIDTH 18.4 % (11.6-17.2); WHITE BLOOD COUNT 8.3 TH/MM3 (4.0-11.0)
[2017-03-22 04:35] LABS: BICARBONATE 31.4 MEQ/L (21.0-32.0); POTASSIUM 3.9 MEQ/L (3.5-5.1)
[2017-03-22] MEDS: SODIUM CHLOR 0.9% 1000 ML INJ 1,000 ML IV SCH (07:37)
[2017-03-22] MEDS: SODIUM CHLORIDE 0.9% FLUSH 10 ML FLUSH IV FLUSH SCH ×2 (07:39→21:01)
[2017-03-22] MEDS: AMIODARONE 200 MG TAB PO SCH (09:00)
[2017-03-22] MEDS: METOPROLOL TARTRATE 25 MG TAB PO SCH ×2 (09:00→21:00)
[2017-03-22] MEDS: TAMSULOSIN HCL 0.4 MG CAP PO SCH (09:14)
[2017-03-22] MEDS: PANTOPRAZOLE SOD 40 MG DELAYED RELEASE TAB PO SCH (09:14)
[2017-03-22] MEDS: SERTRALINE HCL 100 MG TAB PO SCH (09:14)
[2017-03-22] MEDS: MESALAMINE HD 800 MG DELAYED RELEASE TAB PO SCH ×2 (09:14→21:01)
[2017-03-22] MEDS: POTASSIUM CHLORIDE 10 MEQ CONTROLLED RELEASE TAB PO SCH (09:14)
[2017-03-22] MEDS: FUROSEMIDE 40 MG TAB PO SCH (09:14)
[2017-03-22] MEDS: ACETAMINOPHEN 325 MG TAB PO PRN (10:05)
--- NOTE | 2017-03-22 12:09 | HHI.PR ---
Subjective Remarks c/o back pain no cp no sob pale tired appetite fair at bsd Objective Objective Results - Vital Signs Date Time Temp Pulse Resp B/P Pulse Ox O2 Delivery O2 Flow Rate FiO2 03/22/17 08:00 97.1 52 18 99/50 94 03/22/17 04:00 96.5 53 18 120/53 96 03/22/17 00:00 97.6 54 18 102/55 94 03/21/17 20:00 66 03/21/17 20:00 97.2 59 18 130/57 96 03/21/17 18:25 97.9 63 18 112/56 96 03/21/17 18:08 98.0 66 16 108/53 94 03/21/17 16:30 96.5 66 16 118/58 94 03/21/17 14:30 98.1 68 16 112/60 97 Room Air 03/21/17 12:29 97.7 64 20 108/54 96 Room Air I/O 03/21/17 03/21/17 03/21/17 03/22/17 03/22/17 03/22/17 07:00 15:00 23:00 07:00 15:00 23:00 Intake Total 540 ml 800 ml Output Total 300 ml 350 ml Balance 240 ml 450 ml Intake Oral 240 ml IV Total 450 ml Packed Cells 300 ml 350 ml Output Urine Total 300 ml 350 ml Result Diagram: 03/22/17 0348 03/22/17 0348 Imaging Last Impressions Pelvis CT 03/21/17 0000 Signed Impressions: Service Date/Time: Tuesday, March 21, 2017 13:43 - CONCLUSION: 1. Age-indeterminate coccyx fracture. 2. Mild osteoarthritic findings in the right hip. Kris Nevarez MD Lumbar Spine CT 03/21/17 0000 Signed Impressions: Service Date/Time: Tuesday, March 21, 2017 13:49 - CONCLUSION: No evidence of fracture. Degenerative findings. Central canal diameter within normal limits. Possible inflammatory findings in the region of the pancreatic head are slightly visualized. 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 Kris Nevarez MD Head CT 03/21/17 0000 Signed Impressions: Service Date/Time: Tuesday, March 21, 2017 13:39 - CONCLUSION: No significant interval change. Chronic ischemic findings. No acute intracranial findings. Kris Nevarez MD Other Results Laboratory Tests Test 03/21/17 03/21/17 03/21/17 03/22/17 13:10 14:10 15:45 03:48 White Blood Count 7.0 8.3 Red Blood Count 2.34 2.82 Hemoglobin 6.7 8.3 Hematocrit 20.3 24.6 Mean Corpuscular Volume 86.4 87.1 Mean Corpuscular Hemoglobin 28.7 29.4 Mean Corpuscular Hemoglobin 33.3 33.7 Concent Red Cell Distribution Width 20.0 18.4 Platelet Count 232 214 Mean Platelet Volume 8.3 7.9 Neutrophils (%) (Auto) 71.6 68.2 Lymphocytes (%) (Auto) 19.8 21.8 Monocytes (%) (Auto) 6.0 7.3 Eosinophils (%) (Auto) 1.5 2.0 Basophils (%) (Auto) 1.1 0.7 Neutrophils # (Auto) 5.0 5.7 Lymphocytes # (Auto) 1.4 1.8 Monocytes # (Auto) 0.4 0.6 Eosinophils # (Auto) 0.1 0.2 Basophils # (Auto) 0.1 0.1 CBC Comment DIFF FINAL DIFF FINAL Differential Comment Prothrombin Time 11.4 Prothromb Time International 1.0 Ratio Activated Partial 27.5 Thromboplast Time Sodium Level 142 144 Potassium Level 4.4 3.9 Chloride Level 106 105 Carbon Dioxide Level 29.1 31.4 Anion Gap 7 8 Blood Urea Nitrogen 23 23 Creatinine 1.47 1.31 Estimat Glomerular Filtration 46 53 Rate Random Glucose 111 94 Calcium Level 8.2 8.1 Total Bilirubin 0.3 Aspartate Amino Transf 22 (AST/SGOT) Alanine Aminotransferase 33 (ALT/SGPT) Alkaline Phosphatase 65 Total Protein 6.0 Albumin 3.1 Blood Type O POSITIVE Antibody Screen NEGATIVE Crossmatch Leukocyte-Reduced Red Blood Cells Blood Bank Comment Urine Color LIGHT-YELLOW Urine Turbidity CLEAR Urine pH 5.0 Urine Specific [place] 1.009 Urine Protein NEG Urine Glucose (UA) NEG Urine Ketones NEG Urine Occult Blood NEG Urine Nitrite NEG Urine Bilirubin NEG Urine Urobilinogen LESS THAN 2.0 Urine Leukocyte Esterase NEG Urine WBC LESS THAN 1 Urine Hyaline Casts 3 Urine Mucus FEW Microscopic Urinalysis Comment CULT NOT INDICATED ROS General: Fatigue HEENT: No: Sore Throat, Dysphagia Cardiac: No: Chest Pain, Edema, Palpitations Pulmonary: No: Cough, SOB, Wheezing GI: No: Abdominal Pain, BM, Diarrhea, N/V /SHOE FOLDER: No: Dysuria, Urgency Neuro/MS: Other (back pain ) Psych: No: Anxiety, Depression Skin: No: Itching, Rash Physical Exam Physical Exam GENERAL: This is a well-nourished, well-developed patient, in no apparent distress. SKIN: Skin pale, cool and dry. HEAD: Atraumatic. Normocephalic. No temporal or scalp tenderness. EYES: Pupils equal round and reactive. Extraocular motions intact. No scleral icterus. No injection or drainage. ENT: Nose without bleeding, purulent drainage or septal hematoma. Throat without erythema, tonsillar hypertrophy or exudate. Uvula midline. Airway patent. NECK: Trachea midline. No JVD or lymphadenopathy. Supple, nontender, no meningeal signs. CARDIOVASCULAR: Regular rate and rhythm with murmur, 2/6 noted. Bilateral lower extremities without any clubbing, no cyanosis, no edema. Pedal pulses 2+ bilaterally RESPIRATORY: Clear to auscultation. Breath sounds equal bilaterally. No wheezes , rales, or rhonchi. GASTROINTESTINAL: Abdomen soft, non-tender, nondistended. No hepato-splenomegaly , or palpable masses. No guarding. MUSCULOSKELETAL: Extremities without clubbing, cyanosis, or edema. No joint tenderness, effusion, or edema noted. No calf tenderness. Negative Homans sign bilaterally. NEUROLOGICAL: Awake, alert oriented 3. Poor historian. No focal deficits. 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 Presented to the emergency room with complaint of dizziness feeling of imbalance. Had a fall approximately a week ago. Found anemic in the emergency room, hemoglobin 6.7, hematocrit 20.3. Heme-positive stools. Patient has past history of colon polyps and diverticulosis. Symptomatic anemia, heme-positive stools. Patient on Eliquis. Past history of diverticulosis, Crohn's disease. Endorses poor appetite and weight loss. -appreciate Dr. Nickerson's input, pt. at high risk for procedure due to comorbidities. Pt. needs cardiac clearance. will consult Dr. Aceves. Pt. needs to be off Eliquis at least 2 days. Poss panendoscopy on Thursday if cleared. change to full liquid, ok with GI 2 units PRBC 03/21, HH today 8.3/24.6. -Continue to hold Eliquis -monitor CBC, active bleeding. Acute renal injury improving. -dc IVF, enc. PO intake. History of falls, physical debility, patient with recent admissions has undergone rehabilitation C/O back pain, s/p fall Consult physical therapy for evaluation and treatment Fall precautions bed alarm -Patient to be moved closer to nurses station. -Add [place] PRN History of paroxysmal A. fib, currently sinus rhythm. History of nonsustained VT, has been evaluated by Dr. Álvarez and declined EP study. Coronary artery disease, recent cardiac catheter with diffuse three-vessel disease. -Continuous cardiac telemetry Continue amiodarone and Lopressor -Cardiology consult Recent diagnosis of follicular center lymphoma, stable, not on any treatment at this time. Currently been monitored by oncology. Parotid gland tumor -continue to monitor SCDs for DVT prophylaxis, avoid anticoagulation at this time due to symptomatic anemia and heme-positive stools Protonix for GI prophylaxis Pt. at high risk for procedure, will wait for card input Labs in am This patient was seen by myself and Dr. Mena, this note is written on his behalf Problem Qualifiers (1) Anemia: Qualified Code: D64.9 - Anemia, unspecified type (2) CAD (coronary artery disease): Qualified Code: I25.10 - Coronary artery disease involving [place] coronary artery of [place] heart without angina pectoris (3) Hypertension: Qualified Code: I10 - Essential hypertension (4) GERD (gastroesophageal reflux disease): Qualified Code: K21.9 - Gastroesophageal reflux disease, esophagitis presence not specified (5) Sleep apnea: Qualified Code: G47.30 - Sleep apnea, unspecified type (6) Atrial fibrillation: Qualified Code: I48.0 - Paroxysmal atrial fibrillation (7) Crohn disease: Nida Lopez 21, 2017 12:09
--- NOTE | 2017-03-22 12:46 | MB ---
cc: PREETHI OLIVIER DATE OF CONSULTATION: 03/22/2017 DATE OF : 1935 REASON FOR CONSULTATION Heme-positive stool for anemia, symptomatic. HISTORY OF PRESENT ILLNESS An 81 year-old male who has an extensive medical history which includes Crohn disease, coronary artery disease, hyperlipidemia, right carotid stenosis, prior ETOH abuse, obesity, sleep apnea, and recurrent pancreatitis with suspected gallbladder etiology. He has had multiple admissions to this hospital. Please refer to some of the information in the chart. The patient eventually did undergo laparoscopic cholecystectomy, last admission in December, although this hospitalization was complicated by nonsustained V-tach. He had to be transferred back to the Intensive Care Unit. An AICD was suggested, the patient refused. He is currently followed closely by cardiology. He was at [facility]. He was stable. About a week ago he sustained a fall while trying to get into his car. He was brought to the emergency room, complains of feeling dizzy and weak. Hemoglobin 6.7. He was also found to be Hemoccult positive. The patient was noted to be on Eliquis anticoagulation therapy. He has dark stools but he is on iron therapy. He apparently has lost some weight over the last four months, a total of about 20 pounds. His appetite has been fair. He denies abdominal pain. He has been followed by Dr. Nina in the past with EGD and colonoscopy. He does have a history of colon polyps, diverticulosis and a prior history of Crohn's disease apparently, as he was maintained on Asacol therapy. In addition, he had a lymph node biopsy recently. 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 He denies alcohol use at this time. He is not taking any NSAIDs. He does utilize Tylenol. I was asked to evaluate him further. PAST MEDICAL HISTORY: As mentioned above is quite extensive and included in the history. 1. Hypertension. 2. Sleep apnea. 3. Inguinal hernia. 4. Reflux. 5. Atrial fibrillation. 6. Nonsustained V-tach 7. Parotid gland tumor. 8. Appendectomy 9. Triple vessel coronary artery disease. MEDICATIONS: 1. Metoprolol 2. Trazodone 3. Potassium chloride 4. Claritin. 5. Lasix 6. Amiodarone 7. Flomax 8. Zoloft 9. Senna compound. 10. Eliquis 11. Asacol. ALLERGIES: ASPIRIN. FAMILY HISTORY: Negative for GI disease SOCIAL HISTORY: He did drink alcohol in the past. Denies any alcohol at the is time. No illicit drug use. REVIEW OF SYSTEMS: A 12 point review of systems as stated in the HPI. He does not have any emesis of blood or bright red blood per rectum. PHYSICAL EXAMINATION: A well-developed male, alert, in no acute distress. Vital signs: Stable. HEENT: Exam is essentially benign. Neck: Supple. Surgical scars noted on the neck. Cardiac: S1-S2 with a systolic murmur noted 2/6. Chest: Clear to A&P. Abdomen: Soft, nontender. Bowel sounds are present. No masses or organomegaly noted. Neurologically, he appears to be intact. LABORATORY DATA: Other labs: Liver enzymes were normal. Creatinine 1.47, platelet count 232, hemoglobin 8.3 after transfusions. IMPRESSION An 81 year-old male with a complicated past medical history outlined above. The patient presents with heme-positive stools, symptomatic anemia. The differential diagnosis is quite extensive and we briefly discussed this with the patient and his and that would include upper versus lower GI bleeding source. Upper source would include peptic ulcer disease, gastritis, angiodysplastic disease. Lower GI source would include neoplasm, active colitis, or occult lesion. I discussed the case with the staff. The patient will require EGD and colonoscopy. However, he will need to have strict cardiac clearance for the procedure due to his history of arrhythmias and poor cardiac function. 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 We will await the recommendations from all specialties before proceeding with endoscopic workup to include EGD and colonoscopy. The procedure, risks and benefits were discussed briefly with the patient and his including risks of bleeding, sepsis, perforation, risk of anesthesia, as the patient certainly is at increased risk. I discussed my concerns with them today. In the meanwhile, will continue aggressive treatment, follow up the H&H, discontinue acid suppressive therapy. MD LILIAN Brito/CHAIM /12:02 PM /12:31 PM
[2017-03-22] MEDS ORDERED: KETOROLAC TROMETHAMINE 30 MG/ML (IVP) VIAL IV PUSH ONE (13:00)
--- NOTE | 2017-03-22 13:14 | MB ---
cc: ZOHRA HERNANDEZ MD DATE OF CONSULTATION: 03/22/2017. REASON FOR CONSULTATION: Cardiac risk stratify the patient preop for panendoscopy. HISTORY OF PRESENT ILLNESS: Mr. Smith is an 81-year-old patient of my partner, Dr. Aceves. He does have a history atrial fibrillation, ventricular tachycardia and known coronary disease with a totally occluded right coronary artery and moderate disease of the left anterior descending, ramus and circumflex. In December, he underwent evaluation by Dr. Álvarez for an ICD which they declined. The patient has been medically managed and is doing reasonably well from a cardiac perspective. He presented with symptomatic anemia and heme-positive stools. He was found to be fairly anemic and has required two units of blood. He now needs to undergo EGD and colonoscopy and cardiology was requested to risk stratify him. PAST MEDICAL HISTORY: His past medical history is significant for: 1. Hypertension. 2. Coronary artery disease with occluded right coronary artery. 3. Gastroesophageal reflux disease (GERD). 4. Sleep apnea. 5. Atrial fibrillation. 6. Ventricular tachycardia. 7. Crohn's disease. 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 PAST SURGICAL HISTORY: 1. Right carotid endarterectomy. 2. Bilateral inguinal hernia repair. 3. Appendectomy. 4. Parotid surgery. CURRENT MEDICATIONS: Per the record. SOCIAL HISTORY: The patient is . ALLERGIES: ASPIRIN. REVIEW OF SYSTEMS: The patient has had dizziness, weakness and fell one week ago. Other than this, what is mentioned in the history of present illness, all 12 systems are negative. PHYSICAL EXAMINATION: VITAL SIGNS: On physical exam, vital signs are 96.8, 60, 17, 100/58. GENERAL: In general, he is an elderly man who is in no apparent distress. NECK: The neck is free from jugular venous distention. LUNGS: The lungs are bilaterally clear to auscultation. CARDIOVASCULAR: On cardiovascular examination, he has a normal S1 and S2. I do not appreciate any murmurs, rubs or gallops. ABDOMEN: The abdomen is soft. EXTREMITIES: The extremities are free from edema. CARDIOLOGY STUDIES: Telemetry - currently shows sinus bradycardia. CARDIAC CLEARANCE: The patient does have coronary artery disease and ventricular tachycardia as well as atrial fibrillation. His rhythm status has been stable. As well, his coronary artery disease does appear stable. The patient has been anemic and required transfusion. His Eliquis has been appropriately held. The patient has had some mild renal impairment here; thus, I would hold the Eliquis three days prior to the procedure. Regarding his cardiac risk stratification, the patient will be at moderate cardiovascular risk given his multiple comorbid conditions and recent episodes of V-tach. Dr. Aceves will be available in the a.m. Zohra Hernandez M.D. AAYUSH/RY /12:54 PM /1:06 PM
[2017-03-22] MEDS: ACETAMINOPHEN/HYDROcodone 325 MG/5 MG TAB PO PRN (16:35)
[2017-03-22] MEDS: traZODone HCL 50 MG TAB PO SCH (21:02)
[2017-03-23] VITALS: BP 110/64; PULSE 69; RESP 20; TEMP 97.6; O2SAT 94
[2017-03-23 05:56] LABS: HEMATOCRIT 25.7 % (39.0-51.0); MEAN CELL VOLUME 87.9 FL (80.0-100.0); PLATELET COUNT 199 TH/MM3 (150-450); RED BLOOD COUNT 2.93 MIL/MM3 (4.50-5.90); RED CELL DISTRIBUTION WIDTH 18.2 % (11.6-17.2); REVIEW FLAG FINAL; WHITE BLOOD COUNT 7.8 TH/MM3 (4.0-11.0)
[2017-03-23 06:28] LABS: BICARBONATE 29.4 MEQ/L (21.0-32.0); POTASSIUM 3.8 MEQ/L (3.5-5.1)
[2017-03-23] MEDS: AMIODARONE 200 MG TAB PO SCH ×2 (09:00→11:09)
[2017-03-23] MEDS: POTASSIUM CHLORIDE 10 MEQ CONTROLLED RELEASE TAB PO SCH (09:15)
[2017-03-23] MEDS: METOPROLOL TARTRATE 25 MG TAB PO SCH ×2 (09:15→21:00)
[2017-03-23] MEDS: FUROSEMIDE 40 MG TAB PO SCH (09:15)
[2017-03-23] MEDS: SERTRALINE HCL 100 MG TAB PO SCH (09:15)
[2017-03-23] MEDS: TAMSULOSIN HCL 0.4 MG CAP PO SCH (09:15)
[2017-03-23] MEDS: MESALAMINE HD 800 MG DELAYED RELEASE TAB PO SCH ×2 (09:15→21:15)
[2017-03-23] MEDS: PANTOPRAZOLE SOD 40 MG DELAYED RELEASE TAB PO SCH (09:16)
[2017-03-23] MEDS: ACETAMINOPHEN/HYDROcodone 325 MG/5 MG TAB PO PRN ×3 (09:16→18:07)
[2017-03-23] MEDS: SODIUM CHLORIDE 0.9% FLUSH 10 ML FLUSH IV FLUSH SCH ×2 (09:18→21:16)
[2017-03-23] MEDS ORDERED: BUPR100CR PO (09:27)
--- NOTE | 2017-03-23 11:10 | HHI.GIFU ---
Subjective Remarks Alert offers no GI complaints Cardiac evaluation/ input pending Objective Vitals I&O Vital Signs Date Time Temp Pulse Resp B/P Pulse Ox O2 Delivery O2 Flow Rate FiO2 03/23/17 00:00 97.6 69 20 110/64 94 03/22/17 20:00 98.0 63 20 104/58 92 03/22/17 19:23 60 03/22/17 17:35 18 03/22/17 16:00 97.2 58 17 99/55 94 03/22/17 13:23 18 03/22/17 12:00 96.7 60 17 100/58 97 I/O 03/22/17 03/22/17 03/22/17 03/23/17 03/23/17 03/23/17 06:59 14:59 22:59 06:59 14:59 22:59 Intake Total 800 ml 1320 ml 480 ml 220 ml Output Total 350 ml 450 ml 550 ml 350 ml Balance 450 ml 870 ml -70 ml -130 ml Intake Oral 1020 ml 480 ml 220 ml IV Total 450 ml 300 ml Packed Cells 350 ml Output Urine Total 350 ml 450 ml 550 ml 350 ml # Bowel Movements 0 0 0 Laboratory Laboratory Tests Test 03/23/17 04:49 White Blood Count 7.8 Red Blood Count 2.93 Hemoglobin 8.5 Hematocrit 25.7 Mean Corpuscular Volume 87.9 Mean Corpuscular Hemoglobin 29.0 Mean Corpuscular Hemoglobin 33.0 Concent Red Cell Distribution Width 18.2 Platelet Count 199 Mean Platelet Volume 8.1 Sodium Level 144 Potassium Level 3.8 Chloride Level 107 Carbon Dioxide Level 29.4 Anion Gap 8 Blood Urea Nitrogen 20 Creatinine 1.41 Estimat Glomerular Filtration 48 Rate Random Glucose 87 Calcium Level 8.4 Physical Exam HEENT: Pupils round and reactive to light; normocephalic; atraumatic; no jaundice. Throat is clear. NECK: Neck is supple, no JVD, no lymphadenopathy. CHEST: Chest is clear to auscultation and percussion. CARDIAC: Regular rate and rhythm with no murmur gallop or rubs. ABDOMEN: Soft, nondistended, nontender; normal Bowel sounds EXTREMITIES: No clubbing, cyanosis, or edema. SKIN: Normal; no rash; no jaundice. Assessment and Plan Assessment: (1) Occult blood in stools (2) Anemia Plan awaiting cardiac clearance for egd colonoscopy to evaluate GI tract off anticoag therapy....discussed PRBS w pt and his keep on clears for now follow h/h Problem Qualifiers (1) Anemia: Gustavo Nickerson MD March 23, 2017 11:10
--- NOTE | 2017-03-23 11:11 | PD.CARD.PN ---
Subjective Subjective Remarks No CV complaints Objective Medications Current Medications Medications (Trade) Dose Ordered Sig/Rajwinder Route Start Time Stop Time Status Last Admin (NS Flush) 2 ml UNSCH PRN IV FLUSH 03/21/17 15:30 (NS Flush) 2 ml BID IV FLUSH 03/21/17 21:00 03/23/17 09:18 (Tylenol) 650 mg Q4H PRN PO 03/21/17 15:30 03/22/17 10:05 (Zofran Inj) 4 mg Q6H PRN IVP 03/21/17 15:30 (Narcan Inj) 0.4 mg UNSCH PRN IV 03/21/17 15:30 (Lasix) 40 mg DAILY PO 03/22/17 09:00 03/23/17 09:15 (Asacol Hd Dr) 800 mg BID PO 03/21/17 21:00 03/23/17 09:15 (Lopressor) 25 mg Q12HR PO 03/21/17 21:00 03/23/17 09:15 (KCl) 10 meq DAILY PO 03/22/17 09:00 03/23/17 09:15 (Zoloft) 100 mg DAILY PO 03/22/17 09:00 03/23/17 09:15 (Flomax) 0.4 mg DAILY PO 03/22/17 09:00 03/23/17 09:15 (Desyrel) 25 mg HS PO 03/21/17 21:00 03/22/17 21:02 (Pill Splitter) 1 ea UNSCH PRN OTHER 03/21/17 16:00 (Protonix) 40 mg DAILY PO 03/22/17 09:00 03/23/17 09:16 (Cordarone) 200 mg DAILY PO 03/23/17 09:00 ([place] 5-325 Mg) 1 tab Q4H PRN PO 03/22/17 14:00 03/23/17 09:16 Vital Signs / I&O Vital Signs Date Time Temp Pulse Resp B/P Pulse Ox O2 Delivery O2 Flow Rate FiO2 03/23/17 00:00 97.6 69 20 110/64 94 03/22/17 20:00 98.0 63 20 104/58 92 03/22/17 19:23 60 03/22/17 17:35 18 03/22/17 16:00 97.2 58 17 99/55 94 03/22/17 13:23 18 03/22/17 12:00 96.7 60 17 100/58 97 I/O 03/22/17 03/22/17 03/22/17 03/23/17 03/23/17 03/23/17 07:00 15:00 23:00 07:00 15:00 23:00 Intake Total 800 ml 1320 ml 480 ml 220 ml Output Total 350 ml 450 ml 550 ml 350 ml Balance 450 ml 870 ml -70 ml -130 ml Intake Oral 1020 ml 480 ml 220 ml IV Total 450 ml 300 ml Packed Cells 350 ml Output Urine Total 350 ml 450 ml 550 ml 350 ml # Bowel Movements 0 0 0 Physical Exam GENERAL: Well developed, well nourished. No acute distress. HEENT: Jugular venous pressure is normal. CHEST: Lungs clear to auscultation bilaterally. Unlabored respiratory effort. CARDIAC: Regular rate and bradycardic rhythm without S3, S4, or murmur. Tele: sinus 50's ABDOMEN: Soft, nontender, no hepatosplenomegaly. Bowel sounds present. EXTREMITIES: No clubbing, cyanosis, or edema. + pallor Laboratory Laboratory Tests Test 03/23/17 04:49 White Blood Count 7.8 TH/MM3 Red Blood Count 2.93 MIL/MM3 Hemoglobin 8.5 GM/DL Hematocrit 25.7 % Mean Corpuscular Volume 87.9 FL Mean Corpuscular Hemoglobin 29.0 PG Mean Corpuscular Hemoglobin 33.0 % Concent Red Cell Distribution Width 18.2 % Platelet Count 199 TH/MM3 Mean Platelet Volume 8.1 FL Sodium Level 144 MEQ/L Potassium Level 3.8 MEQ/L Chloride Level 107 MEQ/L Carbon Dioxide Level 29.4 MEQ/L Anion Gap 8 MEQ/L Blood Urea Nitrogen 20 MG/DL Creatinine 1.41 MG/DL Estimat Glomerular Filtration 48 ML/MIN Rate Random Glucose 87 MG/DL Calcium Level 8.4 MG/DL Assessment and Plan Problem List: (1) Paroxysmal atrial fibrillation Assessment and Plan: Currently in sinus. Check EKG (2) CAD (coronary artery disease) Assessment and Plan: No angina (3) hx NSVT Assessment and Plan: refused EPS - continue amio 200 Assessment and Plan OK for GI workup Discussed Condition With Problem Qualifiers (1) CAD (coronary artery disease): Qualified Code: I25.10 - Coronary artery disease involving [place] coronary artery of [place] heart without angina pectoris Jefferson Aceves MD March 23, 2017 11:11
[2017-03-23 12:00] VITALS: BP 141/63; PULSE 55; RESP 18; TEMP 96.9; O2SAT 96
--- NOTE | 2017-03-23 13:00 | HHI.PR ---
Subjective Remarks back pain okay no cp no sob pale appetite fair anxious to have endoscopy at [facility] Objective Objective Results - Vital Signs Date Time Temp Pulse Resp B/P Pulse Ox O2 Delivery O2 Flow Rate FiO2 03/23/17 00:00 97.6 69 20 110/64 94 03/22/17 20:00 98.0 63 20 104/58 92 03/22/17 19:23 60 03/22/17 17:35 18 03/22/17 16:00 97.2 58 17 99/55 94 03/22/17 13:23 18 I/O 03/22/17 03/22/17 03/22/17 03/23/17 03/23/17 03/23/17 07:00 15:00 23:00 07:00 15:00 23:00 Intake Total 800 ml 1320 ml 480 ml 220 ml Output Total 350 ml 450 ml 550 ml 350 ml Balance 450 ml 870 ml -70 ml -130 ml Intake Oral 1020 ml 480 ml 220 ml IV Total 450 ml 300 ml Packed Cells 350 ml Output Urine Total 350 ml 450 ml 550 ml 350 ml # Bowel Movements 0 0 0 Result Diagram: 03/23/17 0449 03/23/17 0449 Imaging Last Impressions Pelvis CT 03/21/17 0000 Signed Impressions: Service Date/Time: Tuesday, March 21, 2017 13:43 - CONCLUSION: 1. Age-indeterminate coccyx fracture. 2. Mild osteoarthritic findings in the right hip. Kris Nevarez MD Lumbar Spine CT 03/21/17 0000 Signed Impressions: Service Date/Time: Tuesday, March 21, 2017 13:49 - CONCLUSION: No evidence of fracture. Degenerative findings. Central canal diameter within normal limits. Possible inflammatory findings in the region of the pancreatic head are slightly visualized. 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 Kris Nevarez MD Head CT 03/21/17 0000 Signed Impressions: Service Date/Time: Tuesday, March 21, 2017 13:39 - CONCLUSION: No significant interval change. Chronic ischemic findings. No acute intracranial findings. Kris Nevarez MD Other Results Laboratory Tests Test 03/23/17 04:49 White Blood Count 7.8 Red Blood Count 2.93 Hemoglobin 8.5 Hematocrit 25.7 Mean Corpuscular Volume 87.9 Mean Corpuscular Hemoglobin 29.0 Mean Corpuscular Hemoglobin 33.0 Concent Red Cell Distribution Width 18.2 Platelet Count 199 Mean Platelet Volume 8.1 Sodium Level 144 Potassium Level 3.8 Chloride Level 107 Carbon Dioxide Level 29.4 Anion Gap 8 Blood Urea Nitrogen 20 Creatinine 1.41 Estimat Glomerular Filtration 48 Rate Random Glucose 87 Calcium Level 8.4 ROS General: No: Fatigue, Weakness HEENT: No: Sore Throat, Dysphagia Cardiac: No: Chest Pain, Edema, Palpitations Pulmonary: No: Cough, SOB, Wheezing GI: No: Abdominal Pain, BM, Diarrhea, N/V /CHEMISTRY INTERN: No: Dysuria, Urgency Neuro/MS: No: Lightheaded, Confusion Psych: No: Anxiety, Depression Skin: No: Itching, Rash Physical Exam Physical Exam GENERAL: This is a well-nourished, well-developed patient, in no apparent distress. SKIN: Skin pale, cool and dry. HEAD: Atraumatic. Normocephalic. No temporal or scalp tenderness. EYES: Pupils equal round and reactive. Extraocular motions intact. No scleral icterus. No injection or drainage. ENT: Nose without bleeding, purulent drainage or septal hematoma. Throat without erythema, tonsillar hypertrophy or exudate. Uvula midline. Airway patent. NECK: Trachea midline. No JVD or lymphadenopathy. Supple, nontender, no meningeal signs. CARDIOVASCULAR: Regular rate and rhythm with murmur, 2/6 noted. Bilateral lower extremities without any clubbing, no cyanosis, no edema. Pedal pulses 2+ bilaterally RESPIRATORY: Clear to auscultation. Breath sounds equal bilaterally. No wheezes , rales, or rhonchi. GASTROINTESTINAL: Abdomen soft, non-tender, nondistended. No hepato-splenomegaly , or palpable masses. No guarding. MUSCULOSKELETAL: Extremities without clubbing, cyanosis, or edema. No joint tenderness, effusion, or edema noted. No calf tenderness. Negative Homans sign bilaterally. NEUROLOGICAL: Awake, alert oriented 3. Poor historian. No focal deficits. 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 Presented to the emergency room with complaint of dizziness feeling of imbalance. Had a fall approximately a week ago. Found anemic in the emergency room, hemoglobin 6.7, hematocrit 20.3. Heme-positive stools. Patient has past history of colon polyps and diverticulosis. Symptomatic anemia, heme-positive stools. Patient on Eliquis. Past history of diverticulosis, Crohn's disease. Endorses poor appetite and weight loss. Clear liquid diet 2 units PRBC 03/21, HH today85/257 -Continue to hold Eliquis -monitor CBC, active bleeding. -appreciate GI input, requested card input for clearance. Pt at high risk -pt. cleared by cardiology for GI procedure -panendoscopy poss in am, off Eliquis x 3 days today -medically cleared to proceed with panendoscopy, he's at Moderate risk. Pt. and verbalized understanding of risk and agree to proceed. Acute renal injury improving. -dc IVF, enc. PO intake. History of falls, physical debility, patient with recent admissions has undergone rehabilitation C/O back pain, s/p fall continue with PT, OOB with assist. Fall precautions bed alarm -[place] PRN History of paroxysmal A. fib, currently sinus rhythm. History of nonsustained VT, has been evaluated by Dr. Álvarez and declined EP study. Coronary artery disease, recent cardiac catheter with diffuse three-vessel disease. -Continuous cardiac telemetry Continue amiodarone and Lopressor -Cardiology input appreciated, pt. cleared to proceed with panendoscopy. Recent diagnosis of follicular center lymphoma, stable, not on any treatment at this time. Currently been monitored by oncology. Parotid gland tumor -continue to monitor SCDs for DVT prophylaxis, avoid anticoagulation at this time due to symptomatic anemia and heme-positive stools Protonix for GI prophylaxis for poss panendoscopy tomorrow Labs in am D/W RN D/W Dr. Busby D/W pt. This patient was seen by myself and Dr. Busby, this note is written on his behalf Problem Qualifiers (1) Anemia: (2) CAD (coronary artery disease): Qualified Code: I25.10 - Coronary artery disease involving [place] coronary artery of [place] heart without angina pectoris (3) Hypertension: Qualified Code: I10 - Essential hypertension (4) GERD (gastroesophageal reflux disease): Qualified Code: K21.9 - Gastroesophageal reflux disease, esophagitis presence not specified (5) Sleep apnea: Qualified Code: G47.30 - Sleep apnea, unspecified type (6) Atrial fibrillation: Qualified Code: I48.0 - Paroxysmal atrial fibrillation (7) Crohn disease: Nida Lopez March 23, 2017 13:00
[2017-03-23] MEDS ORDERED: PEG (High)/E-LYTE SOLN 4000 ML BTL PO SCH (15:45)
[2017-03-23 16:00] VITALS: BP 106/53; PULSE 54; RESP 17; TEMP 97.2; O2SAT 94
[2017-03-23 20:00] VITALS: BP 100/62; PULSE 52; PULSE 74; RESP 20; TEMP 98.2; O2SAT 96
[2017-03-23] MEDS: traZODone HCL 50 MG TAB PO SCH (21:00)
[2017-03-24] VITALS: BP 118/70; PULSE 90; RESP 18; TEMP 97.6; O2SAT 95
[2017-03-24 06:13] LABS: HEMATOCRIT 25.6 % (39.0-51.0); MEAN CELL VOLUME 87.9 FL (80.0-100.0); MEAN CORPUSCULAR HEMOGLOBIN 29.3 PG (27.0-34.0); MEAN CORPUSCULAR HGB CONC 33.3 % (32.0-36.0); PLATELET COUNT 202 TH/MM3 (150-450); RED BLOOD COUNT 2.92 MIL/MM3 (4.50-5.90); RED CELL DISTRIBUTION WIDTH 18.7 % (11.6-17.2); REVIEW FLAG FINAL; WHITE BLOOD COUNT 6.9 TH/MM3 (4.0-11.0)
[2017-03-24 06:28] LABS: BICARBONATE 29.5 MEQ/L (21.0-32.0); POTASSIUM 4.4 MEQ/L (3.5-5.1)
[2017-03-24] MEDS ORDERED: CHLORHEXIDINE GLUCONATE 2 % 1 PACK (2 CLOTHS) TOPICAL PRN (07:00)
[2017-03-24] MEDS ORDERED: POVIDONE IODINE 5% (ANTISEPSIS KIT) 4 APPLICATIONS EACH NARE PRN (07:00)
[2017-03-24] MEDS ORDERED: SODIUM CHLORID 0.9% 500 ML IV PRN (07:00)
[2017-03-24] MEDS ORDERED: LACTATED RINGER'S 1000 ML IV PRN (07:00)
[2017-03-24] MEDS: ACETAMINOPHEN/HYDROcodone 325 MG/5 MG TAB PO PRN ×3 (07:43→20:13)
[2017-03-24] MEDS: MESALAMINE HD 800 MG DELAYED RELEASE TAB PO SCH ×2 (07:44→20:13)
[2017-03-24] MEDS: SERTRALINE HCL 100 MG TAB PO SCH ×3 (07:44→11:00)
[2017-03-24] MEDS: TAMSULOSIN HCL 0.4 MG CAP PO SCH ×2 (07:47→11:00)
[2017-03-24] MEDS: FUROSEMIDE 40 MG TAB PO SCH ×2 (07:47→11:01)
[2017-03-24] MEDS: POTASSIUM CHLORIDE 10 MEQ CONTROLLED RELEASE TAB PO SCH ×2 (07:47→11:00)
[2017-03-24] MEDS: AMIODARONE 200 MG TAB PO SCH ×2 (07:47→11:01)
[2017-03-24] MEDS: SODIUM CHLORIDE 0.9% FLUSH 10 ML FLUSH IV FLUSH SCH ×2 (07:47→20:13)
[2017-03-24] MEDS: METOPROLOL TARTRATE 25 MG TAB PO SCH ×3 (07:48→20:13)
[2017-03-24] MEDS: PANTOPRAZOLE SOD 40 MG DELAYED RELEASE TAB PO SCH ×2 (07:48→11:00)
[2017-03-24 08:00] VITALS: BP 117/53; PULSE 57; RESP 19; TEMP 96.7; O2SAT 93
[2017-03-24] MEDS ORDERED: LORA-392 PO (11:11)
[2017-03-24] MEDS ORDERED: BUPR100CR PO (11:13)
[2017-03-24 12:00] VITALS: BP 122/60; PULSE 56; RESP 18; TEMP 97.5; O2SAT 97
--- NOTE | 2017-03-24 15:43 | EKG ---
Date Performed: 03/23/2017 Time Performed: 11:25:19 PTAGE: 81 years EKG: SINUS BRADYCARDIA POSSIBLE LATERAL MYOCARDIAL INFARCTION , OF INDETERMINATE AGE MODERATE T- WAVE ABNORMALITY, CONSIDER INFERIOR ISCHEMIA When compared to previous tracing, heart rate has slowed Significantly. ABNORMAL ECG PREVIOUS TRACING : 12/12/2016 02.26 DOCTOR: Latricia Melgar Interpretating Date/Time 03/24/2017 15:42:25
--- NOTE | 2017-03-24 15:44 | EKG ---
Date Performed: 03/24/2017 Time Performed: 10:34:04 PTAGE: 81 years EKG: SINUS BRADYCARDIA MODERATE INTRAVENTRICULAR CONDUCTION DELAY ST DEVIATION AND MODERATE T-WA VE ABNORMALITY, CONSIDER LATERAL ISCHEMIA ST DEVIATION AND MODERATE T-WAVE ABNORMALITY, CONSIDER INFE RIOR ISCHEMIA Since previous tracing, no significant change noted ABNORMAL ECG PREVIOUS TRACING : 03/23/2017 11.25 DOCTOR: Latricia Melgar Interpretating Date/Time 03/24/2017 15:42:57
[2017-03-24 16:00] VITALS: BP 114/62; PULSE 54; RESP 17; TEMP 97.1; O2SAT 95
--- NOTE | 2017-03-24 16:07 | HHI.PR ---
Subjective Remarks resting in bed, NPO, in No SOB, generalized pain malaise Objective Objective Results - Vital Signs Date Time Temp Pulse Resp B/P Pulse Ox O2 Delivery O2 Flow Rate FiO2 03/24/17 12:00 97.5 56 18 122/60 97 03/24/17 08:43 19 03/24/17 08:00 96.7 57 19 117/53 93 03/24/17 00:00 97.6 90 18 118/70 95 03/23/17 20:00 52 03/23/17 20:00 98.2 74 20 100/62 96 03/23/17 16:00 97.2 54 17 106/53 94 I/O 03/23/17 03/23/17 03/23/17 03/24/17 03/24/17 03/24/17 07:00 15:00 23:00 07:00 15:00 23:00 Intake Total 220 ml 540 ml 720 ml 0 ml 0 ml Output Total 350 ml 125 ml 450 ml 400 ml 300 ml Balance -130 ml 415 ml 270 ml -400 ml -300 ml Intake Oral 220 ml 540 ml 720 ml 0 ml 0 ml Output Urine Total 350 ml 125 ml 450 ml 400 ml 300 ml # Voids 1 1 # Bowel Movements 0 0 1 0 1 Result Diagram: 03/24/17 0603/24/17 0602 ROS General: Fatigue (past), Weakness, Other (10 point ROS done positives noted otherwise systems negative or unremarkable) Pulmonary: Cough (occasional) GI: BM (bowel regimen), Other (recent GI bleed, hemoglobin now 8.5) Neuro/MS: Headache (occasional), Other (debility) Physical Exam Physical Exam PHYSICAL EXAMINATION GENERAL: This is a well-developed, elderly male who appears to be in no acute distress. He is alert and awake, nothing by mouth for further testing this afternoon HEAD: Normocephalic without any lesion or mass noted OROPHARYNGEAL: Oropharynx without erythema or edema, dry NECK: Supple. No nuchal rigidity or lymphadenopathy. Trachea midline without deviation. CARDIAC: Regular rhythm, regular rate, S1 and S2 are heard. LUNGS: Essentially Clear to auscultation bilaterally. no wheeze, ABDOMEN: Soft, nontender, to light palpation Bowel sounds are heard in all four quadrants. EXTREMITIES: no edema. Pulses equal bilateral. NEUROLOGICAL: Patient mood and affect appropriate. 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 Presented to the emergency room with complaint of dizziness feeling of imbalance. Had a fall approximately a week ago. Found anemic in the emergency room, hemoglobin 6.7, hematocrit 20.3. Heme-positive stools. Patient has past history of colon polyps and diverticulosis. Symptomatic anemia, heme-positive stools. Patient on Eliquis. Past history of diverticulosis, Crohn's disease. Endorses poor appetite and weight loss, but that appears to be resolving Currently nothing by mouth for panendoscopy today -panendoscopy poss in am, off Eliquis x 3 days today Acute renal injury Gradual improving. ,enc. PO intake. History of falls, physical debility, patient with recent admissions has undergone rehabilitation C/O back pain, s/p fall Continue with physical therapy to increase mobility and strengthening History of paroxysmal A. fib, currently sinus rhythm. History of nonsustained VT, has been evaluated by Dr. Álvarez and declined EP study. Recent diagnosis of follicular center lymphoma, stable, not on any treatment at this time. Currently been monitored by oncology. Parotid gland tumor SCDs for DVT prophylaxis, avoid anticoagulation at this time due to symptomatic anemia and heme-positive stools Protonix for GI prophylaxis Labs reviewed by heart rate 57, stable Hemoglobin 8.5, no leukocytosis Discharge planning in process after GI workup will evaluate his needs home versus rehabilitation SNF is planning for home D/W RN D/W Dr. Busby, seen on her behalf D/W hans. Migdalia Wiggins March 24, 2017 16:07
[2017-03-24] MEDS ORDERED: PROPOFOL 200 MG/20 ML AMP IV ONE (16:35)
[2017-03-24] MEDS ORDERED: EPINEPHrine HCL (1:10,000) 1 MG/10 ML SYRINGE OTHER ONE (16:49)
[2017-03-24 18:10] VITALS: BP 143/63; PULSE 55; RESP 17; TEMP 96.2; O2SAT 95
[2017-03-24] MEDS: ACETAMINOPHEN 325 MG TAB PO PRN (18:37)
[2017-03-24 20:00] VITALS: BP 122/45; PULSE 55; RESP 18; TEMP 97.2; O2SAT 98
[2017-03-24] MEDS: traZODone HCL 50 MG TAB PO SCH (20:13)
[2017-03-24] MEDS ORDERED: buPROPion HCL 100 MG SUSTAINED RELEASE TAB PO SCH (21:00)
[2017-03-25] VITALS: BP 125/47; PULSE 67; RESP 18; TEMP 96.9; O2SAT 95
[2017-03-25 04:00] VITALS: BP 154/56; PULSE 51; RESP 18; TEMP 97.1; O2SAT 96
[2017-03-25 08:00] VITALS: BP 122/60; PULSE 50; RESP 16; TEMP 95.6; O2SAT 91
[2017-03-25 08:40] VITALS: PULSE 56
[2017-03-25] MEDS: SERTRALINE HCL 100 MG TAB PO SCH (08:48)
[2017-03-25] MEDS: MESALAMINE HD 800 MG DELAYED RELEASE TAB PO SCH (08:48)
[2017-03-25] MEDS: TAMSULOSIN HCL 0.4 MG CAP PO SCH (08:48)
[2017-03-25] MEDS: FUROSEMIDE 40 MG TAB PO SCH (08:49)
[2017-03-25] MEDS: PANTOPRAZOLE SOD 40 MG DELAYED RELEASE TAB PO SCH (08:49)
[2017-03-25] MEDS: AMIODARONE 200 MG TAB PO SCH (08:49)
[2017-03-25] MEDS: SODIUM CHLORIDE 0.9% FLUSH 10 ML FLUSH IV FLUSH SCH (08:49)
[2017-03-25] MEDS: METOPROLOL TARTRATE 25 MG TAB PO SCH (08:49)
[2017-03-25] MEDS: POTASSIUM CHLORIDE 10 MEQ CONTROLLED RELEASE TAB PO SCH (08:49)
[2017-03-25] MEDS ORDERED: buPROPion HCL 100 MG SUSTAINED RELEASE TAB PO SCH (09:00)
[2017-03-25] MEDS: ACETAMINOPHEN/HYDROcodone 325 MG/5 MG TAB PO PRN ×2 (09:16→13:00)
--- NOTE | 2017-03-25 10:05 | HHI.GIFU ---
GI Follow-up Note Consult Follow-up Subjective: Patient laying in bed comfortably, no new complaints and wants to go home. Small BM this am per who is at bedside. No abd pain and eating OK. No H&H available for today. I discussed results of EGD and colonoscopy again. Bx from colon pending. Objective: PHYSICAL EXAMINATION: Vitals signs stable No fever HEENT: no jaundice. ABDOMEN: Soft, nondistended, nontender EXTREMITIES: No clubbing, cyanosis, or edema. SKIN: warm and dry MANAGER NEW PRODUCT: alert and oriented times three. Available Data (labs, X- Rays, Procedues) : ASSESSMENT/PLAN: 1. 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 Rec cont pantoprazole after d/c for at least 2 weeks. F/U with PCP to monitor anemia on oral iron. If signs of further bleeding can do a Pillcam study and possibly repeat colonoscopy. If H&H stable today, ok to discharge from GI standpoint. It was a pleasure seeing Dusty Smith. Thank you for this consult. Entered by: Payam Lenz MD March 25, 2017 10:05
[2017-03-25 11:14] LABS: HEMATOCRIT 28.7 % (39.0-51.0); REVIEW FLAG FINAL
[2017-03-25 12:00] VITALS: BP 90/43; PULSE 48; RESP 16; TEMP 96.4; O2SAT 91
--- NOTE | 2017-03-25 13:37 | HHI.PR ---
Subjective Remarks resting in bed, NPO, in No SOB, generalized pain malaise (Migdalia Wiggins) Objective Objective Results - Vital Signs Date Time Temp Pulse Resp B/P Pulse Ox O2 Delivery O2 Flow Rate FiO2 03/25/17 12:00 96.4 48 16 90/43 91 03/25/17 10:16 17 03/25/17 08:40 56 03/25/17 08:00 95.6 50 16 122/60 91 03/25/17 04:00 97.1 51 18 154/56 96 03/25/17 00:00 96.9 67 18 125/47 95 03/24/17 20:00 97.2 55 18 122/45 98 03/24/17 19:37 18 03/24/17 18:10 96.2 55 17 143/63 95 03/24/17 17:35 55 18 120/47 95 03/24/17 17:15 99.1 56 22 110/50 99 03/24/17 16:00 97.1 54 17 114/62 95 I/O 03/24/17 03/24/17 03/24/17 03/25/17 03/25/17 03/25/17 07:00 15:00 23:00 07:00 15:00 23:00 Intake Total 0 ml 0 ml 940 ml 0 ml Output Total 400 ml 300 ml 200 ml 550 ml Balance -400 ml -300 ml 740 ml -550 ml Intake Oral 0 ml 0 ml 240 ml 0 ml IV Total 700 ml Output Urine Total 400 ml 300 ml 200 ml 550 ml # Voids 1 # Bowel Movements 0 1 1 (Migdalia Wiggins) Result Diagram: 03/25/17 1054 03/24/17 0602 ROS General: Fatigue (improving), Weakness (improving), Other (10 point ROS done positives noted otherwise systems unremarkable) Cardiac: Other (bradycardia hold on beta blockers) Pulmonary: Cough (occasional) GI: Other (hemoglobin improving) (Migdalia Wiggins) Physical Exam Physical Exam PHYSICAL EXAMINATION GENERAL: This is an elderly well-developed, well-nourished male who appears to be in no acute distress. He is alert and awake, HEAD: Normocephalic without any lesion or mass noted. Facial features appear symmetric. OROPHARYNGEAL: Oropharynx without erythema or edema. NECK: Supple. No nuchal rigidity or lymphadenopathy. Trachea midline without deviation. CARDIAC: Regular rhythm, regular rate, S1 and S2 are heard. LUNGS: Clear to auscultation bilaterally. ABDOMEN: Soft, nontender, no organomegaly or masses. Bowel sounds are heard in all four quadrants. No rebound. No guarding. EXTREMITIES: No edema. Pulses equal bilateral. NEUROLOGICAL: Patient mood and affect appropriate. 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 Scope was done yesterday. 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 Patient is to continue Protonix for at least 2 weeks and continue oral iron supplements Patient can be discharged from GI standpoint and follow-up with PCP. Acute renal injury, stable and resolving, encourage by mouth intake History of falls, physical debility, patient with recent admissions has undergone rehabilitation C/O back pain, s/p fall Continue with physical therapy to increase mobility and strengthening, would benefit from physical therapy as an outpatient History of paroxysmal A. fib, heart rate has again to drop less than 60, low noted 48 this a.m. also has some hypotension along with BP at 90/43. DC'd beta macie for now History of nonsustained VT, has been evaluated by Dr. Álvarez and declined EP study. Recent diagnosis of follicular center lymphoma, stable, not on any treatment at this time. Currently been monitored by oncology. Parotid gland tumor SCDs for DVT prophylaxis, avoid anticoagulation at this time due to symptomatic anemia and heme-positive stools Protonix for GI prophylaxis Labs reviewed by heart rate 48, DC'd beta macie for now monitor heart rate. Hemoglobin stable at 9.5 Discharge planning in process , possible home today. is planning for home D/W RN D/W Dr. Busby, seen on her behalf D/W pt. Discussed With: Nurse, Family, Other (, seen on her behalf) (Migdalia Wiggins) Assessment and Plan patient seen and examined agree with above assessment and plan discusse dwith Dr Maria [address] to start low dose Eliquis d/c patient on protonix BID outpatient follow up with GI in 2 weeks plan of care discussed with patient, at bedside plan of care discussed with Migdalia street to d/c home (Twyla Busby MD) Migdalia Wiggins March 25, 2017 13:37 Twyla Busby MD March 25, 2017 16:59
[2017-03-25 15:50] VITALS: BP 100/46; PULSE 47; RESP 16; TEMP 97.6; O2SAT 90
[2017-03-25] MEDS ORDERED: FERR325T PO (16:10)
[2017-03-25] MEDS ORDERED: PANT40TA3 PO (16:56)
[2017-03-25] MEDS ORDERED: APIX2.5T PO (16:56)
--- NOTE | 2017-03-29 18:27 | HHI.DS ---
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 CBC/BMP: 03/25/17 1054 Imaging Last Impressions Pelvis CT 03/21/17 0000 Signed Impressions: Service Date/Time: Tuesday, March 21, 2017 13:43 - CONCLUSION: 1. Age-indeterminate coccyx fracture. 2. Mild osteoarthritic findings in the right hip. Kris Nevarez MD Lumbar Spine CT 03/21/17 0000 Signed Impressions: Service Date/Time: Tuesday, March 21, 2017 13:49 - CONCLUSION: No evidence of fracture. Degenerative findings. Central canal diameter within normal limits. Possible inflammatory findings in the region of the pancreatic head are slightly visualized. 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 Kris Nevarez MD Head CT 03/21/17 0000 Signed Impressions: Service Date/Time: Tuesday, March 21, 2017 13:39 - CONCLUSION: No significant interval change. Chronic ischemic findings. No acute intracranial findings. Kris Nevarez MD Hospital Course Pt is an 81-year-old male, with past medical history significant for hypertension, Crohn's disease, coronary artery disease, dyslipidemia and previous right carotid stenosis with carotid endarterectomy, prior ETOH and tobacco abuse, and obesity. Patient is known to the undersigned from frequent admissions to this facility. In October he had lengthy hospitalization after he developed acute pancreatitis went into respiratory failure and required intubation. He was readmitted November 30, 2016 with recurrent epigastric pain and CT findings of for acute pancreatitis. Patient underwent lap cholecystectomy. Post op he had complications and required transfer to ICU for nonsustained VT. He also underwent cardiac catheterization per Dr. Aceves on 12/15/2016 with findings of diffuse three-vessel disease treated medically. 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 He is currently following up with Dr. Deveras, he is being monitored and no treatment is indicated at this time. He was discharged from [facility] December 2016. Indicates he had been doing relatively well at home and gaining some strength. He has been getting home health care and physical therapy. Patient is not the best historian, his has just left. Indicates that approximately a week ago he had a fall. Denies any preceding symptoms, he lost his balance as he was trying to get back in his car using a walker. He presented to the emergency room today complaining of feeling more dizzy and weak and has now been using the walker more. He is complaining of lower back pain. He is spending more time sitting and has felt more unbalanced. He denies any chest pain, no shortness of breath. In the emergency room, patient was evaluated. Laboratory workup was completed, CBC remarkable for hemoglobin of 6.7, hematocrit of 20.3. Heme-positive stool. Patient is on Eliquis. BMP remarkable for creatinine 1.47. Patient indicates that his stools are usually black because he's on iron. Denies any blood in the stool. No hematemesis. Indicates that in the last 4 months he's lost approximately 20 pounds. Appetite is poor. Denies any heartburn, no epigastric discomfort. His sharepoint engineer is Dr. Nina. He's had previous EGD and colonoscopy. Has history of colon polyps and diverticulosis. Does not recall when the last time he saw gastroenterology. Pelvis CT was done showing age-indeterminate caustics fracture. Lumbar spine CT did not reveal any acute findings. CT of the head was negative. Last Impressions Pelvis CT 03/21/17 Signed Impressions: Service Date/Time: Tuesday, March 21, 2017 13:43 - CONCLUSION: 1. Age-indeterminate coccyx fracture. 2. Mild osteoarthritic findings in the right hip. Kris Nevarez MD Lumbar Spine CT 03/21/17 Signed Impressions: Service Date/Time: Tuesday, March 21, 2017 13:49 - CONCLUSION: No evidence of fracture. Degenerative findings. Central canal diameter within normal limits. Possible inflammatory findings in the region of the pancreatic head are slightly visualized. 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 Kris Nevarez MD Head CT 03/21/17 Signed Impressions: Service Date/Time: Tuesday, March 21, 2017 13:39 - CONCLUSION: No significant interval change. Chronic ischemic findings. No acute intracranial findings. Kris Nevarez MD Blood transfusion has been ordered and is pending. Patient is notably pale, does not appear in any distress. Patient is admitted for further evaluation and treatment. 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 Presented to the emergency room with complaint of dizziness feeling of imbalance. Had a fall approximately a week ago. Found anemic in the emergency room, hemoglobin 6.7, hematocrit 20.3. Heme-positive stools. Patient has past history of colon polyps and diverticulosis. Symptomatic anemia, heme-positive stools. Patient on Eliquis. Past history of diverticulosis, Crohn's disease. Endorses poor appetite and weight loss. Clear liquid diet 2 units PRBC 03/21, HH stable post transfuion -Held Eliquis -monitored CBC and active bleeding. -appreciate GI input, requested card input for clearance. Pt at high risk -pt. cleared by cardiology for GI procedure -panendoscopy was planned, needed to be off Eliquis for at least 2-3 days -medically cleared to proceed with panendoscopy, he's at Moderate risk. Pt. and verbalized understanding of risk and agree to proceed. -pt. had EGD and colonoscopy on 03/24. 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 Rec cont pantoprazole after d/c for at least 2 weeks. F/U with PCP to monitor anemia on oral iron. If signs of further bleeding can do a Pillcam study and possibly repeat colonoscopy. If H&H stable today, ok to discharge from GI standpoint. Acute renal injury improved after IVF -BM was followed, enc. PO intake. History of falls, physical debility, patient with recent admissions has undergone rehabilitation C/O back pain, s/p fall continue with PT, OOB with assist. Fall precautions bed alarm -[place] PRN -Imaging studies done, no fractures. History of paroxysmal A. fib, currently sinus rhythm. History of nonsustained VT, has been evaluated by Dr. Álvarez and declined EP study. Coronary artery disease, recent cardiac catheter with diffuse three-vessel disease. -Continuous cardiac telemetry Continued amiodarone and Lopressor -Cardiology input appreciated, pt. cleared to proceed with panendoscopy. Recent diagnosis of follicular center lymphoma, stable, not on any treatment at this time. Currently been monitored by oncology. Parotid gland tumor -continued to monitor SCDs for DVT prophylaxis, avoided anticoagulation due to symptomatic anemia and heme-positive stools Protonix for GI prophylaxis Pt.'s condition improved, stable HH had procedure and tolerated well GI ok to restart Eliquis at low dose and continue PPI f/u GI as OP Discharged home in stable condition. Pt Condition on Discharge: Stable Discharge Disposition: Discharge Home Discharge Instructions DIET: Follow Instructions for: Heart Healthy Diet Activities you can perform: Regular-No Restrictions Follow up Referrals: Gastroenterology - 2 Weeks with Gustavo Nickerson MD New Medications: Apixaban (Eliquis) 2.5 Mg Tab 2.5 MG PO BID Blood Clot Prevention Days 30 Ref 0 TAB Ferrous Sulfate (Ferrous Sulfate) 325 Mg Tab 325 MG PO BID Nutritional Supplement #30 Ref 0 TAB Pantoprazole (Pantoprazole) 40 Mg Tab 40 MG PO BID bleeding Days 14 TAB Continued Medications: Amiodarone (Amiodarone) 200 Mg Tab 200 MG PO Q12HR AFIB #60 Ref 1 TAB Bupropion HCl ER 12 HR (Wellbutrin SR 12 HR) 100 Mg Tab 50 MG PO Q12HR Control Depression Ref 0 TAB Furosemide (Lasix) 40 Mg Tab 40 MG PO DAILY FLUID OVERLOAD #30 Ref 1 TAB Loratadine (Claritin) 10 Mg Tab 10 MG PO DAILY #30 Ref 1 TAB Lorazepam (Ativan) 0.5 Mg Tab 0.5 MG PO Q8H PRN ANXIETY AND/OR AGITATION Ref [address] (Asacol HD) 800 Mg Tab 800 MG PO BID Swallow whole. Take on an empty stomach. Ulcerative colitis Ref 0 TAB Metoprolol Tartrate (Metoprolol Tartrate) 25 Mg Tab 25 MG PO Q12HR #60 Ref 1 TAB Potassium Chloride ER (Potassium Chloride ER) 10 Meq Tab 10 MEQ PO DAILY Electrolyte Replacement #30 Ref 1 TAB Sennosides-Docusate Sodium (Senna Plus 8.6-50 mg) 1 Tab Tab 1 TAB PO BID #60 Ref 1 TAB Sertraline (Zoloft) 100 Mg Tab 100 MG PO DAILY #30 Ref 1 TAB Tamsulosin (Flomax) 0.4 Mg Cap 0.4 MG PO DAILY Manage Prostate Problems #30 Ref 1 CAP Trazodone (Trazodone) 50 Mg Tab 25 MG PO HS #30 Ref 1 TAB Discontinued Medications: Apixaban (Eliquis) 5 Mg Tab 5 MG PO BID #60 Ref 1 TAB Bupropion HCl ER 12 HR (Wellbutrin SR 12 HR) 100 Mg Tab 50 MG PO Q12HR Control Depression Ref 0 TAB Nida Lopez YEAST CULTURE OPERATOR March 29, 2017 18:27
--- NOTE | 2017-04-16 12:49 | MR ---
cc: PREETHI OLIIVER DATE OF : 1935 PROCEDURE DATE: 03/25/2017 INDICATION FOR PROCEDURE: This is an 81-year-old male with symptomatic anemia, heme-positive stools of a complex medical history. Endoscopic workup is being performed to evaluate for GI bleeding source. PHOTOGRAPHS AND BIOPSIES: Photographs were taken. Biopsies were taken on colonoscopy. MONITORING: Monitoring was accomplished with pulse oximeter, EKG and blood pressure monitor. PROCEDURE NOTE: After informed consent was obtained and the procedure, risks and benefits were explained, including the risks of bleeding, sepsis, perforation, and risks of anesthesia, the patient was placed in the left lateral position. The video endoscope was inserted per the oral route into the esophagus. The esophagus appeared to be unremarkable throughout. The stomach was entered. Gastric mucosa was carefully visualized. In the proximal stomach towards the lesser curvature side, a gastric AVM was noted. This was successfully injected with epinephrine and then cauterized with the gold probe. Hemostasis was maintained. The rest of the stomach was unremarkable. The pylorus was patent. The first, second and third portions of the duodenum were unremarkable. In the retroflex view the cardia and fundus were otherwise unremarkable. The scope gradually withdrawn. The patient was repositioned and colonoscopy was performed. The video colonoscope was inserted in the rectum and passed along the descending colon. There was residual stool throughout the colon making the evaluation extremely difficult to rule out smaller or vascular lesions. The cecum was entered. No obvious bleeding source was seen. Once again the stool was seen diffusely throughout the colon of a liquid consistency. Complete lavage was not totally successful. I could not appreciate any large mass lesions. No active bleeding was seen. No fresh blood was noted. Diverticulosis was noted in the descending and sigmoid colon. In the rectosigmoid a 5-mm polyp was found which was successfully biopsied off and removed with the biopsy forceps. The scope was removed. The patient tolerated the procedure well. He was sent to the recovery room in stable condition. IMPRESSION: 1. 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 2. Otherwise unremarkable upper endoscopy. 3. Colonoscopy revealed a poor prep as outlined above. Smaller lesions could be missed. 4. Diverticular disease left colon. 5. Small polyp rectosigmoid removed by biopsy polypectomy. PLAN: 1. Would continue to monitor the H&H and continue aggressive medical therapy, continue PPI. 2. The patient will require repeat colonoscopy at some point due to the poor prep. 3. Further recommendations are pending. MD LILIAN Brito/ERAN /11:12 AM /12:40 PM
== END 2017-03-25 17:28 | disposition home or self-care (01) | DRG 300 ==
LOC: NEPD 12:25 → NEDA 15:28 → N07B 16:53 → N07A 19:44
PROVIDERS: ADMIT Specialist; ATTEND Specialist
PROC: 30233N1 Transfusion of Nonautologous Red Blood Cells into Peripheral Vein, Percutaneous Approach (ICD-10-PCS; principal; 2017-03-21)
PROC: 0DBN8ZX Excision of Sigmoid Colon, Via Natural or Artificial Opening Endoscopic, Diagnostic (ICD-10-PCS; 2017-03-24)
PROC: 0D568ZZ Destruction of Stomach, Via Natural or Artificial Opening Endoscopic (ICD-10-PCS; 2017-03-24 16:10)
DX: Q27.33 Arteriovenous malformation of digestive system vessel (principal); N17.9 Acute kidney failure, unspecified; I95.9 Hypotension, unspecified; C85.90 Non-Hodgkin lymphoma, unspecified, unspecified site; K50.911 Crohn's disease, unspecified, with rectal bleeding; I25.82 Chronic total occlusion of coronary artery; I48.0 Paroxysmal atrial fibrillation; D64.9 Anemia, unspecified; I25.10 Atherosclerotic heart disease of native coronary artery without angina pectoris; E78.5 Hyperlipidemia, unspecified; G47.30 Sleep apnea, unspecified; I10 Essential (primary) hypertension; K21.0 Gastro-esophageal reflux disease with esophagitis; Z86.010 Personal history of colon polyps; K57.90 Diverticulosis of intestine, part unspecified, without perforation or abscess without bleeding; D12.7 Benign neoplasm of rectosigmoid junction; Z85.818 Personal history of malignant neoplasm of other sites of lip, oral cavity, and pharynx
CPT/HCPCS: 36430; 70450; 72131; 72192; 80048; 80053; 81001; 85014; 85018; 85025; 85027; 85610; 85730; 86850; 86900; 86901; 86920; 88305; 93005; J0171; J1885; J7030; P9016

== ENCOUNTER → 2017-06-01 | Outpatient (CLI) | payer MEDICARE, BC ==
[~2017-06-01] MED LIST changes: +APIX2.5T PO; -APIX5TAB PO; +ASAC800T PO; +BUPR100CR PO; -COMMODE 3-IN-11 MIS; -FAMO20TA2 NG; +FERR325T PO; -GETGO ROLLING W1 MI1; -HOSP BED1; -LACT PO; +LORA-392 PO; -NYST15T TOPICAL; +PANT40TA3 PO; -ULTR50TA5 PO; -VANC125C3 PO; -VITA100T2 PO; -WHEEMIS3
== END ==
LOC: HRSP 13:07
DX: I50.9 Heart failure, unspecified (principal); R06.00 Dyspnea, unspecified; R05 Cough
CPT/HCPCS: 94060; 94726; 94729